=== PATIENT | female | born 1935 | race Caucasian/White ===

== ENCOUNTER 2019-04-09 09:33 | Day surgery (SDC) | payer OTHER ==
--- NOTE | 2019-04-08 13:00 | EKG ---
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
[2019-04-09] MEDS ORDERED: Ringers Lactate 1,000 ML IV ONE (09:39)
--- OUTSIDE RECORDS SUMMARY | 2019-04-09 09:45 | XMS REPORT ---
:1935 Author Organization eClinicalWorks Care Team Providers Name Role Phone Hilaria Ramirez Provider Role Unavailable Allergies, Adverse Reactions, Alerts Substance Reaction Event Type Sulfa Info Not Available Drug Allergy PCN Info Not Available Drug Allergy Zithromax Info Not Available Drug Allergy Biaxin Info Not Available Drug Allergy Problems Problem Type Condition Code Onset Dates Condition Status Problem Chronic back pain M54.9 Active Assessment Seasonal allergies J30.2 Active Problem Irritable bowel K58.9 Active Problem Pain in right knee M25.561 Active Problem Constipation K59.00 Active Problem Osteoporosis M81.0 Active Problem Insomnia G47.00 Active Problem Fibromyalgia M79.7 Active Problem Glaucoma H40.9 Active Problem Scoliosis, unspecified scoliosis M41.9 Active type, unspecified spinal region Problem Chronic constipation K59.09 Active Problem Seasonal allergies J30.2 Active Problem Low back pain M54.5 Active Problem Knee pain M25.569 Active Problem GERD (gastroesophageal reflux K21.9 Active disease) Problem 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 Problem Allergic rhinitis J30.9 Active Problem Chronic obstructive pulmonary J44.9 Active disease, unspecified COPD type Problem Pain in left knee M25.562 Active Problem Hypothyroidism, unspecified type E03.9 Active Problem Pulmonary nodules R91.8 Active Problem Abnormal heart rhythm I49.9 Active Problem Migraines G43.909 Active Problem Other chronic pain G89.29 Active Problem Spinal stenosis of lumbar region, M48.061 Active unspecified whether neurogenic claudication present Medications Medication Code Code Instructions Start End Status Dosage System Date Date Amitiza [facility] 04144690711 24 MCG Orally December Active 1 capsule Twice a day , with food 2017 2017 Fluconazole [facility] 75433358976 150 MG Orally Active 1 tablet Align [facility] 19447049810 - Orally Active not defined Pepcid AC [facility] 77149192357 10 MG Orally Active 1 tablet as Twice a day needed Vitamin D3 [facility] 06383395425 5000 UNIT/ML Active 0.1 ml Orally Once a day Restasis ND 80827205781 0.05 % Active 1 drop into Ophthalmic affected eye Twice a day Ultram [facility] 23777340191 50 MG Orally Active 1 tablet as every 6 hrs needed Linzess ND 82791121973 290 mcg orally Active 1 cap QD Saline Nasal ND 77629591159 0.65 % Nasally Active 2 sprays in Christmas every 2 hrs each nostril as needed Sravanthi-[place] ND 0 Active not defined Antacid Mometasone ND 55102887166 0.1 % Active 1 application Furoate Externally to affected Once a day area Betamethasone ND 49098291473 0.1 % Active 1 application Valerate Externally to affected Once a day area Clonazepam ND 15275527314 0.5 MG Orally Active 1 tablet at Once a day bedtime [place] [facility] 66853881757 5-325 MG Active 1 tablet as Orally every 6 needed hrs Magnesium [facility] [address]-40 400 MG Orally Active not defined Bactroban [facility] 59097348477 2 % Externally Active 1 application Three times a to affected day area Levothyroxine ND 91927730908 25 MCG Orally December Active 1/2 tablet on Sodium Once a day , an empty 2017 stomach in the morning Vitamin A [facility] 85604962950 71837 UNIT Active 1 capsule Orally Once a day Lutein ND 86506763728 20 MG Orally Active 1 capsule Once a day with a meal Lyrica ND 64614712816 50 MG Orally Active 1 capsule Twice a day B50 Complex TR [facility] 24814815673 - Orally Active not defined Zioptan [facility] 26695505992 0.0015 % Active 1 drop into Ophthalmic affected eye Once a day ProAir HFA [facility] 00123804813 108 (90 Base) Active 2 puffs as MCG/ACT needed Inhalation every 6 hrs Aloe Vera ND 09065878494 25 MG Orally Active not defined Movantik ND 07408846090 25 mg Orally December Active 1 tablet in Once a day 19, 18, the morning 2017 2018 Flonase ND 90177923042 50 MCG/ACT Active 1 spray in Nasally Once a each nostril day Flax Seed Oil ND 80240077068 1000 MG Orally Active not defined Sennosides-Docus [facility] 41314184556 8.6-50 MG Active 1 tablet in ate Sodium Orally Once a the evening day as needed Maxalt-DROP FORGE HAND [facility] 81372821325 10 MG Orally Active 1 tablet on Once a day the tongue and allow to dissolve as needed one time Refresh [facility] 61907247043 1.4-0.6 % Active 1 drop into Ophthalmic 24 affected eye time(s) a day as needed atarax NDC 0 25mg Po QID Active 1 prn Levothyroxine [facility] 15812891904 25 MCG Orally Active 1 tablet on Sodium Once a day an empty stomach in the morning FreshKote [facility] 91391617289 2.7-2 % Active 1 drop into Ophthalmic 24 affected eye time(s) a day as needed Lastacaft [facility] 09603597540 0.25 % Active 1 drop into Ophthalmic affected eye Once a day Results No Known Results Summary Purpose eClinicalWorks Submission
--- OUTSIDE RECORDS SUMMARY | 2019-04-09 09:45 | XMS REPORT ---
:1935 Author Organization eClinicalWorks Care Team Providers Name Role Phone Remedios Ng Provider Role Unavailable Allergies No Known Allergies Problems Problem Type Condition Code Onset Dates Condition Status Problem Abnormal CT of the chest R93.89 Active Problem Low back pain M54.5 Active Problem Pain in right knee M25.561 Active Problem Constipation K59.00 Active Problem Insomnia G47.00 Active Problem Other chronic pain G89.29 Active Problem Osteoporosis M81.0 Active Problem Knee pain M25.569 Active Problem GERD (gastroesophageal reflux K21.9 Active disease) Problem Seasonal allergies J30.2 Active Problem Chronic pain syndrome G89.4 Active Problem Hypothyroidism, unspecified type E03.9 Active Problem Scoliosis, unspecified scoliosis M41.9 Active type, unspecified spinal region Problem Blackout spell R55 Active Problem Chronic constipation K59.09 Active Problem Glaucoma H40.9 Active Problem Allergic rhinitis J30.9 Active Problem 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 Problem Fibromyalgia M79.7 Active Problem Pain in left knee M25.562 Active Problem Spinal stenosis of lumbar region, M48.061 Active unspecified whether neurogenic claudication present Problem Pulmonary nodules R91.8 Active Problem Chronic obstructive pulmonary J44.9 Active disease, unspecified COPD type Problem Migraines G43.909 Active Problem Chronic back pain M54.9 Active Problem Abnormal heart rhythm I49.9 Active Problem Irritable bowel K58.9 Active Medications No Known Medications Results No Known Results Summary Purpose eClinicalWorks Submission
--- OUTSIDE RECORDS SUMMARY | 2019-04-09 09:45 | XMS REPORT ---
:1935 Author Organization eClinicalWorks Care Team Providers Name Role Phone Berenice Remedios Provider Role Unavailable Allergies, Adverse Reactions, Alerts Substance Reaction Event Type PCN Info Not Available Drug Allergy Zithromax Info Not Available Drug Allergy Biaxin Info Not Available Drug Allergy Problems Problem Type Condition Code Onset Dates Condition Status Assessment Scoliosis, unspecified scoliosis M41.9 Active type, unspecified spinal region Assessment Spinal stenosis of lumbar region, M48.061 Active unspecified whether neurogenic claudication present Assessment Pain in right knee M25.561 Active Assessment Low back pain M54.5 Active Assessment Pain in left knee M25.562 Active Assessment Chronic obstructive pulmonary J44.9 Active disease, unspecified COPD type Assessment Chronic constipation K59.09 Active Assessment Hypothyroidism, unspecified type E03.9 Active Problem Chronic back pain M54.9 Active Problem Low back pain M54.5 Active Problem Constipation K59.00 Active Problem Pain in right knee M25.561 Active Problem Insomnia G47.00 Active Problem GERD (gastroesophageal reflux K21.9 Active disease) Problem Osteoporosis M81.0 Active Problem Chronic pain syndrome G89.4 Active Problem 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 Problem Scoliosis, unspecified scoliosis M41.9 Active type, unspecified spinal region Problem Chronic constipation K59.09 Active Problem Seasonal allergies J30.2 Active Problem Other chronic pain G89.29 Active Problem Allergic rhinitis J30.9 Active Problem Knee pain M25.569 Active Problem Fibromyalgia M79.7 Active Problem Glaucoma H40.9 Active Problem Chronic obstructive pulmonary J44.9 Active disease, unspecified COPD type Assessment Chronic pain syndrome G89.4 Active Problem Pain in left knee M25.562 Active Problem Hypothyroidism, unspecified type E03.9 Active Problem Pulmonary nodules R91.8 Active Problem Irritable bowel K58.9 Active Problem Migraines G43.909 Active Problem Spinal stenosis of lumbar region, M48.061 Active unspecified whether neurogenic claudication present Problem Abnormal heart rhythm I49.9 Active Medications Medication Code Code Instructions Start End Status Dosage System Date Date Sravanthi-[place] [facility] 0 Active not defined Antacid Levothyroxine [facility] 19865725732 25 MCG Orally Active 1 tablet on Sodium Once a day an empty stomach in the morning ProAir HFA [facility] 77228523792 108 (90 Base) Active 2 puffs as MCG/ACT needed Inhalation every 6 hrs Fluconazole [facility] 12028981720 150 MG Orally Active 1 tablet Flonase ND 46548772090 50 MCG/ACT Active 1 spray in Nasally Once a each nostril day Vitamin A [facility] 23727877871 58152 UNIT Active 1 capsule Orally Once a day Aloe Vera [facility] 94948994103 25 MG Orally Active not defined Mometasone [facility] 55368874525 0.1 % Active 1 application Furoate Externally to affected Once a day area Rizatriptan [facility] 74837919511 10 MG Active TAKE ONE Benzoate TABLET BY MOUTH AT ONSET OF HEADACHE; MAY REPEAT IN 2 HOURS NEEDED MAX OF THREE TABLETS IN 24 HOURS atarax ND 0 25mg Po QID Active 1 prn Ultram [facility] 68438551655 50 MG Orally Active 1 tablet as every 6 hrs needed Restasis [facility] 68955596895 0.05 % Active 1 drop into Ophthalmic affected eye Twice a day Refresh [facility] 33175564473 1.4-0.6 % Active 1 drop into Ophthalmic 24 affected eye time(s) a day as needed Lutein [facility] 59849187218 20 MG Orally Active 1 capsule Once a day with a meal Levothyroxine [facility] 34694950259 25 MCG Orally Diana Active 1/2 tablet on Sodium Once a day 23, an empty 2018 stomach in the morning FreshKote [facility] 17583456343 2.7-2 % Active 1 drop into Ophthalmic 24 affected eye time(s) a day as needed Sennosides-Docus [facility] 93731440112 8.6-50 MG Active 1 tablet in ate Sodium Orally Once a the evening day as needed Pepcid AC [facility] 96794514385 10 MG Orally Active 1 tablet as Twice a day needed B50 Complex TR [facility] 44588829583 - Orally Active not defined Maxalt-REPAIR SERVICE DISPATCHER [facility] 98287370906 10 MG Orally Active 1 tablet on Once a day the tongue and allow to dissolve as needed one time Bactroban [facility] 81718777453 2 % Externally Active 1 application Three times a to affected day area Linzess [facility] 01917189504 290 mcg orally Active 1 cap QD Magnesium [facility] [address]-73 400 MG Orally Active not defined Saline Nasal [facility] 33387459355 0.65 % Nasally Active 2 sprays in [place] every 2 hrs each nostril as needed Lyrica [facility] 32554484492 50 MG Orally Active 1 capsule Twice a day Align [facility] 83382453817 - Orally Active not defined Vitamin D3 [facility] 82545543170 5000 UNIT/ML Active 0.1 ml Orally Once a day Flax Seed Oil [facility] 31730438353 1000 MG Orally Active not defined Zioptan [facility] 34340190197 0.0015 % Active 1 drop into Ophthalmic affected eye Once a day Clonazepam [facility] 20249238651 0.5 MG Orally Active 1 tablet at Once a day bedtime Betamethasone [facility] 92633575820 0.1 % Active 1 application Valerate Externally to affected Once a day area Lastacaft [facility] 00404385463 0.25 % Active 1 drop into Ophthalmic affected eye Once a day [place] [facility] 42923881242 5-325 MG Active 1 tablet as Orally every 6 needed hrs Results No Known Results Summary Purpose eClinicalWorks Submission
--- OUTSIDE RECORDS SUMMARY | 2019-04-09 09:45 | XMS REPORT ---
:1935 Author Organization [employer] Care Team Providers Name Role Phone Remedios Ng Provider Role Unavailable Allergies No Known Allergies Problems Problem Type Condition Code Onset Dates Condition Status Problem Irritable bowel K58.9 Active Problem Glaucoma H40.9 Active Problem 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 Problem Knee pain M25.569 Active Problem Chronic constipation K59.09 Active Problem GERD (gastroesophageal reflux K21.9 Active disease) Problem Pain in right knee M25.561 Active Problem Low back pain M54.5 Active Problem Allergic rhinitis J30.9 Active Problem Constipation K59.00 Active Problem Fibromyalgia M79.7 Active Problem Osteoporosis M81.0 Active Problem Insomnia G47.00 Active Problem Pulmonary nodules R91.8 Active Problem Chronic obstructive pulmonary J44.9 Active disease, unspecified COPD type Problem Scoliosis, unspecified scoliosis M41.9 Active type, unspecified spinal region Problem Hypothyroidism, unspecified type E03.9 Active Problem Spinal stenosis of lumbar region, M48.061 Active unspecified whether neurogenic claudication present Problem Abnormal heart rhythm I49.9 Active Problem Pain in left knee M25.562 Active Problem Migraines G43.909 Active Problem Other chronic pain G89.29 Active Problem Chronic back pain M54.9 Active Medications Medication Code Code Instructions Start End Status Dosage System Date Date Levothyroxine [facility] 45912374901 25 MCG Orally December Active 1/2 tablet Sodium Once a day 2017 on an empty stomach in the morning Results No Known Results Summary Purpose [employer] Submission
--- OUTSIDE RECORDS SUMMARY | 2019-04-09 09:45 | XMS REPORT ---
[...] back pain M54.9 Active Medications Medication Code System Code Instructions Start End Date Status Dosage Date Amitiza [facility] 59661141473 24 MCG Orally January 02, April 02, Active 1 capsule Twice a day 2017 2017 with food Results No Known Results Summary Purpose eClinicalWorks Submission
--- OUTSIDE RECORDS SUMMARY | 2019-04-09 09:45 | XMS REPORT ---
:1935 [facility] Address [address] [place] [address] Care Team Providers Name Role Phone Unavailable Unavailable Unavailable Payers Payer Name Policy Type Policy Number Effective Date Expiration Date Problems This patient has no known problems. Allergies, Adverse Reactions, Alerts Allergy Name Allergy Status Severity Reaction(s) Onset Inactive Treating Comments Type Date Date Clinician Penicillins DA Active SV 2017-09 2-05 00:00: 00 sulfamethoxazol DA Active SV 2017-09 e 2- 00:00: 00 trimethoprim DA Active SV 2017-09 2-05 00:00: 00 clarithromycin DA Active SV 2017-09 2-05 00:00: 00 azithromycin DA Active SV 2017-09 2- 00:00: 00 levofloxacin DA Active SV 2017-09 2-05 00:00: 00 Penicillins DA Active SV 2017-09 2- 00:00: 00 sulfamethoxazol DA Active SV 2017-09 e 2- 00:00: 00 trimethoprim DA Active SV 2017-09 2- 00:00: 00 clarithromycin DA Active SV 2017-09 2- 00:00: 00 azithromycin DA Active SV 2017-09 2- 00:00: 00 levofloxacin DA Active SV 2017-09 2- 00:00: 00 Penicillins DA Active SV 8- 00:00: 00 sulfamethoxazol DA Active SV e 8- 00:00: 00 trimethoprim DA Active SV 8- 00:00: 00 clarithromycin DA Active SV 04-16 00:00: 00 azithromycin DA Active SV 2017-0 04-16 00:00: 00 levofloxacin DA Active SV 2017-04-16 00:00: 00 Medications This patient has no known medications.
--- OUTSIDE RECORDS SUMMARY | 2019-04-09 09:46 | XMS REPORT ---
:1935 Author Organization eClinicalWorks Care Team Providers Name Role Phone Berenice Remedios Provider Role Unavailable Allergies, Adverse Reactions, Alerts Substance Reaction Event Type PCN Info Not Available Drug Allergy Zithromax Info Not Available Drug Allergy Biaxin Info Not Available Drug Allergy Problems Problem Type Condition Code Onset Dates Condition Status Assessment Pulmonary nodules R91.8 Active Assessment Chronic constipation K59.09 Active Assessment Hypothyroidism, unspecified type E03.[address] of the chest R93.89 Active Assessment Acute conjunctivitis of right eye, H10.31 Active unspecified acute conjunctivitis type Problem Abnormal CT of the chest R93.89 Active Problem Low back pain M54.5 Active Problem Pain in right knee M25.561 Active Problem Other chronic pain G89.29 Active Problem Constipation K59.00 Active Problem Insomnia G47.00 Active Problem Chronic constipation K59.09 Active Problem Osteoporosis M81.0 Active Problem Knee pain M25.569 Active Problem GERD (gastroesophageal reflux K21.9 Active disease) Problem Polyarthralgia M25.50 Active Problem Seasonal allergies J30.2 Active Problem Pulmonary nodules R91.8 Active Problem Hypothyroidism, unspecified type E03.9 Active Problem Blackout spell R55 Active Problem Scoliosis, unspecified scoliosis M41.9 Active type, unspecified spinal region Problem Glaucoma H40.9 Active Problem Allergic rhinitis J30.9 Active Problem Chronic pain syndrome G89.4 Active Problem 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 Assessment Chronic pain syndrome G89.4 Active Problem Spinal stenosis of lumbar region, M48.061 Active unspecified whether neurogenic claudication present Assessment Polyarthralgia M25.50 Active Problem Fibromyalgia M79.7 Active Problem Chronic obstructive pulmonary J44.9 Active disease, unspecified COPD type Problem Pain in left knee M25.562 Active Problem Migraines G43.909 Active Problem Chronic back pain M54.9 Active Problem Abnormal heart rhythm I49.9 Active Problem Irritable bowel K58.9 Active Medications Medication Code Code Instructions Start End Status Dosage System Date Date Zioptan NDC 46683996538 0.0015 % Active 1 drop into Ophthalmic affected eye Once a day Align [facility] 38011046156 - Orally Active not defined Aloe Vera [facility] 04177497027 25 MG Orally Active not defined Refresh [facility] 57744471837 1.4-0.6 % Active 1 drop into Ophthalmic 24 affected eye time(s) a day as needed Lastacaft [facility] 11080031816 0.25 % Active 1 drop into Ophthalmic affected eye Once a day Ciprofloxacin [facility] 05074941246 0.3 % December Active 2 drops into HCl Ophthalmic 18, 25, affected eye Three times 2018 2018 daily x 7 days Fluconazole [facility] 64836001088 150 MG Orally Active 1 tablet Pepcid AC [facility] 64590779378 10 MG Orally Active 1 tablet as Twice a day needed Flax Seed Oil [facility] 32569013311 1000 MG Orally Active not defined Rizatriptan [facility] 99416476047 10 MG Active TAKE ONE Benzoate TABLET BY MOUTH AT ONSET OF HEADACHE; MAY REPEAT IN 2 HOURS NEEDED MAX OF THREE TABLETS IN 24 HOURS atarax ND 0 25mg Po QID Active 1 prn Betamethasone [facility] 10688026570 0.1 % Active 1 application Valerate Externally to affected Once a day area Bactroban [facility] 59705486246 2 % Externally Active 1 application Three times a to affected day area Linzess [facility] 15353780648 290 mcg orally Active 1 cap QD Maxalt-CLINICAL HAEMATOLOGIST [facility] 61086447802 10 MG Orally Active 1 tablet on Once a day the tongue and allow to dissolve as needed one time B50 Complex TR [facility] 67328530787 - Orally Active not defined Magnesium [facility] [address]-66 400 MG Orally Active not defined Flonase [facility] 13621255730 50 MCG/ACT Active 1 spray in Nasally Once a each nostril day Vitamin D3 [facility] 76703446688 5000 UNIT/ML Active 0.1 ml Orally Once a day Levothyroxine [facility] 54955600524 25 MCG Orally Active 1 tablet on Sodium Once a day an empty stomach in the morning Lutein [facility] 93949410266 20 MG Orally Active 1 capsule Once a day with a meal Vitamin A [facility] 51394232158 50502 UNIT Active 1 capsule Orally Once a day Sennosides-Docus [facility] 50695046163 8.6-50 MG Active 1 tablet in ate Sodium Orally Once a the evening day as needed Restasis ND 64513997482 0.05 % Active 1 drop into Ophthalmic affected eye Twice a day FreshKote [facility] 40691508868 2.7-2 % Active 1 drop into Ophthalmic 24 affected eye time(s) a day as needed Sravanthi-[place] [facility] 0 Active not defined Antacid [place] [facility] 26494852257 5-325 MG Active 1 tablet as Orally every 6 needed hrs Saline Nasal [facility] 29925878501 0.65 % Nasally Active 2 sprays in Cammal every 2 hrs each nostril as needed Mometasone [facility] 81780324053 0.1 % Active 1 application Furoate Externally to affected Once a day area Lyrica [facility] 86565929704 50 MG Orally Active 1 capsule Twice a day Ultram [facility] 07362275405 50 MG Orally Active 1 tablet as every 6 hrs needed ProAir HFA [facility] 87019307001 108 (90 Base) Active 2 puffs as MCG/ACT needed Inhalation every 6 hrs Levothyroxine [facility] 91394819586 25 MCG Orally Diana Active 1/2 tablet on Sodium Once a day 23, an empty 2018 stomach in the morning Clonazepam [facility] 76026999355 0.5 MG Orally Active 1 tablet at Once a day bedtime Results No Known Results Summary Purpose [employer]ClinicalWorks Submission
[2019-04-09] MEDS: OXYMETAZOLINE HCL 0.05% 15ML NAS ONE ×3 (09:55→10:05)
[2019-04-09] MEDS ORDERED: FENTANYL CITR 100 MCG/2 ML ONE (11:17)
[2019-04-09] MEDS ORDERED: PROPOFOL 200 MG/20 ML VIAL IV ONE (11:17)
[2019-04-09] MEDS ORDERED: LIDOCAINE 2% MPF 5 ML VIAL ONE (11:17)
[2019-04-09] MEDS ORDERED: ROCURONIUM 50 MG/5 ML VIAL IV ONE (11:18)
[2019-04-09] MEDS ORDERED: NA CHLORIDE 0.9% 500 ML ONE (11:29)
[2019-04-09] MEDS ORDERED: OXYMETAZOLINE HCL 0.05% 15ML NAS ONE (11:29)
[2019-04-09] MEDS ORDERED: LIDOCAINE 1% W/EPI 1:100,000 MDV 20 ML VIAL ONE (11:29)
[2019-04-09] MEDS ORDERED: ONDANSETRON 4 MG/2 ML VIAL ONE (13:08)
[2019-04-09] MEDS ORDERED: dexAMETHasone 4 MG/ML VIAL ONE ×2 (13:08→13:09)
--- NOTE | 2019-04-10 18:04 | OP ---
Date of Procedure: 04/09/2019 Surgeon: Christianne Zhao MD Preoperative Diagnoses: Chronic maxillary sinusitis and chronic conjunctivitis. Indication For Procedure: Ms. Lopez presented to the [facility] with a history of multiple prior sin us surgeries and complaints of chronic and recurrent pinkeye, postnasal drainage, and maxillary facia l pressure with prior sinus surgery in 2000 and 2010 by unknown surgeons. She was noted to have a th ick yellow mucus and crusting in the right maxillary sinus with a small amount of yellow mucus in the left maxillary sinus. The patient has multiple medication allergies including allergies to azithrom ycin, sulfa drugs, penicillin, fluoroquinolones, and Biaxin. A culture was collected at the time of the visit, demonstrating polymicrobial disease including prevotella, Staphylococcus aureus, parvimona s, streptococcus, and other streptococcus and staphylococcus species. She was treated with clindamyc in and underwent postoperative CT demonstrating significant opacification of the maxillary sinus with concern radiographically for fungal ball. Due to patient's advanced age, I discussed her case with her primary care physician who felt she was an acceptable risk for operative intervention. Description Of Procedure: The patient was brought to the operating room. She was placed under gener al anesthesia via oral endotracheal tube. The head of bed was turned 90 degrees. The nasal hairs we re trimmed and the bilateral nasal cavity was packed with Afrin-soaked pledgets. The 0-degree endosc ope was used to perform a nasal endoscopy on the left side. There were surgical changes including a large maxillary antrostomy and prior ethmoidectomy with minimal edema of the mucosa. On the right si de, there was severe crusting within the nasal cavity blocking the middle meatus with significant inf lammatory changes of the adjacent mucosa of the middle turbinates. A 70 degree endoscope was used fo r better visualization of the left lateral nasal wall and maxillary sinus. The patient was noted to have a large antrostomy, however with angled scope, the natural os was identified and was not in cont inuity with the antrostomy. There was thick clear to white mucus streaming from the natural os and r ecirculating through the created antrostomy. Therefore, a 90-degree [place] was used to remove thi s bridge of tissue in order to put the natural os incontinuity with her large prior posterior antrost eliana. Photo documentation of the mucus recirculation and following resection was obtained. Afrin-soa ked pledget was applied to the area and attention was turned to the right side. Culture was taken fr om the crusting and debris. The debris and crusting from the right maxillary sinus and right nasal c avity was noted to be foul smelling. Aerobic, anaerobic, and fungal cultures were all sent. After r emoving debris from the nasal cavity, an angled scope was used to view the previously created maxilla ry antrostomy. The maxillary sinus on the right was filled with thick brown crumbly debris. This wa s removed using a combination of curette and suction in order to remove the debris. The sinus cavity was forcefully irrigated in order to remove debris. There was persistent debris in the inferior lat eral aspect of the sinus and after re-evaluation of the patient's previous sinus CT scan, it was note d the patient had previously undergone inferior meatal windows working with a 70 degree scope. The i nferior turbinate was carefully elevated and the prior meatal window was identified. Thick brown cru sting and debris were removed through this inferior meatal window and this allowed complete removal o f the debris from the sinus. The sinus again was forcefully irrigated with multiple aliquots of ster ile saline through the inferior meatal window as well as through the middle meatus until the sinus ap peared clear from any further debris or significant pus. The mucosa of the maxillary sinus was sever alex edematous, friable, and erythematous. Consideration was made for placement of a Propel steroid e luting stent. However, my concern was that one this would result in persistence or recurrence of her crusting and the patient was not likely to tolerate removal of the stent in the clinic setting. The refore, a XeroGel dissolvable sinus dressing was packed into the right sinus cavity and dexamethasone 4 mg/mL was used to soak the sponge in order to provide topical steroid therapy to this sinus during the immediate postop period. The nasopharynx was carefully suctioned. The right ethmoid cavity was examined and the minimal amount of purulence within the ethmoid defect was suctioned. There was min imal inflammation or apparent infection within the right ethmoid. The patient was then returned to c are of anesthesia for awakening and extubation in the operating room, which proceeded without difficu lty. Disposition: The patient will be discharged home later today in the care of her family and start chang ine irrigations on postop day 1. Given the findings of the surgery including severe inflammation and crusting and debris within the maxillary sinus and within the inferior meatus, I suspect the patient 's ocular symptoms are closely related to her sinus symptoms. I will plan to follow a copy of the fi ndings to her 3d modeler, Dr. Velasquez Villeda with consideration for delay of eye procedures unti l the sinus has had a chance to heal. This may result in spontaneous improvement of the ocular sympt oms. If the ocular symptoms persist and the sinus appears healthy DTR and other strategies may becom e necessary as previous inferior medial windows and inflammation may have caused scarring within the lacrimal drainage system. SIRI/DOM Voice ID: [id number] Report ID: [id number]
== END 2019-04-09 14:58 | disposition home or self-care (01) ==
LOC: OR 09:33
PROVIDERS: ATTEND Otolaryngology
PROC: 09BQ8ZZ Excision of Right Maxillary Sinus, Via Natural or Artificial Opening Endoscopic (ICD-10-PCS; 2019-04-09)
PROC: 09BR8ZZ Excision of Left Maxillary Sinus, Via Natural or Artificial Opening Endoscopic (ICD-10-PCS; principal; 2019-04-09 12:15)
DX: J32.0 Chronic maxillary sinusitis (principal); H10.409 Unspecified chronic conjunctivitis, unspecified eye; E03.9 Hypothyroidism, unspecified; Z79.899 Other long term (current) drug therapy
CPT/HCPCS: 31267; 93005; 87070; 87205; 82962; 88305; 87075; 87077; 87186; 87102; J2704; J3010; J2405

== ENCOUNTER 2019-09-21 09:18 | Emergency (ER) | payer OTHER ==
--- OUTSIDE RECORDS SUMMARY | 2019-09-21 09:20 | XMS REPORT ---
[...] CT of the chest R93.[address] of the chest R93.89 Active Problem Low back pain M54.5 Active Problem Pain in right knee M25.561 Active Problem Other chronic pain G89.29 Active Problem Chronic constipation K59.09 Active Problem Insomnia G47.00 Active Problem Osteoporosis M81.0 Active Problem Scoliosis, unspecified scoliosis M41.9 Active type, unspecified spinal region Problem GERD (gastroesophageal reflux K21.9 Active disease) Problem Allergic rhinitis J30.9 Active Problem Knee pain M25.569 Active Problem Blackout spell R55 Active Problem Polyarthralgia M25.50 Active Problem Chronic obstructive pulmonary J44.9 Active disease, unspecified COPD type Problem Pulmonary nodules R91.8 Active Problem Osteoporosis without current M81.0 Active pathological fracture, unspecified osteoporosis type Problem Hypothyroidism, unspecified type E03.9 Active Problem 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 Problem Glaucoma H40.9 Active Problem Seasonal allergies J30.2 Active Problem Chronic pain syndrome G89.4 Active Assessment Polyarthralgia M25.50 Active Problem Abnormal heart rhythm I49.9 Active Assessment Osteoporosis without current M81.0 Active pathological fracture, unspecified osteoporosis type Problem Fibromyalgia M79.7 Active Problem Pain in left knee M25.562 Active Assessment Chronic pain syndrome G89.4 Active Problem Spinal stenosis of lumbar region, M48.061 Active unspecified whether neurogenic claudication present Problem Chronic back pain M54.9 Active Problem Constipation K59.00 Active Problem Irritable bowel K58.9 Active Problem Migraines G43.909 Active Medications Medication Code Code Instructions Start End Status Dosage System Date Date Pepcid AC [facility] 11082351119 10 MG Orally Active 1 tablet as Twice a day needed Zioptan [facility] 61424792693 0.0015 % Active 1 drop into Ophthalmic affected eye Once a day Refresh [facility] 09573622274 1.4-0.6 % Active 1 drop into Ophthalmic 24 affected eye time(s) a day as needed Vitamin A [facility] 18149888324 10187 UNIT Active 1 capsule Orally Once a day FreshKote [facility] 88164274188 2.7-2 % Active 1 drop into Ophthalmic 24 affected eye time(s) a day as needed Ultram [facility] 72979204397 50 MG Orally Active 1 tablet as every 6 hrs needed Clonazepam [facility] 37375659088 0.5 MG Orally Active 1 tablet at Once a day bedtime B50 Complex TR [facility] 10780148847 - Orally Active not defined Flax Seed Oil [facility] 78649173610 1000 MG Orally Active not defined ProAir HFA [facility] 00139223562 108 (90 Base) Active 2 puffs as MCG/ACT needed Inhalation every 6 hrs Betamethasone [facility] 43443480940 0.1 % Active 1 application Valerate Externally to affected Once a day area atarax ND 0 25mg Po QID Active 1 prn Fluconazole [facility] 99199294956 150 MG Orally Active 1 tablet Bactroban [facility] 85931770043 2 % Externally Active 1 application Three times a to affected day area Maxalt-[employer] [facility] 75859113102 10 MG Orally Active 1 tablet on Once a day the tongue and allow to dissolve as needed one time Magnesium [facility] [address]-00 400 MG Orally Active not defined Levothyroxine [facility] 96438821780 25 MCG Orally Active 1 tablet on Sodium Once a day an empty stomach in the morning Flonase [facility] 85697020994 50 MCG/ACT Active 1 spray in Nasally Once a each nostril day Mometasone [facility] 37816399154 0.1 % Active 1 application Furoate Externally to affected Once a day area Linzess [facility] 07108509530 290 mcg orally Active 1 cap QD Aloe Vera [facility] 77619549047 25 MG Orally Active not defined Lutein [facility] 07718685835 20 MG Orally Active 1 capsule Once a day with a meal Vitamin D3 [facility] 01207613349 5000 UNIT/ML Active 0.1 ml Orally Once a day Lyrica [facility] 64261018129 50 MG Orally Active 1 capsule Twice a day Saline Nasal [facility] 99611372050 0.65 % Nasally Active 2 sprays in [place] every 2 hrs each nostril as needed Sennosides-Docus [facility] 55440459885 8.6-50 MG Active 1 tablet in ate Sodium Orally Once a the evening day as needed Restasis [facility] 86181038208 0.05 % Active 1 drop into Ophthalmic affected eye Twice a day Rizatriptan [facility] 53687206365 10 MG Active TAKE ONE Benzoate TABLET BY MOUTH AT ONSET OF HEADACHE; MAY REPEAT IN 2 HOURS NEEDED MAX OF THREE TABLETS IN 24 HOURS Sravanthi-[place] [facility] 0 Active not defined Antacid [place] [facility] 35528614762 5-325 MG Active 1 tablet as Orally every 6 needed hrs Lastacaft [facility] 43858755419 0.25 % Active 1 drop into Ophthalmic affected eye Once a day Align [facility] 11783868615 - Orally Active not defined Vitamin D [facility] [address]-84 1000 UNIT Active 1 capsule Orally Once a day Levothyroxine [facility] 93362633502 25 MCG Orally December Active 1/2 tablet on Sodium Once a day 23, an empty 2017 stomach in the morning Results No Known Results Summary Purpose eClinicalWorks Submission
--- OUTSIDE RECORDS SUMMARY | 2019-09-21 09:20 | XMS REPORT ---
:1935 [facility] Address [address] [place] [address] Care Team Providers Name Role Phone Unavailable Unavailable Unavailable Payers Payer Name Policy Type Policy Number Effective Date Expiration Date Problems This patient has no known problems. Allergies, Adverse Reactions, Alerts Allergy Name Allergy Status Severity Reaction(s) Onset Inactive Treating Comments Type Date Date Clinician Penicillins DA Active SV 2017-09 2-05 00:00: 00 sulfamethoxazol DA Active SV 2017-09 e 2-05 00:00: 00 trimethoprim DA Active SV 2017-09 2-05 00:00: 00 clarithromycin DA Active SV 2017-09 2-05 00:00: 00 azithromycin DA Active SV 2017-09 2-05 00:00: 00 levofloxacin DA Active SV 2017-09 [...]
--- NOTE | 2019-09-21 10:52 | ER ---
Nurse's Notes [facility] Name: Suma Lopez Age: 83 yrs Sex: Female : 1935 Arrival Date: 09/21/2019 Time: 09:22 Bed 23 Private MD: Diagnosis: Fall on same level from slipping, tripping and stumbling;Torus fracture of lower end of left radius Presentation: 09/21 09:56 Presenting complaint: Patient states: tripped and fell Friday night onto carpet, Friday night started having pain to left arm/wrist, pain radiates to shoulder blade. Transition of care: patient was not received from another setting of care. Onset of symptoms was September 18, 2019. Risk Assessment: Do you want to hurt yourself or someone else? Patient reports no desire to harm self or others. Initial Sepsis Screen: Does the patient meet any 2 criteria? No. Patient's initial sepsis screen is negative. Does the patient have a suspected source of infection? No. Patient's initial sepsis screen is negative. Care prior to arrival: None. 09:56 Method Of Arrival: Ambulatory iw 09:56 Acuity: PARK 4 iw Historical: - Allergies: 09:58 PENICILLINS; iw 09:58 Bactrim; iw 09:58 Zithromax; iw 09:58 Biaxin; iw 09:58 Doxycycline; iw 09:58 TETRACYCLINES; iw - Home Meds: 10:10 hydrocodone-acetaminophen 5-325 mg Oral tab 1 tab every 6 hours [Active]; levothyroxine ca1 oral 12.5 1 cap once daily [Active]; Restasis 0.05 % ophthalmic dpet 1 drop 2 times per day [Active]; Refresh Tears 0.5 % ophthalmic drop [Active]; Zioptan (PF) 0.0015 % ophthalmic dpet 1 drop once daily [Active]; Lyrica 50mg Oral 1 cap daily [Active]; Align 4 mg oral cap daily [Active]; Azo-Standard Oral twice a day [Active]; - Immunization history:: Adult Immunizations. - Social history:: Smoking status: Patient/guardian denies using tobacco. - Ebola Screening: : Patient negative for fever greater than or equal to 101.5 degrees Fahrenheit, and additional compatible Ebola Virus Disease symptoms Patient denies exposure to infectious person Patient denies travel to an Ebola-affected area in the 21 days before illness onset No symptoms or risks identified at this time. Screenin:04 Abuse screen: Denies threats or abuse. Denies injuries from another. Nutritional ca1 screening: No deficits noted. Tuberculosis screening: No symptoms or risk factors identified. Fall Risk Fall in past 12 months (25 points). Ambulatory Aid- Crutches/Cane/Walker (15 pts). Assessment: 10:04 General: Appears in no apparent distress. comfortable, Behavior is calm, cooperative, ca1 appropriate for age. Pain: Complains of pain in left arm Pain currently is 5 out of 10 on a pain scale. Pain began 1 day ago. Aggravated by weight bearing. Neuro: Level of Consciousness is awake, alert, obeys commands, Oriented to person, place, time, situation, Appropriate for age. Derm: Skin is intact, is healthy with good turgor, Skin is pink, warm \T\ dry. Musculoskeletal: Circulation, motion, and sensation intact. Capillary refill < 3 seconds, Range of motion: intact in all extremities. 10:55 Reassessment: Patient appears in no apparent distress at this time. Patient is alert, ca1 oriented x 3, equal unlabored respirations, skin warm/dry/pink. Vital Signs: 09:59 BP 150 / 89; Pulse 71; Resp 16; Temp 98.2; Pulse Ox 98% on R/A; Weight 47.63 kg; Height iw 5 ft. 3 in. (160.02 cm); Pain 5/10; 10:55 BP 142 / 85; Pulse 76; Resp 17 S; Pulse Ox 99% on R/A; ca1 09:59 Body Mass Index 18.60 (47.63 kg, 160.02 cm) iw ED Course: 09:22 Patient arrived in ED. mr 09:57 Triage completed. iw 09:59 Arm band placed on. iw 10:01 Radhika Nielsen FNP-C is PHCP. snw 10:01 Abhishek Benitez MD is Attending Physician. snw 10:01 Radhika Nielsen FNP-C is PHCP. snw 10:04 Merari Vasquez RN is Primary Nurse. ca1 10:04 Patient has correct armband on for positive identification. Bed in low position. Call ca1 light in reach. Side rails up X 1. Pulse ox on. NIBP on. Warm blanket given. 10:04 No provider procedures requiring assistance completed. Patient did not have IV access ca1 during this emergency room visit. 10:50 Forearm Left XRAY In Process Unspecified. EDMS 10:50 Chest Single View XRAY In Process Unspecified. EDMS 10:52 Velcro wrist splint applied to left wrist. ca1 Administered Medications: No medications were administered Outcome: 10:51 Discharge ordered by . gonzalo 11:02 Discharged to home ambulatory. ca1 11:02 Condition: stable 11:02 Discharge instructions given to patient, Instructed on discharge instructions, follow up and referral plans. Demonstrated understanding of instructions, follow-up care. 11:02 Patient left the ED. ca1 Signatures: Dispatcher [employer] EDDE Radhika Nielsen, VON NUNEZP-Carla Rodriguez Keeley Hilliard, RN RN iw Merari Vasquez RN RN ca1
--- NOTE | 2019-09-21 10:52 | EDPHYS ---
Physician Documentation [facility] Name: Suma Lopez Age: 83 yrs Sex: Female : 1935 Arrival Date: 09/21/2019 Time: 09:22 Bed 23 Private MD: Abhishek Crandall HPI: 09/21 10:10 This 83 yrs old Female presents to ER via Ambulatory with complaints of Fall snw Injury. 10:10 Details of fall: The patient fell from an upright position, tripped over cane and snw landed on left arm on carpeted area, initially no pain and then hours later the left wrist became tender and has remained so. Onset: The symptoms/episode began/occurred suddenly, and became persistent. Associated injuries: The patient sustained left wrist, painful injury. Severity of symptoms: At their worst the symptoms were mild, moderate. pt had carpal tunnel surgery on same arm. The patient has not recently seen a physician. pt sees Dr. Stout. Historical: - Allergies: 09:58 PENICILLINS; iw 09:58 Bactrim; iw 09:58 Zithromax; iw 09:58 Biaxin; iw 09:58 Doxycycline; iw 09:58 TETRACYCLINES; iw - Home Meds: 10:10 hydrocodone-acetaminophen 5-325 mg Oral tab 1 tab every 6 hours [Active]; levothyroxine ca1 oral 12.5 1 cap once daily [Active]; Restasis 0.05 % ophthalmic dpet 1 drop 2 times per day [Active]; Refresh Tears 0.5 % ophthalmic drop [Active]; Zioptan (PF) 0.0015 % ophthalmic dpet 1 drop once daily [Active]; Lyrica 50mg Oral 1 cap daily [Active]; Align 4 mg oral cap daily [Active]; Azo-Standard Oral twice a day [Active]; - Immunization history:: Adult Immunizations. - Social history:: Smoking status: Patient/guardian denies using tobacco. - Ebola Screening: : Patient negative for fever greater than or equal to 101.5 degrees Fahrenheit, and additional compatible Ebola Virus Disease symptoms Patient denies exposure to infectious person Patient denies travel to an Ebola-affected area in the 21 days before illness onset No symptoms or risks identified at this time. ROS: 10:09 Constitutional: Negative for fever, chills, and weight loss, Eyes: Negative for injury, snw pain, redness, and discharge, ENT: Negative for injury, pain, and discharge, Neck: Negative for injury, pain, and swelling, Cardiovascular: Negative for chest pain, palpitations, and edema, Respiratory: Negative for shortness of breath, cough, wheezing, and pleuritic chest pain, Abdomen/GI: Negative for abdominal pain, nausea, vomiting, diarrhea, and constipation, Back: Negative for injury and pain, : Negative for injury, bleeding, discharge, and swelling, Skin: Negative for injury, rash, and discoloration, Neuro: Negative for headache, weakness, numbness, tingling, and seizure, Psych: Negative for depression, anxiety, suicide ideation, homicidal ideation, and hallucinations. 10:09 MS/extremity: Positive for injury or acute deformity, tenderness, of the left wrist. Exam: 10:09 Constitutional: This is a well developed, well nourished patient who is awake, alert, snw and in no acute distress. Head/Face: Normocephalic, atraumatic. Eyes: Pupils equal round and reactive to light, extra-ocular motions intact. Lids and lashes normal. Conjunctiva and sclera are non-icteric and not injected. Cornea within normal limits. Periorbital areas with no swelling, redness, or edema. ENT: Nares patent. No nasal discharge, no septal abnormalities noted. Tympanic membranes are normal and external auditory canals are clear. Oropharynx with no redness, swelling, or masses, exudates, or evidence of obstruction, uvula midline. Mucous membranes moist. Neck: Trachea midline, no thyromegaly or masses palpated, and no cervical lymphadenopathy. Supple, full range of motion without nuchal rigidity, or vertebral point tenderness. No Meningismus. Chest/axilla: Normal chest wall appearance and motion. Nontender with no deformity. No lesions are appreciated. Cardiovascular: Regular rate and rhythm with a normal S1 and S2. No gallops, murmurs, or rubs. Normal PMI, no JVD. No pulse deficits. Respiratory: Lungs have equal breath sounds bilaterally, clear to auscultation and percussion. No rales, rhonchi or wheezes noted. No increased work of breathing, no retractions or nasal flaring. Abdomen/GI: Soft, non-tender, with normal bowel sounds. No distension or tympany. No guarding or rebound. No evidence of tenderness throughout. Back: No spinal tenderness. No costovertebral tenderness. Full range of motion. Skin: Warm, dry with normal turgor. Normal color with no rashes, no lesions, and no evidence of cellulitis. Neuro: Awake and alert, GCS 15, oriented to person, place, time, and situation. Cranial nerves II-XII grossly intact. Motor strength 5/5 in all extremities. Sensory grossly intact. Cerebellar exam normal. Normal gait. Psych: Awake, alert, with orientation to person, place and time. Behavior, mood, and affect are within normal limits. 10:09 Musculoskeletal/extremity: Extremities: grossly normal except: noted in the left wrist: tenderness, ROM: no acute changes, Circulation is intact in all extremities. Sensation intact. Vital Signs: 09:59 BP 150 / 89; Pulse 71; Resp 16; Temp 98.2; Pulse Ox 98% on R/A; Weight 47.63 kg; Height iw 5 ft. 3 in. (160.02 cm); Pain 5/10; 10:55 BP 142 / 85; Pulse 76; Resp 17 S; Pulse Ox 99% on R/A; ca1 09:59 Body Mass Index 18.60 (47.63 kg, 160.02 cm) iw MDM: 10:01 Patient medically screened. snw 10:01 Patient medically screened. foster 10:53 Data reviewed: vital signs, nurses notes. Data interpreted: Pulse oximetry: on room air snw is 98 %. Interpretation: normal. Counseling: I had a detailed discussion with the patient and/or guardian regarding: the historical points, exam findings, and any diagnostic results supporting the discharge/admit diagnosis, the presence of at least one elevated blood pressure reading (>120/80) during this emergency department visit, radiology results, the need for outpatient follow up, to return to the emergency department if symptoms worsen or persist or if there are any questions or concerns that arise at home. Special discussion: I have referred the patient to see his PCP for further evaluation of high blood pressure. Based on the history and exam findings, there is no indication for further emergent testing or inpatient evaluation. I discussed with the patient/guardian the need to see the orthopedic surgeon for further evaluation of the symptoms. I discussed with the patient/guardian the need to see the primary care provider for further evaluation of the symptoms. 09/21 10:01 Order name: Forearm Left XRAY snw 09/21 10:02 Order name: Chest Single View XRAY snw 09/21 10:44 Order name: Wrist Splint: left - may place over pt's neoprene glove; Complete Time: snw 10:52 Administered Medications: No medications were administered Disposition: 09/22 07:15 Co-signature as Attending Physician, Abhishek Benitez MD I agree with the assessment and foster plan of care. Disposition: 09/21/19 10:51 Discharged to Home. Impression: Fall on same level from slipping, tripping and stumbling, Torus fracture of lower end of left radius. - Condition is Stable. - Discharge Instructions: Elastic Bandage and RICE, Forearm Fracture, Fall Prevention in the Home. - Medication Reconciliation Form, Thank You Letter, Antibiotic Education, Prescription Opioid Use form. - Follow up: Private Physician; When: 2 - 3 days; Reason: Recheck today's complaints, Continuance of care, Re-evaluation by your physician. Follow up: Emergency Department; When: As needed; Reason: Worsening of condition. Signatures: Dispatcher [employer] Abhishek León MD MD cha Therrien, Shelly, COIL MACHINE OPERATOR-C COIL MACHINE OPERATOR-Csnw Keeley Hilliard, ROHAN RN iw Merari Vasquez RN RN ca1 Corrections: (The following items were deleted from the chart) 09/21 11:02 10:51 09/21/2019 10:51 Discharged to Home. Impression: Fall on same level from ca1 slipping, tripping and stumbling; Torus fracture of lower end of left radius. Condition is Stable. Forms are Medication Reconciliation Form, Thank You Letter, Antibiotic Education, Prescription Opioid Use. Follow up: Private Physician; When: 2 - 3 days; Reason: Recheck today's complaints, Continuance of care, Re-evaluation by your physician. Follow up: Emergency Department; When: As needed; Reason: Worsening of condition. snw
--- NOTE | 2019-09-21 11:03 | RAD REPORT ---
EXAM DESCRIPTION: RAD - Forearm Left - 09/21/2019 10:49 am CLINICAL HISTORY: PAIN Fall, pain COMPARISON: No comparisons FINDINGS: Radiocarpal arthritic changes are present. Soft tissue swelling is seen about the wrist. N o acute fracture definitively seen.
[2019-09-21 11:08] VITALS: TEMP 98.2
[2019-09-21 11:09] VITALS: BP 142/85; O2SAT 99
--- NOTE | 2019-09-21 11:21 | RAD REPORT ---
EXAM DESCRIPTION: RAD - Chest Single View - 09/21/2019 10:49 am CLINICAL HISTORY: fall Chest pain. COMPARISON: No comparisons FINDINGS: Portable technique limits examination quality. The lungs are emphysematous but grossly clear. The heart is normal in size. No displaced fractures. IMPRESSION: No acute intrathoracic process suspected.
== END 2019-09-21 11:02 | disposition home or self-care (01) ==
LOC: ER 09:18
PROC: 2W3DX1Z Immobilization of Left Lower Arm using Splint (ICD-10-PCS; principal; 2019-09-21)
DX: S52.522A Torus fracture of lower end of left radius, initial encounter for closed fracture (principal); W01.0XXA Fall on same level from slipping, tripping and stumbling without subsequent striking against object, initial encounter; Y93.01 Activity, walking, marching and hiking; Y92.9 Unspecified place or not applicable; Z88.0 Allergy status to penicillin; Z88.1 Allergy status to other antibiotic agents
CPT/HCPCS: 71045; 99283

== ENCOUNTER 2020-01-27 10:39 | Observation (INO) | payer OTHER ==
[2020-01-27 12:08] LABS: Absolute Lymphocytes (CBC) 0.8 K/uL (0.7-4.9); Basophils % 0.7 % (0-1.3); Hematocrit 36.4 % (36.0-45.0); Lymphocytes % 5.6 % (15.3-44.8); MPV 9.9 fL (7.6-11.3); RBC Red Blood Cell Count 3.82 M/uL (3.86-4.86)
[2020-01-27 12:17] LABS: Potassium 3.5 mmol/L (3.5-5.1)
[2020-01-27] MEDS ORDERED: NA CHLORIDE 0.9% 500 ML ONE (12:38)
[2020-01-27 12:42] LABS: Urine Bacteria 20-50 /HPF (<20)
[2020-01-27 12:43] LABS: Urine Culture Reflex Order REFLEXED
--- OUTSIDE RECORDS SUMMARY | 2020-01-27 12:57 | XMS REPORT ---
:1935 Author Organization [employer] Care Team Providers Name Role Phone Juan JoséRemedios hall Provider Role Unavailable Allergies, Adverse Reactions, Alerts Substance Reaction Event Type PCN Info Not Available Drug Allergy Zithromax Info Not Available Drug Allergy Biaxin Info Not Available Drug Allergy Problems Problem Type Condition Code Onset Dates Condition Statu s Assessment Elevated BP without diagnosis of R03.0 Active hypertension Assessment Abnormal CT of the chest R93.89 Act adi Assessment Hypothyroidism, unspecified type E03.[address] of the chest R93.89 Act adi Problem Low back pain M54.5 Active Problem Pain in right knee M25.561 Active Problem Other chronic pain G89.29 Active Problem Chronic constipation K59.09 Active Problem Scoliosis, unspecified scoliosis M41.9 Active type, unspecified spinal region Problem Osteoporosis M81.0 Active Problem GERD (gastroesophageal reflux K21.9 Active disease) Problem Hypothyroidism, unspecified type E03.9 Active Problem Knee pain M25.569 Active Problem Glaucoma H40.9 Active Problem Allergic rhinitis J30.9 Active Problem Osteoporosis without current M81.0 Active pathological fracture, unspecified osteoporosis type Problem Blackout spell R55 Active Problem Pain in left knee M25.562 Active Problem Chronic obstructive pulmonary J44.9 Active disease, unspecified COPD type Problem Elevated BP without diagnosis of R03.0 Active hypertension Problem Pulmonary nodules R91.8 Active Problem Chronic pain syndrome G89.4 Active Problem 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 Problem Polyarthralgia M25.50 Active Problem Seasonal allergies J30.2 Active Assessment Chronic constipation K59.09 Active Problem Fibromyalgia M79.7 Active Assessment Pulmonary nodules R91.8 Active Problem Irritable bowel K58.9 Active Assessment Polyarthralgia M25.50 Active Problem Spinal stenosis of lumbar region, M48.061 Active unspecified whether neurogenic claudication present Assessment Osteoporosis without current M81.0 Active pathological fracture, unspecified osteoporosis type Problem Abnormal heart rhythm I49.9 Active Problem Constipation K59.00 Active Assessment Chronic pain syndrome G89.4 Active Problem Insomnia G47.00 Active Problem Migraines G43.909 Active Problem Chronic back pain M54.9 Active Medications Medication Code Code Instructions Start End Status Dosage System Date Date ProAir HFA [facility] 09922688567 108 (90 Base) Active 2 p uffs as MCG/ACT needed Inhalation every 6 hrs Betamethasone [facility] 16247347713 0.1 % Active 1 appl ication Valerate Externally Once to affe cted a day area Ultram [facility] 84818125452 50 MG Orally Active 1 table t as every 6 hrs needed Flax Seed Oil [facility] 72889758638 1000 MG Orally Active not defined Rizatriptan [facility] 70404019193 10 MG Active TAKE ONE Benzoate TABLET BY MOUTH AT ONSET OF HEADACHE; MAY REPEAT IN 2 HOURS NEEDED MAX OF THREE TABLETS IN 24 HOURS Zioptan [facility] 62477462514 0.0015 % Active 1 drop into Ophthalmic Once affected eye a day Lyrica [facility] 80921087203 50 MG Orally Active 1 capsu le Twice a day Refresh [facility] 67490956339 1.4-0.6 % Active 1 drop int o Ophthalmic 24 affected e ye time(s) a day as needed Xlear Sinus Care [facility] 20915226312 - Nasally daily Act adi as directed Kinder as needed Vitamin A [facility] 22649139928 40852 UNIT Active 1 capsu le Orally Once a day atarax [facility] 0 25mg Po QID prn Active 1 Lutein [facility] 12821844838 20 MG Orally Active 1 capsu le Once a day with a meal Saline Nasal [facility] 26521402789 0.65 % Nasally Active 2 sprays in Kinder every 2 hrs each nostril as needed Vitamin D [facility] 08317-34585 1000 UNIT Active 1 capsul e Orally Once a day Fluconazole ND 41041649565 150 MG Orally Active 1 tablet Restasis [facility] 40689734758 0.05 % Active 1 drop into Ophthalmic affected eye twice a day as needed Levothyroxine [facility] 14087717334 25 MCG Orally Active 1.25 ml Sodium Once a day Magnesium [facility] 31169490883 300 MG Orally Active 1 ca psule twice a day with a meal Aloe Vera [facility] 91546713209 25 MG Orally Active not d efined Mometasone [facility] 04512942103 0.1 % Active 1 applica tion Furoate Externally Once to affec vahe a day area [place] 10070292030 2.7-2 % Active 1 drop int o Ophthalmic 24 affected e ye time(s) a day as needed Lastacaft ND 01786997425 0.25 % Active 1 drop int o Ophthalmic Once affected eye a day Vitamin C ND 19525219973 500 MG Orally Active as d irected twice a day [place] 68617978739 5-325 MG Orally Active 1 ta blet as every 6 hrs needed AZO Bladder NDC 0 Active not defined Control B50 Complex TR ND 49409043602 - Orally Active not defined Levothyroxine ND 07562738222 25 MCG Orally December Active 1/2 tablet on Sodium Once a day 23, an empty 2018 stomach in the morning Maxalt-BALL MILL OPERATOR ND 55370319735 10 MG Orally Active 1 ta blet on Once a day the tongue and allow to dissolve as needed one time Stool Softener & NDC 0 Active not def ined Laxative Flonase ND 17358567921 50 MCG/ACT Active 1 spray i n Nasally Once a each nost day Clonazepam ND 24892639262 0.5 MG Orally Active 1 t ablet at Once a day bedtime Pepcid AC ND 50806646926 10 MG Orally Active 1 tab let as Twice a day needed Sennosides-Docus [facility] 86393943788 8.6-50 MG Active 1 tablet in ate Sodium Orally Once a the as needed Linzess ND 87721928517 290 mcg orally Active 1 cap QD Calcium ND 19608395725 600 MG Orally Active 1 tabl et with Twice a day meals CoQ10 ND 29948285241 100 MG Orally Active 1 caps ule Once a day with a meal Align ND 89263943169 - Orally once a Active 1 ta b day Sravanthi-[place] NDC 0 Active not defined Antacid Hydrocodone-Acet ND 46231460887 5-325 MG Orally Act adi 1 tablet as aminophen 4x daily needed Vitamin D3 ND 01486546348 5000 UNIT/ML Active 0.1 ml Orally Once a day Stool Softener & NDC 0 Active not def ined Laxative Bactroban [facility] 62906399440 2 % Externally Active 1 a pplication Three times a to affect day area Pepcid AC [facility] 07889368411 10 MG Orally Active 1 tab let as Twice a day needed Elidel [facility] 05704737135 1 % Externally December Active 1 ivonne lication Twice a day , to affected 2019 2019 area Results No Known Results Summary Purpose [employer] Submission
--- OUTSIDE RECORDS SUMMARY | 2020-01-27 12:57 | XMS REPORT ---
:1935 Author Organization [facility] t Address [address] [place] [address] Care Team Providers Name Role Phone Unavailable Unavailable Unavailable Payers Payer Name Policy Type Policy Number Effective Date Expiration Date S ource Problems Condition Condition Condition Status Onset Resolution Last Treating Co mments Source Name Details Category Date Date Treatment Clinician Date Irritable Irritable Problem Active [facility]aucoma Glaucoma Problem [facility] 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 [facility] Knee pain Knee pain Problem [facility] Chronic Chronic Problem Active [facility] constipati constipati Carol kes - on on [facility] GERD GERD Problem Active [facility] (gastroeso (gastroeso Carol kes - phageal phageal Memoria reflux reflux l disease) disease) Outpat i ent Clinics Pain in Pain in Problem Active [facility] right knee right knee Carol kes - [facility] Low back Low back Problem Active [facility] pain [facility] Allergic Allergic Problem Active [facility] rhinitis rhinitis [facility] Constipati Constipati Problem Active [facility] on on [facility] Fibromyalg Fibromyalg Problem Active [facility] ia ia [facility] Osteoporos Osteoporos Problem Active [facility] is without is without Carol kes - current current Memoria pathologic pathologic l al al Outpati fracture, fracture, ent unspecifie unspecifie Cl inics d d osteoporos osteoporos is type is type Insomnia Insomnia Problem [facility] Pulmonary Pulmonary Problem Active [facility] nodules nodules [facility] Chronic Chronic Problem Active [facility] obstructiv obstructiv Carol kes - e e [facility] pulmonary pulmonary l disease, disease, Outpat i unspecifie unspecifie en t d COPD d COPD Clinics type type Scoliosis, Scoliosis, Problem Active [facility] unspecifie unspecifie Carol kes - d d Memoria scoliosis scoliosis l type, type, Outpati unspecifie unspecifie en t d spinal d spinal Clinic s region region Hypothyroi Hypothyroi Problem Active [facility] dism, dism, [facility] - unspecifie unspecifie Me moria d type d type l [facility] Spinal Spinal Problem Active [facility] stenosis stenosis [facility] of lumbar of lumbar Marco marty region, region, l unspecifie unspecifie Ou tpati d whether d whether ent neurogenic neurogenic Cl inics claudicati claudicati on present on present Abnormal Abnormal Problem Active [facility] heart heart [facility] rhythm rhythm [facility] Pain in Pain in Problem Active [facility] left knee left knee [facility] Migraines Migraines Problem Active [facility] Other Other Problem Active [facility] chronic chronic [facility] pain pain [facility] Chronic Chronic Problem Active [facility] back pain back pain [facility] Seasonal Seasonal Problem Active [facility] allergies allergies [facility] Chronic Chronic Problem Active [facility] pain pain [facility] syndrome syndrome [facility] a [facility] Abnormal Abnormal Problem Active [facility] of the [facility] of the Luke s - chest chest [facility] l [facility] Blackout Blackout Problem Active [facility] spell spell [facility] Polyarthra Polyarthra Problem Active [facility] lgia lgia [facility] Elevated Elevated Problem Active [facility] BP without BP without Carol kes - diagnosis diagnosis Marco marty of of l hypertensi hypertensi Ou tpati on on ent Clinics Allergies, Adverse Reactions, Alerts Allergy Allergy Status Severity Reaction(s) Onset Inactive Treating Comm ents Source Name Type Date Date Clinician Penicill DA Active SV 2017-09 [facility] sulfamet DA Active SV 2017-09 [facility] hoxazole 10-13 00:00: [facility] trimetho DA Active SV 2017-09 [facility] prim 2 00:[facility]: [facility] clarithr DA Active SV 2017-09 [facility] omycin 10-13 00:00: [facility]ope 00 [facility] azithrom DA Active SV 2017-09 [facility] ycin 10-13 00:00: Orthope 00 dic [facility]osp[facility] levoflox DA Active SV 2017- [facility] acin 10-13 00:00: Orthope 00 dic [facility]ospita l Penicill DA Active SV 2017-09 [facility] ins 10-12 00:00: Orthope 00 dic [facility] sulfamet DA Active SV 2017-09 [facility] hoxazole 2 00:00: Orthope 00 dic [facility]osp[facility] trimetho DA Active SV 2017-09 [facility] prim 2 00:00: Orthope 00 dic [facility]osp[facility] clarithr DA Active SV 2017-09 [facility] omycin 10-12 00:00: Orthope 00 dic [facility]ospita l azithrom DA Active SV 2017- [facility] ycin 10-12 00:00: Orthope 00 dic Hospita l levoflox DA Active SV 2017- [facility] acin 2 00:00: Orthope 00 dic Hospita l Penicill DA Active SV 2018-0 [facility] ins 04-16 00:00: Orthope 00 dic [facility]ospita l sulfamet DA Active SV 2018-0 [facility] hoxazole 04-16 00:00: Orthope 00 dic [facility]ospita l trimetho DA Active SV 2018-0 [facility] prim 04-16 00:00: Orthope 00 dic [facility]ospita l clarithr DA Active SV 2018-0 [facility] omycin 04-16 00:00: Orthope 00 dic [facility]ospita l azithrom DA Active SV 2018-0 [facility] ycin 04-16 00:00: Orthope 00 dic Hospita l levoflox DA Active SV 2018-0 [facility] acin 04-16 00:00: Orthope 00 dic [facility]ospita l PCN Adverse Active Info Not [facility] Reaction Available [facility] Zithroma Adverse Active Info Not [facility] x Reaction Available [facility] Biaxin Adverse Active Info Not [facility] Reaction Available [facility] Medications Ordered Filled Start Stop Current Ordering Indication Dosage Frequency Signature Comments Components Source Medication Medication Date Date Medication? Clinician (SIG) Name Name Tammi Cadena 2020- Yes Remedios [address] [facility] 4-27 05-27 Millender applicatio Romana es - 00:00: 00:00 n to Memoria 00 :00 affected l area [facility] Levothyroxi Levothyroxi Yes Remedios 1/[address] [facility] ne Sodium ne Sodium 4-23 [place] on an [facility] - 00:00: empty Memoria 00 stomach in l the Outpati morning ent Clinics Fluconazole Fluconazole Yes Remedios [address] [facility] Millender [facility] Vitamin D3 Vitamin D3 Yes Remedios 0.[address] [facility] Millender [facility]ics Restasis Restasis Yes Remedios [address] [facility] Millender into [facility] - affected Memoria eye l Outpati ent Clinics Ultram Ultram Yes Remedios [address] [facility] Millender as needed [facility] Linzess Linzess Yes Remedios [address] [facility] [address] Millender [facility] SravanthiSelam FishmanRosa Mvidhi Yes Remedios not [facility] r Antacid r Antacid [facility]ender defined [facility]ics Betamethaso Betamethaso Yes Remedios [address] [facility] ne Valerate ne Valerate Millender applicatio [facility] - n to Memoria affected l area Outpati ent Clinics Tewksbury Tewksbury Yes Remedios [address] [facility] Millender as needed [facility] Bactroban Bactroban Yes Remedios [address] [facility] Millender applicatio Luke s - n to Memoria affected l area [facility] Vitamin A Vitamin A Yes Remedios [address] [facility] [address] Millender [facility] Lutein Lutein Yes Remedios 1 capsule [facility] with a [facility] - meal Memoria l Outpati ent Clinics Lyrica Lyrica Yes Remedios [facility] capsule [facility] B50 Complex B50 Complex Yes Remedios not [facility] TR TR Millender defined [facility] Aloe Vera Aloe Vera Yes Remedios not [facility] Millender defined [facility] Flonase Flonase Yes Remedios [address] [facility] Millender each [facility] nostril [facility]oria l Outpati ent Clinics Refresh Refresh Yes Remedios [address] [facility] Millender into [facility] - affected Memoria eye as l needed Outpati ent Clinics atarax atarax Yes Remedios [address] [facility] Millender [facility] FreshKote FreshKote Yes Remedios [address] Millender into [facility] - affected Memoria eye as l needed Outpati ent Clinics Lastacaft Lastacaft Yes Remedios [address] Millender into [facility] - affected Memoria eye l Outpati ent Clinics Rizatriptan Rizatriptan Yes Remedios TAKE ONE [facility] Benzoate Benzoate Millender TABLET BY [facility] - MOUTH AT Memoria ONSET OF l HEADACHE; Outpati MAY REPEAT ent IN 2 HOURS Clinics NEEDED MAX OF THREE TABLETS IN 24 HOURS Zioptan Zioptan Yes Remedios [address] [facility] Millender into [facility] - affected Memoria eye l Outpati ent Clinics Align Align Yes Remedios [address] [facility] Millender [facility] Pepcid AC Pepcid AC Yes Remedios [address] [facility] [address] Millender as needed [facility] Flax Seed Flax Seed Yes Ermedios not [facility] Oil Oil Millender defined [facility] ent Clinics Maxalt-JIRA DEVELOPER Maxalt-JIRA DEVELOPER Yes Remedios [address] [facility] Millender on the [facility] - tongue and Memoria allow to l dissolve Outpati as needed ent one time Clinics Sennosides- Sennosides- Yes Remedios [address] [facility] Docusate Docusate Millender in the [facility] - Sodium Sodium evening as Memor ia needed l Outpati ent Clinics Saline Saline Yes Remedios [address] Nasal [place] Nasal [place] Millender in each [facility] - nostril as Memoria needed l Outpati ent Clinics Mometasone Mometasone Yes Remedios [address] Furoate Furoate Millender applicatio [facility] - n to Memoria affected l area [facility] ent [facility]ics ProAir HFA ProAir HFA Yes Remedios [address] [facility] Millender needed [facility] Clonazepam Clonazepam Yes Remedios [address] [facility] Millender at bedtime Luke s - Memoria [facility] Xlear Sinus Xlear Sinus Yes Remedios as [facility] Care Pinson Care Pinson Millender directed [facility] Vitamin D Vitamin D Yes Remedios [address] [facility] Millender [facility] Magnesium Magnesium Yes Remedios [address] [facility] Millender with a [facility] - meal Memoria l [facility] Vitamin C Vitamin C Yes Remedios as [facility] Millender directed [facility] AZO Bladder AZO Bladder Yes Remedios not [facility] Control Control Millender defined L ukes - Memoria l [facility]ics Stool Stool Yes Remedios not [facility] Softener & Softener & Millender defined [facility] - Laxative Laxative Memoria l [facility] Pepcid AC Pepcid AC Yes Remedios [address] [facility] Millender as needed [facility] Calcium Calcium Yes Remedios [address] [facility] [address] Millender with meals Luke s - Memoria l [facility] CoQ10 CoQ10 Yes Remedios [address] [facility] Millender with a [facility] - meal Memoria l [facility] Hydrocodone Hydrocodone Yes Remedios [address] [facility] -Acetaminop -Acetaminop Millender as needed [facility] - hen hen [facility] Procedures This patient has no known procedures. Encounters Start End Encounter Admission Attending Care Care Encounter Source Date/Time Date/Time Type Type Clinicians Facility Department ID 2020-01-25 2020-01-25 Outpatient Scott Byers [id number] [facility] 09:14:00 09:14:00 [facility] Medicine Medicine [facility] 2020-01-24 2020-01-24 Outpatient Scott Byers [id number] [facility] 09:11:00 09:11:00 [facility] Medicine Medicine [facility] Clinics 2020-01-03 2020-01-03 [facility] [id number] [facility] 10:30:00 10:30:00 t [facility] Medicine Medicine Outpati ent Clinics 2019-07-02 2019-07-02 [facility] [id number] [facility] 09:40:00 09:40:00 t [facility] Medicine l Medicine Outpati ent Clinics 2018-12-24 2018-12-24 [facility] [id number] [facility] 10[facility]00:00 10:00:00 t [facility] Medicine l Medicine Outpati ent Clinics 2018-08-19 2018-08-19 [facility] [id number] [facility] 02:27:00 02:27:00 t [facility] l Medicine Outpati ent Clinics 2018-06-25 2018-06-25 [facility] [id number] [facility] 10:15:00 10:15:00 t [facility] Medicine Medicine Outpati ent Clinics 2018-01-27 2018-01-27 [facility] [id number] [facility] 10:30:00 10:30:00 t [facility]gent [facility] l Outpati ent Clinics 2018-01-02 2018-01-02 [facility] [id number] [facility] 14:27:00 14:27:00 t [facility] Medicine Medicine Outpati ent Clinics 2017-12-29 2017-12-29 [facility] [id number] [facility] [address] 10:47:00 10:47:00 t [facility] Medicine Medicine Outpati ent Clinics 2017-12-25 2017-12-25 [facility] [id number] [facility] 10:30:00 10:30:00 t [facility] Medicine l Medicine Outpati ent Clinics 2017-12-25 2017-12-25 [facility] [id number] 08[facility]58:00 08:58:00 t [facility] Medicine Medicine Outpati ent Clinics Results This patient has no known results.
--- OUTSIDE RECORDS SUMMARY | 2020-01-27 12:57 | XMS REPORT ---
:1935 Author Organization [employer] Care Team Providers Name Role Phone Remedios Ng Provider Role Unavailable Allergies No Known Allergies Problems Problem Type Condition Code Onset Dates Condition Statu s Problem Abnormal CT of the chest R93.89 [...] Active Problem Seasonal allergies J30.2 Active Problem Fibromyalgia M79.7 Active Problem Irritable bowel K58.9 Active Problem Spinal stenosis of lumbar region, M48.061 Active unspecified whether neurogenic claudication present Problem Abnormal heart rhythm I49.9 Active Problem Constipation K59.00 Active Problem Insomnia G47.00 Active Problem Migraines G43.909 Active Problem Chronic back pain M54.9 Active Medications No Known Medications Results No Known Results Summary Purpose [employer] Submission
[2020-01-27 13:09] LABS: Blood Morphology Comment NOT SEEN (NOT SEEN); Platelet Estimate ADEQ; Urine White Blood Cell Casts OK
--- NOTE | 2020-01-27 13:42 | RAD REPORT ---
EXAM DESCRIPTION: CT - Abdomen Pelvis W Contrast - 01/27/2020 1:25 pm CLINICAL HISTORY: Abdominal pain COMPARISON: none. TECHNIQUE: Computed axial tomography of the abdomen pelvis was obtained. 100 cc Isovue-300 was admin istered intravenously. Oral contrast was not requested which limits evaluation of bowel. All CT scans are performed using dose optimization technique as appropriate and may include automated exposure control or mA/KV adjustment according to patient size. FINDINGS: Splenic granulomas. Cholecystectomy The liver, pancreas and adrenals are unremarkable Moderate low-density areas are present within the right kidney extending to the periphery. Several lo w-density areas within the left kidney extend to the periphery. These findings likely indicate pyelon ephritis. No hydronephrosis. Hysterectomy There is no evidence of diverticulitis. Marked scoliosis involves the spine. Small hiatal hernia IMPRESSION: Moderate right and [id number] left pyelonephritis
--- NOTE | 2020-01-27 14:12 | ER ---
Nurse's Notes [facility] Name: Suma Lopez Age: 84 yrs Sex: Female : 1935 Arrival Date: 01/27/2020 Time: 10:41 Bed 7 Private MD: Remedios Ng Diagnosis: Acute tubulo-interstitial nephritis-bilateral, failed outpatient therapy Presentation: 01/26 11:16 Chief complaint: Patient states: Started Macrobid on 01/24/2020 and it's hurting my jl7 whole torso. Coronavirus screen: Proceed with normal triage. Patient denies a cough. Patient denies shortness of breath or difficulty breathing. Patient denies measured and/or subjective temperature greater than 100.4F prior to today's visit. Patient denies travel on a cruise ship or to a country the [facility] currently lists as an affected area. Patient denies contact with known and/or suspected case of COVID-19. Ebola Screen: No symptoms or risks identified at this time. Onset: The symptoms/episode began/occurred gradually. Anaphylaxis evaluation, no signs or symptoms of anaphylaxis were noted. Initial Sepsis Screen: Does the patient meet any 2 criteria? No. Patient's initial sepsis screen is negative. Does the patient have a suspected source of infection? No. Patient's initial sepsis screen is negative. Risk Assessment: Do you want to hurt yourself or someone else? Patient reports no desire to harm self or others. Onset of symptoms was January 24, 2020. Care prior to arrival: None. 11:16 Method Of Arrival: Wheelchair [facility] 11:16 Acuity: PARK 3 jl7 Triage Assessment: 11:23 General: Appears in no apparent distress. uncomfortable, Behavior is cooperative, jl7 anxious. Pain: Complains of pain in back and abdomen "My whole torso." Pain currently is 0 out of 10 on a pain scale. at worst was 10 out of 10 on a pain scale. Is intermittent. Historical: - Allergies: 11:23 Bactrim; jl7 11:23 Biaxin; jl7 11:23 Doxycycline; jl7 11:23 PENICILLINS; jl7 11:23 TETRACYCLINES; jl7 11:23 Zithromax; jl7 - Home Meds: 11:23 hydrocodone-acetaminophen 5-325 mg Oral tab 1 tab every 6 hours [Active]; levothyroxine jl7 oral 12.5 1 cap once daily [Active]; Restasis 0.05 % ophthalmic dpet 1 drop 2 times per day [Active]; Refresh Tears 0.5 % ophthalmic drop [Active]; Zioptan (PF) 0.0015 % ophthalmic dpet 1 drop once daily [Active]; Lyrica 50mg Oral 1 cap daily [Active]; Align 4 mg Oral cap daily [Active]; lutein oral oral [Active]; - PMHx: 11:23 Hypertension; Hypothyroidism; Glaucoma; jl7 - Immunization history:: Adult Immunizations up to date. - Social history:: Smoking status: Patient denies any tobacco usage or history of. Screenin:25 Abuse screen: Denies threats or abuse. Denies injuries from another. Nutritional bp screening: No deficits noted. Tuberculosis screening: No symptoms or risk factors identified. Fall Risk None identified. Assessment: 11:25 General: SEE TRIAGE NOTE. Respiratory: Airway is patent Respiratory effort is even, bp unlabored, Breath sounds are clear bilaterally. 12:44 Reassessment: VS STABLE ON MONITOR, IVF INFUSING. bp 13:26 Reassessment: CT PENDING. VS STABLE ON MONITOR, IVF INFUSING. bp 14:30 Reassessment: ADMIT INITIATED. VS REMAIN STABLE. bp 15:30 Reassessment: ADMIT IN PROCESS. PT SLEEPING. NO S/S ACUTE DISTRESS AT THIS TIME. bp Vital Signs: 11:16 BP 129 / 110; Pulse 96; Resp 16 S; Temp 97.7(TE); Pulse Ox 96% on R/A; jl7 12:43 BP 148 / 73; Pulse 97; Resp 16; Pulse Ox 95% ; bp 13:26 BP 148 / 73; Pulse 88; Resp 16; Pulse Ox 98% ; bp 15:30 BP 155 / 84; Pulse 95; Resp 16; Pulse Ox 100% ; bp ED Course: 10:41 Patient arrived in ED. ag5 10:42 Remedios Ng MD is Private Physician. ag5 11:04 Mar Correa FNP-C is [facility]. kb 11:04 Pawan Bess MD is Attending Physician. kb 11:20 Triage completed. jl7 11:23 Arm band placed on right wrist. jl7 11:25 Patient has correct armband on for positive identification. Bed in low position. Call bp light in reach. Side rails up X2. 11:26 Ludin Nickerson, RN is Primary Nurse. bp 11:45 Inserted saline lock: 22 gauge in right forearm, using aseptic technique. Blood bp collected. 13:24 Urine Culture Sent. bp 13:25 CT Abd/Pelvis - IV Contrast Only In Process Unspecified. EDMS 14:11 Duke Jhon DO is Hospitalizing Provider. kb 15:02 First set of blood cultures drawn By me, in RAC Second set of blood cultures drawn By lt1 me, in LAC. 16:56 No provider procedures requiring assistance completed. Patient admitted, IV remains in bp place. Administered Medications: 12:30 Drug: NS 0.9% 500 ml Route: IV; Rate: bolus; Site: right forearm; bp 16:57 Follow up: IV Status: Completed infusion; IV Intake: 500ml bp 14:07 CANCELLED (Other Intervention Used): Gentamicin 5 mg/kg IVPB once over 60 mins; (mix in kb 100 mL NS) Intake: 16:57 IV: 500ml; Total: 500ml. bp Outcome: 14:11 Decision to Hospitalize by Provider. kb 16:55 Admitted to Med/surg accompanied by tech, via wheelchair, room 231, Report called to bp SHASHANK MADRIGAL 16:55 Condition: stable 16:55 Instructed on the need for admit. 17:16 Patient left the ED. bp Signatures: Dispatcher [employer] EDND Mar Correa, WHITE LEAD GRINDER-C WHITE LEAD GRINDER-Lazara Mesa, RN RN jlLudin Glynn, RN RN Andrew Adams 5 [place] lt1
--- NOTE | 2020-01-27 14:13 | EDPHYS ---
Physician Documentation [facility] [place] Name: Suma Lopez Age: 84 yrs Sex: Female : 1935 Arrival Date: 01/27/2020 Time: 10:41 Bed 7 Private MD: Remedios Ng ED Physician Pawan Bess HPI: 01/26 14:05 This 84 yrs old Female presents to ER via Wheelchair with complaints of kb Allergic Reaction. 14:05 The patient presents with abdominal pain that is diffuse. Onset: The symptoms/episode kb began/occurred yesterday. The symptoms do not radiate. Associated signs and symptoms: Pertinent positives: nausea. The patient has not experienced similar symptoms in the past. 14:09 The symptoms are described as constant. Modifying factors: The symptoms are alleviated kb by nothing, the symptoms are aggravated by movement, pressure. Severity of pain: At its worst the pain was moderate in the emergency department the pain is unchanged. The patient has been recently seen by a physician:. Pt was seen by PCP and given Macrobid for a "severe UTI." States she has take 5 doses and now has abd pain. States it is making her whole torso hurt. Reports nausea and frequency. Denies fever.. Historical: - Allergies: 11:23 Bactrim; jl7 11:23 Biaxin; jl7 11:23 Doxycycline; jl7 11:23 PENICILLINS; jl7 11:23 TETRACYCLINES; jl7 11:23 Zithromax; jl7 - Home Meds: 11:23 hydrocodone-acetaminophen 5-325 mg Oral tab 1 tab every 6 hours [Active]; levothyroxine jl7 oral 12.5 1 cap once daily [Active]; Restasis 0.05 % ophthalmic dpet 1 drop 2 times per day [Active]; Refresh Tears 0.5 % ophthalmic drop [Active]; Zioptan (PF) 0.0015 % ophthalmic dpet 1 drop once daily [Active]; Lyrica 50mg Oral 1 cap daily [Active]; Align 4 mg Oral cap daily [Active]; lutein oral oral [Active]; - PMHx: 11:23 Hypertension; Hypothyroidism; Glaucoma; jl7 - Immunization history:: Adult Immunizations up to date. - Social history:: Smoking status: Patient denies any tobacco usage or history of. ROS: 14:04 Constitutional: Negative for fever, chills, and weight loss, Neck: Negative for injury, kb pain, and swelling, Cardiovascular: Negative for chest pain, palpitations, and edema, Respiratory: Negative for shortness of breath, cough, wheezing, and pleuritic chest pain, Back: Negative for injury and pain, MS/Extremity: Negative for injury and deformity, Skin: Negative for injury, rash, and discoloration, Neuro: Negative for headache, weakness, numbness, tingling, and seizure. 14:04 Abdomen/GI: Positive for abdominal pain, nausea. 14:04 : Positive for urinary frequency. Exam: 14:04 Constitutional: This is a well developed, well nourished patient who is awake, alert, kb and in no acute distress. Head/Face: Normocephalic, atraumatic. Chest/axilla: Normal chest wall appearance and motion. Nontender with no deformity. No lesions are appreciated. Cardiovascular: Regular rate and rhythm with a normal S1 and S2. No gallops, murmurs, or rubs. Normal PMI, no JVD. No pulse deficits. Respiratory: Lungs have equal breath sounds bilaterally, clear to auscultation and percussion. No rales, rhonchi or wheezes noted. No increased work of breathing, no retractions or nasal flaring. Back: No spinal tenderness. No costovertebral tenderness. Full range of motion. Skin: Warm, dry with normal turgor. Normal color with no rashes, no lesions, and no evidence of cellulitis. MS/ Extremity: Pulses equal, no cyanosis. Neurovascular intact. Full, normal range of motion. Neuro: Awake and alert, GCS 15, oriented to person, place, time, and situation. Cranial nerves II-XII grossly intact. Motor strength 5/5 in all extremities. Sensory grossly intact. Cerebellar exam normal. Normal gait. 14:04 Abdomen/GI: Inspection: abdomen appears normal, Bowel sounds: normal, in all quadrants, Palpation: soft, in all quadrants, mild abdominal tenderness, in the right upper quadrant and right lower quadrant. Vital Signs: 11:16 BP 129 / 110; Pulse 96; Resp 16 S; Temp 97.7(TE); Pulse Ox 96% on R/A; jl7 12:43 BP 148 / 73; Pulse 97; Resp 16; Pulse Ox 95% ; bp 13:26 BP 148 / 73; Pulse 88; Resp 16; Pulse Ox 98% ; bp 15:30 BP 155 / 84; Pulse 95; Resp 16; Pulse Ox 100% ; bp MDM: 11:25 Patient medically screened. kb 13:54 Data reviewed: vital signs, nurses notes. Data interpreted: Pulse oximetry: on room air kb is 98 %. Interpretation: normal. Counseling: I had a detailed discussion with the patient and/or guardian regarding: the historical points, exam findings, and any diagnostic results supporting the discharge/admit diagnosis, lab results, radiology results, the need for further work-up and treatment in the hospital. 14:09 Physician consultation: Duke John DO was contacted at 14:09, regarding admission, kb to the medical/surgical unit. patient's condition, and will see patient in ED, shortly. 01/26 11:39 Order name: CBC with Diff; Complete Time: 13:09 kb 01/26 11:39 Order name: Basic Metabolic Panel; Complete Time: 12:20 kb 01/26 11:39 Order name: Urine Microscopic Only; Complete Time: 12:52 kb 01/26 12:44 Order name: Urine Culture EDFL 01/26 13:09 Order name: CBC Smear Scan; Complete Time: 13:09 EDFL 01/26 13:57 Order name: Lactate; Complete Time: 15:29 kb 01/26 11:39 Order name: IV Start; Complete Time: 11:45 kb 01/26 11:39 Order name: Urine Dipstick-Ancillary (obtain specimen); Complete Time: 12:11 kb 01/26 13:03 Order name: CT Abd/Pelvis - IV Contrast Only; Complete Time: 13:53 kb 01/26 13:57 Order name: Procalcitonin 01/26 14:02 Order name: Blood Culture Adult (2) kb Administered Medications: 12:30 Drug: NS 0.9% 500 ml Route: IV; Rate: bolus; Site: right forearm; bp 16:57 Follow up: IV Status: Completed infusion; IV Intake: 500ml bp 14:07 CANCELLED (Other Intervention Used): Gentamicin 5 mg/kg IVPB once over 60 mins; (mix in kb 100 mL NS) Disposition: 17:36 Co-signature as Attending Physician, Pawan Bess MD I agree with the assessment and kdr plan of care. Disposition: 01/27/20 14:11 Hospitalization ordered by Duke John for Inpatient Admission. Preliminary diagnosis is Acute tubulo-interstitial nephritis - bilateral, failed outpatient therapy. - Bed requested for Telemetry/MedSurg (Inpatient). - Status is Inpatient Admission. bp - Condition is Stable. - Problem is new. - Symptoms are unchanged. Signatures: Dispatcher [employer] EDMS Mar Correa, STEWARD/STEWARDESS SECOND-C STEWARD/STEWARDESS SECOND-Ckb Pawan Bess MD MD kdr Lazara Solorzano, RN RN jl7 Ludin Nickerson, RN RN bp Trim, Gonzalez tt3 Corrections: (The following items were deleted from the chart) 14:07 14:03 Gentamicin 5 mg/kg IVPB once over 60 mins; (mix in 100 mL NS) ordered. kb kb 16:22 14:11 Hospitalization Ordered by Duke John DO for Inpatient Admission. Preliminary tt3 diagnosis is Acute tubulo-interstitial nephritis - bilateral, failed outpatient therapy. Bed requested for Telemetry/MedSurg (Inpatient). Status is Inpatient Admission. Condition is Stable. Problem is new. Symptoms are unchanged. kb 17:16 16:22 01/27/2020 14:11 Hospitalization Ordered by Duke John DO for Inpatient bp Admission. Preliminary diagnosis is Acute tubulo-interstitial nephritis - bilateral, failed outpatient therapy. Bed requested for Telemetry/MedSurg (Inpatient). Status is Inpatient Admission. Condition is Stable. Problem is new. Symptoms are unchanged. tt3
--- NOTE | 2020-01-27 16:31 | P.HP ---
Certification for Inpatient Patient admitted to: Observation With expected LOS: <2 Midnights Patient will require the following post-hospital care: None Practitioner: I am a practitioner with admitting privileges, knowledge of patient current condition, hospital course, and medical plan of care. Services: Services provided to patient in accordance with Admission requirements found in Title 42 Section 412.3 of the Code of Federal Regulations Patient History Date of Service: 01/27/20 Primary Care Provider: Dr. Stout Reason for admission: Suprapubic pain History of Present Illness: 84-year-old female with history of scoliosis, hypothyroidism, chronic pain, and GERD. Patient presented to the emergency room after she continued to have persistent suprapubic pain. Patient was seen by her PCP recently. Patient was found to have UTI. She was given Macrobid. Patient reported nausea, poor sleep after taking 5 pills. She denied any fever. She reported some chills. She felt like she could not take any further medication. She did not feel well so she came to the ER for further evaluation. Patient with multiple allergies to other antibiotics. In the ER patient was evaluated. White count 14.5, hemoglobin 12.2. Sodium 131, potassium 3.5. BUN of 13, creatinine 0.[address] scan revealed bilateral pyelonephritis. Pro calcitonin was slightly elevated. Lactic acid within normal range. Due to her persistent symptoms patient was admitted for further evaluation and observation. When I saw the patient ER, she did not appear septic. Patient stable at this time. Patient reported chills in the emergency room. Allergies azithromycin [From Zithromax] Allergy (Verified 04/08/19 12:19) Rash clarithromycin [From Biaxin] Allergy (Verified 04/08/19 12:19) Rash Penicillins Allergy (Verified 04/08/19 12:19) Anaphylaxis sulfamethoxazole [From Bactrim] Allergy (Verified 04/08/19 12:19) Hives trimethoprim [From Bactrim] Allergy (Verified 04/08/19 12:19) Hives levofloxacin [From Levaquin] Adverse Reaction (Verified 04/08/19 12:19) stomach prob. Home medications list reviewed: Yes Home Medications: Ascorbic Acid [Vitamin C] 500 mg PO DAILY 04/08/19 Bifidobacterium Infantis [Align] 4 mg PO DAILY 04/08/19 Cholecalciferol (Vitamin D3) [Vitamin D3] 5,000 unit PO DAILY 04/08/19 Cyclosporine [Restasis] 1 drop EACH EYE BID 04/08/19 Docusate Sodium [Stool Softener] 100 mg PO DAILY 04/08/19 Famotidine [Pepcid AC] 20 mg PO DAILY 04/08/19 Hydrocodone 5/APAP 325 [[place] 5/325] 1 tab PO Q6H PRN 04/08/19 Levothyroxine [Synthroid] 125 mcg PO [id number] 04/08/19 Lutein 20 mg PO DAILY 04/08/19 Magnesium Oxide [Magnesium] 400 mg PO DAILY 04/08/19 Polysorbate 80/Glycerin [Refresh Dry Eye Therapy Drops] 1 each OP DAILY 04/08/19 Pregabalin [Lyrica] 50 mg PO DAILY 04/08/19 Tafluprost/Pf [Zioptan 0.0015% Eye Drops] 1 each OP BEDTIME 04/08/19 Vitamin A [Vitamin A*] 25,000 iu PO DAILY 04/08/19 Vitamin B Complex [B-Complex Vitamin] 1 cap PO DAILY 04/08/19 - Past Medical/Surgical History -: Hypothyroidism -: Scoliosis -: GERD with hiatal hernia -: Chronic pain Psychosocial/ Personal History: Patient lives at home - Family History Family History: Reviewed- Non-Contributory - Social History Smoking Status: Never smoker Alcohol use: No CD- Drugs: No Caffeine use: No Place of Residence: Home Review of Systems General: Chills, As per HPI Eyes: Unremarkable ENT: Unremarkable Respiratory: Unremarkable Cardiovascular: Unremarkable Gastrointestinal: Nausea, Abdominal Pain, As per HPI Genitourinary: Dysuria, As per HPI Musculoskeletal: Unremarkable Integumentary: Unremarkable Neurological: Unremarkable Lymphatics: Unremarkable Physical Examination - Physical Exam General: Alert, In no apparent distress, Oriented x3, Cooperative HEENT: Atraumatic, Normocephalic, Other (Dry mucous membranes) Neck: Supple Respiratory: Clear to auscultation bilaterally, Normal air movement Cardiovascular: Normal pulses, Regular rate/rhythm Gastrointestinal: Normal bowel sounds, Soft and benign, Non-distended, No mass es, No rebound, No guarding, Tenderness (Suprapubic tenderness) Musculoskeletal: No erythema, No tenderness, No warmth Integumentary: No tenderness/swelling, No erythema, No warmth, No cyanosis Neurological: Normal speech, Normal strength at 5/5 x4 extr, Normal tone, Normal affect - Studies Laboratory Data (last 24 hrs) 01/27/20 11:45: Sodium 131 L, Potassium 3.5, BUN 13, Creatinine 0.85, Glucose 97 01/27/20 11:45: WBC 14.5 H, Hgb 12.2, Hct 36.4, Plt Count 240 Assessment and Plan - Plan Impression: Bilateral pyelonephritis with urine culture positive for E coli Hypothyroidism Chronic pain Scoliosis GERD with hiatal hernia Plan: Bilateral pyelonephritis with urine culture positive for E coli: Patient will be admitted for further evaluation and observation. I was able to get in contact with her PCP. A urine culture was sent. Urine culture was positive for E coli. Mejia sensitivity noted. Patient with multiple allergies to antibiotics. This was discussed in detail with pharmacology and the patient. Will try Cipro low-dose at this time. Patient agreed with plan of care. Will obtain blood and urine culture to further evaluate. Will also start IV fluids. Will monitor electrolytes closely. Electrolyte protocol in place. Will continue with DVT prophylaxis. Anticipate improvement over the next 24 hr. Anticipate discharge tomorrow if clinically improved. Hypothyroidism: Continue home medication Chronic pain: Continue home medication Scoliosis: Continue home medication, fall precautions in place. GERD with hiatal hernia: Continue home medication Discharge Plan: Home Plan to discharge in: 24 Hours - Advance Directives Does patient have a Living Will: Yes Does patient have a Durable POA for Healthcare: Yes - Code Status/Comfort Care Code Status Assessed: Yes (Patient is full code) Time Spent Managing Pts Care (In Minutes): 55
[2020-01-27] MEDS ORDERED: ACETAMINOPHEN 500 MG TAB PO PRN (17:28)
[2020-01-27] MEDS ORDERED: ONDANSETRON 4 MG/2 ML VIAL IV PRN (17:28)
[2020-01-27 18:15] VITALS: BMI 18.9
[2020-01-27] MEDS: ENOXAPARIN 40 MG/0.4 ML SQ SCH (18:19)
[2020-01-27] MEDS: NA CHLORIDE 0.9% 1,000 ML IV SCH (18:19)
[2020-01-27] MEDS: Ciprofloxacin 200mg IV 200 MG/100 ML IV.SOLN. IV SCH (18:19)
[2020-01-27 19:26] LABS: Urine Appearance CLEAR; Urine Bilirubin NEGATIVE (NEG); Urine Blood 1+ (NEG); Urine Color YELLOW; Urine Glucose NEGATIVE (NEG); Urine Protein 2+ (NEG); Urine Specific Gravity >=1.030 (1.005-1.030); Urine Urobilinogen 0.2 mg/dL (0.2-1.0); Urine pH 6.5 (5.0-7.0)
[2020-01-27 19:56] LABS: Urine Microscopic Reflex ORDER UMIC
[2020-01-27 19:57] LABS: Urine Bacteria <20 /HPF (<20); Urine Culture Reflex Order NOT NEEDED; Urine Mucus 2+ /HPF (NONE SEEN)
[2020-01-27] MEDS ORDERED: POTASSIUM CL SA 10 MEQ TAB PO ONE (21:00)
[2020-01-27] MEDS: FAMOTIDINE 20 MG TAB PO SCH (21:15)
[2020-01-27] MEDS: HYDROCODONE/APAP 5/325 MG TAB PO PRN (21:15)
[2020-01-28 06:12] LABS: Absolute Lymphocytes (CBC) 0.9 K/uL (0.7-4.9); Basophils % 0.7 % (0-1.3); Lymphocytes % 9.1 % (15.3-44.8); MPV 9.7 fL (7.6-11.3); RBC Red Blood Cell Count 3.15 M/uL (3.86-4.86)
[2020-01-28 06:26] LABS: Magnesium 2.3 mg/dL (1.8-2.4); Potassium 3.8 mmol/L (3.5-5.1)
[2020-01-28] MEDS ORDERED: LEVOTHYROXINE SOD 0.112 MG TAB PO SCH (06:30)
[2020-01-28] MEDS: NA CHLORIDE 0.9% 1,000 ML IV SCH (06:48)
[2020-01-28] MEDS: FAMOTIDINE 20 MG TAB PO SCH (08:38)
[2020-01-28] MEDS: ENOXAPARIN 40 MG/0.4 ML SQ SCH (08:38)
[2020-01-28] MEDS: HYDROCODONE/APAP 5/325 MG TAB PO PRN (08:38)
[2020-01-28] MEDS: Ciprofloxacin 200mg IV 200 MG/100 ML IV.SOLN. IV SCH (08:39)
[2020-01-28 08:52] VITALS: O2SAT 96
[2020-01-28] MEDS ORDERED: PREGABALIN 50 MG CAP PO SCH (09:00)
[2020-01-28 09:21] VITALS: BP 135/65; TEMP 98
--- NOTE | 2020-01-28 12:04 | P.DS ---
Admission Date: 01/27/20 Discharge Date: 01/28/20 Primary Care Provider: Dr. Stout Disposition: ROUTINE DISCHARGE Discharge Condition: GOOD Reason for Admission: Suprapubic pain Consultations: none Procedures: CT Scan: Medical problem list: Bilateral pyelonephritis with urine culture positive for E coli Hypothyroidism Chronic pain Scoliosis GERD with hiatal hernia Brief History of Present Illness: 84-year-old female with history of scoliosis, hypothyroidism, chronic pain, and GERD. Patient presented to the emergency room after she continued to have persistent suprapubic pain. Patient was seen by her PCP recently. Patient was found to have UTI. She was given Macrobid. Patient reported nausea, poor sleep after taking 5 pills. She denied any fever. She reported some chills. She felt like she could not take any further medication. She did not feel well so she came to the ER for further evaluation. Patient with multiple allergies to other antibiotics. In the ER patient was evaluated. White count 14.5, hemoglobin 12.2. Sodium 131, potassium 3.5. BUN of 13, creatinine 0.[address] scan revealed bilateral pyelonephritis. Pro calcitonin was slightly elevated. Lactic acid within normal range. Due to her persistent symptoms patient was admitted for further evaluation and observation. When I saw the patient ER, she did not appear septic. Patient stable at this time. Patient reported chills in the emergency room. Hospital Course: Patient presented with bilateral pyelonephritis. Patient was recently seen by her PCP. Urine culture was obtained. She was given Macrobid without any improvement. The patient was seen in the emergency room and admitted for further evaluation and treatment. Patient was started on ciprofloxacin. The patient has tolerated this well. Cultures from the office indicate E coli with carson sensitivities to multiple antibiotics. White count has significantly improved. She has done well. At discharge she will continue with Cipro 250 mg twice daily for 7 days. Patient will also be provided lactobacillus 1 pill twice daily to replenish GI normal donta. Recommend to recheck urinalysis in 7- 10 days to monitor resolution. Recommend follow up with PCP during this time to follow up this hospitalization. UTI prevention education will be provided. Patient would benefit with urology evaluation if recurrent UTI/pyelonephritis persist. Patient with history of hypothyroidism, chronic pain, scoliosis, GERD with hiatal hernia. Patient may continue with her home medications at discharge. Vital Signs/Physical Exam: Temp Pulse Resp BP Pulse Ox 98 F 75 15 135/65 97 01/28/20 08:00 01/28/20 08:00 01/28/20 09:38 01/28/20 08:00 01/28/20 09:38 General: Alert, In no apparent distress, Oriented x3, Cooperative HEENT: Atraumatic Neck: Supple Respiratory: Clear to auscultation bilaterally, Normal air movement Cardiovascular: Normal pulses, Regular rate/rhythm Gastrointestinal: Normal bowel sounds, No tenderness, No masses, No rebound, No guarding Neurological: Normal speech, Normal strength at 5/5 x4 extr, Normal tone Laboratory Data at Discharge: WBC 9.9 K/uL (4.3-10.9) D 01/28/20 05:45 Hgb 10.2 g/dL (12.0-15.0) L 01/28/20 05:45 Hct 30.0 % (36.0-45.0) L D 01/28/20 05:45 Plt Count 236 K/uL (152-406) 01/28/20 05:45 Sodium 140 mmol/L (136-145) 01/28/20 05:45 Potassium 3.8 mmol/L (3.5-5.1) 01/28/20 05:45 BUN 12 mg/dL (7-18) 01/28/20 05:45 Creatinine 0.73 mg/dL (0.55-1.3) 01/28/20 05:45 Glucose 90 mg/dL (74-106) 01/28/20 05:45 Magnesium 2.3 mg/dL (1.8-2.4) 01/28/20 05:45 Home Medications: Bifidobacterium Infantis [Align] 4 mg PO DAILY 04/08/19 Cyclosporine [Restasis] 1 drop EACH EYE BID 04/08/19 Hydrocodone 5/APAP 325 [[place] 5/325*] 1 tab PO Q6H PRN 04/08/19 Levothyroxine [Synthroid*] 125 mcg PO [id number] 04/08/19 Lutein 20 mg PO DAILY 04/08/19 Polysorbate 80/Glycerin [Refresh Dry Eye Therapy Drops] 1 each OP QID PRN 04/08/19 Pregabalin [Lyrica*] 50 mg PO DAILY 08/01/19 Tafluprost/Pf [Zioptan 0.0015% Eye Drops] 1 each OP DAILY 04/08/19 Ciprofloxacin HCl [Cipro 250 MG Tablet*] 250 mg PO BID #14 tab 01/28/20 Lactobacillus Acidophilus [Acidophilus Lactobacilli] 1 each PO BID #20 capsule 01/28/20 New Medications: Lactobacillus Acidophilus [Acidophilus Lactobacilli] 1 each PO BID #20 capsule Ciprofloxacin HCl [Cipro 250 MG Tablet*] 250 mg PO BID #14 tab Patient Discharge Instructions: 1. Recommend follow up with PCP within 1 week to follow up this hospitalization. 2. Patient presented with bilateral pyelonephritis. Patient was recently seen by her PCP. Urine culture was obtained. She was given Macrobid without any improvement. The patient was seen in the emergency room and admitted for further evaluation and treatment. Patient was started on ciprofloxacin. The patient has tolerated this well. Cultures from the office indicate E coli with carson sensitivities to multiple antibiotics. White count has significantly improved. She has done well. At discharge she will continue with Cipro 250 mg twice daily for 7 days. Patient will also be provided lactobacillus 1 pill twice daily to replenish GI normal donta. Recommend to recheck urinalysis in 7-10 days to monitor resolution. Recommend follow up with PCP during this time to follow up this hospitalization. UTI/pyelonephritis prevention education will be provided. Patient may require urology evaluation as an outpatient if she continues with recurrent UTIs. 3. Patient with history of hypothyroidism, chronic pain, scoliosis, GERD with hiatal hernia. Patient may continue with her home medications at discharge. Diet: AHA Activity: Fall precautions Time spent managing pt's care (in minutes): 55
== END 2020-01-28 13:11 | disposition home or self-care (01) ==
LOC: ER 10:39 → ERHOLD 15:06 → 2ND 16:53
PROVIDERS: ADMIT Family Medicine; ATTEND Family Medicine
DX: N12 Tubulo-interstitial nephritis, not specified as acute or chronic (principal); B96.20 Unspecified Escherichia coli [E. coli] as the cause of diseases classified elsewhere; M41.9 Scoliosis, unspecified; K44.9 Diaphragmatic hernia without obstruction or gangrene; E03.9 Hypothyroidism, unspecified; G89.29 Other chronic pain; K21.9 Gastro-esophageal reflux disease without esophagitis
CPT/HCPCS: 96361; 87040 ×2; 87088 ×2; 85025 ×2; 87086; 80048 ×2; 36415 ×2; 83735; 83605; 87077 ×2; 87186 ×2; 84145; 74177; 96360; 99285; Q9967; J1650; J0744 ×2; J7040; J7030; G0378 ×3; 81003; 81015

== ENCOUNTER → 2020-07-31 | Day surgery (SDC) | payer OTHER ==
--- OUTSIDE RECORDS SUMMARY | 2020-07-31 10:08 | XMS REPORT | Continuity of Care Document ---
:1935 Author Organization [facility] t Address [address] [place] [address] Care Team Providers Name Role Phone Unavailable Unavailable Unavailable Payers Payer Name Policy Type Policy Number Effective Date Expiration Date S ource Problems This patient has no known problems. Allergies, Adverse Reactions, Alerts Allergy Allergy Status Severity Reaction(s) Onset Inactive Treating Comm ents Source Name Type Date Date Clinician Penicill DA Active [facility] 2017[facility]09 [facility] sulfamet [facility] Active [facility] 2017-09 [facility] hoxazole 10-13 00:[facility]: [facility] trimetho DA Active [facility] 2017-09 [facility] prim 10-13 00:[facility]: [facility] clarithr DA Active [facility] 2017-09 [facility] omycin 2 00:[facility]: [facility] azithrom DA Active SV 2017-09 [facility] ycin 2 00:00: [facility] levoflox DA Active SV 2017-09 [facility] acin 2 00:00: [facility]ope 00 [facility] Penicill DA Active SV 2017-09 [facility] ins 10-12 [facility]: [facility] 00 [facility] sulfamet DA Active SV 2017-09 [facility] hoxazole 10-12 00:00: [facility]ope [facility] trimetho DA Active SV 2017-09 [facility] prim 10-12 00:00: [facility]ope 00 [facility] clarithr DA Active SV 2017-09 [facility] omycin 10-12 00:00: [facility]ope 00 [facility] azithrom DA Active SV 2017-09 [facility] ycin 10-12 00:00: [facility]ope 00 [facility] levoflox DA Active SV 2017-09 [facility] acin 10-12 00:00: [facility]ope 00 [facility] Penicill DA Active SV [facility] ins 04-16 00:00: [facility]ope 00 [facility] sulfamet DA Active SV [facility] hoxazole 04-16 00:00: [facility]ope 00 [facility] trimetho DA Active SV [facility] prim 04-16 00:00: Orthope 00 [facility] clarithr DA Active SV [facility] omycin 04-16 00:00: Orthope 00 [facility] azithrom DA Active SV [facility] ycin 04-16 00:00: Orthope 00 dic [facility] levoflox DA Active SV [facility] acin 04-16 [place] 00:00: Orthope 00 [facility] PCN Adverse Active anaphylaxis [facility] Zithroma Adverse Active shortness of C HI [facility] x Reaction breath [facility] Biaxin Adverse Active shortness of [facility] Reaction breath [facility] Tetracyc Adverse Active Info Not [facility] line HCl Reaction Available [facility] Levaquin Adverse Active stomach [facility] Reaction upset [facility] Ciproflo Adverse Active rash [facility] xacin Reaction [facility] Bactrim Adverse Active hives [facility] DS Reaction [facility] Nitrofur Adverse Active rash [facility] antoin Reaction [facility] Medications Ordered Filled Start Stop Current Ordering Indication Dosage Frequency Signature Comments Components Source Medication Medication Date Date Medication? Clinician (SIG) Name Name Levothyroxi Levothyroxi Yes Veronica 1.[address] ne Sodium ne Sodium 4-23 [place] [facility] - [facility]: [facility] Restasis Restasis Yes Veronica [address] [facility] [place] [facility] affected [facility] Lyrica Lyrica Yes Veronica 1 capsule [facility] [place] [facility] Sinus Rinse Sinus Rinse Yes Veronica as [facility] Kit Kit [place] directed [facility] Align Align Yes Veronica as [facility] [place] directed [facility] Vitamin A Vitamin A Yes Veronica [address] [facility] [place] [facility] Stool Stool Yes Veronica not [facility] & [place] defined [facility] - Laxative Laxative [facility] Pepcid AC Pepcid AC Yes Veronica [address] [facility] [place] as needed [facility] Xlear Sinus Xlear Sinus Yes Veronica as [facility] [place] directed [facility] Pepcid AC Pepcid AC Yes Veronica [address] [facility] [place] as needed [facility] Aloe Vera Aloe Vera Yes Veronica not [facility] [place] defined [facility] CoQ10 CoQ10 Yes Veronica [address] [facility] [place] with a [facility] - meal [facility] AZO Bladder AZO Bladder Yes Veronica not [facility] Control Control [place] defined [facility] Vitamin C Vitamin C Yes Veronica as [facility] [place] directed [facility] Calcium Calcium Yes Veronica [address] [facility] [place] with meals [facility] Refresh Refresh Yes Veronica [address] [facility] [place] into [facility] - affected [facility] eye [facility] Zioptan Zioptan Yes Veronica [address] [facility] [place] into [facility] - affected [facility] Vitamin D Vitamin D Yes Veronica [address] [facility] [place] [facility] Lutein Lutein Yes Veronica [facility] [place] with a [facility] meal [facility] Vitamin D3 Vitamin D3 Yes Veronica 0.[address] [facility] [place] [facility] Hydrocodone Hydrocodone Yes Veronica [address] [facility] -Acetaminop -Acetaminop [place] as needed [facility] Magnesium Magnesium Yes Veronica [address] [facility] [place] with a [facility] B50 Complex B50 Complex Yes Veronica not [facility] TR TR [place] defined [facility] Procedures This patient has no known procedures. Encounters Start End Encounter Admission Attending Care Care Encounter Source Date/Time Date/Time Type Type Clinicians Facility Department ID 2020-07-07 2020-07-07 Outpatient [facility] [id number] 2020-07-03 2020-07-03 Out[facility] [id number] [facility] 2020-05-25 2020-05-25 [facility] [id number] [facility] 10:13:00 10:13:00 [facility] Medicine Medicine Outpati ent Clinics 2020-02-16 2020-02-16 [facility] [id number] [address] 16:48:00 16:48:00 [facility] Medicine Medicine Outpati ent Clinics 2020-02-16 2020-02-16 [facility] [id number] [address] 11[facility]00:00 11:00:00 [facility] Medicine Medicine Outpati ent Clinics 2020-02-10 2020-02-10 [facility] [id number] [address] 11[facility]00:00 11:00:00 [facility] Medicine l Medicine Outpati ent Clinics 2020-01-27 2020-01-27 [facility] [id number] [address] 13:08:00 13:08:00 [facility] Medicine Medicine Outpati ent Clinics 2020-01-27 2020-01-27 [facility] [id number] 09:09:00 09:09:00 [facility] Medicine Medicine Outpati ent Clinics 2020-01-25 2020-01-25 [facility] [id number] 09:14:00 09:14:00 t [facility] Medicine l Medicine Outpati ent Clinics 2020-01-24 2020-01-24 [facility] [id number] [address] 16[facility]20:00 16:20:00 t [facility] Medicine l Medicine Outpati ent Clinics 2020-01-24 2020-01-24 [facility] [id number] 09[facility]11:00 09:11:00 t [facility] Medicine l Medicine Outpati ent Clinics 2020-01-03 2020-01-03 [facility] [id number] [address] 10[facility]30:00 10:30:00 t [facility] l Medicine Outpati ent Clinics 2019-07-02 2019-07-02 [facility] [id number] 09:40:00 09:40:00 t [facility] Medicine l Medicine Outpati ent Clinics 2018-12-24 2018-12-24 [facility] [id number] [address] 10[facility]00:00 10:00:00 t [facility] Medicine l Medicine Outpati ent Clinics 2018-08-19 2018-08-19 [facility] [id number] [address] 02:27:00 02:27:00 t [facility] Medicine l Medicine Outpati ent Clinics 2018-06-25 2018-06-25 [facility] [id number] 10:15:00 10:15:00 t [facility] Medicine l Medicine Outpati ent Clinics 2018-01-27 2018-01-27 [facility] [id number] 10:30:00 10:30:00 [facility] l Outpati ent Clinics 2018-01-02 2018-01-02 [facility] [id number] 14:27:00 14:27:00 t [facility] Medicine Medicine [facility] 2017-12-29 2017-12-29 Outpatient [facility] [id number] [address] 10[facility]47:00 10:47:00 [facility] ent Clinics 2017-12-25 2017-12-25 Outpatient Scott Byers [id number] 10:30:00 10:30:[address] [facility] 2017-12-25 2017-12-25 Outpatient Scott Byers [id number] 08:58:00 08:58:00 [facility] ent Clinics Results This patient has no known results.
--- OUTSIDE RECORDS SUMMARY | 2020-07-31 10:08 | XMS REPORT ---
:1935 Author Organization [employer] Care Team Providers Name Role Phone Andre Ngen Provider Role Unavailable Allergies No Known Allergies Problems Problem Type Condition Code Onset Dates Condition Statu s Problem Abnormal CT of the chest R93.89 Act adi Problem Other chronic pain G89.29 Active Problem Pain in right knee M25.561 Active Problem Low back pain M54.5 Active Problem Spinal stenosis of lumbar region, M48.061 Active unspecified whether neurogenic claudication present Problem Chronic constipation K59.09 Active Problem Scoliosis, unspecified scoliosis M41.9 Active type, unspecified spinal region Problem Hypothyroidism, unspecified type E03.9 Active Problem Pulmonary nodules R91.8 Active Problem Chronic back pain M54.9 Active Problem Glaucoma H40.9 Active Problem Chronic obstructive pulmonary J44.9 Active disease, unspecified COPD type Problem 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9 Active disease) Problem Knee pain M25.569 Active Problem Insomnia G47.00 Active Problem Osteoporosis M81.0 Active Problem Fibromyalgia M79.7 Active Problem Migraines G43.909 Active Problem Allergic rhinitis J30.9 Active Problem Constipation K59.00 Active Medications No Known Medications Results No Known Results Summary Purpose [employer] Submission
--- NOTE | 2020-07-31 11:22 | RAD REPORT ---
EXAM DESCRIPTION: US - Guided FNA Non Breast - 07/31/2020 10:14 am CLINICAL HISTORY: E04.1 COMPARISON: No comparisons FINDINGS: Preoperative diagnosis: 12 mm right thyroid lobe nodule. Post operative diagnosis: Same. Conscious Sedation: None Fluoroscopy time: None Contrast used: None Estimated blood loss: Minimal Specimens:25 gauge FNA needles x5 The neck was prepped and draped in the usual sterile fashion. 1% lidocaine was infiltrated into the s ubcutaneous tissues for local anesthesia. Real time ultrasound scanning of the thyroid demonstrated 1 2 mm circumscribed hypoechoic nodule in the right lobe. Under ultrasound guidance, using 25 gauge FNA needles, 5 specimens were obtained of this lesion and sent to pathology for evaluation. There were n o complications. IMPRESSION: Successful ultrasound-guided right thyroid lobe nodule FNA procedure.
== END ==
LOC: FNA 09:36
PROVIDERS: ATTEND Nurse Practitioner Family
PROC: 0G9H3ZX Drainage of Right Thyroid Gland Lobe, Percutaneous Approach, Diagnostic (ICD-10-PCS; principal; 2020-07-31)
DX: E04.1 Nontoxic single thyroid nodule (principal)
CPT/HCPCS: 88162

== ENCOUNTER 2020-08-13 04:49 | Observation (INO) | payer OTHER ==
--- OUTSIDE RECORDS SUMMARY | 2020-08-13 04:52 | XMS REPORT | Continuity of Care Document ---
:1935 Author Organization [facility] t Address [address] [place] [address] Care Team Providers Name Role Phone Unavailable [...] levoflox DA Active SV [facility] 04[facility]16 [place] 00:00: Orthope 00 dic Hospita [facility] PCN Adverse Active anaphylaxis [facility] Zithroma Adverse Active shortness of C HI [facility] x Reaction breath [facility] Biaxin Adverse Active shortness of [facility] Reaction breath [facility] Tetracyc Adverse Active Info Not [facility] line HCl Reaction Available [facility] - [facility] Levaquin Adverse Active stomach [facility] Reaction upset [facility] Ciproflo Adverse Active rash [facility] xacin Reaction [facility] Bactrim Adverse Active hives [facility] DS Reaction [facility] Nitrofur Adverse Active rash [facility] antoin Reaction [facility] Medications Ordered Filled Start Stop Current Ordering Indication Dosage Frequency Signature Comments Components Source Medication Medication Date Date Medication? Clinician (SIG) Name Name Levothyroxi Levothyroxi Yes Veronica 1.[address] ne Sodium ne Sodium 4-23 [place] [facility] - 00:[facility]: [facility] 00 [facility] Restasis Restasis Yes Veronica [address] [facility] [place] into [facility] - affected [facility] Lyrica Lyrica Yes Veronica 1 capsule [facility] [place] [facility] Sinus Rinse Sinus Rinse Yes Veronica as [facility] Kit Kit [place] directed [facility] Align Align Yes Veronica as [facility] [place] directed [facility] Vitamin A Vitamin A Yes Veronica [address] [facility] [place] [facility] Stool Stool Yes Veronica not [facility] Soft[facility] [employer] & [place] defined [facility] - Laxative Laxative [facility] Pepcid AC Pepcid AC Yes Veronica [address] [facility] [place] as needed [facility] Xlear Sinus Xlear Sinus Yes Veronica as [facility] [place] directed [facility] Pepcid AC Pepcid AC Yes Veronica [address] [facility] [place] as needed [facility] Aloe Vera Aloe Vera Yes Veronica not [facility] [place] defined [facility] CoQ10 CoQ10 Yes Veronica [address] [facility] [place] with a [facility] - meal [facility] AZO Bladder AZO Bladder Yes Veronica not [facility] Control Control [place] defined [facility] Vitamin C Vitamin C Yes Veronica as [facility] [place] directed [facility] Calcium Calcium Yes Veronica [address] [facility] [place] with meals [facility] Refresh Refresh Yes Veronica [address] [facility] [place] into [facility] - affected [facility] eye as [facility] Zioptan Zioptan Yes Veronica [address] [facility] [place] into [facility] - affected [facility] Vitamin D Vitamin D Yes Veronica [address] [facility] [place] [facility] Lutein Lutein Yes Veronica [facility] [place] with a [facility] meal [facility] Vitamin D3 Vitamin D3 Yes Veronica 0.[address] [facility] [facility] [place] [facility] Hydrocodone Hydrocodone Yes Veronica [address] [facility] -Acetaminop -Acetaminop [place] as needed [facility] Magnesium Magnesium Yes Veronica [address] [facility] [place] with a [facility] B50 Complex B50 Complex Yes Veronica not [facility] TR TR [place] defined [facility] Procedures This patient has no known procedures. Encounters Start End Encounter Admission Attending Care Care Encounter Source Date/Time Date/Time Type Type Clinicians Facility Department ID 2020-07-07 2020-07-07 Out[facility] [id number] 2020-07-03 2020-07-03 Out[facility] [id number] 2020-05-25 2020-05-25 [facility] [id number] [facility] 10[facility]13:00 10:13:00 [facility] Medicine Medicine Outpati ent Clinics 2020-02-16 2020-02-16 [facility] [id number] [facility] 16[facility]48:00 16:48:00 [facility] Medicine Medicine Outpati ent Clinics 2020-02-16 2020-02-16 [facility] [id number] [facility] 11:00:00 11:00:00 [facility] Medicine Medicine Outpati ent Clinics 2020-02-10 2020-02-10 [facility] [id number] 11:00:00 11:00:00 [facility] Medicine l Medicine Outpati ent Clinics 2020-01-27 2020-01-27 [facility] [id number] 13:08:00 13:08:00 [facility] Medicine Medicine Outpati ent Clinics 2020-01-27 2020-01-27 [facility] [id number] 09:09:00 09:09:00 [facility] Medicine Medicine Outpati ent Clinics 2020-01-25 2020-01-25 [facility] [id number] 09:14:00 09:14:00 t [facility] Medicine l Medicine Outpati ent Clinics 2020-01-24 2020-01-24 [facility] [id number] [address] 16:20:00 16:20:00 t [facility] Medicine l Medicine Outpati ent Clinics 2020-01-24 2020-01-24 [facility] [id number] 09:11:00 09:11:00 t [facility] Medicine l Medicine Outpati ent Clinics 2020-01-03 2020-01-03 [facility] [id number] 10:30:00 10:30:00 t [facility] l Medicine Outpati ent Clinics 2019-07-02 2019-07-02 [facility] [id number] 09:40:00 09:40:00 t [facility] Medicine l Medicine Outpati ent Clinics 2018-12-24 2018-12-24 [facility] [id number] [facility] 10:00:00 10:00:00 t [facility] Medicine l Medicine Outpati ent Clinics 2018-08-19 2018-08-19 [facility] [id number] [facility] 02:27:00 02:27:00 t [facility] Medicine l Medicine Outpati ent Clinics 2018-06-25 2018-06-25 [facility] [id number] 10:15:00 10:15:00 t [facility] Medicine l Medicine Outpati ent Clinics 2018-01-27 2018-01-27 [facility] [id number] [facility] 10[facility]30:00 10:30:00 [facility] l Outpati ent Clinics 2018-01-02 2018-01-02 [facility] [id number] 14:27:00 14:27:00 t [facility] Medicine [facility] 2017-12-29 2017-12-29 Outpatient [facility] Byers [id number] 10:47:00 10:47:00 [facility] ent Clinics 2017-12-25 2017-12-25 Outpatient Scott Byers [id number] 10:30:00 10:30:00 [facility] 2017-12-25 2017-12-25 Outpatient Scott Byers [id number] 08:58:00 08:58:00 [facility] ent Clinics Results This patient has no known results.
[2020-08-13 05:20] LABS: Absolute Lymphocytes (CBC) 1.9 K/uL (0.7-4.9); Basophils % 1.1 % (0-1.3); Hematocrit 37.1 % (36.0-45.0); Lymphocytes % 31.5 % (15.3-44.8); MPV 9.1 fL (7.6-11.3); RBC Red Blood Cell Count 3.83 M/uL (3.86-4.86)
[2020-08-13] MEDS ORDERED: MORPHINE 2 MG/ML SYR ONE (05:24)
[2020-08-13] MEDS ORDERED: ONDANSETRON 4 MG/2 ML VIAL ONE (05:25)
[2020-08-13 05:26] LABS: Protime INR 0.98
[2020-08-13 05:47] LABS: ALT/SGPT 26 U/L (12-78); AST/SGOT 23 U/L (15-37); Albumin 3.9 g/dL (3.4-5.0); Alkaline Phosphatase 55 U/L (45-117); BUN Blood Urea Nitrogen 11 mg/dL (7-18); Bicarbonate 24 mmol/L (21-32); Bilirubin Direct 0.2 mg/dL (0-0.2); Bilirubin Total 0.6 mg/dL (0.2-1.0); Glucose Level 88 mg/dL (74-106); Magnesium 2.4 mg/dL (1.8-2.4); NT PRO-BNP 231 pg/mL (<450); Potassium 3.8 mmol/L (3.5-5.1); Protein, Total 7.4 g/dL (6.4-8.2); Sodium Level 141 mmol/L (136-145); Troponin (Emerg Dept Use Only) < 0.02 ng/mL (0.0-0.045)
--- NOTE | 2020-08-13 09:35 | ER ---
Nurse's Notes [facility] Name: Suma Lopez Age: 84 yrs Sex: Female : 1935 Arrival Date: 08/13/2020 Time: 04:50 Bed 6 Private MD: Diagnosis: Chest pain, unspecified Presentation: 08/13 05:12 Chief complaint: Patient states: Woken up from sleep with mid back pain about 0330, lp1 took [place] 5-325mg with no relief; reports pain radiating to chest and down left arm, took ASA 81mg x8 total at home [employer]; Denies N/V, dizziness, sob. Coronavirus screen: Client denies travel out of the [place] in the last 14 days. At this time, the client does not indicate any symptoms associated with coronavirus-19. Ebola Screen: No symptoms or risks identified at this time. Initial Sepsis Screen: Does the patient meet any 2 criteria? No. Patient's initial sepsis screen is negative. Does the patient have a suspected source of infection? No. Patient's initial sepsis screen is negative. Risk Assessment: Do you want to hurt yourself or someone else? Patient reports no desire to harm self or others. Onset of symptoms was August 13, 2020 at 03:30. 05:12 Method Of Arrival: Wheelchair lp1 05:12 Acuity: PARK 3 lp1 Historical: - Allergies: 05:17 Bactrim; lp1 05:17 Biaxin; lp1 05:17 Doxycycline; lp1 05:17 PENICILLINS; lp1 05:17 TETRACYCLINES; lp1 05:17 Zithromax; lp1 06:37 Levaquin; lp1 06:37 Ciprofloxacin; lp1 06:37 Cortisone Eye drops; lp1 - Home Meds: 05:17 Align 4 mg Oral cap daily [Active]; hydrocodone-acetaminophen 5-325 mg Oral tab 1 tab lp1 every 6 hours [Active]; levothyroxine oral 12.5 1 cap once daily [Active]; Lyrica 50mg Oral 1 cap daily [Active]; 06:37 lutein 20 mg oral tab daily [Active]; Refresh Tears 0.5 % ophthalmic drop [Active]; lp1 Restasis 0.05 % ophthalmic dpet 1 drop 2 times per day [Active]; Zioptan (PF) 0.0015 % ophthalmic dpet 1 drop nightly [Active]; vitamin A 25,000 unit Oral cap 1 cap once daily [Active]; aloe vera 25 mg oral cap twice a day [Active]; magnesium oxide 400 mg Oral cap daily [Active]; Vitamin D3 5,000 unit oral tab daily [Active]; Vitamin C 500 mg Oral tab daily [Active]; Pepcid 20 mg Oral tab 2 times per day [Active]; - PMHx: 05:17 Glaucoma; Hypertension; Hypothyroidism; lp1 - PSHx: 06:37 Hysterectomy; Sinus surgery; Carpal Tunnel Repair; Foot surgery; Cholecystectomy; L lp1 wrist surgery; cataract surgery; Spinal stenosis surgery; - Immunization history:: Adult Immunizations up to date. - Social history:: Smoking status: Patient denies any tobacco usage or history of. Screenin:14 Abuse screen: Denies threats or abuse. Denies injuries from another. Nutritional lp1 screening: No deficits noted. Tuberculosis screening: No symptoms or risk factors identified. Fall Risk None identified. Assessment: 05:00 General: Appears in no apparent distress. Behavior is anxious. Pain: Complains of pain lp1 in chest Pain radiates to left arm Pain currently is 8 out of 10 on a pain scale. Neuro: Level of Consciousness is awake, alert, obeys commands, Oriented to person, place, time, situation. Cardiovascular: Patient's skin is warm and dry. Rhythm is sinus rhythm. Respiratory: Respiratory effort is even, Respiratory pattern is symmetrical, hyperventilation Breath sounds are clear bilaterally. GI: No signs and/or symptoms were reported involving the gastrointestinal system. : No signs and/or symptoms were reported regarding the genitourinary system. EENT: No signs and/or symptoms were reported regarding the EENT system. Derm: Skin is fragile, is thin, Skin is dry, Skin is normal. Musculoskeletal: No deficits noted. 05:20 Reassessment: Patient is alert, oriented x 3, equal unlabored respirations, skin lp1 warm/dry/pink. Patient reports pain resolved at this time; Patient states feeling better. 06:15 Reassessment: Patient appears in no apparent distress at this time. Patient reports lp1 minimal pain at this time, no need for medication. 08:36 Reassessment: Patient appears in no apparent distress at this time. No changes from sv previously documented assessment. Patient and/or family updated on plan of care and expected duration. Pain level reassessed. Patient is alert, oriented x 3, equal unlabored respirations, skin warm/dry/pink. 09:45 Reassessment: Patient appears in no apparent distress at this time. No changes from sv previously documented assessment. Patient and/or family updated on plan of care and expected duration. Pain level reassessed. Patient is alert, oriented x 3, equal unlabored respirations, skin warm/dry/pink. 10:50 Reassessment: Attempted to call report, nurse unavailable. sv Vital Signs: 05:12 BP 187 / 93; Pulse 73; Resp 19; Temp 98.5(TE); Pulse Ox 99% on R/A; Weight 48.08 kg lp1 (R); Pain 8/10; 05:21 BP 156 / 83; Pulse 64; Resp 20; Pulse Ox 96% on R/A; lp1 06:37 BP 169 / 88; Pulse 76; Resp 18; Pulse Ox 97% on R/A; lp1 07:00 BP 156 / 83; Pulse 79; Resp 16; Pulse Ox 97% ; sv 08:00 BP 144 / 77; Pulse 61; Resp 14; Pulse Ox 95% ; sv 08:41 BP 127 / 99; Pulse 78 MON; Resp 19; Pulse Ox 98% on R/A; sv 09:31 BP 149 / 77; Pulse 79; Resp 18; Pulse Ox 96% ; sv 10:15 BP 140 / 90; Pulse 87; Resp 18; Pulse Ox 96% ; sv 11:12 BP 155 / 89; Pulse 76; Resp 14; Pulse Ox 96% ; sv 08:41 Sinus Rhythm sv ED Course: 04:50 Patient arrived in ED. cl3 04:52 Teresa Rojas, ROHAN is Primary Nurse. lp1 05:00 Jhonny Lala MD is Attending Physician. tw4 05:00 Initial lab(s) drawn, by me, sent to lab. Inserted saline lock: 20 gauge in right lp1 forearm, using aseptic technique. Blood collected. 05:10 Patient has correct armband on for positive identification. Bed in low position. Call lp1 light in reach. patient monitor on. Pulse ox on. NIBP on. 05:14 Triage completed. lp1 05:14 Arm band placed on left wrist. lp1 05:25 XRAY Chest (1 view) In Process Unspecified. EDMS 06:22 CT Chest, Abdomen, Pelvis - W/Contrast In Process Unspecified. EDMS 08:36 Primary Nurse role handed off by Teresa Rojas RN sv 08:36 Christianne Grady RN is Primary Nurse. sv 08:39 Basic Metabolic Panel Sent. sv 08:39 CBC with Diff Sent. sv 08:53 Awaiting radiology results. Awaiting re-evaluation by ER provider. sv 09:33 Attending Physician role handed off by Jhonny Lala MD rn 09:33 Deion Shi MD is Attending Physician. rn 09:34 Farhat Keating is Hospitalizing Provider. rn 09:42 Awaiting bed assignment. sv 11:47 No provider procedures requiring assistance completed. Patient admitted, IV remains in sv place. intact. Administered Medications: 08:38 Not Given (Patient Refused): Zofran (Ondansetron) 4 mg IVP once; over 2 minutes sv 08:39 Not Given (Patient Refused): morphine 2 mg IVP once; RASS on ADMIN: Combtv4, Very sv Agttd3, Agttd2, Rstlss1, AlertClm0, Drwsy-1, Lt Sdtn-2, Mod Sdtn-3, Dp Sdtn-4, UnArsble-5 Outcome: 09:34 Decision to Hospitalize by Provider. rn 11:47 Patient left the ED. sv 11:47 Admitted to Tele accompanied by tech, family with patient, via wheelchair, with chart, sv Report called to Tereza RN 11:47 Condition: stable 11:47 Instructed on the need for admit. Signatures: Dispatcher [employer] EDWV Christianne Grady, ROHAN RN Deion Shi MD MD rn Pena, Laura, RN RN lp1 Jhonny Lala MD MD tw4 Jaron Vazquez cl3 Corrections: (The following items were deleted from the chart) 06:37 05:17 Home Meds: lutein Oral; lp1 lp1 06:37 05:17 Home Meds: Refresh Tears 0.5 % ophthalmic drop; lp1 lp1 06:37 05:17 Home Meds: Restasis 0.05 % ophthalmic dpet 1 drop 2 times per day; lp1 lp1 06:37 05:17 Home Meds: Zioptan (PF) 0.0015 % ophthalmic dpet 1 drop once daily; lp1 lp1
--- NOTE | 2020-08-13 09:35 | EDPHYS ---
Physician Documentation [facility] Name: Suma Lopez Age: 84 yrs Sex: Female : 1935 Arrival Date: 08/13/2020 Time: 04:50 Bed 6 Private MD: ED Physician Deion Shi HPI: 08/13 05:26 This 84 yrs old Female presents to ER via Wheelchair with complaints of tw4 Shoulder Pain, Numbness. 05:26 The patient or guardian reports chest pain that is located primarily in the anterior tw4 chest wall. Onset: just prior to arrival, today. The pain radiates to the left scapula, left back. The pain radiates to left shoulder. Associated signs and symptoms: The patient has no apparent associated signs or symptoms. The chest pain is described as sharp. Duration: The patient or guardian reports a single episode, that is still ongoing. Severity of pain: At its worst the pain was moderate in the emergency department the pain. The patient has not experienced similar symptoms in the past. Historical: - Allergies: 05:17 Bactrim; lp1 05:17 Biaxin; lp1 05:17 Doxycycline; lp1 05:17 PENICILLINS; lp1 05:17 TETRACYCLINES; lp1 05:17 Zithromax; lp1 06:37 Levaquin; lp1 06:37 Ciprofloxacin; lp1 06:37 Cortisone Eye drops; lp1 - Home Meds: 05:17 Align 4 mg Oral cap daily [Active]; hydrocodone-acetaminophen 5-325 mg Oral tab 1 tab lp1 every 6 hours [Active]; levothyroxine oral 12.5 1 cap once daily [Active]; Lyrica 50mg Oral 1 cap daily [Active]; 06:37 lutein 20 mg oral tab daily [Active]; Refresh Tears 0.5 % ophthalmic drop [Active]; lp1 Restasis 0.05 % ophthalmic dpet 1 drop 2 times per day [Active]; Zioptan (PF) 0.0015 % ophthalmic dpet 1 drop nightly [Active]; vitamin A 25,000 unit Oral cap 1 cap once daily [Active]; aloe vera 25 mg oral cap twice a day [Active]; magnesium oxide 400 mg Oral cap daily [Active]; Vitamin D3 5,000 unit oral tab daily [Active]; Vitamin C 500 mg Oral tab daily [Active]; Pepcid 20 mg Oral tab 2 times per day [Active]; - PMHx: 05:17 Glaucoma; Hypertension; Hypothyroidism; lp1 - PSHx: 06:37 Hysterectomy; Sinus surgery; Carpal Tunnel Repair; Foot surgery; Cholecystectomy; L lp1 wrist surgery; cataract surgery; Spinal stenosis surgery; - Immunization history:: Adult Immunizations up to date. - Social history:: Smoking status: Patient denies any tobacco usage or history of. ROS: 05:26 Constitutional: Negative for fever, chills, and weight loss, Eyes: Negative for injury, tw4 pain, redness, and discharge, Respiratory: Negative for shortness of breath, cough, wheezing, and pleuritic chest pain, Abdomen/GI: Negative for abdominal pain, nausea, vomiting, diarrhea, and constipation. 05:26 Back: Negative for injury and pain, MS/Extremity: Negative for injury and deformity, Skin: Negative for injury, rash, and discoloration, Neuro: Negative for headache, weakness, numbness, tingling, and seizure. 05:26 Cardiovascular: Positive for chest pain, Negative for edema, orthopnea, palpitations, paroxysmal nocturnal dyspnea. Exam: 05:26 Constitutional: This is a well developed, well nourished patient who is awake, alert, tw4 and in no acute distress. Head/Face: Normocephalic, atraumatic. Chest/axilla: Normal chest wall appearance and motion. Nontender with no deformity. No lesions are appreciated. Cardiovascular: Regular rate and rhythm with a normal S1 and S2. No gallops, murmurs, or rubs. Normal PMI, no JVD. No pulse deficits. Respiratory: Lungs have equal breath sounds bilaterally, clear to auscultation and percussion. No rales, rhonchi or wheezes noted. No increased work of breathing, no retractions or nasal flaring. Abdomen/GI: Soft, non-tender, with normal bowel sounds. No distension or tympany. No guarding or rebound. No evidence of tenderness throughout. Back: No spinal tenderness. No costovertebral tenderness. Full range of motion. Skin: Warm, dry with normal turgor. Normal color with no rashes, no lesions, and no evidence of cellulitis. MS/ Extremity: Pulses equal, no cyanosis. Neurovascular intact. Full, normal range of motion. Neuro: Awake and alert, GCS 15, oriented to person, place, time, and situation. Cranial nerves II-XII grossly intact. Motor strength 5/5 in all extremities. Sensory grossly intact. Cerebellar exam normal. Normal gait. Vital Signs: 05:12 BP 187 / 93; Pulse 73; Resp 19; Temp 98.5(TE); Pulse Ox 99% on R/A; Weight 48.08 kg lp1 (R); Pain 8/10; 05:21 BP 156 / 83; Pulse 64; Resp 20; Pulse Ox 96% on R/A; lp1 06:37 BP 169 / 88; Pulse 76; Resp 18; Pulse Ox 97% on R/A; lp1 07:00 BP 156 / 83; Pulse 79; Resp 16; Pulse Ox 97% ; sv 08:00 BP 144 / 77; Pulse 61; Resp 14; Pulse Ox 95% ; sv 08:41 BP 127 / 99; Pulse 78 MON; Resp 19; Pulse Ox 98% on R/A; sv 09:31 BP 149 / 77; Pulse 79; Resp 18; Pulse Ox 96% ; sv 10:15 BP 140 / 90; Pulse 87; Resp 18; Pulse Ox 96% ; sv 11:12 BP 155 / 89; Pulse 76; Resp 14; Pulse Ox 96% ; sv 08:41 Sinus Rhythm sv MDM: 05:00 Patient medically screened. tw4 05:26 Data reviewed: vital signs, nurses notes. Data interpreted: Pulse oximetry: tw4 Interpretation: normal. Counseling: I had a detailed discussion with the patient and/or guardian regarding: the historical points, exam findings, and any diagnostic results supporting the discharge/admit diagnosis. Special discussion: I discussed with the patient/guardian in detail that at this point there is no indication for admission to the hospital. It is understood, however, that if the symptoms persist or worsen the patient needs to return immediately for re-evaluation. 09:33 Differential diagnosis: acute myocardial infarction, acute pericarditis, anxiety, rn coronary artery disease chest wall pain, costochondritis, esophagitis, gastritis, gastroesophageal reflux disease (GERD), pericarditis, pleurisy, pneumonia, pneumothorax, pulmonary embolus, stable angina, thoracic aortic disection. The patient was not given aspirin in the Emergency Department. Patient reports taking aspirin within the past 24 hours. Admission orders: after a detailed discussion of the patient's condition and case, the admit orders are written by me. ED course: Pt improved, no clear etiology of chest/back pain, trop neg, CT aorta neg, will obs to Dr. keating for further workup given pain woke her up from sleep, and sister presented with identical symptoms and ended up being NC. . 08/13 05:01 Order name: Basic Metabolic Panel tw4 08/13 05:01 Order name: CBC with Diff tw4 08/13 05:01 Order name: LFT's; Complete Time: 06:57 tw4 08/13 06:57 Interpretation: Within normal limits. tw4 08/13 05:01 Order name: Magnesium; Complete Time: 06:57 tw4 08/13 06:57 Interpretation: MG 2.4. tw4 08/13 05:01 Order name: NT PRO-BNP; Complete Time: 06:57 tw4 08/13 06:57 Interpretation: Within normal limits: NT PRO-BNP 231. tw4 08/13 05:01 Order name: PT-INR; Complete Time: 06:57 tw4 08/13 06:57 Interpretation: Within normal limits: PT 11.6. tw4 08/13 05:01 Order name: Troponin (emerg Dept Use Only); Complete Time: 06:57 tw4 08/13 06:58 Interpretation: Within normal limits: TROPED < 0.02. tw4 08/13 05:01 Order name: XRAY Chest (1 view) tw4 08/13 05:01 Order name: EKG; Complete Time: 05:02 tw4 08/13 05:01 Order name: Basic Metabolic Panel; Complete Time: 06:57 EDMS 08/13 06:57 Interpretation: Normal except: CL 108; GFR 64. tw4 08/13 05:01 Order name: CBC with Automated Diff; Complete Time: 06:57 EDMS 08/13 06:57 Interpretation: Normal except: RBC 3.83. tw4 08/13 05:25 Order name: CT Chest, Abdomen, Pelvis - W/Contrast tw4 08/13 05:01 Order name: Cardiac monitoring; Complete Time: 05:11 tw4 08/13 05:01 Order name: EKG - Nurse/Tech; Complete Time: 05:21 tw4 08/13 05:01 Order name: IV Saline Lock; Complete Time: 05:11 4 08/13 05:01 Order name: Labs collected and sent; Complete Time: :4 08/13 05:01 Order name: O2 Per Protocol; Complete Time: :08/13 05:01 Order name: O2 Sat Monitoring; Complete Time: : EC:26 Rate is 66 beats/min. Rhythm is regular. QRS [place] is Normal. NV interval is normal. QT tw4 interval is normal. No Q waves. T waves are Flattened in leads III, V1. No ST changes noted. Clinical impression: 1st degree heart block. Interpreted by me. Reviewed by me. Administered Medications: 08:38 Not Given (Patient Refused): Zofran (Ondansetron) 4 mg IVP once; over 2 minutes sv 08:39 Not Given (Patient Refused): morphine 2 mg IVP once; RASS on ADMIN: Combtv4, Very sv Agttd3, Agttd2, Rstlss1, AlertClm0, Drwsy-1, Lt Sdtn-2, Mod Sdtn-3, Dp Sdtn-4, UnArsble-5 Disposition: 08/13/20 09:34 Hospitalization ordered by Farhat Keating for Observation. Preliminary diagnosis is Chest pain, unspecified. - Bed requested for Telemetry/MedSurg (observation). - Status is Observation. sv - Condition is Stable. - Problem is new. - Symptoms have improved. Signatures: Dispatcher [employer] EDChristianne kSinner RN RN Deion Shi MD MD rn Pena, Laura, RN RN lp Jhonny Lala MD MD [facility] Bertha Moody Corrections: (The following items were deleted from the chart) 06:37 05:17 Home Meds: lutein Oral; lp1 lp1 06:37 05:17 Home Meds: Refresh Tears 0.5 % ophthalmic drop; lp1 lp1 06:37 05:17 Home Meds: Restasis 0.05 % ophthalmic dpet 1 drop 2 times per day; lp1 lp1 06:37 05:17 Home Meds: Zioptan (PF) 0.0015 % ophthalmic dpet 1 drop once daily; lp1 lp1 10:45 09:34 Hospitalization Ordered by Farhat Keating for Observation. Preliminary diagnosis eb is Chest pain, unspecified. Bed requested for Telemetry/MedSurg (observation). Status is Observation. Condition is Stable. Problem is new. Symptoms have improved. rn 11:00 10:45 08/13/2020 09:34 Hospitalization Ordered by Farhat Keating for Observation. eb Preliminary diagnosis is Chest pain, unspecified. Bed requested for Telemetry/MedSurg (observation). Status is Observation. Condition is Stable. Problem is new. Symptoms have improved. eb 11:47 11:00 08/13/2020 09:34 Hospitalization Ordered by Farhat Keating for Observation. sv Preliminary diagnosis is Chest pain, unspecified. Bed requested for Telemetry/MedSurg (observation). Status is Observation. Condition is Stable. Problem is new. Symptoms have improved. eb
--- NOTE | 2020-08-13 10:47 | P.HP ---
Certification for Inpatient Patient admitted to: Observation With expected LOS: <2 Midnights Practitioner: I am a practitioner with admitting privileges, knowledge of patient current condition, hospital course, and medical plan of care. Services: Services provided to patient in accordance with Admission requirements found in Title 42 Section 412.3 of the Code of Federal Regulations Patient History Date of Service: 08/13/20 Reason for admission: Chest pain History of Present Illness: 84-year-old woman with a history of scoliosis presented emergency department with a complaint of chest pain of sudden onset, which woke her up in the middle of the night. Patient described back pain between the scapular blades, radiating to the anterior chest, worse with deep breathing, maximum intensity 8/10. Patient denied any cough or shortness of breath. She denied any fever. Workup in the emergency department has been unremarkable. Initial troponin is negative. Chest x-ray shows no acute disease. CTA thorax done shows no aortic dissection or pulmonary embolism. It did report and pulmonary nodule. Patient is placed under observation for ACS rule out. Allergies azithromycin [From Zithromax] Allergy (Verified 04/08/19 12:19) Rash clarithromycin [From Biaxin] Allergy (Verified 04/08/19 12:19) Rash Penicillins Allergy (Verified 04/08/19 12:19) Anaphylaxis sulfamethoxazole [From Bactrim] Allergy (Verified 04/08/19 12:19) Hives trimethoprim [From Bactrim] Allergy (Verified 04/08/19 12:19) Hives levofloxacin [From Levaquin] Adverse Reaction (Verified 04/08/19 12:19) stomach prob. Home Medications: Bifidobacterium Infantis [Align] 4 mg PO DAILY 04/08/19 Cyclosporine [Restasis] 1 drop EACH EYE BID 04/08/19 Hydrocodone 5/APAP 325 [[place] 5/325*] 1 tab PO Q6H PRN 04/08/19 Levothyroxine [Synthroid*] 125 mcg PO [id number] 04/08/19 Lutein 20 mg PO DAILY 04/08/19 Polysorbate 80/Glycerin [Refresh Dry Eye Therapy Drops] 1 each OP QID PRN 04/08/19 Pregabalin [Lyrica*] 50 mg PO DAILY 04/08/19 Tafluprost/Pf [Zioptan 0.0015% Eye Drops] 1 each OP DAILY 04/08/19 Ciprofloxacin HCl [Cipro 250 MG Tablet*] 250 mg PO BID #14 tab 01/28/20 Lactobacillus Acidophilus [Acidophilus Lactobacilli] 1 each PO BID #20 capsule 01/28/20 - Past Medical/Surgical History Diabetic: No -: Scoliosis -: Glaucoma -: GERD with hiatal hernia -: Chronic pain Psychosocial/ Personal History: Patient lives at home - Family History Father -: Heart disease Mother -: Heart disease - Social History Smoking Status: Never smoker Alcohol use: No CD- Drugs: No Caffeine use: Yes Review of Systems Other: Except as documented, all other systems reviewed and negative. Physical Examination - Physical Exam General: Alert, In no apparent distress HEENT: Atraumatic, PERRLA, Mucous membr. moist/pink, Sclerae nonicteric Neck: Supple, JVD not distended Respiratory: Clear to auscultation bilaterally, Normal air movement Cardiovascular: No edema, Regular rate/rhythm, Normal S1 S2 Capillary refill: <2 Seconds Gastrointestinal: Normal bowel sounds, Soft and benign, No tenderness Musculoskeletal: No swelling, No tenderness Integumentary: No rashes, No erythema Neurological: Normal speech, Normal strength at 5/5 x4 extr, Cranial nerves 3-12 intact - Studies Laboratory Data (last 24 hrs) 08/13/20 05:00: PT 11.6, INR 0.98 08/13/20 05:00: WBC 6.1, Hgb 12.4, Hct 37.1, Plt Count 252 08/13/20 05:00: Sodium 141, Potassium 3.8, BUN 11, Creatinine 0.85, Glucose 88, Magnesium 2.4, Total Bilirubin 0.6, AST 23, ALT 26, Alkaline Phosphatase 55 Assessment and Plan - Problems (Diagnosis) (1) Chest pain Current Visit: Yes Status: Acute (2) Chronic back pain Current Visit: Yes Status: Acute (3) GERD (gastroesophageal reflux disease) Current Visit: Yes Status: Acute - Plan Patient chest pain sounds noncardiac and could be musculoskeletal or pleuritic. Patient is concerned her sister had similar complaint and was diagnosed with an VT. She will be placed under observation Will continue to trend troponin Will obtain echocardiogram to assess for LV dysfunction, motility and effusion. She will be started on aspirin, check lipid profile. Opioids p.r.n. for pain. - Advance Directives Does patient have a Living Will: Yes Does patient have a Durable POA for Healthcare: Yes
[2020-08-13] MEDS ORDERED: MORPHINE 2 MG/ML SYR IV PRN (11:25)
[2020-08-13] MEDS ORDERED: NITROGLYCERIN 0.4 MG/TAB SL PRN (11:25)
--- NOTE | 2020-08-13 11:51 | RAD REPORT ---
EXAM DESCRIPTION: RAD - Chest Single View - 08/13/2020 5:25 am CLINICAL HISTORY: CHEST PAIN Chest pain. COMPARISON: Chest Single View dated 09/21/2019; Chest Abdomen Pelvis W Cont dated 08/13/2020 FINDINGS: Portable technique limits examination quality. The lungs are emphysematous with a calcified granuloma in the left lung base. The lungs are otherwise clear. The heart is normal in size. No displaced fractures.
[2020-08-13 11:55] VITALS: BMI 18.8
[2020-08-13 12:08] LABS: HDL Cholesterol 57 mg/dL (40-60); LDL Cholesterol, Calculated 95 (<130); Troponin I < 0.02 ng/mL (0.0-0.045)
[2020-08-13] MEDS ORDERED: REFRESH EYE DROPS OPTH PRN (18:47)
[2020-08-13] MEDS ORDERED: HYDROCODONE/APAP 5/325 MG TAB PO PRN (19:00)
[2020-08-13] MEDS: HYDROCODONE/APAP 5/325 MG TAB PO SCH (21:12)
[2020-08-14] MEDS: HYDROCODONE/APAP 5/325 MG TAB PO SCH ×2 (03:10→08:46)
[2020-08-14 04:25] LABS: Absolute Lymphocytes (CBC) 1.7 K/uL (0.7-4.9); Hematocrit 35.7 % (36.0-45.0); Lymphocytes % 28.8 % (15.3-44.8); MPV 9.4 fL (7.6-11.3); RBC Red Blood Cell Count 3.68 M/uL (3.86-4.86)
[2020-08-14 04:32] LABS: Potassium 3.6 mmol/L (3.5-5.1)
[2020-08-14] MEDS ORDERED: ALIGN 4 MG PO SCH (06:00)
[2020-08-14] MEDS ORDERED: SODIUM CHLORIDE NAS PRN (07:29)
[2020-08-14] MEDS ORDERED: SODIUM BICARBONATE NAS PRN (07:29)
[2020-08-14 08:54] VITALS: O2SAT 94
[2020-08-14] MEDS ORDERED: DOCUSATE NA 100 MG CAP PO SCH (09:00)
[2020-08-14] MEDS ORDERED: VITAMIN D3 PO SCH (09:00)
[2020-08-14] MEDS ORDERED: ENOXAPARIN 40 MG/0.4 ML SQ SCH (09:00)
[2020-08-14] MEDS ORDERED: BETA CAROTENE 25000 UNIT PO SCH (09:00)
[2020-08-14] MEDS ORDERED: VITAMIN B COMPLEX 1 CAP PO SCH (09:00)
[2020-08-14] MEDS ORDERED: ASPIRIN EC 81 MG TAB PO SCH (09:00)
[2020-08-14] MEDS ORDERED: ASCORBIC ACID 500 MG TABLET PO SCH (09:00)
[2020-08-14] MEDS ORDERED: [UNRECOGNIZED DRUG - OTHER] PO SCH (09:00)
[2020-08-14] MEDS ORDERED: FOLIC ACID PO SCH (09:00)
[2020-08-14] MEDS ORDERED: FAMOTIDINE PO SCH (09:00)
[2020-08-14] MEDS ORDERED: CYCLOSPORINE OPTH OPTH SCH (09:00)
--- NOTE | 2020-08-14 09:51 | RAD REPORT ---
EXAM DESCRIPTION: CT Angiography Chest and CT Abdomen and Pelvis With Intravenous Contrast CLINICAL HISTORY: The patient is 84 years old and is Female; back pain;Chest pain TECHNIQUE: Axial computed tomographic angiography images of the chest and axial computed tomography images of the abdomen and pelvis with intravenous contrast. Sagittal and coronal reformatted images were created and reviewed. This CT exam was performed using one or more of the following dose redu ction techniques: automated exposure control, adjustment of the mA and/or kV according to patient s ize, and/or use of iterative reconstruction technique. MIP reconstructed images were created and reviewed. COMPARISON: CT of the abdomen and pelvis January 27, 2020 FINDINGS: CHEST: AORTA: No acute findings. No aortic aneurysm. No dissection. PULMONARY ARTERIES: There are no obvious filling defects identified within the pulmonary arterie s to suggest pulmonary embolism. GREAT VESSELS OF AORTIC ARCH: No acute findings. No dissection. No arterial occlusion or sig nificant stenosis. LUNGS: Areas of scarring and bronchiectasis within the right middle lobe and lingula are noted. There is no lobar consolidation. A 0.7 cm left lower lobe pulmonary nodule is present. Scarring in th e left lower lobe is present. Calcified left lower lobe granuloma are noted. PLEURAL SPACE: Unremarkable. No significant effusion. No pneumothorax. HEART: Unremarkable. No cardiomegaly. No significant pericardial effusion. MEDIASTINUM: The tracheobronchial tree is widely patent. Calcified mediastinal lymph nodes are present. THYROID: A 1.2 cm cyst within the right lobe of the thyroid is present. ABDOMEN: LIVER: Several hepatic granuloma are present. GALLBLADDER AND BILE DUCTS: Surgical clips are present in the right upper quadrant, consistent w ith previous cholecystectomy. Moderate biliary dilatation is noted, the common bile duct measures u p to 1.0 cm. Findings are likely postsurgical. PANCREAS: The pancreas is atrophic. No ductal dilation. SPLEEN: Multiple splenic granuloma are present. ADRENALS: Unremarkable. No mass. KIDNEYS AND URETERS: Mild prominence of the right proximal ureter is present. No obstructing anderson culus is seen. The kidneys enhance symmetrically. No hydronephrosis. No solid mass. STOMACH AND BOWEL: The stomach is decompressed. The small bowel is normal in caliber. Distal sma ll bowel loops are fluid-filled. A moderate amount of stool is present within the right and transvers e colon. The left colon is decompressed. There is no bowel obstruction. No obvious mucosal thickening is seen. PELVIS: APPENDIX: No findings to suggest acute appendicitis. BLADDER: The bladder is well distended. REPRODUCTIVE: The patient is status post hysterectomy. A 1.2 cm simple right ovarian cyst pres ent. CHEST, ABDOMEN and PELVIS: INTRAPERITONEAL SPACE: Unremarkable. No significant fluid collection. No free air. BONES/JOINTS: Scoliotic curvature of the spine is present. Multilevel intervertebral disc space narrowing with osteophyte formation and vacuum disc phenomenon is noted throughout. No acute fractu re. No dislocation. SOFT TISSUES: Unremarkable. VASCULATURE: Atherosclerosis of the vasculature is present. The vessels are normal in caliber. LYMPH NODES: Unremarkable. No enlarged lymph nodes. IMPRESSION: 1. No evidence of pulmonary embolism. 2. No evidence of aortic aneurysm or dissection. 3. Left lower lobe pulmonary nodule. Recommend a non-contrast Chest CT at 6-12 months. If patient i s high risk for malignancy, recommend an additional non-contrast Chest CT at 18-24 months; if patient is low risk for malignancy a non-contrast Chest CT at 18-24 months is optional. These guidelines do not apply to immunocompromised patients and patients with cancer. Follow up in pa tients with significant comorbidities as clinically warranted. For lung cancer screening, adhere to L juan jose-RADS guidelines. Reference: Radiology. 2017; 284(1):228-43. 4. No evidence of bowel obstruction. 5. Right thyroid cyst. No follow-up imaging is recommended. 6. Simple right ovarian cyst. No follow-up imaging is recommended. Electronically signed by: Marie Lopez MD 08/13/2020 6:42 AM SOFT [employer]ALS HAND ENGRAVER Due to temporary technical issues with the PACS/Fluency reporting system, reports are being signed by the in house radiologist without review as a courtesy to ensure prompt reporting. The interpreting r adiologist is fully responsible for the content of the report.
[2020-08-14 10:29] VITALS: BP 144/67; TEMP 97.7
--- NOTE | 2020-08-14 11:23 | P.DS ---
Admission Date: 08/13/20 Discharge Date: 08/14/20 Disposition: ROUTINE DISCHARGE Discharge Condition: FAIR Reason for Admission: Chest pain - Problems (1) Chest pain Current Visit: Yes Status: Acute (2) Chronic back pain Current Visit: Yes Status: Acute (3) GERD (gastroesophageal reflux disease) Current Visit: Yes Status: Acute Brief History of Present Illness: 84-year-old woman with a history of scoliosis presented emergency department with a complaint of chest pain of sudden onset, which woke her up in the middle of the night. Patient described back pain between the scapular blades, radiating to the anterior chest, worse with deep breathing, maximum intensity 8/10. Patient denied any cough or shortness of breath. She denied any fever. Workup in the emergency department has been unremarkable. Initial troponin is negative. Chest x-ray shows no acute disease. CTA thorax done shows no aortic dissection or pulmonary embolism. It did report a pulmonary nodule. Patient is placed under observation for ACS rule out. Hospital Course: Troponin trended negative. Her EKG was unremarkable. CT chest result reviewed and reports bronchiectasis and scarring which could explain patient's pleurisy. No definite infiltrate. It also reported a pulmonary nodule which need to be followed within 6-12 months. Echocardiogram was performed and result is pending. ACS has been ruled out. Patient chest pain this pleuritic rather than of cardiac origin. Will prescribe her antibiotics for infective bronchitis given the presence of bronchiectasis. Noted patient has several antibiotic allergies and chills of antibiotics is limited. She is prescribed clindamycin and levaquin which she will hopefully tolerate. Vital Signs/Physical Exam: Temp Pulse Resp BP Pulse Ox 97.7 F 72 18 144/67 H 94 08/14/20 08:00 08/14/20 08:00 08/14/20 08:00 08/14/20 08:00 08/14/20 08:00 General: Alert, In no apparent distress HEENT: Mucous membr. moist/pink Neck: Supple, JVD not distended Respiratory: Clear to auscultation bilaterally, Normal air movement Cardiovascular: No edema, Regular rate/rhythm, Normal S1 S2 Gastrointestinal: Normal bowel sounds, Soft and benign, No tenderness Musculoskeletal: No swelling, No tenderness Integumentary: No rashes, No erythema Neurological: Normal strength at 5/5 x4 extr Laboratory Data at Discharge: WBC 6.1 K/uL (4.3-10.9) 08/14/20 03:43 Hgb 12.0 g/dL (12.0-15.0) 08/14/20 03:43 Hct 35.7 % (36.0-45.0) L 08/14/20 03:43 Plt Count 255 K/uL (152-406) 08/14/20 03:43 PT 11.6 SECONDS (9.5-12.5) 08/13/20 05:00 INR 0.98 08/13/20 05:00 Sodium 141 mmol/L (136-145) 08/14/20 03:43 Potassium 3.6 mmol/L (3.5-5.1) 08/14/20 03:43 BUN 15 mg/dL (7-18) 08/14/20 03:43 Creatinine 0.76 mg/dL (0.55-1.3) 08/14/20 03:43 Glucose 91 mg/dL (74-106) 08/14/20 03:43 Magnesium 2.4 mg/dL (1.8-2.4) 08/13/20 05:00 Total Bilirubin 0.6 mg/dL (0.2-1.0) 08/13/20 05:00 AST 23 U/L (15-37) 08/13/20 05:00 ALT 26 U/L (12-78) 08/13/20 05:00 Alkaline Phosphatase 55 U/L (45-117) 08/13/20 05:00 Troponin I < 0.02 ng/mL (0.0-0.045) 08/13/20 15:25 Triglycerides 112 mg/dL (<150) 08/13/20 11:42 Cholesterol 174 mg/dL (<200) 08/13/20 11:42 HDL Cholesterol 57 mg/dL (40-60) 08/13/20 11:42 Cholesterol/HDL Ratio 3.05 08/13/20 11:42 Home Medications: Aloe Vera 25 mg PO DAILY 08/13/20 Ascorbic Acid [Vitamin C] 500 mg PO DAILY 08/13/20 B-Complex with Vitamin C [Support-500] 1 each PO DAILY 08/13/20 Beta-Carotene [Beta Carotene] 25,000 unit PO DAILY 08/13/20 Bifidobacterium Infantis [Align] 4 mg PO [id number] 08/13/20 Carboxymethyl/Glycerin/Poly80 [Refresh Digital Eye Drops] 10 ml OP BID PRN 08/13/20 Cyclosporine [Restasis] 1 drop EACH EYE BID 08/13/20 Docusate Sodium [Stool Softener] 100 mg PO DAILY 08/13/20 Famotidine [Pepcid AC] 10 mg PO DAILY 08/13/20 Hydrocodone Bit/Acetaminophen [Hydrocodon-Acetaminophen 5-325] 1 each PO QID 08/13/20 Levothyroxine Sodium [Levothyroxine] 12.5 mcg PO [id number] 08/13/20 Lutein 20 mg PO DAILY 08/13/20 Magnesium Carb,Citrate,Oxide [Magnesium Complex] 300 mg PO DAILY 08/13/20 Pregabalin [Lyrica*] 50 mg PO BEDTIME 08/13/20 Sodium Chloride/Sodium Bicarb [Neilmed Sinus Rinse Kit Refill] 1 each NS BID PRN 08/13/20 Tafluprost/Pf [Zioptan 0.0015% Eye Drops] 1 each OP BEDTIME 08/13/20 Vitamin D3/Folic Acid [Dermacinrx Folixapure Tablet] 5,000 unit PO DAILY 08/13/20 clindamycin HCL [Cleocin HCl] 300 mg PO QID #28 capsule 08/14/20 levoFLOXacin [Levaquin] 750 mg PO DAILY #5 tab 08/14/20 New Medications: clindamycin HCL [Cleocin HCl] 300 mg PO QID #28 capsule levoFLOXacin [Levaquin] 750 mg PO DAILY #5 tab Patient Discharge Instructions: You will need a repeat CT chest with contrast to follow pulmonary nodule within 6-12 months. Diet: AHA Activity: Ad cali Followup: Clare Berry DO [ACTIVE - CAN ADMIT] - 1-2 Weeks
[2020-08-14] MEDS ORDERED: PREGABALIN 50 MG PO SCH (21:00)
[2020-08-15] MEDS ORDERED: LEVOTHYROXINE PO SCH (06:00)
--- NOTE | 2020-08-15 10:11 | ECHO ---
HEIGHT: 5 ft 3 in WEIGHT: 106 lb 0 oz DATE OF STUDY: 08/14/[address]: sadiq del valle 2-DIMENSIONAL: YES M.MODE: YES DOPPLER: YES COLOR FLOW: YES TDS: NO PORTABLE: NO DEFINITY: NO BUBBLE STUDY: NO DIAGNOSIS: SCOLIOSIS WITH CHEST PAIN CARDIAC HISTORY: CATHERIZATION: NO SURGERY: NO PROSTHETIC VALVE: NO PACEMAKER: NO MEASUREMENTS (cm) DIASTOLIC (NORMALS) SYSTOLIC (NORMALS) IVSd 0.8 (0.6-1.2) LA Diam 2.6 (1.9-4.0) LVEF 67% LVIDd 3.6 (3.5-5.7) LVIDs 2.3 (2.0-3.5) %FS 36% LVPWd 0.9 (0.6-1.2) Ao Diam 2.3 (2.0-3.7) 2 DIMENSIONAL ASSESSMENT: RIGHT ATRIUM: NORMAL LEFT ATRIUM: NORMAL RIGHT VENTRICLE: NORMAL LEFT VENTRICLE: NORMAL TRICUSPID VALVE: MITRAL VALVE: PULMONIC VALVE: NORMAL AORTIC VALVE: PERICARDIAL EFFUSION: NONE AORTIC ROOT: NORMAL LEFT VENTRICULAR WALL MOTION: NORMAL DOPPLER/COLOR FLOW: SEE BELOW COMMENTS: NORMAL LEFT VENTRICULAR EJECTION FRACTION 55-60% WITH NORMAL WALL MOTION. MILD AORTIC, MITRAL AND TRICUSPID REGURGITATION. TECHNOLOGIST: Douglas SAMPSON
== END 2020-08-14 13:56 | disposition home or self-care (01) ==
LOC: ER 04:49 → ERHOLD 10:36 → 2ND 11:22
PROVIDERS: ADMIT Internal Medicine; ATTEND Internal Medicine
DX: R07.9 Chest pain, unspecified (principal); M54.6 Pain in thoracic spine; G89.29 Other chronic pain; K21.9 Gastro-esophageal reflux disease without esophagitis; M41.9 Scoliosis, unspecified; H40.9 Unspecified glaucoma; K44.9 Diaphragmatic hernia without obstruction or gangrene; R94.31 Abnormal electrocardiogram [ECG] [EKG]
CPT/HCPCS: 36415; 71045; 71260; 74177; 80048; 80061; 80076; 83735; 83880; 84484; 85025; 85610; 93005; 93306; 99285; G0378; J1650; J2270; J2405; Q9967

== ENCOUNTER 2020-10-17 10:21 | Emergency (ER) | payer OTHER ==
--- NOTE | 2020-10-17 11:49 | EDPHYS ---
Physician Documentation [facility] Name: Suma Lopez Age: 84 yrs Sex: Female : 1935 Arrival Date: 10/17/2020 Time: 10:24 Bed 5 Private MD: Clare Berry ED Physician Abhishek Benitez HPI: 10/17 10:56 This 84 yrs old Female presents to ER via Wheelchair with complaints of Foot pm1 Injury. 10:56 The patient presents with pain, swelling. The complaints affect the lateral aspect of pm1 left foot. Context: The problem was sustained at home, resulted from the patient tripping, clothing, the patient can partially bear weight, the patient is able to ambulate, can ambulate using a cane, Problem is a result from a previous injury: No. Onset: The symptoms/episode began/occurred yesterday. Modifying factors: The symptoms are alleviated by elevating leg, the symptoms are aggravated by weight bearing. Associated signs and symptoms: Pertinent positives: swelling, Pertinent negatives calf tenderness, numbness, tingling. Treatment prior to arrival includes: prescription medications, hydrocodone. Severity of symptoms: in the emergency department the symptoms have improved. The patient has not experienced similar symptoms in the past. Historical: - Allergies: 10:32 Bactrim; hb 10:32 Biaxin; hb 10:32 Ciprofloxacin; hb 10:32 Cortisone Eye drops; hb 10:32 Doxycycline; hb 10:32 Levaquin; hb 10:32 PENICILLINS; hb 10:32 TETRACYCLINES; hb 10:32 Zithromax; hb - PMHx: 10:32 Hypertension; Glaucoma; Hypothyroidism; hb - PSHx: 10:32 Sinus surgery; Foot surgery; Cholecystectomy; Hysterectomy; Carpal Tunnel Repair; L hb wrist surgery; cataracts; Spinal stenosis; - Immunization history:: Adult Immunizations. - Social history:: Smoking status: Patient denies any tobacco usage or history of. ROS: 10:56 Constitutional: Negative for fever, chills, and weight loss, Cardiovascular: Negative pm1 for chest pain, palpitations, and edema, Respiratory: Negative for shortness of breath, cough, wheezing, and pleuritic chest pain, Back: Negative for injury and pain, Skin: Negative for injury, rash, and discoloration. 10:56 Neuro: Negative for headache, weakness, numbness, tingling, and seizure. 10:56 MS/extremity: Positive for pain, swelling, tenderness, of the lateral side of left foot. Exam: 10:56 Constitutional: This is a well developed, well nourished patient who is awake, alert, pm1 and in no acute distress. Head/Face: Normocephalic, atraumatic. 10:56 Back: No spinal tenderness. No costovertebral tenderness. Full range of motion. Skin: Warm, dry with normal turgor. Normal color with no rashes, no lesions, and no evidence of cellulitis. 10:56 Cardiovascular: Exam negative for acute changes, Rate: normal, Rhythm: regular, Pulses: no pulse deficits are appreciated. 10:56 Respiratory: Exam negative for acute changes, respiratory distress, shortness of breath. 10:56 Musculoskeletal/extremity: Extremities: grossly normal except: noted in the lateral side of left foot: ecchymosis, pain, swelling, tenderness. 10:56 Neuro: Orientation: is normal, Mentation: is normal, Motor: is normal, moves all fours. Vital Signs: 10:30 BP 132 / 76; Pulse 66; Resp 16; Temp 97.6; Pulse Ox 100% on R/A; Pain 10/10; hb MDM: 10:38 Patient medically screened. foster 11:46 Data reviewed: vital signs. 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 10/17 10:43 Order name: Foot Left 3 View XRAY; Complete Time: 13:41 pm1 10/17 11:44 Order name: Walking boot; Complete Time: 11:59 pm1 Administered Medications: No medications were administered Disposition: 10/18 07:52 Co-signature as Attending Physician, Abhishek Benitez MD I agree with the assessment and foster plan of care. Disposition: 10/17/20 11:48 Discharged to Home. Impression: Closed mildly displaced fracture of distal aspect of fifth metatarsal bone, left foot. - Condition is Stable. - Discharge Instructions: Metatarsal Fracture. - Medication Reconciliation Form, Thank You Letter, Antibiotic Education, Prescription Opioid Use form. - Follow up: Emergency Department; When: As needed; Reason: Worsening of condition. Follow up: Ludin Tamayo DPM; When: 2 - 3 days; Reason: Recheck today's complaints, Continuance of care, Re-evaluation by your physician. - Problem is new. - Symptoms have improved. Signatures: Dispatcher [employer] EDMS Abhishek Benitez MD MD cha Smirch, Shelby, RN RN ss Javier Beatty, KIMBERLEE EDUCATOR SENIOR CLINICAL pm1 Agnes Small RN RN Corrections: (The following items were deleted from the chart) 02 11:51 11:48 10/17/2020 11:48 Discharged to Home. Impression: Displaced fracture of fifth pm1 metatarsal bone, left foot. Condition is Stable. Forms are Medication Reconciliation Form, Thank You Letter, Antibiotic Education, Prescription Opioid Use. Follow up: Emergency Department; When: As needed; Reason: Worsening of condition. Follow up: Dr. Ludin Tamayo; When: 2 - 3 days; Reason: Recheck today's complaints, Continuance of care, Re-evaluation by your physician. Problem is new. Symptoms have improved. pm1 12:16 11:51 10/17/2020 11:48 Discharged to Home. Impression: Closed mildly displaced fracture ss of distal aspect of fifth metatarsal bone, left foot. Condition is Stable. Discharge Instructions: Metatarsal Fracture. Forms are Medication Reconciliation Form, Thank You Letter, Antibiotic Education, Prescription Opioid Use. Follow up: Emergency Department; When: As needed; Reason: Worsening of condition. Follow up: Dr. Ludin Tamayo; When: 2 - 3 days; Reason: Recheck today's complaints, Continuance of care, Re-evaluation by your physician. Problem is new. Symptoms have improved. pm1
--- NOTE | 2020-10-17 11:49 | ER ---
Nurse's Notes [facility] Name: Suma Lopez Age: 84 yrs Sex: Female : 1935 Arrival Date: 10/17/2020 Time: 10:24 Bed 5 Private MD: Clare Berry Diagnosis: Closed mildly displaced fracture of distal aspect of fifth metatarsal bone, left foot Presentation: 10/17 10:30 Chief complaint: Left foot pain after mechanical fall from standing yesterday. hb Coronavirus screen: At this time, the client does not indicate any symptoms associated with coronavirus-19. Ebola Screen: No symptoms or risks identified at this time. Initial Sepsis Screen: Does the patient meet any 2 criteria? No. Patient's initial sepsis screen is negative. Does the patient have a suspected source of infection? No. Patient's initial sepsis screen is negative. Risk Assessment: Do you want to hurt yourself or someone else? Patient reports no desire to harm self or others. Onset of symptoms was October 16, 2020. 10:30 Method Of Arrival: Wheelchair hb 10:30 Acuity: PARK 4 hb Historical: - Allergies: 10:32 Bactrim; hb 10:32 Biaxin; hb 10:32 Ciprofloxacin; hb 10:32 Cortisone Eye drops; hb 10:32 Doxycycline; hb 10:32 Levaquin; hb 10:32 PENICILLINS; hb 10:32 TETRACYCLINES; hb 10:32 Zithromax; hb - PMHx: 10:32 Hypertension; Glaucoma; Hypothyroidism; hb - PSHx: 10:32 Sinus surgery; Foot surgery; Cholecystectomy; Hysterectomy; Carpal Tunnel Repair; L hb wrist surgery; cataracts; Spinal stenosis; - Immunization history:: Adult Immunizations. - Social history:: Smoking status: Patient denies any tobacco usage or history of. Screenin:18 Abuse screen: Denies threats or abuse. Denies injuries from another. Nutritional ss screening: No deficits noted. Tuberculosis screening: Never had TB. Fall Risk Fall in past 12 months (25 points). No secondary diagnosis (0 pts). No IV (0 pts). Ambulatory Aid- Crutches/Cane/Walker (15 pts). Gait- Normal/Bed Rest/Wheelchair (0 pts) Mental Status- Oriented to own ability (0 pts). Assessment: 11:18 General: Appears in no apparent distress. comfortable, Behavior is calm, cooperative. ss Pain: Complains of pain in lateral side of left foot and dorsum of left foot Pain currently is 0 out of 10 on a pain scale. at worst was 10 out of 10 on a pain scale. Quality of pain is described as tender, throbbing, Pain began 1 day ago. Aggravated by increased activity, weight bearing. Neuro: Level of Consciousness is awake, alert, obeys commands, Oriented to person, place, time, situation. Cardiovascular: Pulses are palpable in right posterior tibial artery, right dorsalis pedis artery, left posterior tibial artery and left dorsalis pedis artery. Respiratory: Airway is patent Respiratory effort is even, unlabored, Respiratory pattern is regular, symmetrical. GI: No signs and/or symptoms were reported involving the gastrointestinal system. : No signs and/or symptoms were reported regarding the genitourinary system. EENT: Nares are clear Oral mucosa is moist. Derm: Skin is intact, is healthy with good turgor, Skin is dry, Skin is pink, warm \T\ dry. normal. Derm: Bruising that is dark purple, on left foot. Musculoskeletal: mild swelling noted to lateral aspect of L foot. 12:00 Reassessment: Patient appears in no apparent distress at this time. Patient is alert, ss oriented x 3, equal unlabored respirations, skin warm/dry/pink. walking boot placed to affected foot. Pt verbalizes understanding of dc instructions. Awaiting daughter to pick her up. Vital Signs: 10:30 BP 132 / 76; Pulse 66; Resp 16; Temp 97.6; Pulse Ox 100% on R/A; Pain 10/10; hb ED Course: 10:24 Patient arrived in ED. ds1 10:24 Clare Berry DO is Private Physician. ds1 10:31 Triage completed. hb 10:32 Arm band placed on. hb 10:38 Javier Beatty NP is PHCP. pm1 10:38 Abhishek Benitez MD is Attending Physician. pm1 11:12 Foot Left 3 View XRAY In Process Unspecified. EDMS 11:14 Joleen Flores, RN is Primary Nurse. ss 11:18 Patient has correct armband on for positive identification. Bed in low position. Call ss light in reach. 11:48 Selbst, Ludin, DPM is Referral Physician. pm1 12:14 No provider procedures requiring assistance completed. Patient did not have IV access ss during this emergency room visit. 3D boot applied to right foot. walking boot. Administered Medications: No medications were administered Outcome: 11:48 Discharge ordered by MD. pm1 12:14 Discharged to home via wheelchair, with family. ss 12:14 Condition: good 12:14 Discharge instructions given to patient, Instructed on discharge instructions, follow up and referral plans. Demonstrated understanding of instructions, follow-up care. 12:16 Patient left the ED. ss Signatures: Dispatcher [employer] EDPR Corina Ball ds1 Joleen Flores RN RN ss Javier Beatty, ROLL OVER LOADER ROLL OVER LOADER pm1 Agnes Small RN RN hb
[2020-10-17 12:20] VITALS: BP 132/76; TEMP 97.6; O2SAT 100
--- NOTE | 2020-10-17 12:23 | RAD REPORT ---
EXAM DESCRIPTION: RAD - Foot Left 3 View - 10/17/2020 11:12 am CLINICAL HISTORY: Left Foot pain status post injury FINDINGS: A mildly displaced fracture involves the distal shaft of the fifth metatarsal. Deformity of the first metatarsal presumably secondary to prior surgery. An acute fracture is doubtfu l. This should be correlated clinically. Medial subluxation of the second proximal phalanx presumably is chronic. This also should be correlat ed clinically. Bones are osteoporotic. Deformity of the fourth proximal phalanx could be related to prior surgery or inflammatory disease.
--- OUTSIDE RECORDS SUMMARY | 2020-10-18 06:22 | XMS REPORT ---
:1935 Author Organization [facility] Address [address] [place], [address] [place] [address] Care Team Providers Name Role Phone Kristi Unavailable [phone] PROBLEMS Type Condition ICD9-CM [id number] Onset Condition SNOMED Code Notes Code Code Dates Status Problem Other chronic G89.29 Active 83536210 pain Problem Abnormal CT of R93.89 Active 252058085 the chest Problem Scoliosis, M41.9 Active 475597463 unspecified scoliosis type, unspecified spinal region Problem Chronic K59.09 Active 455874255 constipation Problem Pulmonary nodules R91.8 Active 171479620 Left lung. 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 Problem Pulmonary nodule R91.1 Active 769637288 Problem Spinal stenosis M48.061 Active 24121219 of lumbar region, unspecified whether neurogenic claudication present Problem Bronchiectasis J47.9 Active 11143753 Problem Chronic J44.9 Active 48868014 obstructive pulmonary disease, unspecified COPD type Problem Glaucoma H40.9 Active 70448580 Problem Elevated BP R03.0 Active 185666249 without diagnosis of hypertension Problem Right thyroid E04.1 Active 423163427 nodule Problem Pyelonephritis N12 Active 44543256 Problem Weakness R53.1 Active 98269402 ALLERGIES Allergen (clinical Drug/Non Drug Reaction Allergy Type Onset Date S tatus drug ingredient) Allergy documented on EMR tetracycline Tetracycline Unknown Drug Allergy Active HCl(NDC Code:[address]-47 ) sulfamethoxazole / Bactrim DS([facility] hives Drug Allergy Active trimethoprim Code:[address]-15 ) Levaquin stomach upset Drug Allergy Active Ciprofloxacin rash Drug Allergy Active PCN anaphylaxis Drug Allergy Active nitrofurantoin Nitrofurantoin([facility] rash Drug Allergy Active Code:[address]-85 ) clarithromycin Biaxin shortness of Drug Allergy Active breath azithromycin Zithromax([facility] shortness of Drug Allergy Activ e Code:[address]-82 breath ) doxycycline Doxycycline([facility] Unknown Drug Allergy Active Code:[address]-16 ) Sulfa hives Drug Allergy Active ENCOUNTERS from 1935 to 2020-08-23 Encounter Location Date Provider Diagnosis Zeeshan Gordon [address] Aug, Clare Berry Right thy [facility] [address] Family [address] [place] [address], E04.1 ; [place] [address] M81.0 ; Allerg ic rhinitis J30.9 ; Insomnia G47.00 ; Chronic back pa in M54.9 ; Fibromyalgia M79.7 ; GERD (gastroeso phageal reflux disease) K21.9 ; Glaucoma H40.9 ; Granulomatous l ju[place] disease J98.4 ; Knee pain M25.569 ; Abnormal heart rhythm I4 9.9 ; Irritable bowel K58.9 ; Migraines G43.9 09 ; Hypothyroidism, unspecified typ e E03.9 ; Chronic obstr uctive pulmonary disea se, unspecified [employer] D type J44.9 ; Other c hronic pain G89.29 ; Scoliosis, unsp ecified scoliosis type, unspecified spi nal region M41.9 ; Pulmonary nodul es R91.8 ; Chronic const ipation K59.09 ; Spinal stenosis of lum bar region, unspeci fied whether neuroge ed claudication pr esent M48.061 ; Black out spell R55 ; Abn ormal CT of the chest R9 3.89 ; Polyarthralgia M25.50 ; Elevated BP wit hout diagnosis of hypertension R0 3.0 ; Pyelonephritis N12 ; Weakness R53.1 ; Pulmonary nodul e R91.1 ; Chest pain R0 7.9 and Bronchiectasis J47.9 IMMUNIZATIONS Vaccine Route Administration Date Status Kenalog (Triamcinolone) IM Intramuscular January 27, 2018 Adminis tered Prevnar 13 (PCV13) IM Intramuscular Jun 17, 2016 Administered SOCIAL HISTORY Tobacco Use: Social History Observation Description Date Details (start date - stop date) Never Smoker Sex Assigned At : Social History Observation Description Sex Assigned At Unknown Alcohol Screen Question Answer Notes Did you have a drink containing alcohol in the past year? No Points 0 Interpretation Negative Tobacco Use/Smoking Question Answer Notes Are you a never smoker REASON FOR REFERRAL No Information VITAL SIGNS Height 62.75 in Aug, Weight 106.8 lbs Aug, Temperature 97.0 degrees Fahrenheit Aug, BMI 19.07 kg/m2 Aug, Oximetry 98 % Aug, Respiratory Rate 18 /min Aug, Blood pressure systolic 138 mm Hg Aug, Blood pressure diastolic 72 mm Hg Aug, MEDICATIONS Medication SIG (Take, Route, Notes Start Date End Date Status Frequency, Duration) Vitamin D 125 MCG (5000 UT) 1 capsule Orally Once a Active day Restasis 0.05 % 1 drop into affected eye Active Ophthalmic twice a day as needed Calcium 600 MG 1 tablet with meals A ctive Orally Twice a day Stool Softener & Laxative Active Hydrocodone-Acetaminophen 1 tablet as needed Active 5-325 MG Orally 4x daily CoQ10 100 MG 1 capsule with a meal A ctive Orally Once a day Levothyroxine Sodium 25 MCG 0.5 tablet in the Active morning on an empty stomach Orally Once a day for 90 days B50 Complex TR - Orally Active Vitamin C 500 MG as directed Orally twice Active a day Lyrica 50 MG 1 capsule Orally Once a Active day Zioptan 0.0015 % 1 drop into affected eye Active Ophthalmic Once a day Aloe Vera 25 MG Orally Active Singulair 10 MG 1 tablet Orally Once a Active day for 30 day(s) Refresh 1.4-0.6 % 1 drop into affected eye Active as needed Ophthalmic 24 time(s) a day Lutein 20 MG 1 capsule with a meal A ctive Orally Once a day Align 4 MG as directed Orally Active Magnesium 300 MG 1 capsule with a meal Active Orally twice a day Pepcid AC 10 MG 1 tablet as needed A ctive Orally Twice a day Vitamin A 27848 UNIT 1 capsule Orally Once a Active day Sinus Rinse Kit - as directed Nasally Active Xlear Sinus Care [place] - as directed Nasally Active daily as needed Zinc 30 MG 1 tablet Orally Once a Ac tive day PROCEDURES No Information RESULTS No Results REASON FOR VISIT [facility] f/u [phone]. MEDICAL (GENERAL) HISTORY Type Description Date Medical History Hypothyroidism Medical History Osteoporosis Medical History Allergic rhinitis Medical History Insomnia Medical History Constipation Medical History Chronic back pain Medical History Fibromyalgia Medical History GERD (gastroesophageal reflux disease) Medical History Glaucoma Medical History Granulomatous lung disease Medical History Knee pain Medical History Abnormal heart rhythm Medical History Irritable bowel Medical History Migraines Medical History COPD (chronic obstructive pulmonary dise ase) Medical History mammogram- 08/07/17 Medical History DEXA scan- 08/07/17 Medical History colonscopy -refuses Surgical History hysterectomy 1968 Surgical History Bartholins Gland removal 1971 Surgical History Sinus surgery 1993, 2000, 2010 Surgical History Lt Carpal tunnel release 03/1997 Surgical History Lt foot surgery 03/1999 Surgical History cholecystectomy 02/2007 Surgical History L wrist/thumb 12/2007 Surgical History Bilateral cataract removal 03/2009 Surgical History gallbladder 02/16/07 Goals Section No Information Health Concerns No Information MEDICAL EQUIPMENT No Information MENTAL STATUS No Information FUNCTIONAL STATUS No Information ASSESSMENTS Encounter Date Diagnosis Assessment Notes Treatment Notes Treatm ent Clinical Notes Aug, Right thyroid nodule pt is unsure of hx (ICD-10 - E04.1) of hypothryoidism. she was placed on thryoid medication for "fatigue" 12 mm right thryoid nodule, biopsy sent out for further testing f/u ENT Aug, Osteoporosis (ICD-10 DEXA scan in Jul - M81.0) 2017 recommend to repeat in 2 years patient wants to hold off of mammogram and DEXA scan till she completes thryoid u/s Aug, Allergic rhinitis stable on current (ICD-10 - J30.9) med/sinus rinse regiment Aug, Insomnia (ICD-10 - on multiple G47.00) supplements stable currently discussed good sleep hygiene Aug, Chronic back pain stable on current (ICD-10 - M54.9) meds chronic pain secondary to spinal stenosis and scoliosis f/u pain managem ent also wears a back brace and ambulates with nonrolling cane Aug, Fibromyalgia (ICD-10 stable on current - M79.7) med f/u pain management Aug, GERD f/u GI (gastroesophageal reflux disease) (ICD-10 - K21.9) Aug, Glaucoma (ICD-10 - f/u optho H40.9) stable on current meds Aug, Granulomatous lung need to repeat CT of disease (ICD-10 - chest in 6 months J98.4) (February 2021) Aug, Knee pain (ICD-10 - stable on current M25.569) meds and supplements amublates with c ane f/u pain management Aug, Abnormal heart f/u cardio (was Dr tate (ICD-10 - Bill, but now I49.9) [place]) she is not on any meds and not sure why she has an irregular heart rhythm dx as a part of her problem l ist EKG from 04/08/19 from the hospital shows sinus rhythm with marked sinus arrhythmia with 1st degree AV block Aug, Irritable bowel f/u GI (ICD-10 - K58.9) stable on current meds IBS-C Aug, Migraines (ICD-10 - resolved per pt G43.909) years ago no longer on meds Aug, Hypothyroidism, thryoid sonogram unspecified type showed 15 mm nodule (ICD-10 - E03.9) of right thryoi d biopsy of then 12 mm nodule sent out for further testing thryoid panel WNL Aug, Chronic obstructive CT of chest from pulmonary disease, 08/18/18 shows mild unspecified COPD linear type (ICD-10 - bronchiestasis in J44.9) lingula, calcified ganulomas in left lung, and couple of tiny nodular opacities within lungs (benign) CXR from 09/21/19 shows no acute intrathoracic process suspecte d new CT of lungs from 08/14/2020 shows left lower lobe nodule, no other changes. recommend repeat again in 6 month s consider referral to pulm for further work up and PFT Aug, Other chronic pain stable on current (ICD-10 - G89.29) meds f/u pain management Aug, Scoliosis, wears back brace and unspecified ambulates with c ane scoliosis type, f/u pain management unspecified spinal region (ICD-10 - M41.9) Aug, Pulmonary nodules Left lung. CT of chest from (ICD-10 - R91.8) 08/18/18 shows mild linear bronchiestasis in lingula, calcified ganulomas in left lung, and couple of tiny nodular opacities within lungs (benign) CXR from 09/21/19 shows no acute intrathoracic process suspecte d consider referral to pulm Aug, Chronic constipation Patient needs to (ICD-10 - K59.09) maintain high fiber diet including incorporating lots of fruits and vegatables. Recommend patient also drink plenty of warm water (at least 75 oz daily) and cut down/ avoid caffieine. Patient should use a "squatty potty" or stool/box to alleviate anal sphincter. Will rx stool softener/ fiber supplement. Discussed how to take meds and side effects and benefits. If no improvement of symptoms or symptoms persist, f/u GI Aug, Spinal stenosis of as mentioned above lumbar region, unspecified whether neurogenic claudication present (ICD-10 - M48.061) Aug, Blackout spell Recurrent. denies any recent (ICD-10 - R55) episodes since last encounter f/u lab work had recent Head CT with no abnormalities in brain f/u cardio as well Aug, Abnormal CT of the CT of chest from chest (ICD-10 - 08/18/18 shows mild R93.89) linear bronchiestasis in lingula, calcified ganulomas in left lung, and couple of tiny nodular opacities within lungs (benign) CXR from 09/21/19 shows no acute intrathoracic process suspecte d new CT of chest from 08/14/2020 showed new left lower lobe pulm nodule recommend to repeat again in 6 months Aug, Polyarthralgia as above (ICD-10 - M25.50) Aug, Elevated BP without normal BP diagnosis of Elevated BP most hypertension (ICD-10 likely due to white - R03.0) coat syndrome. Improved with retake towards the end of the encounter. Patient states readings are usually elevated at doctors' offices and well controlled at home (can't recall numbers) Will continue to monitor BP daily. Discussed proper BP measuring/monitoring techniques, maintain low Na diet, decrease stress and anxiety, and exercise. If BP becomes elevated at home, recommend to call and make an appt with PCP for further eval and management. Aug, Pyelonephritis denies any dysuria (ICD-10 - N12) or other new recent urine abnormalit ies she would like to complete blood and urine lab work to f/u pyeloneprhit is f/u labs Aug, Weakness (ICD-10 - as mentioned above R53.1) f/u labs and manage chronic co-morbities to the best of PCM's abilities Aug, Pulmonary nodule (ICD-10 - R91.1) Aug, Chest pain (ICD-10 - resolved with abx R07.9) Aug, Bronchiectasis improved with ab x (ICD-10 - J47.9) will also add singular Aug, Other -- Medication(s) reviewed and updated. Dietary and lifestyle modifications discussed with aptient regarding low fat, low carb, low sodium/salt diet, excerise and weight managemen t. -- Treatment options, risks and benefits, side effects reviewed in detail. patient accepts risk. -- Advised on signs/symptoms to monitor and when to call clinic and/or visit the nearest ED. Patient verbalized understanding and agreed with plan of care. -- Greater than 30 mins was spent with the patient during this encounter, of which over 50% of the time was spent counseling and coordinating care including but not limited to discussion of test results, diagnostic or treatment recommendations, prognosis, risks and benefits of management options, instructions, education, compliance and or risk reduction. -- Take med(s) as directed. All risks, benefits and side effects were discussed. All questions and concerns were addressed. PLAN OF TREATMENT Medication Medication Name Sig Start Date Stop Date Lyrica 50 MG 1 capsule Orally Once a day Sinus Rinse Kit - as directed Nasally Vitamin C 500 MG as directed Orally twice a day B50 Complex TR - Orally Aloe Vera 25 MG Orally Hydrocodone-Acetaminophen 5-325 1 tablet as needed Orally 4x MG daily Stool Softener & Laxative Vitamin D 125 MCG (5000 UT) 1 capsule Orally Once a day Pepcid AC 10 MG 1 tablet as needed Orally Twice a day Calcium 600 MG 1 tablet with meals Orally Twice a day Singulair 10 MG 1 tablet Orally Once a day for 30 day(s) CoQ10 100 MG 1 capsule with a meal Orally Once a day Lutein 20 MG 1 capsule with a meal Orally Once a day Align 4 MG as directed Orally Xlear Sinus Care [place] - as directed Nasally daily as needed Zioptan 0.0015 % 1 drop into affected eye Ophthalmic Once a day Vitamin A 33421 UNIT 1 capsule Orally Once a day Refresh 1.4-0.6 % 1 drop into affected eye as needed Ophthalmic 24 time(s) a day Magnesium 300 MG 1 capsule with a meal Orally twice a day Restasis 0.05 % 1 drop into affected eye Ophthalmic twice a day as needed Zinc 30 MG 1 tablet Orally Once a day Treatment Notes Assessment Notes Clinical Notes Hypothyroidism, unspecified type thryoid sonogram showed 15 mm nodule of right thryoidbiopsy of then 12 mm nodule sent out for further testingthryoid panel WNL Migraines resolved per pt years agono longer on meds Other chronic pain stable on current medsf/u pain management Chronic obstructive pulmonary CT of chest from 08/18/18 show s mild disease, unspecified COPD type linear bronchiestasis in ling bianca, calcified ganulomas in left lung, and couple of tiny nodular opacities within lungs (benign)CXR from 09/21/19 shows no acute intrathoracic process suspectednew CT of lungs from 08/14/2020 shows left lower lobe nodule, no other changes. recommend repeat again in 6 monthsconsider referral to pulm for further work up and PFT Pulmonary nodules CT of chest from 08/18/18 shows mild linear bronchiestasis in lingula, calcified ganulomas in left lung, and couple of tiny nodular opacities within lungs (benign)CXR from 09/21/19 shows no acute intrathoracic process suspectedconsider referral to pulm Scoliosis, unspecified scoliosis wears back brace and ambula lakshmi with type, unspecified spinal region canef/u pain management Spinal stenosis of lumbar as mentioned above region, unspecified whether neurogenic claudication present Chronic constipation Patient needs to maintain high fiber diet including incorporating lots of fruits and vegatables. Recommend patient also drink plenty of warm water (at least 75 oz daily) and cut down/ avoid caffieine. Patient should use a "squatty potty" or stool/box to alleviate anal sphincter. Will rx stool softener/ fiber supplement. Discussed how to take meds and side effects and benefits. If no improvement of symptoms or symptoms persist, f/u GI Irritable bowel f/u GIstable on current medsIBS-C Abnormal heart rhythm f/u cardio (was Dr Khan, but now Dr Harmon)she is not on any meds and not sure why she has an irregular heart rhythm dx as a part of her problem listEKG from 04/08/19 from the hospital shows sinus rhythm with marked sinus arrhythmia with 1st degree AV block Pyelonephritis denies any dysuria or other new recent urine abnormalitiesshe would like to complete blood and urine lab work to f/u pyeloneprhitisf/u labs Right thyroid nodule pt is unsure of hx of hypothryoidism. she was placed on thryoid medication for "fatigue"12 mm right thryoid nodule, biopsy sent out for further testingf/u ENT Elevated BP without diagnosis of normal BPElevated BP most l ikely due hypertension to white coat syndrome. Improved with retake towards the end of the encounter. Patient states readings are usually elevated at doctors' offices and well controlled at home (can't recall numbers) Will continue to monitor BP daily. Discussed proper BP measuring/monitoring techniques, maintain low Na diet, decrease stress and anxiety, and exercise. If BP becomes elevated at home, recommend to call and make an appt with PCP for further eval and management. Osteoporosis DEXA scan in Jul 2017recommend to repeat in 2 yearspatient wants to hold off of mammogram and DEXA scan till she completes thryoid u/s Chest pain resolved with abx Allergic rhinitis stable on current med/sinus rinse regiment Weakness as mentioned abovef/u labs and manage chronic co-morbities to the best of PCM's abilities Insomnia on multiple supplementsstable currentlydiscussed good sleep hygiene Chronic back pain stable on current medschronic pain secondary to spinal stenosis and scoliosisf/u pain managementalso wears a back brace and ambulates with nonrolling cane Bronchiectasis improved with abxwill also add singular Fibromyalgia stable on current medf/u pain management GERD (gastroesophageal reflux f/u GI disease) Librado linda denies any recent episodes since last encounterf/u lab workhad recent Head CT with no abnormalities in brainf/u cardio as well Polyarthralgia as above Abnormal CT of the chest CT of chest from 08/18/18 shows mi ld linear bronchiestasis in lingula, calcified ganulomas in left lung, and couple of tiny nodular opacities within lungs (benign)CXR from 09/21/19 shows no acute intrathoracic process suspectednew CT of chest from 08/14/2020 showed new left lower lobe pulm nodulerecommend to repeat again in 6 months Glaucoma f/u opthostable on current meds Granulomatous lung disease need to repeat CT of chest in 6 m [facility] (February 2021) Knee pain stable on current meds and supplementsamublates with canef/u pain management Next Appt Details 5 months Reason:6 month + repeat chest C T lung Provider Name:Clare Berry, 2021-01-22 1 0:40:00 AM, [address] [place], [address], [place], [address], Follow Up:5 months6 month + repeat chest CT lung Insurance Providers Payer Name Payer Address Payer Insured Patient Coverage Cover age Phone Name Relationship to Start Date End Date Insured MEDICARE Attn Part B [id number] Mark Lopez [address] [facility] Claims [phone] [facility] [address] [place] [address] [phone] Mark Lopez [facility] [address] [phone]
--- OUTSIDE RECORDS SUMMARY | 2020-10-18 06:22 | XMS REPORT | Continuity of Care Document ---
:1935 Author Organization [facility] t Address [address] [place] [address] Care Team Providers Name Role Phone Unavailable [...] trimetho DA Active SV 2017-09 [facility]- [facility] clarithr DA Active SV 2017-09 [facility] omycin 2- 00:00: [facility]ope [facility] azithrom DA Active SV 2017-09 [facility] ycin 2- 00:00: [facility]ope 00 [facility] levoflox DA Active SV 2017-09 [facility] acin 2- 00:00: Orthope 00 dic Hospita [facility] Penicill [...] DA Active SV 2017-09 [facility] acin 10-12 [place] 00:00: Orthope 00 dic Hospita l Penicill [...] azithrom DA Active SV [facility] ycin 04-16 [place] 00:00: [facility]ope 00 [facility] levoflox DA Active SV [facility] acin 04-16 [place] 00:00: [facility]ope 00 [facility] PCN Adverse Active anaphylaxis [facility] Zithroma Adverse Active shortness of C [facility] x Reaction breath [facility] Biaxin Adverse Active shortness of [facility] Reaction breath [facility] Tetracyc Adverse Active Info Not [facility] t line HCl Reaction Available [facility] Levaquin Adverse Active stomach [facility] Reaction upset [facility] Ciproflo Adverse Active rash [facility] xacin Reaction [facility] Bactrim Adverse Active hives [facility] DS Reaction [facility] Nitrofur Adverse Active rash [facility] antoin Reaction [facility] Medications Ordered Filled Start Stop Current Ordering Indication Dosage Frequency Signature Comments Components Source Medication Medication Date Date Medication? Clinician (SIG) Name Name Levothyroxi Levothyroxi Yes Veronica 1.[address] ne Sodium ne Sodium 4-23 [place] [facility] - 00:[facility]: [facility] Restasis Restasis Yes Veronica [address] [facility] [place] [facility] Lyrica Lyrica Yes Veronica 1 capsule [facility] [place] [facility] Sinus Rinse Sinus Rinse Yes Veronica as [facility] Kit Kit [place] directed [facility] Align Align Yes Veronica as [facility] [place] [facility] Vitamin A Vitamin A Yes Veronica [address] [facility] [place] [facility] Stool Stool Yes Veronica not [facility] Softener & Softener & [place] defined [facility] - Laxative Laxative [facility] Pepcid AC Pepcid AC Yes Veronica [address] [facility] [place] needed [facility] Xlear Sinus Xlear Sinus Yes Veronica as [facility] [place] directed [facility] Pepcid AC Pepcid AC Yes Veronica [address] [facility] [place] as needed [facility] Aloe Vera Aloe Vera Yes Veronica not [facility] [place] defined [facility] CoQ10 CoQ10 Yes Veroniac [address] [facility] [place] with a [facility] - meal [facility] AZO Bladder AZO Bladder Yes Veronica not [facility] Control Control [place] defined [facility] Vitamin C Vitamin C Yes Veronica as [facility] [place] [facility] Calcium Calcium Yes Veronica [address] [facility] [place] with meals [facility] Refresh Refresh Yes Veronica [address] [facility] [place] into [facility] Zioptan Zioptan Yes Veronica [address] [facility] [place] into [facility] Vitamin D Vitamin D Yes Veronica [address] [place] [facility] Lutein Lutein Yes Veronica 1 capsule [facility] [place] with a [facility] - meal [facility] Vitamin D3 Vitamin D3 Yes Veronica 0.[address] [place] [facility] Hydrocodone Hydrocodone Yes Veronica [address] [address] -Acetaminop -Acetaminop [place] as needed [facility] Magnesium Magnesium Yes Veronica [address] [facility] [place] with a [facility] - meal [facility] B50 Complex B50 Complex Yes Veronica not [facility] TR TR [place] defined [facility] Procedures This patient has no known procedures. Encounters Start End Encounter Admission Attending Care Care Encounter Source Date/Time Date/Time Type Type Clinicians Facility Department ID 2020-10-17 2020-10-17 [facility] [id number] 2020-08-23 2020-08-23 [facility] [id number] [facility] 2020-07-07 2020-07-07 [facility] [id number] [facility] 2020-07-03 2020-07-03 [facility] [id number] [facility] 2020-05-25 2020-05-25 [facility] [id number] [facility] 10:13:00 10:13:00 [facility] Medicine Outpati ent Clinics 2020-02-16 2020-02-16 [facility] [id number] 16:48:00 16:48:00 [facility] Medicine Medicine Outpati ent Clinics 2020-02-16 2020-02-16 [facility] [id number] 11:00:00 11:00:00 [facility] Medicine Medicine Outpati ent Clinics 2020-02-10 2020-02-10 [facility] [id number] 11[facility]00:00 11:00:00 [facility] Medicine Outpati ent Clinics 2020-01-27 2020-01-27 [facility] [id number] 13:08:00 13:08:00 t [facility] Medicine l Medicine Outpati ent Clinics 2020-01-27 2020-01-27 [facility] [id number] 09:09:00 09:09:00 t [facility] Medicine l Medicine Outpati ent Clinics 2020-01-25 2020-01-25 [facility] [id number] 09:14:00 09:14:00 t [facility] Medicine l Medicine Outpati ent Clinics 2020-01-24 2020-01-24 [facility] [id number] 16:20:00 16:20:00 t [facility] Medicine l Medicine Outpati ent Clinics 2020-01-24 2020-01-24 [facility] [id number] 09:11:00 09:11:00 t [facility] Medicine Medicine Outpati ent Clinics 2020-01-03 2020-01-03 [facility] [id number] 10:30:00 10:30:00 t [facility] Medicine Medicine Outpati ent Clinics 2019-07-02 2019-07-02 [facility] [id number] 09:40:00 09:40:00 t [facility] Medicine Medicine Outpati ent Clinics 2018-12-24 2018-12-24 [facility] [id number] 10[facility]00:00 10:00:00 t [facility] Medicine l Medicine Outpati ent Clinics 2018-08-19 2018-08-19 [facility] [id number] 02:27:00 02:27:00 t [facility] Medicine l Medicine Outpati ent Clinics 2018-06-25 2018-06-25 [facility] [id number] 10[facility]15:00 10:15:00 t [facility] Medicine l Medicine Outpati ent Clinics 2018-01-27 2018-01-27 [facility] [id number] 10:30:00 10:30:00 [facility] Outpati ent Clinics 2018-01-02 2018-01-02 [facility] [id number] 14:27:00 14:27:00 t [facility] Medicine Outpati ent Clinics 2017-12-29 2017-12-29 [facility] [id number] 10:47:00 10:47:00 t [facility] Medicine Outpati ent Clinics 2017-12-25 2017-12-25 [facility] [id number] 10:30:00 10:30:00 t [facility] Medicine Outpati ent Clinics 2017-12-25 2017-12-25 [facility] [id number] 08:58:00 08:58:00 t [facility] Outpati ent Clinics Results This patient has no known results.
== END 2020-10-17 12:16 | disposition home or self-care (01) ==
LOC: ER 10:21
DX: S92.352A Displaced fracture of fifth metatarsal bone, left foot, initial encounter for closed fracture (principal); W01.0XXA Fall on same level from slipping, tripping and stumbling without subsequent striking against object, initial encounter; Y93.9 Activity, unspecified; Y92.009 Unspecified place in unspecified non-institutional (private) residence as the place of occurrence of the external cause; I10 Essential (primary) hypertension; Z88.0 Allergy status to penicillin; Z88.1 Allergy status to other antibiotic agents; Z88.3 Allergy status to other anti-infective agents; Z88.6 Allergy status to analgesic agent; Z88.8 Allergy status to other drugs, medicaments and biological substances
CPT/HCPCS: 99283

== ENCOUNTER 2022-04-15 15:26 | Emergency (ER) | payer OTHER ==
--- OUTSIDE RECORDS SUMMARY | 2022-04-15 15:29 | XMS REPORT | Continuity of Care Document ---
:1935 Author Organization [facility] t Address [address] [place] [address] Care Team Providers Name Role Phone Elma Adams Attending Clinician Unavailable Clare Berry Attending Clinician Unavailable Remedios Ng Attending Clinician Unavailable Payers Payer Name Policy Type Policy [...] clarithr DA Active [facility] 04[facility]16 [place] 00:00: Orthope 00 dic [facility] azithrom DA Active SV [facility] ycin 04-16 [place] 00:00: Orthope 00 dic Hospita l levoflox DA Active SV [facility] acin 04-16 [place] 00:00: Orthope 00 dic Hospita l PCN Adverse Active anaphylaxis Comm on Reaction [facility] Zithroma Adverse Active shortness of C ommon x Reaction breath [facility] Biaxin Adverse Active shortness of Com mon Reaction breath [facility] Tetracyc Adverse Active Info Not Commo n line HCl Reaction Available [facility] Levaquin Adverse Active stomach Common Reaction upset [facility] Ciproflo Adverse Active rash Common xacin Reaction [facility] Bactrim Adverse Active hives Common DS Reaction [facility] Nitrofur Adverse Active rash Common antoin Reaction [facility] Medications Ordered Filled Start Stop Current Ordering Indication Dosage Frequency Signature Comments Components Source Medication Medication Date Date Medication? Clinician (SIG) Name Name Levothyroxi Levothyroxi Yes Veronica 1.25 ml Common ne Sodium ne Sodium 4-23 [place] [facility] it 00:00: - [facility] Restasis Restasis Yes Veronica 1 drop Comm on [place] into Spirit affected - [facility] eye [facility] Lyrica Lyrica Yes Veronica 1 capsule Commo n [place] [facility] Sinus Rinse Sinus Rinse Yes Veronica as Common Kit Kit [place] directed [facility] Align Align Yes Veronica as Common [place] directed [facility] Vitamin A Vitamin A Yes Veronica 1 capsule Common [place] [facility] Stool Stool Yes Veronica not Common Softener & Softener & [place] defined Spirit Laxative Laxative - [facility] Pepcid AC Pepcid AC Yes Veronica 1 tablet Common [place] as needed [facility] Xlear Sinus Xlear Sinus Yes Veronica as Common Care [facility] [place] directed [facility] Pepcid AC Pepcid AC Yes Veronica 1 tablet Common [place] as needed [facility] Aloe Vera Aloe Vera Yes Veronica not Comm on [place] defined [facility] CoQ10 CoQ10 Yes Veronica 1 capsule Common [place] with a Spirit meal [facility] AZO Bladder AZO Bladder Yes Veronica not Common Control Control [place] defined Spiri t [facility] Vitamin C Vitamin C Yes Veronica as Comm on [place] directed [facility] Calcium Calcium Yes Veronica 1 tablet Comm on [place] with meals [facility] Refresh Refresh Yes Veronica 1 drop Common [place] into Spirit affected - [facility]I eye as [facility] Zioptan Zioptan Yes Veronica 1 drop Common [place] into Spirit affected - [facility] eye [facility] Vitamin D Vitamin D Yes Veronica 1 capsule Common [place] [facility] Lutein Lutein Yes Veronica 1 capsule Commo n [place] with a Spirit meal [facility] Vitamin D3 Vitamin D3 Yes Veronica 0.1 ml Common [place] [facility] Hydrocodone Hydrocodone Yes Veronica 1 tablet Common -Acetaminop -Acetaminop [place] as needed Spirit hen hen [facility] Magnesium Magnesium Yes Veronica 1 capsule Common [place] with a Spirit meal - [facility] B50 Complex B50 Complex Yes Veronica not Common TR TR Geraldo defined [facility] Procedures This patient has no known procedures. Encounters Start End Encounter Admission Attending Care Care Encounter Source Date/Time Date/Time Type Type Clinicians Facility Department ID 2022-03-19 Outpatient Adams, Na STLMLC STLMLC [id number] Common 11:00:01 [facility] 2022-03-18 Outpatient Adams, Na STLMLC STLMLC [id number] Common 10:05:00 [facility] 2021-11-15 Outpatient Adams, Na STLMLC STLMLC [id number] Common 08:27:01 [facility] 2021-10-03 Outpatient Adams, Na STLMLC STLMLC [id number] Common 14:21:31 [id number] [facility] 2021-10-03 Outpatient Adams, Na STLMLC STLMLC [id number] Common 13:53:02 [id number] [facility] 2021-10-03 Outpatient Adams, Na STLMLC STLMLC [id number] Common 13:04:30 [id number] [facility] 2021-10-03 Outpatient Kristi, STLMLC STLMLC [id number] Common 12:13:35 Clare 99423 [facility] 2021-10-03 Outpatient Kristi, STLMLC STLMLC [id number] Common 12:13:11 Clare [id number] [facility] 2021-10-03 Outpatient Kristi, STLMLC STLMLC [id number] Common 11:58:43 Clare [id number] [facility] 2021-10-03 Outpatient Millender, STLMLC STLMLC [id number] Common 11:58:21 Remedios [id number] [facility] 2022-03-27 2022-03-27 ambulatory STLMLC STLMLC [id number] Common 00:00:00 00:00:00 [facility] 2022-03-20 2022-03-20 ambulatory STLMLC STLMLC [id number] Common 00:00:00 00:00:00 [facility] 2022-03-19 2022-03-19 ambulatory STLMLC STLMLC [id number] Common 00:00:00 00:00:00 [facility] 2022-03-04 2022-03-04 ambulatory STLMLC STLMLC [id number] Common 00:00:00 00:00:00 [facility] 2022-01-18 2022-01-18 ambulatory STLMLC STLMLC [id number] Common 00:00:00 00:00:00 [facility] 2021-12-10 2021-12-10 ambulatory STLMLC STLMLC [id number] Common 00:00:00 00:00:00 [facility] 2021-11-19 2021-11-19 ambulatory STLMLC STLMLC [id number] Common 00:00:00 00:00:00 [facility] 2021-06-19 2021-06-19 Outpatient STLMLC STLMLC [id number] Common 00:00:00 00:00:00 [facility] 2021-06-13 2021-06-13 Outpatient STLMLC STLMLC [id number] Common 00:00:00 00:00:00 [facility] 2021-06-12 2021-06-12 Outpatient STLMLC STLMLC [id number] Common 00:00:00 00:00:00 [facility] 2021-06-05 2021-06-05 Outpatient STLMLC STLMLC [id number] Common 00:00:00 00:00:00 [facility] 2021-05-03 2021-05-03 Outpatient STLMLC STLMLC [id number] Common 00:00:00 00:00:00 [facility] 2021-03-02 2021-03-02 Outpatient STLMLC STLMLC [id number] Common 00:00:00 00:00:00 [facility] 2021-02-27 2021-02-27 Outpatient STLMLC STLMLC [id number] Common 00:00:00 00:00:00 [facility] 2021-02-27 2021-02-27 Outpatient STLMLC STLMLC [id number] Common 00:00:00 00:00:00 [facility] 2021-02-27 2021-02-27 Outpatient STLMLC STLMLC [id number] Common 00:00:00 00:00:00 [facility] 2021-01-23 2021-01-23 Outpatient STLMLC STLMLC [id number] Common 00:00:00 00:00:00 [facility] 2020-10-17 2020-10-17 Outpatient STLMLC STLMLC [id number] Common 00:00:00 00:00:00 [facility] 2020-08-23 2020-08-23 Outpatient STLMLC STLMLC [id number] Common 00:00:00 00:00:00 [facility] 2020-07-07 2020-07-07 Outpatient STLMLC STLMLC [id number] Common 00:00:00 00:00:00 [facility] 2020-07-03 2020-07-03 Outpatient STLMLC STLMLC [id number] Common 00:00:00 00:00:00 [facility] 2020-05-25 2020-05-25 [facility] [id number] Common 10:13:00 10:13:00 [facility] [address] [facility] 2020-02-16 2020-02-16 [facility] [id number] Common 16:48:00 16:48:00 [facility] [address] [facility] 2020-02-16 2020-02-16 [facility] [id number] Common 11:00:00 11:00:00 [facility] [address] [facility] 2020-02-10 2020-02-10 [facility] [id number] Common 11:00:00 11:00:00 [facility] [address] [facility] 2020-01-27 2020-01-27 [facility] [id number] Common 13:08:00 13:08:[address] [facility] 2020-01-27 2020-01-27 [facility] [id number] Common 09:09:00 09:09:[address] [facility] 2020-01-25 2020-01-25 [facility] [id number] Common 09:14:00 09:14:[address] [facility] 2020-01-24 2020-01-24 [facility] [id number] Common 16:20:00 16:20:[address] [facility] 2020-01-24 2020-01-24 [facility] [id number] Common 09:11:00 09:11:[address] [facility] 2020-01-03 2020-01-03 [facility] [id number] Common 10:30:00 10:30:[address] [facility] 2019-07-02 2019-07-02 [facility] [id number] Common 09:40:00 09:40:[address] [facility] 2018-12-24 2018-12-24 [facility] [id number] Common 10:00:00 10:00:[address] [facility] 2018-08-19 2018-08-19 [facility] [id number] Common 02:27:00 02:27:[address] [facility] 2018-06-25 2018-06-25 [facility] [id number] Common 10:15:00 10:15:[address] [facility] 2018-01-27 2018-01-27 [facility] [id number] Common 10:30:00 10:30:00 [facility] 2018-01-02 2018-01-02 [facility] [id number] Common 14:27:00 14:27:[address] [facility] [address] Spir [address] Road [facility]ly [facility] 2017-12-29 2017-12-29 [facility] [id number] Common 10:47:00 10:47:[address] [facility] [address] Spir [address] Road [facility] 2017-12-25 2017-12-25 [facility] [id number] Common 10:30:00 10:30:[address] [facility] [address] Spir [address] Road [facility] 2017-12-25 2017-12-25 [facility] [id number] Common 08:58:00 08:58:[address] [facility] [address] Spir [address] Road [facility]ly [facility] Results This patient has no known results.
[2022-04-15] MEDS ORDERED: FAMOTIDINE 20 MG/2 ML VIAL IV ONE (16:18)
[2022-04-15] MEDS ORDERED: ONDANSETRON 4 MG/2 ML VIAL ONE (16:18)
[2022-04-15] MEDS ORDERED: NA CHLORIDE 0.9% 1,000 ML ONE (16:18)
[2022-04-15 16:23] LABS: Absolute Lymphocytes (CBC) 1.4 K/uL (0.7-4.9); Hematocrit 37.4 % (36.0-45.0); Lymphocytes % 16.9 % (15.3-44.8); MCV 96.9 fL (80-100); MPV 8.9 fL (7.6-11.3); RBC Red Blood Cell Count 3.86 M/uL (3.86-4.86)
[2022-04-15 16:29] LABS: Albumin 4.2 g/dL (3.4-5.0); Bilirubin Total 1.1 mg/dL (0.2-1.0); Potassium 3.4 mmol/L (3.5-5.1); Protein, Total 7.5 g/dL (6.4-8.2)
[2022-04-15] MEDS ORDERED: DIAZEPAM 10 MG/2 ML INJ SYRINGE ONE (16:44)
[2022-04-15 19:15] LABS: Urine Blood Negative (Negative); Urine Glucose Negative (Negative); Urine Protein Negative (Negative); Urine Specific Gravity 1.015 (1.005-1.030)
[2022-04-15 19:40] LABS: Potassium 3.4 mmol/L (3.5-5.1)
--- NOTE | 2022-04-15 20:50 | ER ---
Nurse's Notes [facility] Name: Suma Lopez Age: 86 yrs Sex: Female : 1935 Arrival Date: 04/15/2022 Time: 15:29 Bed 9 Private MD: Elma Adams Diagnosis: Nausea with vomiting, unspecified;Diarrhea, unspecified;Dehydration Presentation: 04/15 15:32 Chief complaint: Patient states: severe weakness, N/V/D, x 2 days. kr3 15:32 Method Of Arrival: Wheelchair kr3 15:34 Coronavirus screen: Vaccine status: Patient reports being unvaccinated. Coronavirus kr3 screen: Client denies travel out of the [place] in the last 14 days. Ebola Screen: Patient denies travel to an Ebola-affected area in the 21 days before illness onset. Initial Sepsis Screen: Does the patient meet any 2 criteria? RR > 20 per min. No. Patient's initial sepsis screen is negative. Does the patient have a suspected source of infection? No. Patient's initial sepsis screen is negative. Risk Assessment: Do you want to hurt yourself or someone else? Patient reports no desire to harm self or others. Onset of symptoms was April 14, 2022. 15:34 Acuity: PARK 3 kr3 Triage Assessment: 15:42 General: Appears distressed, uncomfortable, slender, Behavior is calm, cooperative, kr3 anxious. Pain: Complains of pain in upset stomach, Pain currently is 10 out of 10 on a pain scale. Quality of pain is described as crampy. GI: Reports lower abdominal pain, upper abdominal pain, nausea, vomiting. Historical: - Allergies: 15:31 Bactrim; kr3 15:31 Ciprofloxacin; kr3 15:31 Biaxin; kr3 15:31 Cortisone Eye drops; kr3 15:31 Doxycycline; kr3 15:31 Levaquin; kr3 15:31 PENICILLINS; kr3 15:31 TETRACYCLINES; kr3 15:31 Zithromax; kr3 - PMHx: 15:31 Glaucoma; Hypertension; Hypothyroidism; kr3 - Immunization history:: Client reports having NOT received the Covid vaccine. - Social history:: Smoking status: Patient denies any tobacco usage or history of. Screenin:38 Abuse screen: Denies threats or abuse. Denies injuries from another. Nutritional hb screening: No deficits noted. Tuberculosis screening: No symptoms or risk factors identified. Fall Risk Total Lamar Fall Scale indicates Low Risk Score (25-44 pts). Fall prevention measures have been instituted. Side Rails Up X 2 Frequent Obs/Assesments occuring Family Present and informed to notify staff if they need to leave bedside As available Patient and Family Educated on Fall Prevention Program and strategies. Assessment: 16:00 Reassessment: No changes from previously documented assessment. States she feels like kr3 passing out. Vitals repeated, charge nurse notified. 16:23 Reassessment: No changes from previously documented assessment. kr3 18:34 General: Pt reports feeling much better as compared to arrival. Tolerating PO intake. kb3 19:25 Reassessment: Patient appears in no apparent distress at this time. Patient and/or hb family updated on plan of care and expected duration. Pain level reassessed. Patient is alert, oriented x 3, equal unlabored respirations, skin warm/dry/pink. 20:59 Reassessment: Patient appears in no apparent distress at this time. Patient and/or hb family updated on plan of care and expected duration. Pain level reassessed. Patient is alert, oriented x 3, equal unlabored respirations, skin warm/dry/pink. Patient states feeling better. Patient states symptoms have improved. Vital Signs: 15:34 BP 154 / 101; Pulse 97; Resp 36; Temp 97.8(O); Pulse Ox 97% on R/A; Weight 44.91 kg; kr3 Height 5 ft. 3 in. (160.02 cm); Pain 10/10; 16:05 BP 146 / 99; Pulse 98; Resp 38; Temp 97.1(TE); Pulse Ox 98% on R/A; kr3 18:34 BP 167 / 97; Pulse 80; Resp 20; Pulse Ox 99% ; Pain 0/10; kb3 20:59 BP 148 / 88; Pulse 76; Resp 15; Pulse Ox 99% ; hb 15:34 Body Mass Index 17.54 (44.91 kg, 160.02 cm) kr3 ED Course: 15:29 Patient arrived in ED. mr 15:29 Elma Adams MD is Private Physician. mr 15:30 Arm band placed on. kr3 15:38 Triage completed. kr3 15:38 Radhika Henry FNP-C is [facility]. snw 15:39 Deion Shi MD is Attending Physician. snw 16:10 Inserted saline lock: 20 gauge in right forearm, using aseptic technique. Blood kr3 collected. 16:23 Patient placed in an exam room, on a stretcher. kr3 16:41 Mehreen Davis RN is Primary Nurse. kb3 20:49 Elma Adams MD is Referral Physician. snw 20:59 Patient has correct armband on for positive identification. hb 20:59 No provider procedures requiring assistance completed. IV discontinued, intact, hb bleeding controlled, No redness/swelling at site. Administered Medications: 16:16 Drug: Pepcid (famotidine) 20 mg Route: IVP; Site: right forearm; kr3 16:56 Follow up: Response: No adverse reaction hb 16:17 Drug: Zofran (Ondansetron) 4 mg Route: IVP; Site: right forearm; kr3 16:56 Follow up: Response: No adverse reaction hb 16:21 Drug: NS 0.9% 1000 ml Route: IV; Rate: 1 bolus; Site: right forearm; kr3 16:56 Follow up: Response: No adverse reaction; IV Status: Completed infusion; IV converted hb to saline lock; IV Intake: 1000ml 16:40 Drug: Valium (diazepam) 1 mg Route: IVP; Site: right forearm; hb 20:49 CANCELLED (Duplicate Order; pt improved, up to void, no need for additional fluidd): NS snw 0.9% 500 ml IV at bolus once Medication: 20:59 VIS not applicable for this client. hb Intake: 16:56 IV: 1000ml; Total: 1000ml. hb Outcome: 20:50 Discharge ordered by . snw 20:59 Discharged to home via wheelchair, with family. hb 20:59 Condition: stable 20:59 Discharge instructions given to patient, family, Instructed on discharge instructions, follow up and referral plans. medication usage, Demonstrated understanding of instructions, follow-up care, medications, Prescriptions given X 1. 21:01 Patient left the ED. hb Signatures: Radhika Henry FNP-C LOG TRUCK DRIVER-Carla Rodriguez Heather, RN RN hb Roz Cortés RN RN kr3 Mehreen Davis RN RN kb3 Corrections: (The following items were deleted from the chart) 15:42 15:34 Initial Sepsis Screen: Does the patient meet any 2 criteria? RR > 20 per min. No. kr3 Patient's initial sepsis screen is negative. Does the patient have a suspected source of infection? No. Patient's initial sepsis screen is negative. kr3 15:42 15:34 BP 154 / 101; Pulse 97bpm; Resp 20bpm; Pulse Ox 97% RA; Temp 97.8F Oral; 44.91 kr3 kg; Height 5 ft. 3 in.; BMI: 17.5; Pain 10/10; kr3
--- NOTE | 2022-04-15 20:51 | EDPHYS ---
Physician Documentation [facility] Name: Suma Lopez Age: 86 yrs Sex: Female : 1935 Arrival Date: 04/15/2022 Time: 15:29 Bed 9 Private MD: Elma Adams ED Physician Deion Shi HPI: 04/15 15:52 This 86 yrs old Female presents to ER via Wheelchair with complaints of snw Vomiting/Diarrhea, Weakness. 15:52 The patient presents to the emergency department with nausea, vomiting, diarrhea. snw Onset: The symptoms/episode began/occurred suddenly, yesterday, and became worse and became persistent. Possible causes: bad food exposure, eggs. The symptoms are aggravated by nothing. The symptoms are alleviated by nothing. Severity of symptoms: At their worst the symptoms were moderate severe. The patient has not experienced similar symptoms in the past. It is unknown whether or not the patient has recently seen a physician. Historical: - Allergies: 15:31 Bactrim; kr3 15:31 Ciprofloxacin; kr3 15:31 Biaxin; kr3 15:31 Cortisone Eye drops; kr3 15:31 Doxycycline; kr3 15:31 Levaquin; kr3 15:31 PENICILLINS; kr3 15:31 TETRACYCLINES; kr3 15:31 Zithromax; kr3 - PMHx: 15:31 Glaucoma; Hypertension; Hypothyroidism; kr3 - Immunization history:: Client reports having NOT received the Covid vaccine. - Social history:: Smoking status: Patient denies any tobacco usage or history of. ROS: 15:50 Constitutional: Negative for fever, chills, and weight loss, Eyes: Negative for injury, snw pain, redness, and discharge, ENT: Negative for injury, pain, and discharge, Neck: Negative for injury, pain, and swelling, Cardiovascular: Negative for chest pain, palpitations, and edema, Respiratory: Negative for shortness of breath, cough, wheezing, and pleuritic chest pain, Back: Negative for injury and pain, : Negative for injury, bleeding, discharge, and swelling, MS/Extremity: Negative for injury and deformity, Skin: Negative for injury, rash, and discoloration, Neuro: Negative for headache, weakness, numbness, tingling, and seizure. 15:50 Abdomen/GI: Positive for nausea, vomiting, and diarrhea. Exam: 15:48 Head/Face: Normocephalic, atraumatic. Eyes: Pupils equal round and reactive to light, snw extra-ocular motions intact. Lids and lashes normal. Conjunctiva and sclera are non-icteric and not injected. Cornea within normal limits. Periorbital areas with no swelling, redness, or edema. ENT: Nares patent. No nasal discharge, no septal abnormalities noted. Tympanic membranes are normal and external auditory canals are clear. Oropharynx with no redness, swelling, or masses, exudates, or evidence of obstruction, uvula midline. Mucous membranes moist. Neck: Trachea midline, no thyromegaly or masses palpated, and no cervical lymphadenopathy. Supple, full range of motion without nuchal rigidity, or vertebral point tenderness. No Meningismus. Chest/axilla: Normal chest wall appearance and motion. Nontender with no deformity. No lesions are appreciated. Cardiovascular: Regular rate and rhythm with a normal S1 and S2. No gallops, murmurs, or rubs. Normal PMI, no JVD. No pulse deficits. 15:48 Abdomen/GI: Soft, non-tender, with normal bowel sounds. No distension or tympany. No guarding or rebound. No evidence of tenderness throughout. Back: No spinal tenderness. No costovertebral tenderness. Full range of motion. Skin: Warm, dry with normal turgor. Normal color with no rashes, no lesions, and no evidence of cellulitis. MS/ Extremity: Pulses equal, no cyanosis. Neurovascular intact. Full, normal range of motion. Neuro: Awake and alert, GCS 15, oriented to person, place, time, and situation. Cranial nerves II-XII grossly intact. Motor strength 5/5 in all extremities. Sensory grossly intact. Cerebellar exam normal. Normal gait. 15:48 Constitutional: The patient appears alert, awake, anxious, frail, restless, hyperventilating 15:48 Respiratory: the patient does not display signs of respiratory distress, Respirations: shallow respirations, tachypnea, Breath sounds: are clear throughout. 15:48 Neuro: Orientation: is normal, Memory: is normal, Sensation: tingling, of the right arm, left arm, right leg and left leg, (hyperventilating). Vital Signs: 15:34 BP 154 / 101; Pulse 97; Resp 36; Temp 97.8(O); Pulse Ox 97% on R/A; Weight 44.91 kg; kr3 Height 5 ft. 3 in. (160.02 cm); Pain 10/10; 16:05 BP 146 / 99; Pulse 98; Resp 38; Temp 97.1(TE); Pulse Ox 98% on R/A; kr3 18:34 BP 167 / 97; Pulse 80; Resp 20; Pulse Ox 99% ; Pain 0/10; kb3 20:59 BP 148 / 88; Pulse 76; Resp 15; Pulse Ox 99% ; hb 15:34 Body Mass Index 17.54 (44.91 kg, 160.02 cm) kr3 MDM: 15:54 Patient medically screened. snw 17:46 Data reviewed: vital signs, nurses notes. Data interpreted: Pulse oximetry: on room air snw is 98 %. Interpretation: normal. Response to treatment: the patient's symptoms have markedly improved after treatment. Awaiting: bolus complete, pt sleeping in no distress. Will recheck electrolytes. Special discussion: Based on the patient's Hx, exam, and Dx evaluation, there is no indication for emergent surgery or inpatient Tx. It is understood by the patient/guardian that if the Sx's persist or worsen they need to return immediately for re-evaluation. Based on the history and exam findings, there is no indication for further emergent testing or inpatient evaluation. I discussed with the patient/guardian the need to see the primary care provider for further evaluation of the symptoms. 19:13 Awaiting: assisted to bathroom, ua collected. snw 19:17 ED course: pt states she is feeling a lot better. awaiting repeat C7 results. snw 20:33 Counseling: I had a detailed discussion with the patient and/or guardian regarding: the snw historical points, exam findings, and any diagnostic results supporting the discharge/admit diagnosis, lab results, the need for outpatient follow up, to return to the emergency department if symptoms worsen or persist or if there are any questions or concerns that arise at home. 20:51 ED course: up to void with minimal assistance, pt feeling better, chem 7 improved. will snw dc home with family. 04/15 15:48 Order name: CBC with Diff; Complete Time: 16:31 snw 04/15 15:48 Order name: CMP; Complete Time: 16:31 snw 04/15 15:48 Order name: Lipase; Complete Time: 16:31 snw 04/15 16:15 Order name: SARS-COV-2 RT PCR (Document "Date of Onset" if Symptomatic); Complete Time: snw 18:23 04/15 17:46 Order name: Chem 7; Complete Time: 20:32 snw 04/15 19:16 Order name: Urine Dipstick-Ancillary; Complete Time: 19:17 EDMS 04/15 15:48 Order name: IV Saline Lock; Complete Time: 15:48 snw 04/15 15:48 Order name: Labs collected and sent; Complete Time: 15:48 snw 04/15 19:14 Order name: Urine Dipstick-Ancillary (obtain specimen); Complete Time: 19:24 snw Administered Medications: 16:16 Drug: Pepcid (famotidine) 20 mg Route: IVP; Site: right forearm; kr3 16:56 Follow up: Response: No adverse reaction hb 16:17 Drug: Zofran (Ondansetron) 4 mg Route: IVP; Site: right forearm; kr3 16:56 Follow up: Response: No adverse reaction hb 16:21 Drug: NS 0.9% 1000 ml Route: IV; Rate: 1 bolus; Site: right forearm; kr3 16:56 Follow up: Response: No adverse reaction; IV Status: Completed infusion; IV converted hb to saline lock; IV Intake: 1000ml 16:40 Drug: Valium (diazepam) 1 mg Route: IVP; Site: right forearm; hb 20:49 CANCELLED (Duplicate Order; pt improved, up to void, no need for additional fluidd): NS snw 0.9% 500 ml IV at bolus once Disposition Summary: 04/15/22 20:50 Discharge Ordered Location: Home snw Condition: Stable snw Diagnosis - Nausea with vomiting, unspecified snw - Diarrhea, unspecified snw - Dehydration snw Followup: snw - With: Emergency Department - When: As needed - Reason: Worsening of condition Followup: snw - With: Elma Adams MD - When: 1 - 2 days - Reason: Recheck today's complaints, Continuance of care, Re-evaluation by your physician Discharge Instructions: - Discharge Summary Sheet snw - Food Choices to Help Relieve Diarrhea, Adult snw - Dehydration, Elderly snw - Nausea and Vomiting, Adult snw - Rehydration, Elderly snw - [place] Diet snw Forms: - Medication Reconciliation Form snw - Thank You Letter snw - Antibiotic Education snw - Prescription Opioid Use snw Prescriptions: - Zofran 4 mg Oral Tablet - take 1 tablet by ORAL route every 12 hours As needed; 6 tablet; Refills: 0, snw Product Selection Permitted Addendum: 04/16/2022 21:46 Co-signature as Attending Physician, Deion Shi MD. r n Signatures: Dispatcher [employer] EDMS Radhika Henry, RAILROAD COMMISSIONER-C RAILROAD COMMISSIONER-[employer]nw Deion Shi MD MD rn Roz Cortés RN RN kr3 Agnes Small RN Corrections: (The following items were deleted from the chart) 04/15 20:49 20:33 NS 0.9% 500 ml IV at bolus once ordered. snw snw
[2022-04-16 00:32] VITALS: TEMP 97.1
[2022-04-16 00:36] VITALS: O2SAT 99
[2022-04-16 00:39] VITALS: BP 148/88
== END 2022-04-15 21:01 | disposition home or self-care (01) ==
LOC: ER 15:26
DX: E86.0 Dehydration (principal); R19.7 Diarrhea, unspecified; Z20.822 Contact with and (suspected) exposure to COVID-19; I10 Essential (primary) hypertension; Z88.0 Allergy status to penicillin; Z88.1 Allergy status to other antibiotic agents; Z88.6 Allergy status to analgesic agent
CPT/HCPCS: 85025; 80048; 36415; 81003; 83690; 80053; U0003; J3360; J7030; J2405; 96361; 96374; 96375; 99284

== ENCOUNTER 2023-05-10 13:27 | Emergency (ER) | payer OTHER ==
--- OUTSIDE RECORDS SUMMARY | 2023-05-10 13:33 | XMS REPORT | Continuity of Care Document ---
:1935 Author Organization [facility] t Address [address] [facility] [address] [place] [address] Care Team Providers Name Role Phone Barby Rebolledo Attending Clinician Unavailable Elma Adams Attending Clinician Unavailable Clare Berry Attending Clinician Unavailable Remedios Ng Attending Clinician Unavailable Payers Payer Name Policy Type Policy Number Effective Date Expiration Date S [place] [id number] [facility] MEDICARE NOVITAS [id number] 1999 Common 00:00:00 [facility] MEDICARE NOVITAS [id number] 1999 Common 00:00:00 [facility] MEDICARE NOVITAS [id number] 1999 Common 00:00:00 [facility] MEDICARE NOVITAS [id number] 1999 Common 00:00:00 [facility] Problems Condition Condition Condition Status Onset Resolution Last Treating Co mments Source Name Details Category Date Date Treatment Clinician Date [id number] Edema of Problem Com mon [id number] both lower Spiri t extremitie - [facility]I s due to 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[address] itis of Spirit both hips, - [facility]I unspecifie d [facility] osteoarthr Medica l itis type Center [id number] Peptic Problem Common ulcer, [facility] site - [facility] unspecifie [facility] unspecifie Medica l d as acute Center or chronic, without hemorrhage or perforatio n [id number] Chronic Problem Commo n constipati [facility] on [facility] [id number] Hypothyroi Problem Com mon dism, Spirit unspecifie - [facility]I d type [facility] [id number] Scoliosis, Problem Co mmon unspecifie [facility] d - [facility]I scoliosis [facility] unspecifie Medica l d spinal Center region Cardiac Abnormal Problem Common arrhythmia heart [facility] rhythm [facility] [id number] Pulmonary Problem Com mon nodules [facility] Migraine Migraines Problem Comm on [facility] Allergic Allergic Problem Commo n rhinitis rhinitis 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 whether Medical neurogenic Center claudicati on present [id number] Other Problem Common chronic [facility] pain [facility] Insomnia Insomnia Problem Commo n Spirit [facility] Glaucoma Glaucoma Problem Commo n [facility] Gastroesop Gastroesop Problem C ommon hageal hageal Spirit reflux reflux [facility] s present Osteoporos Osteoporos Problem C ommon is is [facility] Fibromyalg Fibromyalg Problem C ommon ia ia [facility] [id number] Chronic Problem Common fatigue [facility] Knee pain Knee pain Problem Com mon [facility] [id number] Blackout Problem Comm on spell [facility] [id number] Polyarthra Problem Com mon lgia [facility] [id number] Chronic Problem Commo n sore [facility] throat [facility] [id number] Weakness Problem Commo n [facility] [id number] Pyelonephr Problem Com mon itis [facility] Pulmonary Pulmonary Problem Com mon nodule nodule 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 Bronchiect Bronchiect Problem C ommon asis asis [facility] Vitamin D Vitamin D Problem Com mon deficiency [facility] [id number] Anxiety Problem Common [facility] [id number] Mild Problem Common depression [facility] Allergies, Adverse Reactions, Alerts Allergy Allergy Status [...] clarithr DA Active SV 2017-09 [facility] omycin 204 [place] 00:[facility]: [facility] azithrom [...] levoflox DA Active SV [facility] acin 04-16 [place] 00:00: Orthope 00 [facility] sulfamet sulfamet Active hives Common hoxazole hoxazole Spirit / / - [facility]I trimetho trimetho prim [facility] [address]57 Drug Active stomach Common allergy upset [facility] 9041 Drug Active rash Common allergy [facility] clarithr clarithr Active shortness of Common omycin omycin breath [facility] azithrom azithrom Active shortness of Common ycin ycin breath [facility] tetracyc tetracyc Active Unknown Commo n line line [facility] doxycycl doxycycl Active Unknown Commo n ine ine [facility] 0 Drug Active hives Common allergy [facility] nitrofur nitrofur Active rash Common antoin antoin [facility] Social History Social Habit Start Date Stop Date Quantity Comments Source History of Tobacco Use Co mmon [facility] Sex Assigned At Com mon [facility] Smoking Status Start Date Stop Date Source Never Smoker [facility] Medications Ordered Filled Start Stop Current Ordering Indication Dosage Frequency Signature Comments Components Source Medication Medication Date Date Medication? Clinician (SIG) Name Name Ferrous Ferrous 2022-0 No QD Ferrous Gluconate Gluconate 9-30 Gluconate 324 (38 Fe) 324 (38 Fe) 00:00: 324 (38 MG MG 00 Fe) MG Ferrous Ferrous 0 No QD Ferrous Gluconate Gluconate 9-30 Gluconate 324 (38 Fe) 324 (38 Fe) 00:00: 324 (38 MG MG 00 Fe) MG Ferrous Ferrous 2021-0 No QD Ferrous Gluconate Gluconate 9-30 Gluconate 324 (38 Fe) 324 (38 Fe) 00:00: 324 (38 MG MG 00 Fe) MG Ferrous Ferrous 2021-0 No QD Ferrous Gluconate Gluconate 9-30 Gluconate 324 (38 Fe) 324 (38 Fe) 00:00: 324 (38 MG MG 00 Fe) MG Ferrous Ferrous 0 No QD Ferrous Gluconate Gluconate 9-30 Gluconate 324 (38 Fe) 324 (38 Fe) 00:00: 324 (38 MG MG 00 Fe) MG Albuterol Albuterol No 2{puffs Albuterol Sulfate HFA Sulfate HFA 3-14 } Sulfate 108 (90 108 (90 00:00: HFA 108 Base) Base) 00 (90 Base) MCG/ACT MCG/ACT MCG/ACT Spiriva Spiriva 2020-09 No 2{puffs QD Spiriva Respimat Respimat 0-06 } Respimat 2.5 2.5 00:00: 2.5 microgram microgram 00 microgram Spiriva Spiriva 2020-09 No 2{puffs QD Spiriva Respimat Respimat 0-06 } Respimat 2.5 2.5 00:00: 2.5 microgram microgram 00 microgram Spiriva Spiriva 2020-09 No 2{puffs QD Spiriva Respimat Respimat 0-06 } Respimat 2.5 2.5 00:00: 2.5 microgram microgram 00 microgram Spiriva Spiriva 2020-09 No 2{puffs QD Spiriva Respimat Respimat 0-06 } Respimat 2.5 2.5 00:00: 2.5 microgram microgram 00 microgram Spiriva Spiriva 2020-09 No 2{puffs QD Spiriva Respimat Respimat 0-06 } Respimat 2.5 2.5 00:00: 2.5 microgram microgram 00 microgram Spiriva Spiriva 2020-09 No 2{puffs QD Spiriva Respimat Respimat 0-06 } Respimat 2.5 2.5 00:00: 2.5 microgram microgram 00 microgram Spiriva Spiriva 2020-09 No 2{puffs QD Spiriva Respimat Respimat 0-06 } Respimat 2.5 2.5 00:00: 2.5 microgram microgram 00 microgram Spiriva Spiriva 2020-09 No 2{puffs QD Spiriva Respimat Respimat 0-06 } Respimat 2.5 2.5 00:00: 2.5 microgram microgram 00 microgram Spiriva Spiriva 2020-09 No 2{puffs QD Spiriva Respimat Respimat 0-06 } Respimat 2.5 2.5 00:00: 2.5 microgram microgram 00 microgram Spiriva Spiriva 2020-09 No 2{puffs QD Spiriva Respimat Respimat 0-06 } Respimat 2.5 2.5 00:00: 2.5 microgram microgram 00 microgram Spiriva Spiriva 2020-09 No 2{puffs QD Spiriva Respimat Respimat 0-06 } Respimat 2.5 2.5 00:00: 2.5 microgram microgram 00 microgram Spiriva Spiriva 2020-09 No 2{puffs QD Spiriva Respimat Respimat 0-06 } Respimat 2.5 2.5 00:00: 2.5 microgram microgram 00 microgram Spiriva Spiriva 2020-09 No 2{puffs QD Spiriva Respimat Respimat 0-06 } Respimat 2.5 2.5 00:00: 2.5 microgram microgram 00 microgram Spiriva Spiriva 2020-09 No 2{puffs QD Spiriva Respimat Respimat 0-06 } Respimat 2.5 2.5 00:00: 2.5 microgram microgram 00 microgram Spiriva Spiriva 2020-09 No 2{puffs QD Spiriva Respimat Respimat 0-06 } Respimat 2.5 2.5 00:00: 2.5 microgram microgram 00 microgram Kenalog Kenalog No 40mg Common (Triamcinol (Triamcinol 5-18 S pirit one) one) 00:00: - [facility]I 00 [facility] Kenalog Kenalog 2021-0 No 40mg Common (Triamcinol (Triamcinol 5-18 S pirit one) one) 00:00: - CHI 00 [facility] Kenalog Kenalog 2020-0 No 40mg Common (Triamcinol (Triamcinol 5-18 S pirit one) one) 00:00: - CHI 00 [facility] Kenmary Kenalog 0 No 40mg Common (Triamcinol (Triamcinol 5-18 S pirit one) one) 00:00: - CHI 00 [facility] Joselo Kenalog 0 No 40mg Common (Triamcinol (Triamcinol 5-18 S pirit one) one) 00:00: - CHI 00 [facility] Joselo Kenalog 0 No 40mg Common (Triamcinol (Triamcinol 5-18 S pirit one) one) 00:00: - CHI 00 [facility] Joselo Kenalog 0 No 40mg Common (Triamcinol (Triamcinol 5-18 S pirit one) one) 00:00: - CHI 00 [facility] Joselo Kenalog 2020-0 No 40mg Common (Triamcinol (Triamcinol 5-18 S pirit one) one) 00:00: - CHI 00 [facility] Joselo Kenalog 2020-0 No 40mg Common (Triamcinol (Triamcinol 5-18 S pirit one) one) 00:00: - CHI 00 [facility] Kenmary Kenalog 2020-0 No 40mg Common (Triamcinol (Triamcinol 5-18 S pirit one) one) 00:00: - CHI 00 [facility] Kenmary Kenalog 2020-0 No 40mg Common (Triamcinol (Triamcinol 5-18 S pirit one) one) 00:00: - CHI 00 [facility] Kenmary Kenalog 2020-0 No 40mg Common (Triamcinol (Triamcinol 5-18 S pirit one) one) 00:00: - CHI 00 [facility] Kenmary Kenalog 2020-0 No 40mg Common (Triamcinol (Triamcinol 5-18 S pirit one) one) 00:00: - CHI 00 [facility] Kenalog Kenalog 2018-0 No 40mg Common (Triamcinol (Triamcinol 5-22 S pirit one) one) 00:00: - CHI 00 [facility] Kenalog Kenalog 2018-0 No 40mg Common (Triamcinol (Triamcinol 5-22 S pirit one) one) 00:00: - CHI 00 [facility] Kenalog Kenalog 2018-0 No 40mg Common (Triamcinol (Triamcinol 5-22 S pirit one) one) 00:00: - CHI 00 [facility] Kenalog Kenalog 2018-0 No 40mg Common (Triamcinol (Triamcinol 5-22 S pirit one) one) 00:00: - CHI 00 [facility] Kenalog Kenalog 2018-0 No 40mg Common (Triamcinol (Triamcinol 5-22 S pirit one) one) 00:00: - CHI 00 [facility] Kenalog Kenalog 2018-0 No 40mg Common (Triamcinol (Triamcinol 5-22 S pirit one) one) 00:00: - CHI 00 [facility] Kenalog Kenalog 2018-0 No 40mg Common (Triamcinol (Triamcinol 5-22 S pirit one) one) 00:00: - CHI 00 [facility] Kenalog Kenalog 2018-0 No 40mg Common (Triamcinol (Triamcinol 5-22 S pirit one) one) 00:00: - CHI 00 [facility] Kenalog Kenalog 2018-0 No 40mg Common (Triamcinol (Triamcinol 5-22 S pirit one) one) 00:00: - CHI 00 [facility] Kenalog Kenalog 2018-0 No 40mg Common (Triamcinol (Triamcinol 5-22 S pirit one) one) 00:00: - CHI 00 [facility] Kenalog Kenalog 2018-0 No 40mg Common (Triamcinol (Triamcinol 5-22 S pirit one) one) 00:00: - CHI 00 [facility] Kenalog Kenalog 2018-0 No 40mg Common (Triamcinol (Triamcinol 5-22 S pirit one) one) 00:00: - CHI [facility] Kenalog Kenalog No 40mg Common (Triamcinol (Triamcinol 5-22 S pirit one) one) 00:00: - CHI [facility] Levothyroxi Levothyroxi Yes Veronica 1.25 ml Common ne Sodium ne Sodium 4-23 [place] Spir it 00:00: - CHI [facility] Restasis Restasis Yes Veronica 1 drop Comm on [place] into Spirit affected - [facility]I eye [facility] Lyrica Lyrica Yes Veronica [address] [place] [facility] Sinus Rinse Sinus Rinse Yes Veronica as Common Kit Kit [place] directed [facility] Align Align Yes Veronica as Common [place] directed [facility] Vitamin A Vitamin A Yes Veronica [address] [place] [facility] Stool Stool Yes Veronica not Common Softener & Softener & [place] defined Spirit Laxative Laxative [facility] Pepcid AC Pepcid AC Yes Veronica 1 tablet Common [place] as needed [facility] Xlear Sinus Xlear Sinus Yes Veronica as Common Care Dietrich Care Dietrich [place] directed [facility] Pepcid AC Pepcid AC Yes Veronica 1 tablet Common [place] as needed [facility] Aloe Vera Aloe Vera Yes Veronica not Comm on [place] defined [facility] CoQ10 CoQ10 Yes Veronica 1 capsule Common [place] with a Spirit meal [facility] AZO Bladder AZO Bladder Yes Veronica not Common Control Control [place] defined Spiri t [facility] Vitamin C Vitamin C Yes Veronica as Comm on [place] directed [facility] Calcium Calcium Yes Veronica 1 tablet Comm on [place] with meals [facility] Refresh Refresh Yes Veronica 1 drop Common [place] into Spirit affected - CHI eye as [facility] Zioptan Zioptan Yes Veronica 1 drop Common [place] into Spirit affected - [facility]I eye [facility] Vitamin D Vitamin D Yes Veronica [address] [place] [facility] Lutein Lutein Yes Veronica 1 capsule Commo n [place] with a Spirit meal [facility] Vitamin D3 Vitamin D3 Yes Veronica 0.[address] [facility] Hydrocodone Hydrocodone Yes Veronica 1 tablet Common -Acetaminop -Acetaminop [place] as needed Spirit hen hen [facility] Magnesium Magnesium Yes Veronica 1 capsule Common [place] with a Spirit meal [facility] B50 Complex B50 Complex Yes Veronica not Common TR TR [place] defined [facility] Levothyroxi Levothyroxi No Levothyrox ne Sodium ne Sodium ine Sodium 25 MCG 25 MCG 25 MCG Sinus Rinse Sinus Rinse No Sinus Kit - Kit - Rinse Kit - Xlear Sinus Xlear Sinus No Xlear Care Dietrich Care Dietrich Sinus Care - - Dietrich - Singulair Singulair No 1{table QD Singulair 10 MG 10 MG t} 10 MG Stool Stool No Stool Softener & Softener & Softener & Laxative Laxative Laxative Vitamin E Vitamin E No 1{table QD Vitamin E 400 UNIT 400 UNIT t} 400 UNIT Zioptan Zioptan No 1{drop_ QD Zioptan 0.0015 % 0.0015 % into_af 0.0015 % fected_ eye} Vitamin D Vitamin D No 1{capsu QD Vitamin D 125 MCG 125 MCG le} 125 MCG (5000 UT) (5000 UT) (5000 UT) Albuterol Albuterol No Albuterol Sulfate HFA Sulfate HFA Sulfate 108 (90 108 (90 HFA 108 Base) Base) (90 Base) MCG/ACT MCG/ACT MCG/ACT Align 4 MG Align 4 MG No Align 4 MG Lyrica 50 Lyrica 50 No 1{capsu QD Lyrica 50 MG MG le} MG Calcium 600 Calcium 600 No 1{table BID Calcium MG MG t_with_ 600 MG meals} HYDROcodone HYDROcodone No 1{table HYDROcodon -Acetaminop -Acetaminop t_as_ne e-Acetamin hen 5-325 hen 5-325 eded} ophen MG MG 5-325 MG Zinc 30 MG Zinc 30 MG No 1{table QD Zinc 30 MG t} Pepcid AC Pepcid AC No 1{table BID Pepcid AC 10 MG 10 MG t_as_ne 10 MG eded} Aloe Vera Aloe Vera No Aloe Vera 25 MG 25 MG 25 MG Levothyroxi Levothyroxi No QD Levothyrox ne Sodium ne Sodium ine Sodium 125 MCG 125 MCG 125 MCG Lutein 20 Lutein 20 No 1{capsu QD Lutein 20 MG MG le_with MG _a_meal } B50 Complex B50 Complex No B50 TR - TR - Complex TR - Singulair Singulair No 1{table QD Singulair 10 MG 10 MG t} 10 MG Zinc 30 MG Zinc 30 MG No 1{table QD Zinc 30 MG t} Refresh Refresh No 1{drop_ Refresh 1.4-0.6 % 1.4-0.6 % into_af 1.4-0.6 % fected_ eye_as_ needed} Levothyroxi Levothyroxi No QD Levothyrox ne Sodium ne Sodium ine Sodium 125 MCG 125 MCG 125 MCG Vitamin E Vitamin E No 1{table QD Vitamin E 400 UNIT 400 UNIT t} 400 UNIT Vitamin C Vitamin C No BID Vitamin C 500 MG 500 MG 500 MG Levothyroxi Levothyroxi No QD Levothyrox ne Sodium ne Sodium ine Sodium 25 MCG 25 MCG 25 MCG Vitamin D Vitamin D No 1{capsu QD Vitamin D 125 MCG 125 MCG le} 125 MCG (5000 UT) (5000 UT) (5000 UT) B50 Complex B50 Complex No B50 TR - TR - Complex TR - Calcium 600 Calcium 600 No 1{table BID Calcium MG MG t_with_ 600 MG meals} Align 4 MG Align 4 MG No Align 4 MG Xlear Sinus Xlear Sinus No Xlear Care Dietrich Care Dietrich Sinus Care - - Dietrich - Sinus Rinse Sinus Rinse No Sinus Kit - Kit - Rinse Kit - Zioptan Zioptan No 1{drop_ QD Zioptan 0.0015 % 0.0015 % into_af 0.0015 % fected_ eye} Pepcid AC Pepcid AC No 1{table BID Pepcid AC 10 MG 10 MG t_as_ne 10 MG eded} Restasis Restasis No 1{drop_ Restasis 0.05 % 0.05 % into_af 0.05 % fected_ eye} Lutein 20 Lutein 20 No 1{capsu QD Lutein 20 MG MG le_with MG _a_meal } Stool Stool No Stool Softener & Softener & Softener & Laxative Laxative Laxative Lyrica 50 Lyrica 50 No 1{capsu QD Lyrica 50 MG MG le} MG HYDROcodone HYDROcodone No 1{table HYDROcodon -Acetaminop -Acetaminop t_as_ne e-Acetamin hen 5-325 hen 5-325 eded} ophen MG MG 5-325 MG Incruse Incruse No 1{puff} QD Incruse Ellipta Ellipta Ellipta 62.5 62.5 62.5 MCG/INH MCG/INH MCG/INH Mirtazapine Mirtazapine No 1{table QD Mirtazapin 15 MG 15 MG t_at_be e 15 MG dtime} CoQ10 100 CoQ10 100 No 1{capsu QD CoQ10 100 MG MG le_with MG _a_meal } Aloe Vera Aloe Vera No Aloe Vera 25 MG 25 MG 25 MG Refresh Refresh No 1{drop_ Refresh 1.4-0.6 % 1.4-0.6 % into_af 1.4-0.6 % fected_ eye_as_ needed} Zinc 30 MG Zinc 30 MG No 1{table QD Zinc 30 MG t} Aloe Vera Aloe Vera No Aloe Vera 25 MG 25 MG 25 MG Levothyroxi Levothyroxi No QD Levothyrox ne Sodium ne Sodium ine Sodium 125 MCG 125 MCG 125 MCG Levothyroxi Levothyroxi No QD Levothyrox ne Sodium ne Sodium ine Sodium 25 MCG 25 MCG 25 MCG Stool Stool No Stool Softener & Softener & Softener & Laxative Laxative Laxative Singulair Singulair No 1{table QD Singulair 10 MG 10 MG t} 10 MG Align 4 MG Align 4 MG No Align 4 MG Vitamin E Vitamin E No 1{table QD Vitamin E 400 UNIT 400 UNIT t} 400 UNIT Xlear Sinus Xlear Sinus No Xlear Care Dietrich Care Dietrich Sinus Care - - Dietrich - Calcium 600 Calcium 600 No 1{table BID Calcium MG MG t_with_ 600 MG meals} Zioptan Zioptan No 1{drop_ QD Zioptan 0.0015 % 0.0015 % into_af 0.0015 % fected_ eye} Vitamin C Vitamin C No BID Vitamin C 500 MG 500 MG 500 MG Vitamin D Vitamin D No 1{capsu QD Vitamin D 125 MCG 125 MCG le} 125 MCG (5000 UT) (5000 UT) (5000 UT) Lyrica 50 Lyrica 50 No 1{capsu QD Lyrica 50 MG MG le} MG HYDROcodone HYDROcodone No 1{table HYDROcodon -Acetaminop -Acetaminop t_as_ne e-Acetamin hen 5-325 hen 5-325 eded} ophen MG MG 5-325 MG CoQ10 100 CoQ10 100 No 1{capsu QD CoQ10 100 MG MG le_with MG _a_meal } Sinus Rinse Sinus Rinse No Sinus Kit - Kit - Rinse Kit - B50 Complex B50 Complex No B50 TR - TR - Complex TR - Lutein 20 Lutein 20 No 1{capsu QD Lutein 20 MG MG le_with MG _a_meal } Mirtazapine Mirtazapine No 1{table QD Mirtazapin 15 MG 15 MG t_at_be e 15 MG dtime} Pepcid AC Pepcid AC No 1{table BID Pepcid AC 10 MG 10 MG t_as_ne 10 MG eded} Restasis Restasis No 1{drop_ Restasis 0.05 % 0.05 % into_af 0.05 % fected_ eye} Refresh Refresh No 1{drop_ Refresh 1.4-0.6 % 1.4-0.6 % into_af 1.4-0.6 % fected_ eye_as_ needed} Zinc 30 MG Zinc 30 MG No 1{table QD Zinc 30 MG t} Aloe Vera Aloe Vera No Aloe Vera 25 MG 25 MG 25 MG Levothyroxi Levothyroxi No QD Levothyrox ne Sodium ne Sodium ine Sodium 125 MCG 125 MCG 125 MCG Levothyroxi Levothyroxi No QD Levothyrox ne Sodium ne Sodium ine Sodium 25 MCG 25 MCG 25 MCG Stool Stool No Stool Softener & Softener & Softener & Laxative Laxative Laxative Singulair Singulair No 1{table QD Singulair 10 MG 10 MG t} 10 MG Align 4 MG Align 4 MG No Align 4 MG Vitamin E Vitamin E No 1{table QD Vitamin E 400 UNIT 400 UNIT t} 400 UNIT Xlear Sinus Xlear Sinus No Xlear Care Dietrich Care Dietrich Sinus Care - - Dietrich - Calcium 600 Calcium 600 No 1{table BID Calcium MG MG t_with_ 600 MG meals} Zioptan Zioptan No 1{drop_ QD Zioptan 0.0015 % 0.0015 % into_af 0.0015 % fected_ eye} Vitamin C Vitamin C No BID Vitamin C 500 MG 500 MG 500 MG Vitamin D Vitamin D No 1{capsu QD Vitamin D 125 MCG 125 MCG le} 125 MCG (5000 UT) (5000 UT) (5000 UT) Lyrica 50 Lyrica 50 No 1{capsu QD Lyrica 50 MG MG le} MG HYDROcodone HYDROcodone No 1{table HYDROcodon -Acetaminop -Acetaminop t_as_ne e-Acetamin hen 5-325 hen 5-325 eded} ophen MG MG 5-325 MG CoQ10 100 CoQ10 100 No 1{capsu QD CoQ10 100 MG MG le_with MG _a_meal } Sinus Rinse Sinus Rinse No Sinus Kit - Kit - Rinse Kit - B50 Complex B50 Complex No B50 TR - TR - Complex TR - Lutein 20 Lutein 20 No 1{capsu QD Lutein 20 MG MG le_with MG _a_meal } Mirtazapine Mirtazapine No 1{table QD Mirtazapin 15 MG 15 MG t_at_be e 15 MG dtime} Pepcid AC Pepcid AC No 1{table BID Pepcid AC 10 MG 10 MG t_as_ne 10 MG eded} Restasis Restasis No 1{drop_ Restasis 0.05 % 0.05 % into_af 0.05 % fected_ eye} Refresh Refresh No 1{drop_ Refresh 1.4-0.6 % 1.4-0.6 % into_af 1.4-0.6 % fected_ eye_as_ needed} Zinc 30 MG Zinc 30 MG No 1{table QD Zinc 30 MG t} Aloe Vera Aloe Vera No Aloe Vera 25 MG 25 MG 25 MG Levothyroxi Levothyroxi No QD Levothyrox ne Sodium ne Sodium ine Sodium 125 MCG 125 MCG 125 MCG Levothyroxi Levothyroxi No QD Levothyrox ne Sodium ne Sodium ine Sodium 25 MCG 25 MCG 25 MCG Stool Stool No Stool Softener & Softener & Softener & Laxative Laxative Laxative Singulair Singulair No 1{table QD Singulair 10 MG 10 MG t} 10 MG Align 4 MG Align 4 MG No Align 4 MG Vitamin E Vitamin E No 1{table QD Vitamin E 400 UNIT 400 UNIT t} 400 UNIT Xlear Sinus Xlear Sinus No Xlear Care Dietrich Care Dietrich Sinus Care - - Dietrich - Calcium 600 Calcium 600 No 1{table BID Calcium MG MG t_with_ 600 MG meals} Zioptan Zioptan No 1{drop_ QD Zioptan 0.0015 % 0.0015 % into_af 0.0015 % fected_ eye} Vitamin C Vitamin C No BID Vitamin C 500 MG 500 MG 500 MG Vitamin D Vitamin D No 1{capsu QD Vitamin D 125 MCG 125 MCG le} 125 MCG (5000 UT) (5000 UT) (5000 UT) Lyrica 50 Lyrica 50 No 1{capsu QD Lyrica 50 MG MG le} MG HYDROcodone HYDROcodone No 1{table HYDROcodon -Acetaminop -Acetaminop t_as_ne e-Acetamin hen 5-325 hen 5-325 eded} ophen MG MG 5-325 MG CoQ10 100 CoQ10 100 No 1{capsu QD CoQ10 100 MG MG le_with MG _a_meal } Sinus Rinse Sinus Rinse No Sinus Kit - Kit - Rinse Kit - B50 Complex B50 Complex No B50 TR - TR - Complex TR - Lutein 20 Lutein 20 No 1{capsu QD Lutein 20 MG MG le_with MG _a_meal } Mirtazapine Mirtazapine No 1{table QD Mirtazapin 15 MG 15 MG t_at_be e 15 MG dtime} Pepcid AC Pepcid AC No 1{table BID Pepcid AC 10 MG 10 MG t_as_ne 10 MG eded} Restasis Restasis No 1{drop_ Restasis 0.05 % 0.05 % into_af 0.05 % fected_ eye} Vitamin D Vitamin D No 1{capsu QD Vitamin D 125 MCG 125 MCG le} 125 MCG (5000 UT) (5000 UT) (5000 UT) Singulair Singulair No 1{table QD Singulair 10 MG 10 MG t} 10 MG Calcium 600 Calcium 600 No 1{table BID Calcium MG MG t_with_ 600 MG meals} Levothyroxi Levothyroxi No Levothyrox ne Sodium ne Sodium ine Sodium 25 MCG 25 MCG 25 MCG B50 Complex B50 Complex No B50 TR - TR - Complex TR - Refresh Refresh No 1{drop_ Refresh 1.4-0.6 % 1.4-0.6 % into_af 1.4-0.6 % fected_ eye_as_ needed} Zinc 30 MG Zinc 30 MG No 1{table QD Zinc 30 MG t} Restasis Restasis No 1{drop_ Restasis 0.05 % 0.05 % into_af 0.05 % fected_ eye} Xlear Sinus Xlear Sinus No Xlear Care Dietrich Care Dietrich Sinus Care - - Dietrich - Zioptan Zioptan No 1{drop_ QD Zioptan 0.0015 % 0.0015 % into_af 0.0015 % fected_ eye} Levothyroxi Levothyroxi No QD Levothyrox ne Sodium ne Sodium ine Sodium 125 MCG 125 MCG 125 MCG Vitamin E Vitamin E No 1{table QD Vitamin E 400 UNIT 400 UNIT t} 400 UNIT CoQ10 100 CoQ10 100 No 1{capsu QD CoQ10 100 MG MG le_with MG _a_meal } Align 4 MG Align 4 MG No Align 4 MG Lutein 20 Lutein 20 No 1{capsu QD Lutein 20 MG MG le_with MG _a_meal } Lyrica 50 Lyrica 50 No 1{capsu QD Lyrica 50 MG MG le} MG Sertraline Sertraline No 1{table QD Sertraline HCl 25 MG HCl 25 MG t} HCl 25 MG Levothyroxi Levothyroxi No QD Levothyrox ne Sodium ne Sodium ine Sodium 25 MCG 25 MCG 25 MCG Vitamin C Vitamin C No BID Vitamin C 500 MG 500 MG 500 MG Aloe Vera Aloe Vera No Aloe Vera 25 MG 25 MG 25 MG Sinus Rinse Sinus Rinse No Sinus Kit - Kit - Rinse Kit - Pepcid AC Pepcid AC No 1{table BID Pepcid AC 10 MG 10 MG t_as_ne 10 MG eded} HYDROcodone HYDROcodone No 1{table HYDROcodon -Acetaminop -Acetaminop t_as_ne e-Acetamin hen 5-325 hen 5-325 eded} ophen MG MG 5-325 MG Stool Stool No Stool Softener & Softener & Softener & Laxative Laxative Laxative Calcium 600 Calcium 600 No 1{table BID Calcium MG MG t_with_ 600 MG meals} Levothyroxi Levothyroxi No QD Levothyrox ne Sodium ne Sodium ine Sodium 125 MCG 125 MCG 125 MCG Vitamin C Vitamin C No BID Vitamin C 500 MG 500 MG 500 MG Vitamin D Vitamin D No 1{capsu QD Vitamin D 125 MCG 125 MCG le} 125 MCG (5000 UT) (5000 UT) (5000 UT) Sertraline Sertraline No 1{table QD Sertraline HCl 25 MG HCl 25 MG t} HCl 25 MG B50 Complex B50 Complex No B50 TR - TR - Complex TR - Albuterol Albuterol No 2{puffs Albuterol Sulfate HFA Sulfate HFA } Sulfate 108 (90 108 (90 HFA 108 Base) Base) (90 Base) MCG/ACT MCG/ACT MCG/ACT Zinc 30 MG Zinc 30 MG No 1{table QD Zinc 30 MG t} Stool Stool No Stool Softener & Softener & Softener & Laxative Laxative Laxative Singulair Singulair No 1{table QD Singulair 10 MG 10 MG t} 10 MG Vitamin E Vitamin E No 1{table QD Vitamin E 400 UNIT 400 UNIT t} 400 UNIT Lutein 20 Lutein 20 No 1{capsu QD Lutein 20 MG MG le_with MG _a_meal } Lyrica 50 Lyrica 50 No 1{capsu QD Lyrica 50 MG MG le} MG Levothyroxi Levothyroxi No Levothyrox ne Sodium ne Sodium ine Sodium 25 MCG 25 MCG 25 MCG Xlear Sinus Xlear Sinus No Xlear Care Dietrich Care Dietrich Sinus Care - - Dietrich - Levothyroxi Levothyroxi No QD Levothyrox ne Sodium ne Sodium ine Sodium 25 MCG 25 MCG 25 MCG CoQ10 100 CoQ10 100 No 1{capsu QD CoQ10 100 MG MG le_with MG _a_meal } Sinus Rinse Sinus Rinse No Sinus Kit - Kit - Rinse Kit - Aloe Vera Aloe Vera No Aloe Vera 25 MG 25 MG 25 MG Pepcid AC Pepcid AC No 1{table BID Pepcid AC 10 MG 10 MG t_as_ne 10 MG eded} Align 4 MG Align 4 MG No Align 4 MG Refresh Refresh No 1{drop_ Refresh 1.4-0.6 % 1.4-0.6 % into_af 1.4-0.6 % fected_ eye_as_ needed} Zioptan Zioptan No 1{drop_ QD Zioptan 0.0015 % 0.0015 % into_af 0.0015 % fected_ eye} Restasis Restasis No 1{drop_ Restasis 0.05 % 0.05 % into_af 0.05 % fected_ eye} HYDROcodone HYDROcodone No 1{table HYDROcodon -Acetaminop -Acetaminop t_as_ne e-Acetamin hen 5-325 hen 5-325 eded} ophen MG MG 5-325 MG Calcium 600 Calcium 600 No 1{table BID Calcium MG MG t_with_ 600 MG meals} Levothyroxi Levothyroxi No QD Levothyrox ne Sodium ne Sodium ine Sodium 125 MCG 125 MCG 125 MCG Vitamin C Vitamin C No BID Vitamin C 500 MG 500 MG 500 MG Vitamin D Vitamin D No 1{capsu QD Vitamin D 125 MCG 125 MCG le} 125 MCG (5000 UT) (5000 UT) (5000 UT) Sertraline Sertraline No 1{table QD Sertraline HCl 25 MG HCl 25 MG t} HCl 25 MG B50 Complex B50 Complex No B50 TR - TR - Complex TR - Albuterol Albuterol No 2{puffs Albuterol Sulfate HFA Sulfate HFA } Sulfate 108 (90 108 (90 HFA 108 Base) Base) (90 Base) MCG/ACT MCG/ACT MCG/ACT Zinc 30 MG Zinc 30 MG No 1{table QD Zinc 30 MG t} Stool Stool No Stool Softener & Softener & Softener & Laxative Laxative Laxative Singulair Singulair No 1{table QD Singulair 10 MG 10 MG t} 10 MG Vitamin E Vitamin E No 1{table QD Vitamin E 400 UNIT 400 UNIT t} 400 UNIT Lutein 20 Lutein 20 No 1{capsu QD Lutein 20 MG MG le_with MG _a_meal } Lyrica 50 Lyrica 50 No 1{capsu QD Lyrica 50 MG MG le} MG Levothyroxi Levothyroxi No Levothyrox ne Sodium ne Sodium ine Sodium 25 MCG 25 MCG 25 MCG Xlear Sinus Xlear Sinus No Xlear Care Dietrich Care Dietrich Sinus Care - - Dietrich - Levothyroxi Levothyroxi No QD Levothyrox ne Sodium ne Sodium ine Sodium 25 MCG 25 MCG 25 MCG CoQ10 100 CoQ10 100 No 1{capsu QD CoQ10 100 MG MG le_with MG _a_meal } Sinus Rinse Sinus Rinse No Sinus Kit - Kit - Rinse Kit - Aloe Vera Aloe Vera No Aloe Vera 25 MG 25 MG 25 MG Pepcid AC Pepcid AC No 1{table BID Pepcid AC 10 MG 10 MG t_as_ne 10 MG eded} Align 4 MG Align 4 MG No Align 4 MG Refresh Refresh No 1{drop_ Refresh 1.4-0.6 % 1.4-0.6 % into_af 1.4-0.6 % fected_ eye_as_ needed} Zioptan Zioptan No 1{drop_ QD Zioptan 0.0015 % 0.0015 % into_af 0.0015 % fected_ eye} Restasis Restasis No 1{drop_ Restasis 0.05 % 0.05 % into_af 0.05 % fected_ eye} HYDROcodone HYDROcodone No 1{table HYDROcodon -Acetaminop -Acetaminop t_as_ne e-Acetamin hen 5-325 hen 5-325 eded} ophen MG MG 5-325 MG Albuterol Albuterol No 2{puffs Albuterol Sulfate HFA Sulfate HFA } Sulfate 108 (90 108 (90 HFA 108 Base) Base) (90 Base) MCG/ACT MCG/ACT MCG/ACT Levothyroxi Levothyroxi No QD Levothyrox ne Sodium ne Sodium ine Sodium 125 MCG 125 MCG 125 MCG Calcium 600 Calcium 600 No 1{table BID Calcium MG MG t_with_ 600 MG meals} Vitamin D Vitamin D No 1{capsu QD Vitamin D 125 MCG 125 MCG le} 125 MCG (5000 UT) (5000 UT) (5000 UT) B50 Complex B50 Complex No B50 TR - TR - Complex TR - Sertraline Sertraline No 1{table QD Sertraline HCl 25 MG HCl 25 MG t} HCl 25 MG Zinc 30 MG Zinc 30 MG No 1{table QD Zinc 30 MG t} Xlear Sinus Xlear Sinus No Xlear Care Dietrich Care Dietrich Sinus Care - - Dietrich - Stool Stool No Stool Softener & Softener & Softener & Laxative Laxative Laxative Vitamin E Vitamin E No 1{table QD Vitamin E 400 UNIT 400 UNIT t} 400 UNIT Lutein 20 Lutein 20 No 1{capsu QD Lutein 20 MG MG le_with MG _a_meal } CoQ10 100 CoQ10 100 No 1{capsu QD CoQ10 100 MG MG le_with MG _a_meal } Pepcid AC Pepcid AC No 1{table BID Pepcid AC 10 MG 10 MG t_as_ne 10 MG eded} Levothyroxi Levothyroxi No Levothyrox ne Sodium ne Sodium ine Sodium 25 MCG 25 MCG 25 MCG Lyrica 50 Lyrica 50 No 1{capsu QD Lyrica 50 MG MG le} MG Vitamin C Vitamin C No BID Vitamin C 500 MG 500 MG 500 MG Sinus Rinse Sinus Rinse No Sinus Kit - Kit - Rinse Kit - Aloe Vera Aloe Vera No Aloe Vera 25 MG 25 MG 25 MG Singulair Singulair No 1{table QD Singulair 10 MG 10 MG t} 10 MG Align 4 MG Align 4 MG No Align 4 MG Refresh Refresh No 1{drop_ Refresh 1.4-0.6 % 1.4-0.6 % into_af 1.4-0.6 % fected_ eye_as_ needed} Zioptan Zioptan No 1{drop_ QD Zioptan 0.0015 % 0.0015 % into_af 0.0015 % fected_ eye} Restasis Restasis No 1{drop_ Restasis 0.05 % 0.05 % into_af 0.05 % fected_ eye} HYDROcodone HYDROcodone No 1{table HYDROcodon -Acetaminop -Acetaminop t_as_ne e-Acetamin hen 5-325 hen 5-325 eded} ophen MG MG 5-325 MG Calcium 600 Calcium 600 No 1{table BID Calcium MG MG t_with_ 600 MG meals} Aloe Vera Aloe Vera No Aloe Vera 25 MG 25 MG 25 MG Vitamin C Vitamin C No BID Vitamin C 500 MG 500 MG 500 MG Lutein 20 Lutein 20 No 1{capsu QD Lutein 20 MG MG le_with MG _a_meal } Zioptan Zioptan No 1{drop_ QD Zioptan 0.0015 % 0.0015 % into_af 0.0015 % fected_ eye} Refresh Refresh No 1{drop_ Refresh 1.4-0.6 % 1.4-0.6 % into_af 1.4-0.6 % fected_ eye_as_ needed} Vitamin D Vitamin D No 1{capsu QD Vitamin D 125 MCG 125 MCG le} 125 MCG (5000 UT) (5000 UT) (5000 UT) Lyrica 50 Lyrica 50 No 1{capsu QD Lyrica 50 MG MG le} MG HYDROcodone HYDROcodone No 1{table HYDROcodon -Acetaminop -Acetaminop t_as_ne e-Acetamin hen 5-325 hen 5-325 eded} ophen MG MG 5-325 MG Vitamin E Vitamin E No 1{table QD Vitamin E 400 UNIT 400 UNIT t} 400 UNIT Singulair Singulair No 1{table QD Singulair 10 MG 10 MG t} 10 MG Levothyroxi Levothyroxi No Levothyrox ne Sodium ne Sodium ine Sodium 25 MCG 25 MCG 25 MCG Zinc 30 MG Zinc 30 MG No 1{table QD Zinc 30 MG t} Albuterol Albuterol No 2{puffs Albuterol Sulfate HFA Sulfate HFA } Sulfate 108 (90 108 (90 HFA 108 Base) Base) (90 Base) MCG/ACT MCG/ACT MCG/ACT Restasis Restasis No 1{drop_ Restasis 0.05 % 0.05 % into_af 0.05 % fected_ eye} CoQ10 100 CoQ10 100 No 1{capsu QD CoQ10 100 MG MG le_with MG _a_meal } B50 Complex B50 Complex No B50 TR - TR - Complex TR - Sinus Rinse Sinus Rinse No Sinus Kit - Kit - Rinse Kit - Levothyroxi Levothyroxi No QD Levothyrox ne Sodium ne Sodium ine Sodium 25 MCG 25 MCG 25 MCG Align 4 MG Align 4 MG No Align 4 MG Xlear Sinus Xlear Sinus No Xlear Care Dietrich Care Dietrich Sinus Care - - Dietrich - Levothyroxi Levothyroxi No QD Levothyrox ne Sodium ne Sodium ine Sodium 125 MCG 125 MCG 125 MCG Stool Stool No Stool Softener & Softener & Softener & Laxative Laxative Laxative Pepcid AC Pepcid AC No 1{table BID Pepcid AC 10 MG 10 MG t_as_ne 10 MG eded} Calcium 600 Calcium 600 No 1{table BID Calcium MG MG t_with_ 600 MG meals} Aloe Vera Aloe Vera No Aloe Vera 25 MG 25 MG 25 MG Vitamin C Vitamin C No BID Vitamin C 500 MG 500 MG 500 MG Lutein 20 Lutein 20 No 1{capsu QD Lutein 20 MG MG le_with MG _a_meal } Zioptan Zioptan No 1{drop_ QD Zioptan 0.0015 % 0.0015 % into_af 0.0015 % fected_ eye} Refresh Refresh No 1{drop_ Refresh 1.4-0.6 % 1.4-0.6 % into_af 1.4-0.6 % fected_ eye_as_ needed} Vitamin D Vitamin D No 1{capsu QD Vitamin D 125 MCG 125 MCG le} 125 MCG (5000 UT) (5000 UT) (5000 UT) Lyrica 50 Lyrica 50 No 1{capsu QD Lyrica 50 MG MG le} MG HYDROcodone HYDROcodone No 1{table HYDROcodon -Acetaminop -Acetaminop t_as_ne e-Acetamin hen 5-325 hen 5-325 eded} ophen MG MG 5-325 MG Vitamin E Vitamin E No 1{table QD Vitamin E 400 UNIT 400 UNIT t} 400 UNIT Singulair Singulair No 1{table QD Singulair 10 MG 10 MG t} 10 MG Levothyroxi Levothyroxi No Levothyrox ne Sodium ne Sodium ine Sodium 25 MCG 25 MCG 25 MCG Zinc 30 MG Zinc 30 MG No 1{table QD Zinc 30 MG t} Albuterol Albuterol No 2{puffs Albuterol Sulfate HFA Sulfate HFA } Sulfate 108 (90 108 (90 HFA 108 Base) Base) (90 Base) MCG/ACT MCG/ACT MCG/ACT Restasis Restasis No 1{drop_ Restasis 0.05 % 0.05 % into_af 0.05 % fected_ eye} CoQ10 100 CoQ10 100 No 1{capsu QD CoQ10 100 MG MG le_with MG _a_meal } B50 Complex B50 Complex No B50 TR - TR - Complex TR - Sinus Rinse Sinus Rinse No Sinus Kit - Kit - Rinse Kit - Levothyroxi Levothyroxi No QD Levothyrox ne Sodium ne Sodium ine Sodium 25 MCG 25 MCG 25 MCG Align 4 MG Align 4 MG No Align 4 MG Xlear Sinus Xlear Sinus No Xlear Care Dietrich Care Dietrich Sinus Care - - Dietrich - Levothyroxi Levothyroxi No QD Levothyrox ne Sodium ne Sodium ine Sodium 125 MCG 125 MCG 125 MCG Stool Stool No Stool Softener & Softener & Softener & Laxative Laxative Laxative Pepcid AC Pepcid AC No 1{table BID Pepcid AC 10 MG 10 MG t_as_ne 10 MG eded} Calcium 600 Calcium 600 No 1{table BID Calcium MG MG t_with_ 600 MG meals} Aloe Vera Aloe Vera No Aloe Vera 25 MG 25 MG 25 MG Vitamin C Vitamin C No BID Vitamin C 500 MG 500 MG 500 MG Lutein 20 Lutein 20 No 1{capsu QD Lutein 20 MG MG le_with MG _a_meal } Zioptan Zioptan No 1{drop_ QD Zioptan 0.0015 % 0.0015 % into_af 0.0015 % fected_ eye} Refresh Refresh No 1{drop_ Refresh 1.4-0.6 % 1.4-0.6 % into_af 1.4-0.6 % fected_ eye_as_ needed} Vitamin D Vitamin D No 1{capsu QD Vitamin D 125 MCG 125 MCG le} 125 MCG (5000 UT) (5000 UT) (5000 UT) Lyrica 50 Lyrica 50 No 1{capsu QD Lyrica 50 MG MG le} MG HYDROcodone HYDROcodone No 1{table HYDROcodon -Acetaminop -Acetaminop t_as_ne e-Acetamin hen 5-325 hen 5-325 eded} ophen MG MG 5-325 MG Vitamin E Vitamin E No 1{table QD Vitamin E 400 UNIT 400 UNIT t} 400 UNIT Singulair Singulair No 1{table QD Singulair 10 MG 10 MG t} 10 MG Levothyroxi Levothyroxi No Levothyrox ne Sodium ne Sodium ine Sodium 25 MCG 25 MCG 25 MCG Zinc 30 MG Zinc 30 MG No 1{table QD Zinc 30 MG t} Albuterol Albuterol No 2{puffs Albuterol Sulfate HFA Sulfate HFA } Sulfate 108 (90 108 (90 HFA 108 Base) Base) (90 Base) MCG/ACT MCG/ACT MCG/ACT Restasis Restasis No 1{drop_ Restasis 0.05 % 0.05 % into_af 0.05 % fected_ eye} CoQ10 100 CoQ10 100 No 1{capsu QD CoQ10 100 MG MG le_with MG _a_meal } B50 Complex B50 Complex No B50 TR - TR - Complex TR - Sinus Rinse Sinus Rinse No Sinus Kit - Kit - Rinse Kit - Levothyroxi Levothyroxi No QD Levothyrox ne Sodium ne Sodium ine Sodium 25 MCG 25 MCG 25 MCG Align 4 MG Align 4 MG No Align 4 MG Xlear Sinus Xlear Sinus No Xlear Care Dietrich Care Dietrich Sinus Care - - Dietrich - Levothyroxi Levothyroxi No QD Levothyrox ne Sodium ne Sodium ine Sodium 125 MCG 125 MCG 125 MCG Stool Stool No Stool Softener & Softener & Softener & Laxative Laxative Laxative Pepcid AC Pepcid AC No 1{table BID Pepcid AC 10 MG 10 MG t_as_ne 10 MG eded} Refresh Refresh No 1{drop_ Refresh 1.4-0.6 % 1.4-0.6 % into_af 1.4-0.6 % fected_ eye_as_ needed} Vitamin C Vitamin C No BID Vitamin C 500 MG 500 MG 500 MG Restasis Restasis No 1{drop_ Restasis 0.05 % 0.05 % into_af 0.05 % fected_ eye} CoQ10 100 CoQ10 100 No 1{capsu QD CoQ10 100 MG MG le_with MG _a_meal } Levothyroxi Levothyroxi No Levothyrox ne Sodium ne Sodium ine Sodium 25 MCG 25 MCG 25 MCG Sinus Rinse Sinus Rinse No Sinus Kit - Kit - Rinse Kit - Xlear Sinus Xlear Sinus No Xlear Care Dietrich Care Dietrich Sinus Care - - Dietrich - Singulair Singulair No 1{table QD Singulair 10 MG 10 MG t} 10 MG Stool Stool No Stool Softener & Softener & Softener & Laxative Laxative Laxative Vitamin E Vitamin E No 1{table QD Vitamin E 400 UNIT 400 UNIT t} 400 UNIT Zioptan Zioptan No 1{drop_ QD Zioptan 0.0015 % 0.0015 % into_af 0.0015 % fected_ eye} Vitamin D Vitamin D No 1{capsu QD Vitamin D 125 MCG 125 MCG le} 125 MCG (5000 UT) (5000 UT) (5000 UT) Albuterol Albuterol No Albuterol Sulfate HFA Sulfate HFA Sulfate 108 (90 108 (90 HFA 108 Base) Base) (90 Base) MCG/ACT MCG/ACT MCG/ACT Align 4 MG Align 4 MG No Align 4 MG Lyrica 50 Lyrica 50 No 1{capsu QD Lyrica 50 MG MG le} MG Calcium 600 Calcium 600 No 1{table BID Calcium MG MG t_with_ 600 MG meals} HYDROcodone HYDROcodone No 1{table HYDROcodon -Acetaminop -Acetaminop t_as_ne e-Acetamin hen 5-325 hen 5-325 eded} ophen MG MG 5-325 MG Zinc 30 MG Zinc 30 MG No 1{table QD Zinc 30 MG t} Pepcid AC Pepcid AC No 1{table BID Pepcid AC 10 MG 10 MG t_as_ne 10 MG eded} Aloe Vera Aloe Vera No Aloe Vera 25 MG 25 MG 25 MG Levothyroxi Levothyroxi No QD Levothyrox ne Sodium ne Sodium ine Sodium 125 MCG 125 MCG 125 MCG Lutein 20 Lutein 20 No 1{capsu QD Lutein 20 MG MG le_with MG _a_meal } B50 Complex B50 Complex No B50 TR - TR - Complex TR - Calcium 600 Calcium 600 No 1{table BID Calcium MG MG t_with_ 600 MG meals} CoQ10 100 CoQ10 100 No 1{capsu QD CoQ10 100 MG MG le_with MG _a_meal } Lyrica 50 Lyrica 50 No 1{capsu QD Lyrica 50 MG MG le} MG Zinc 30 MG Zinc 30 MG No 1{table QD Zinc 30 MG t} Vitamin D Vitamin D No 1{capsu QD Vitamin D 125 MCG 125 MCG le} 125 MCG (5000 UT) (5000 UT) (5000 UT) Vitamin C Vitamin C No BID Vitamin C 500 MG 500 MG 500 MG HYDROcodone HYDROcodone No 1{table HYDROcodon -Acetaminop -Acetaminop t_as_ne e-Acetamin hen 5-325 hen 5-325 eded} ophen MG MG 5-325 MG Albuterol Albuterol No Albuterol Sulfate HFA Sulfate HFA Sulfate 108 (90 108 (90 HFA 108 Base) Base) (90 Base) MCG/ACT MCG/ACT MCG/ACT B50 Complex B50 Complex No B50 TR - TR - Complex TR - Levothyroxi Levothyroxi No Levothyrox ne Sodium ne Sodium ine Sodium 25 MCG 25 MCG 25 MCG Refresh Refresh No 1{drop_ Refresh 1.4-0.6 % 1.4-0.6 % into_af 1.4-0.6 % fected_ eye_as_ needed} Aloe Vera Aloe Vera No Aloe Vera 25 MG 25 MG 25 MG Sinus Rinse Sinus Rinse No Sinus Kit - Kit - Rinse Kit - Restasis Restasis No 1{drop_ Restasis 0.05 % 0.05 % into_af 0.05 % fected_ eye} Zioptan Zioptan No 1{drop_ QD Zioptan 0.0015 % 0.0015 % into_af 0.0015 % fected_ eye} Lutein 20 Lutein 20 No 1{capsu QD Lutein 20 MG MG le_with MG _a_meal } Pepcid AC Pepcid AC No 1{table BID Pepcid AC 10 MG 10 MG t_as_ne 10 MG eded} Levothyroxi Levothyroxi No QD Levothyrox ne Sodium ne Sodium ine Sodium 125 MCG 125 MCG 125 MCG Vitamin E Vitamin E No 1{table QD Vitamin E 400 UNIT 400 UNIT t} 400 UNIT Xlear Sinus Xlear Sinus No Xlear Care Dietrich Care Dietrich Sinus Care - - Dietrich - Align 4 MG Align 4 MG No Align 4 MG Singulair Singulair No 1{table QD Singulair 10 MG 10 MG t} 10 MG Stool Stool No Stool Softener & Softener & Softener & Laxative Laxative Laxative Calcium 600 Calcium 600 No 1{table BID Calcium MG MG t_with_ 600 MG meals} CoQ10 100 CoQ10 100 No 1{capsu QD CoQ10 100 MG MG le_with MG _a_meal } Lyrica 50 Lyrica 50 No 1{capsu QD Lyrica 50 MG MG le} MG Zinc 30 MG Zinc 30 MG No 1{table QD Zinc 30 MG t} Vitamin D Vitamin D No 1{capsu QD Vitamin D 125 MCG 125 MCG le} 125 MCG (5000 UT) (5000 UT) (5000 UT) Vitamin C Vitamin C No BID Vitamin C 500 MG 500 MG 500 MG HYDROcodone HYDROcodone No 1{table HYDROcodon -Acetaminop -Acetaminop t_as_ne e-Acetamin hen 5-325 hen 5-325 eded} ophen MG MG 5-325 MG Albuterol Albuterol No Albuterol Sulfate HFA Sulfate HFA Sulfate 108 (90 108 (90 HFA 108 Base) Base) (90 Base) MCG/ACT MCG/ACT MCG/ACT B50 Complex B50 Complex No B50 TR - TR - Complex TR - Levothyroxi Levothyroxi No Levothyrox ne Sodium ne Sodium ine Sodium 25 MCG 25 MCG 25 MCG Refresh Refresh No 1{drop_ Refresh 1.4-0.6 % 1.4-0.6 % into_af 1.4-0.6 % fected_ eye_as_ needed} Aloe Vera Aloe Vera No Aloe Vera 25 MG 25 MG 25 MG Sinus Rinse Sinus Rinse No Sinus Kit - Kit - Rinse Kit - Restasis Restasis No 1{drop_ Restasis 0.05 % 0.05 % into_af 0.05 % fected_ eye} Zioptan Zioptan No 1{drop_ QD Zioptan 0.0015 % 0.0015 % into_af 0.0015 % fected_ eye} Lutein 20 Lutein 20 No 1{capsu QD Lutein 20 MG MG le_with MG _a_meal } Pepcid AC Pepcid AC No 1{table BID Pepcid AC 10 MG 10 MG t_as_ne 10 MG eded} Levothyroxi Levothyroxi No QD Levothyrox ne Sodium ne Sodium ine Sodium 125 MCG 125 MCG 125 MCG Vitamin E Vitamin E No 1{table QD Vitamin E 400 UNIT 400 UNIT t} 400 UNIT Xlear Sinus Xlear Sinus No Xlear Care Dietrich Care Dietrich Sinus Care - - Dietrich - Align 4 MG Align 4 MG No Align 4 MG Singulair Singulair No 1{table QD Singulair 10 MG 10 MG t} 10 MG Stool Stool No Stool Softener & Softener & Softener & Laxative Laxative Laxative Vitamin D Vitamin D No 1{capsu QD Vitamin D 125 MCG 125 MCG le} 125 MCG (5000 UT) (5000 UT) (5000 UT) Vitamin C Vitamin C No BID Vitamin C 500 MG 500 MG 500 MG Calcium 600 Calcium 600 No 1{table BID Calcium MG MG t_with_ 600 MG meals} CoQ10 100 CoQ10 100 No 1{capsu QD CoQ10 100 MG MG le_with MG _a_meal } HYDROcodone HYDROcodone No 1{table HYDROcodon -Acetaminop -Acetaminop t_as_ne e-Acetamin hen 5-325 hen 5-325 eded} ophen MG MG 5-325 MG Zinc 30 MG Zinc 30 MG No 1{table QD Zinc 30 MG t} Albuterol Albuterol No Albuterol Sulfate HFA Sulfate HFA Sulfate 108 (90 108 (90 HFA 108 Base) Base) (90 Base) MCG/ACT MCG/ACT MCG/ACT Restasis Restasis No 1{drop_ Restasis 0.05 % 0.05 % into_af 0.05 % fected_ eye} Sinus Rinse Sinus Rinse No Sinus Kit - Kit - Rinse Kit - B50 Complex B50 Complex No B50 TR - TR - Complex TR - Zioptan Zioptan No 1{drop_ QD Zioptan 0.0015 % 0.0015 % into_af 0.0015 % fected_ eye} Aloe Vera Aloe Vera No Aloe Vera 25 MG 25 MG 25 MG Pepcid AC Pepcid AC No 1{table BID Pepcid AC 10 MG 10 MG t_as_ne 10 MG eded} Refresh Refresh No 1{drop_ Refresh 1.4-0.6 % 1.4-0.6 % into_af 1.4-0.6 % fected_ eye_as_ needed} Lyrica 50 Lyrica 50 No 1{capsu QD Lyrica 50 MG MG le} MG Lutein 20 Lutein 20 No 1{capsu QD Lutein 20 MG MG le_with MG _a_meal } Levothyroxi Levothyroxi No Levothyrox ne Sodium ne Sodium ine Sodium 25 MCG 25 MCG 25 MCG Levothyroxi Levothyroxi No QD Levothyrox ne Sodium ne Sodium ine Sodium 125 MCG 125 MCG 125 MCG Vitamin E Vitamin E No 1{table QD Vitamin E 400 UNIT 400 UNIT t} 400 UNIT Xlear Sinus Xlear Sinus No Xlear Care Dietrich Care Dietrich Sinus Care - - Dietrich - Align 4 MG Align 4 MG No Align 4 MG Singulair Singulair No 1{table QD Singulair 10 MG 10 MG t} 10 MG Stool Stool No Stool Softener & Softener & Softener & Laxative Laxative Laxative Restasis Restasis No 1{drop_ Restasis 0.05 % 0.05 % into_af 0.05 % fected_ eye} Levothyroxi Levothyroxi No Levothyrox ne Sodium ne Sodium ine Sodium 25 MCG 25 MCG 25 MCG Zioptan Zioptan No 1{drop_ QD Zioptan 0.0015 % 0.0015 % into_af 0.0015 % fected_ eye} Refresh Refresh No 1{drop_ Refresh 1.4-0.6 % 1.4-0.6 % into_af 1.4-0.6 % fected_ eye_as_ needed} Pepcid AC Pepcid AC No 1{table BID Pepcid AC 10 MG 10 MG t_as_ne 10 MG eded} Sinus Rinse Sinus Rinse No Sinus Kit - Kit - Rinse Kit - Calcium 600 Calcium 600 No 1{table BID Calcium MG MG t_with_ 600 MG meals} Vitamin C Vitamin C No BID Vitamin C 500 MG 500 MG 500 MG CoQ10 100 CoQ10 100 No 1{capsu QD CoQ10 100 MG MG le_with MG _a_meal } Lyrica 50 Lyrica 50 No 1{capsu QD Lyrica 50 MG MG le} MG Vitamin D Vitamin D No 1{capsu QD Vitamin D 125 MCG 125 MCG le} 125 MCG (5000 UT) (5000 UT) (5000 UT) Albuterol Albuterol No Albuterol Sulfate HFA Sulfate HFA Sulfate 108 (90 108 (90 HFA 108 Base) Base) (90 Base) MCG/ACT MCG/ACT MCG/ACT Aloe Vera Aloe Vera No Aloe Vera 25 MG 25 MG 25 MG Vitamin E Vitamin E No 1{table QD Vitamin E 400 UNIT 400 UNIT t} 400 UNIT Albuterol Albuterol No 2{puffs Albuterol Sulfate HFA Sulfate HFA } Sulfate 108 (90 108 (90 HFA 108 Base) Base) (90 Base) MCG/ACT MCG/ACT MCG/ACT Align 4 MG Align 4 MG No Align 4 MG HYDROcodone HYDROcodone No 1{table HYDROcodon -Acetaminop -Acetaminop t_as_ne e-Acetamin hen 5-325 hen 5-325 eded} ophen MG MG 5-325 MG Refresh Refresh No 1{drop_ Refresh 1.4-0.6 % 1.4-0.6 % into_af 1.4-0.6 % fected_ eye_as_ needed} Vitamin C Vitamin C No BID Vitamin C 500 MG 500 MG 500 MG Restasis Restasis No 1{drop_ Restasis 0.05 % 0.05 % into_af 0.05 % fected_ eye} CoQ10 100 CoQ10 100 No 1{capsu QD CoQ10 100 MG MG le_with MG _a_meal } Immunizations Ordered Immunization Filled Immunization Date Status Commen ts Source Name Name FLUZONE HIGH DOSE FLUZONE HIGH DOSE 2022-06-24 Completed [facility] OVER 65 OVER 65 11:50:00 - [facility] FLUZONE HIGH DOSE FLUZONE HIGH DOSE 2022-06-24 Completed [facility] OVER 65 OVER 65 11:50:00 - [facility] FLUZONE HIGH DOSE FLUZONE HIGH DOSE 2022-06-24 Completed [facility] OVER 65 OVER 65 11:50:00 - [facility] FLUZONE HIGH DOSE FLUZONE HIGH DOSE 2022-06-24 Completed [facility] OVER 65 OVER 65 11:50:00 - [facility] FluAD FluAD 2021-06-05 Completed [facility] 09:24:00 - [facility] FluAD FluAD 2021-06-05 Completed [facility] 09:24:00 - [facility] FluAD FluAD 2021-06-05 Completed [facility] 09:24:00 - [facility] FluAD FluAD 2021-06-05 Completed [facility] 09[facility]24:00 - [facility] FluAD FluAD 2021-06-05 Completed [facility] 09[facility]24:00 - [facility] FluAD FluAD 2021-06-05 Completed [facility] 09[facility]24:00 - [facility] FluAD FluAD 2021-06-05 Completed [facility] 09[facility]24:00 - [facility] FluAD FluAD 2021-06-05 Completed [facility] 09[facility]24:00 - [facility] FluAD FluAD 2021-06-05 Completed [facility] 09[facility]24:00 - [facility] FluAD FluAD 2021-06-05 Completed [facility] 09[facility]24:00 - [facility] FluAD FluAD 2021-06-05 Completed [facility] 09[facility]24:00 - [facility] FluAD FluAD 2021-06-05 Completed [facility] 09[facility]24:00 - [facility] FluAD FluAD 2021-06-05 Completed [facility] 09:24:00 - [facility] FluAD FluAD 2021-06-05 Completed [facility] 09:24: - [facility] FluAD FluAD 2021-06-05 Completed [facility] 09:24: - [facility] FluAD FluAD 2021-06-05 Completed [facility] 09:24: - [facility] FluAD FluAD 2021-06-05 Completed [facility] 09:24: - [facility] Joselo Josue 2021-01-23 Completed [facility] (Triamcinolone) (Triamcinolone) 12:40:00 - [facility] Joselo Josue 2021-01-23 Completed [facility] (Triamcinolone) (Triamcinolone) 12:40:00 [facility] Joselo Josue 2021-01-23 Completed [facility] (Triamcinolone) (Triamcinolone) 12:40:00 [facility] Joselo Josue 2021-01-23 Completed [facility] (Triamcinolone) (Triamcinolone) 12:40:00 [facility] Joselo Josue 2018-01-27 Completed [facility] (Triamcinolone) (Triamcinolone) 11:29:00 [facility] Joselo Josue 2018-01-27 Completed [facility] (Triamcinolone) (Triamcinolone) 11:29:00 - [facility] Joselo Josue 2018-01-27 Completed [facility] (Triamcinolone) (Triamcinolone) 11:29:00 [facility] Joselo Josue 2018-01-27 Completed [facility] (Triamcinolone) (Triamcinolone) 11:29:00 [facility] Prevnar 13 (PCV13) Prevnar 13 (PCV13) 2016-06-17 Completed [facility] 15:49:00 [facility] Prevnar 13 (PCV13) Prevnar 13 (PCV13) 2016-06-17 Completed [facility] 15:49:00 - [facility] Prevnar 13 (PCV13) Prevnar 13 (PCV13) 2016-06-17 Completed [facility] 15:49:00 - [facility] Prevnar 13 (PCV13) Prevnar 13 (PCV13) 2016-06-17 Completed [facility] 15:49:00 [facility] Prevnar 13 (PCV13) Prevnar 13 (PCV13) 2016-06-17 Completed [facility] 15:49:00 - [facility] Prevnar 13 (PCV13) Prevnar 13 (PCV13) 2016-06-17 Completed [facility] 15:49:00 [facility] Prevnar 13 (PCV13) Prevnar 13 (PCV13) 2016-06-17 Completed [facility] 15:49:00 - [facility] Prevnar 13 (PCV13) Prevnar 13 (PCV13) 2016-06-17 Completed [facility] 15:49:00 - [facility] Prevnar 13 (PCV13) Prevnar 13 (PCV13) 2016-06-17 Completed [facility] 15:49:00 - [facility] Prevnar 13 (PCV13) Prevnar 13 (PCV13) 2016-06-17 Completed [facility] 15:49:00 - [facility] Prevnar 13 (PCV13) Prevnar 13 (PCV13) 2016-06-17 Completed [facility] 15:49:00 [facility] Prevnar 13 (PCV13) Prevnar 13 (PCV13) 2016-06-17 Completed [facility] 15:49:00 - [facility] Prevnar 13 (PCV13) Prevnar 13 (PCV13) 2016-06-17 Completed [facility] 15:49:00 [facility] Prevnar 13 (PCV13) Prevnar 13 (PCV13) 2016-06-17 Completed [facility] 15:49:00 [facility] Prevnar 13 (PCV13) Prevnar 13 (PCV13) 2016-06-17 Completed [facility] 15:49:00 [facility] Prevnar 13 (PCV13) Prevnar 13 (PCV13) 2016-06-17 Completed [facility] 15:49:00 - [facility] Prevnar 13 (PCV13) Prevnar 13 (PCV13) 2016-06-17 Completed [facility] 15:49:00 [facility] Vital Signs Vital Name Observation Time Observation Value Comments Source height 2022-06-24 11:00:00 62.75 [in_i] [facility] weight 2022-06-24 11:00:00 100.20 [lb_av] [facility] temperature 2022-06-24 11:00:00 96.4 [degF] [facility] bmi 2022-06-24 11:00:00 17.89 kg/m2 [facility] oximetry 2022-06-24 11:00:00 96 % [facility] respiratory rate 2022-06-24 11:00:00 16 /min Comm on [facility] blood pressure 2022-06-24 11:00:00 138 mm[Hg] [facility] - systolic [facility] blood pressure 2022-06-24 11:00:00 64 mm[Hg] [facility] - diastolic [facility] height 2022-06-24 11:00:00 62.75 [in_i] [facility] weight 2022-06-24 11:00:00 100.2 [lb_av] [facility] temperature 2022-06-24 11:00:00 96.4 [degF] [facility] bmi 2022-06-24 11:00:00 17.89 kg/m2 [facility] oximetry 2022-06-24 11:00:00 96 % [facility] respiratory rate 2022-06-24 11:00:00 16 /min Comm on [facility] blood pressure 2022-06-24 11:00:00 138 mm[Hg] [facility] - systolic [facility] blood pressure 2022-06-24 11:00:00 64 mm[Hg] [facility] - diastolic [facility] height 2022-03-20 10:00:00 62.75 [in_i] [facility] weight 2022-03-20 10:00:00 102 [lb_av] [facility] 2022-03-20 10:00:00 18.21 kg/m2 [facility] height 2021-12-10 12:00:00 62.75 [in_i] [facility] weight 2021-12-10 12:00:00 101 [lb_av] Common [facility] bmi 2021-12-10 12:00:00 18.03 kg/m2 [facility] height 2021-11-19 08:20:00 62.75 [in_i] [facility] weight 2021-11-19 08:20:00 101.2 [lb_av] [facility] temperature 2021-11-19 08:20:00 95.6 [degF] [facility] bmi 2021-11-19 08:20:00 18.07 kg/m2 [facility] oximetry 2021-11-19 08:20:00 95 % [facility] respiratory rate 2021-11-19 08:20:00 16 /min [facility] blood pressure 2021-11-19 08:20:00 130 mm[Hg] [facility] - systolic [facility] blood pressure 2021-11-19 08:20:00 80 mm[Hg] [facility] - diastolic [facility] height 2021-06-05 08:00:00 62.75 [in_i] [facility] weight 2021-06-05 08:00:00 103 [lb_av] [facility] temperature 2021-06-05 08:00:00 97.2 [degF] [facility] bmi 2021-06-05 08:00:00 18.39 kg/m2 [facility] oximetry 2021-06-05 08:00:00 95 % [facility] respiratory rate 2021-06-05 08:00:00 18 /min Comm on [facility] blood pressure 2021-06-05 08:00:00 140 mm[Hg] Common [facility] - systolic [facility] blood pressure 2021-06-05 08:00:00 77 mm[Hg] [facility] - diastolic [facility] Procedures This patient has no known procedures. Encounters Start End Encounter Admission Attending Care Care Encounter Source Date/Time Date/Time Type Type Clinicians Facility Department ID 2023-04-08 Outpatient Rebolledo, STLMLC STLMLC [id number] Common 09:54:[id number] [facility] 2022-12-04 Outpatient Rebolledo, STLMLC STLMLC [id number] Common 13:54:[id number] [facility] 2022-06-20 Outpatient Adams, Na STLMLC STLMLC [id number] Common 08:48:00 [facility] 2022-06-07 Outpatient Adams, Na STLMLC STLMLC [id number] Common 09:57:01 [facility] 2022-03-19 Outpatient Adams, Na STLMLC STLMLC [id number] Common 11:00:01 [facility] 2022-03-18 Outpatient Adams, Na STLMLC STLMLC [id number] Common 10:05:00 [facility] 2021-11-15 Outpatient Adams, Na STLMLC STLMLC [id number] Common 08:27:01 [facility] 2021-10-03 Outpatient Adams, Na STLMLC STLMLC [id number] Common 14:21:[id number] [facility] 2021-10-03 Outpatient Adams, Na STLMLC STLMLC [id number] Common 13:53:[id number] [facility] 2021-10-03 Outpatient Adams, Na STLMLC STLMLC [id number] Common 13:04:[id number] [facility] 2021-10-03 Outpatient Kristi, STLMLC STLMLC [id number] Common 12:13:[address] [facility] 2021-10-03 Outpatient Kristi, STLMLC STLMLC [id number] Common 12:13:[id number] [facility] 2021-10-03 Outpatient Kristi, STLMLC STLMLC [id number] Common 11:58:[address] [facility] 2021-10-03 Outpatient Millender, STLMLC STLMLC [id number] Common 11:58:[id number] [facility] 2022-09-12 2022-09-12 (TEL) STLMLC STLMLC [id number] Co mmon 00:00:00 00:00:00 [facility] 2022-06-24 2022-06-24 SUB ANNUAL STLMLC STLMLC [id number] Common 00:00:00 00:00:00 MCR [facility] VISIT [facility] 2022-06-24 2022-06-24 OFFICE STLMLC STLMLC [id number] Co mmon 00:00:00 00:00:00 VISIT EST Spir it PT LEVEL 3 [facility] 2022-06-07 2022-06-07 (TEL) STLMLC STLMLC [id number] Co mmon 00:00:00 00:00:00 [facility] 2022-03-27 2022-03-27 (TEL) STLMLC STLMLC [id number] Co mmon 00:00:00 00:00:00 [facility] 2022-03-20 2022-03-20 OL DIG E/M STLMLC STLMLC [id number] Common 00:00:00 00:00:00 SVC 21+ [facility] MIN [facility] 2022-03-19 2022-03-19 (TEL) STLMLC STLMLC [id number] Co mmon 00:00:00 00:00:00 [facility] 2022-03-04 2022-03-04 (TEL) STLMLC STLMLC [id number] Co mmon 00:00:00 00:00:00 [facility] 2022-01-18 2022-01-18 (TEL) STLMLC STLMLC [id number] Co mmon 00:00:00 00:00:00 [facility] 2021-12-10 2021-12-10 OL DIG E/M STLMLC STLMLC [id number] Common 00:00:00 00:00:00 [facility] Spir it [facility] 2021-11-19 2021-11-19 OFFICE STLMLC STLMLC [id number] Co mmon 00:00:00 00:00:00 VISIT [facility] PT - CHI LEVEL 4 [facility] 2021-08-15 2021-08-15 OL DIG E/M STLMLC STLMLC [id number] Common 00:00:00 00:00:00 [facility] -20 Spir it MIN [facility] 2021-06-19 2021-06-19 (TEL) STLMLC STLMLC [id number] Co mmon 00:00:00 00:00:00 [facility] 2021-06-13 2021-06-13 (TEL) STLMLC STLMLC [id number] Co mmon 00:00:00 00:00:00 [facility] 2021-06-12 2021-06-12 (TEL) STLMLC STLMLC [id number] Co mmon 00:00:00 00:00:00 [facility] 2021-06-05 2021-06-05 OFFICE STLMLC STLMLC [id number] Co mmon 00:00:00 00:00:00 VISIT [facility] PT - CHI LEVEL 4 [facility] 2021-05-03 2021-05-03 Outpatient STLMLC STLMLC [id number] Common 00:00:00 00:00:00 [facility] 2021-03-02 2021-03-02 Outpatient STLMLC STLMLC [id number] Common 00:00:00 00:00:00 [facility] 2021-02-27 2021-02-27 Outpatient STLMLC STLMLC [id number] Common 00:00:00 00:00:00 [facility] 2021-02-27 2021-02-27 Outpatient STLMLC STLMLC [id number] Common 00:00:00 00:00:00 [facility] 2021-02-27 2021-02-27 Outpatient STLMLC STLMLC [id number] Common 00:00:00 00:00:00 [facility] 2021-01-23 2021-01-23 Outpatient STLMLC STLMLC [id number] Common 00:00:00 00:00:00 [facility] 2020-10-17 2020-10-17 Outpatient STLMLC STLMLC [id number] Common 00:00:00 00:00:00 [facility] 2020-08-23 2020-08-23 Outpatient STLMLC STLMLC [id number] Common 00:00:00 00:00:00 [facility] 2020-07-07 2020-07-07 Outpatient STLMLC STLMLC [id number] Common 00:00:00 00:00:00 [facility] 2020-07-03 2020-07-03 Outpatient STLMLC STLMLC [id number] Common 00:00:00 00:00:00 [facility] 2020-05-25 2020-05-25 [facility] [id number] Common 10:13:00 10:13:00 [facility] it [facility] 2020-02-16 2020-02-16 [facility] [id number] Common 16:48:00 16:48:00 [facility] it [facility] 2020-02-16 2020-02-16 [facility] [id number] Common 11:00:00 11:00:00 [facility] it [facility] 2020-02-10 2020-02-10 [facility] [id number] Common 11:00:00 11:00:[address] [facility] 2020-01-27 2020-01-27 [facility] [id number] Common 13:08:00 13:08:[address] [facility] 2020-01-27 2020-01-27 [facility] [id number] Common 09:09:00 09:09:[address] [facility] 2020-01-25 2020-01-25 [facility] [id number] Common 09:14:00 09:14:[address] [facility] 2020-01-24 2020-01-24 [facility] [id number] Common 16:20:00 16:20:[address] [facility] 2020-01-24 2020-01-24 [facility] [id number] Common 09:11:00 09:11:[address] [facility] 2020-01-03 2020-01-03 [facility] [id number] Common 10:30:00 10:30:[address] [facility] 2019-07-02 2019-07-02 [facility] [id number] Common 09:40:00 09:40:[address] [facility] 2018-12-24 2018-12-24 [facility] [id number] Common 10:00:00 10:00:[address] [facility] 2018-08-19 2018-08-19 [facility] [id number] Common 02:27:00 02:27:[address] [facility] 2018-06-25 2018-06-25 [facility] [id number] Common 10:15:00 10:15:[address] [facility] 2018-01-27 2018-01-27 [facility] [id number] Common 10:30:00 10:30:00 t [facility] 2018-01-02 2018-01-02 [facility] [id number] Common 14:27:00 14:27:[address] [facility] 2017-12-29 2017-12-29 [facility] [id number] Common 10:47:00 10:47:[address] [facility] 2017-12-25 2017-12-25 [facility] [id number] Common 10:30:00 10:30:[address] [facility] 2017-12-25 2017-12-25 [facility] [id number] Common 08:58:00 08:58:[address] [facility] Results This patient has no known results.
[2023-05-10 14:40] LABS: Absolute Lymphocytes (CBC) 1.3 K/uL (0.7-4.9); Hematocrit 34.4 % (36.0-45.0); Lymphocytes % 20.3 % (15.3-44.8); MCV 100.3 fL (80-100); MPV 8.7 fL (7.6-11.3); Platelets 207 thou/uL (152-406); RBC Red Blood Cell Count 3.43 M/uL (3.86-4.86)
[2023-05-10 14:48] LABS: Albumin 3.7 g/dL (3.4-5.0); Bilirubin Total 0.4 mg/dL (0.2-1.0); Potassium 3.5 mEq/L (3.5-5.1); Protein, Total 6.7 g/dL (6.4-8.2)
[2023-05-10] MEDS ORDERED: FAMOTIDINE 20 MG/2 ML VIAL IV ONE (14:51)
[2023-05-10] MEDS ORDERED: NA CHLORIDE 0.9% 250 ML ONE (14:51)
[2023-05-10 15:48] LABS: Specific Gravity 1.015 (1.005-1.030); Urine Bilirubin NEGATIVE (Negative); Urine Blood Negative (Negative); Urine Clarity Clear (Clear); Urine Color Colorless (Yellow); Urine Glucose NEGATIVE (Negative); Urine Protein NEGATIVE (Negative); Urine Urobilinogen Normal (Normal); Urine pH 7.5 (5.0-7.0)
--- NOTE | 2023-05-10 15:54 | RAD REPORT ---
EXAM DESCRIPTION: CT - Abdomen Pelvis W Contrast - 05/10/2023 3:09 pm CLINICAL HISTORY: ABD PAIN COMPARISON: Abdomen Pelvis W Contrast dated 01/27/2020 TECHNIQUE: Thin cut axial CT imaging of the abdomen and pelvis was performed following intravenous a dministration of 90 mL Isovue 300. Multiplanar reformats were generated and reviewed. All CT scans are performed using dose optimization technique as appropriate and may include automated exposure control or mA/KV adjustment according to patient size. FINDINGS: Bibasilar small nodules predominantly at the periphery, including a sub centimeter left lo wer lobe cavitary nodule are stable. The liver, spleen, and pancreas show no suspicious findings. Gallbladder was surgically removed. Symmetric renal function is seen with no hydronephrosis or suspicious renal mass. Mild prominence of the right more than left renal pelvis, stable. No dilated bowel loops or bowel wall thickening. Moderate to pronounced stool burden throughout the c olon. No free air, free fluid or inflammatory stranding. No hernia, mass or bulky lymphadenopathy. Th e urinary bladder is without significant finding. No suspicious bony findings. IMPRESSION: No acute intra-abdominal process. Moderate to pronounced stool burden throughout the colon. Stable bibasilar peripheral lung nodules as above, favored to represent an infectious or granulomatou s process.
--- NOTE | 2023-05-10 16:43 | ER ---
Nurse's Notes [facility] Name: Suma Lopez Age: 87 yrs Sex: Female : 1935 Arrival Date: 05/10/2023 Time: 13:27 Bed 7 Private MD: Diagnosis: Abdominal pain, Generalized;Constipation Presentation: 05/10 13:41 Chief complaint: Patient states: "I started having burning in my stomach for the past mb9 couple weeks. It got so bad last night, that I couldn't sleep. Last time it was like this, I had a GI bleed.". Coronavirus screen: Vaccine status: Patient reports being unvaccinated. Ebola Screen: No symptoms or risks identified at this time. Initial Sepsis Screen: Does the patient meet any 2 criteria? No. Patient's initial sepsis screen is negative. Does the patient have a suspected source of infection? No. Patient's initial sepsis screen is negative. Risk Assessment: Do you want to hurt yourself or someone else? Patient reports no desire to harm self or others. Onset of symptoms was May 10, 2023. 13:41 Method Of Arrival: Wheelchair mb9 13:41 Acuity: PARK 3 mb9 Triage Assessment: 13:43 General: Appears in no apparent distress. Behavior is cooperative. Pain: Complains of mb9 pain in abdomen. Neuro: Leos Agitation-Sedation Scale (RASS): 0 - Alert and Calm Level of Consciousness is awake, alert, obeys commands, Oriented to person, place, time, situation, Appropriate for age. Cardiovascular: Patient's skin is warm and dry. Respiratory: Airway is patent Respiratory effort is even, unlabored, Respiratory pattern is regular, symmetrical. GI: Abdomen is flat, non-distended, Reports lower abdominal pain, upper abdominal pain, Patient currently denies bloody stool, nausea. : No signs and/or symptoms were reported regarding the genitourinary system. Derm: Skin is intact, Skin is dry, Skin is pale, Skin temperature is warm. Musculoskeletal: Range of motion: intact in all extremities. Historical: - Allergies: 13:42 Bactrim; mb9 13:42 Biaxin; mb9 13:42 Ciprofloxacin; mb9 13:42 Cortisone Eye drops; mb9 13:42 Doxycycline; mb9 13:42 Levaquin; mb9 13:42 PENICILLINS; mb9 13:42 TETRACYCLINES; mb9 13:42 Zithromax; mb9 - PMHx: 13:42 Hypertension; Glaucoma; Hypothyroidism; mb9 - Immunization history:: Adult Immunizations up to date. - Social history:: Smoking status: Patient denies any tobacco usage or history of. Assessment: 17:17 Reassessment: Patient appears in no apparent distress at this time. Patient and/or iw family updated on plan of care and expected duration. Pain level reassessed. Patient is alert, oriented x 3, equal unlabored respirations, skin warm/dry/pink. Patient states feeling better. Patient states symptoms have improved. Vital Signs: 13:41 BP 177 / 89; Pulse 85; Resp 16; Temp 98.4; Pulse Ox 100% on R/A; Weight 44.45 kg; mb9 Height 5 ft. 2 in. ; 13:41 Body Mass Index 17.92 (44.45 kg, 157.48 cm) mb9 ED Course: 13:30 Patient arrived in ED. im 13:37 Pawan Bess MD is Attending Physician. kdr 13:40 Keeley Hilliard, ROHAN is Primary Nurse. iw 13:40 Arm band placed on. mb9 13:42 Triage completed. mb9 14:22 Inserted saline lock: 22 gauge in right antecubital area, using aseptic technique. ds4 Blood collected. 15:11 CT Abd/Pelvis - IV Contrast Only In Process Unspecified. EDMS Administered Medications: 14:50 Drug: Famotidine IVP 20 mg Route: IVP; Site: right forearm; iw 15:15 Follow up: Response: No adverse reaction iw 14:50 Drug: NS 0.9% IV 250 ml Route: IV; Rate: bolus; Site: right antecubital; iw 15:20 Follow up: IV Status: Completed infusion iw Outcome: 16:43 Discharge ordered by . kdr 17:18 Patient left the ED. iw Signatures: Dispatcher [employer] EDMS Pawan Bess MD MD kdr Keeley Hilliard, ROHAN RN iw Rebel Sam ds4 Carla Tidwell RN RN mb9 Svitlana Koenig im
--- NOTE | 2023-05-10 16:43 | EDPHYS ---
Physician Documentation [facility] Name: Suma Lopez Age: 87 yrs Sex: Female : 1935 Arrival Date: 05/10/2023 Time: 13:27 Bed 7 Private MD: ED Physician Pawan Bess HPI: 05/10 18:23 This 87 yrs old Female presents to ER via Wheelchair with complaints of Abdominal Pain. kdr 18:23 Patient states that she has burning in her stomach for the past couple weeks. This is a kdr chronic problem that has been aggravating her. She has followed up with GI without definitive result or resolution. Patient does state that she has a history of constipation. Patient's not in any acute distress and is otherwise nontoxic appearing on initial evaluation. She is also concerned that she may have some bleeding in her stomach as this was the case when she had similar symptoms in the past. Onset: The symptoms/episode began/occurred at an unknown time. Chronic. Severity of symptoms: At their worst the symptoms were mild in the emergency department the symptoms are unchanged. The patient has not experienced similar symptoms in the past. The patient has not recently seen a physician. Historical: - Allergies: 13:42 Bactrim; mb9 13:42 Biaxin; mb9 13:42 Ciprofloxacin; mb9 13:42 Cortisone Eye drops; mb9 13:42 Doxycycline; mb9 13:42 Levaquin; mb9 13:42 PENICILLINS; mb9 13:42 TETRACYCLINES; mb9 13:42 Zithromax; mb9 - PMHx: 13:42 Hypertension; Glaucoma; Hypothyroidism; mb9 - Immunization history:: Adult Immunizations up to date. - Social history:: Smoking status: Patient denies any tobacco usage or history of. ROS: 18:23 Constitutional: Negative for fever, chills, and weight loss, Eyes: Negative for injury, kdr pain, redness, and discharge, Neck: Negative for injury, pain, and swelling, Cardiovascular: Negative for chest pain, palpitations, and edema, Respiratory: Negative for shortness of breath, cough, wheezing, and pleuritic chest pain, Back: Negative for injury and pain, : Negative for injury, bleeding, discharge, and swelling, MS/Extremity: Negative for injury and deformity, Skin: Negative for injury, rash, and discoloration, Neuro: Negative for headache, weakness, numbness, tingling, and seizure activity. Psych: Negative for depression, anxiety, suicide ideation, homicidal ideation, and hallucinations, Allergy/Immunology: Negative for hives, rash, and allergies, Endocrine: Negative for neck swelling, polydipsia, polyuria, polyphagia, and marked weight changes, Hematologic/Lymphatic: Negative for swollen nodes, abnormal bleeding, and unusual bruising. 18:23 Abdomen/GI: Positive for abdominal pain, Negative for nausea and vomiting, nausea, vomiting, and diarrhea, black/tarry stool, bowel incontinence. Exam: 18:23 Constitutional: This is a well developed, well nourished patient who is awake, alert, kdr and in no acute distress. Head/Face: Normocephalic, atraumatic. Eyes: Pupils equal round and reactive to light, extra-ocular motions intact. Lids and lashes normal. Conjunctiva and sclera are non-icteric and not injected. Cornea within normal limits. Periorbital areas with no swelling, redness, or edema. Neck: Trachea midline, no thyromegaly or masses palpated, and no cervical lymphadenopathy. Supple, full range of motion without nuchal rigidity, or vertebral point tenderness. No Meningismus. Chest/axilla: Normal chest wall appearance and motion. Nontender with no deformity. No lesions are appreciated. Cardiovascular: Regular rate and rhythm with a normal S1 and S2. No gallops, murmurs, or rubs. Normal PMI, no JVD. No pulse deficits. Respiratory: Lungs have equal breath sounds bilaterally, clear to auscultation and percussion. No rales, rhonchi or wheezes noted. No increased work of breathing, no retractions or nasal flaring. Abdomen/GI: Soft, non-tender, with normal bowel sounds. No distension or tympany. No guarding or rebound. No evidence of tenderness throughout. Back: No spinal tenderness. No costovertebral tenderness. Full range of motion. Skin: Warm, dry with normal turgor. Normal color with no rashes, no lesions, and no evidence of cellulitis. MS/ Extremity: Pulses equal, no cyanosis. Neurovascular intact. Full, normal range of motion. Neuro: Awake and alert, GCS 15, oriented to person, place, time, and situation. Cranial nerves II-XII grossly intact. Motor strength 5/5 in all extremities. Sensory grossly intact. Cerebellar exam normal. Normal gait. Psych: Awake, alert, with orientation to person, place and time. Behavior, mood, and affect are within normal limits. Vital Signs: 13:41 BP 177 / 89; Pulse 85; Resp 16; Temp 98.4; Pulse Ox 100% on R/A; Weight 44.45 kg; mb9 Height 5 ft. 2 in. ; 13:41 Body Mass Index 17.92 (44.45 kg, 157.48 cm) [facility] MDM: 16:43 Patient medically screened. kdr 18:23 Data reviewed: vital signs, nurses notes, lab test result(s), radiologic studies. kdr 05/10 14:10 Order name: CBC with Diff; Complete Time: 16:19 kdr 05/10 14:10 Order name: CMP; Complete Time: 16:19 kdr 05/10 14:10 Order name: Lipase; Complete Time: 16:19 [facility] 05/10 14:10 Order name: Urinalysis w/ reflexes; Complete Time: 16:19 [facility] 05/10 14:10 Order name: CT Abd/Pelvis - IV Contrast Only; Complete Time: 16:19 kdr 05/10 14:10 Order name: IV Saline Lock; Complete Time: 14:21 kdr 05/10 14:10 Order name: Labs collected and sent; Complete Time: 14:14 kdr Administered Medications: 14:50 Drug: Famotidine IVP 20 mg Route: IVP; Site: right forearm; iw 15:15 Follow up: Response: No adverse reaction iw 14:50 Drug: NS 0.9% IV 250 ml Route: IV; Rate: bolus; Site: right antecubital; iw 15:20 Follow up: IV Status: Completed infusion iw Disposition Summary: 05/10/23 16:43 Discharge Ordered Location: Home kdr Problem: an ongoing problem kdr Symptoms: have improved kdr Condition: Stable kdr Diagnosis - Abdominal pain, Generalized kdr - Constipation kdr Followup: kdr - With: Private Physician - When: 2 - 3 days - Reason: If symptoms return, Further diagnostic work-up, Recheck today's complaints, Continuance of care, Re-evaluation by your physician Discharge Instructions: - Discharge Summary Sheet kdr - Constipation, Adult, [id number] kdr - Abdominal Pain, Adult, [id number] kdr Forms: - Medication Reconciliation Form kdr - Thank You Letter kdr - Patient Portal Instructions kdr - Leadership Thank You Letter kdr Prescriptions: - Lactulose 10 gram/15 mL Oral Solution - take 30 milliliters by ORAL route once daily; 300 milliliter; Refills: 0, kdr Product Selection Permitted Signatures: Dispatcher [employer] Pawan Azul MD MD kdr Williams, Irene, RN RN iw Breneman, Mary Beth RN RN mb9
[2023-05-10 17:41] VITALS: BP 177/89; TEMP 98.4; O2SAT 100
== END 2023-05-10 17:18 | disposition home or self-care (01) ==
LOC: ER 13:27
DX: R10.84 Generalized abdominal pain (principal); K59.00 Constipation, unspecified; I10 Essential (primary) hypertension; Z88.0 Allergy status to penicillin; Z88.1 Allergy status to other antibiotic agents; Z88.8 Allergy status to other drugs, medicaments and biological substances
CPT/HCPCS: 96365; 85025; 36415; 81003; 83690; 80053; 74177; 96375; 99284; Q9967; J7050

== ENCOUNTER → 2023-09-04 | Emergency (ER) | payer OTHER ==
--- OUTSIDE RECORDS SUMMARY | 2023-09-04 11:14 | XMS REPORT | Continuity of Care Document ---
Author Name Unknown Address [address] [facility] [address] [place] [address] [facility] thconnect Address [address] [facility] [address] [place] [address] Care Team Providers Care Credit Intern Name Role Phone Barby Rebolledo Attending Clinician Unavailable Elma Adams Attending Clinician Unavailable Clare Berry Attending Clinician Unavailable Remedios Ng Attending Clinician Unavailable [email or web address]_S Attending Clinician Unavaila ble [email or web address]_S Admitting Clinician Unavaila ble Payers Payer Name Policy Type Policy Number Effective Date Expirati on Date Source [facility] 53 [id number] [facility] MEDICARE NOVITAS [id number] 1999 00:00:00 [facility] MEDICARE NOVITAS [id number] 1999 00:00:00 [facility] MEDICARE NOVITAS [id number] 1999 00:00:00 [facility] MEDICARE NOVITAS MB [id number] 1999 00:00:00 [facility] Problems Condition Name Condition Details Condition Category Status Onset Date Resolution Date Last Treatment Date Treating Clinician Comments Source [id number] Edema of both lower extremitie s due to peripheral venous insufficie ncy Problem [facility] [id number] Osteoarthr itis of both hips, unspecifie d osteoarthr itis type Problem [facility] [id number] Peptic ulcer, site unspecifie d, unspecifie d as acute or chronic, without hemorrhage or perforatio n Problem [facility] [id number] Chronic constipati on Problem [facility] [id number] Hypothyroi dism, unspecifie d type Problem [facility] [id number] Scoliosis, unspecifie d scoliosis type, unspecifie d spinal region Problem [facility] Cardiac arrhythmia Abnormal heart rhythm Problem [facility] [id number] Pulmonary nodules Problem [facility] Migraine Migraines Problem Commo n [facility] Allergic rhinitis Allergic rhinitis Problem [facility] Non-toxic single thyroid nodule Right thyroid nodule Problem [facility] [id number] Chronic obstructiv e pulmonary disease, unspecifie d COPD type Problem [facility] [id number] Other idiopathic scoliosis, thoracolum bar region Problem [facility] [id number] Elevated BP without diagnosis of hypertensi on Problem [facility] [id number] Abnormal CT of the chest Problem [facility] [id number] Spinal stenosis of lumbar region, unspecifie d whether neurogenic claudicati on present Problem [facility] [id number] Other chronic pain Problem [facility] [id number] Environmen artur and seasonal allergies Problem [facility] Insomnia Insomnia Problem [facility] Glaucoma Glaucoma Problem [facility] Gastroesop hageal reflux disease Gastroesop hageal reflux disease, unspecifie d whether esophagiti s present Problem [facility] Osteoporos is Osteoporos is Problem [facility] Fibromyalg ia Fibromyalg ia Problem [facility] [id number] Chronic fatigue Problem [facility] Knee pain Knee pain Problem Comm on [facility] [id number] Blackout spell Problem [facility] [id number] Polyarthra lgia Problem Common [facility] [id number] Chronic sore throat Problem [facility] [id number] Weakness Problem [facility] [id number] Pyelonephr itis Problem Common [facility] Pulmonary nodule Pulmonary nodule Problem [facility] 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 Problem [facility] Chronic back pain Chronic back pain Problem [facility] Irritable bowel Irritable bowel Problem [facility] Bronchiect asis Bronchiect asis Problem [facility] Vitamin D deficiency Vitamin D deficiency Problem [facility] [id number] Anxiety Problem [facility] [id number] Mild depression Problem [facility] Allergies, Adverse Reactions, Alerts Allergy Name Allergy Type Status Severity Reaction(s) Onset Date Inactive Date Treating Clinician Comments Source levoflox acin DA Active SV 2017-09 00:00: 00 [facility] Penicill ins DA Active SV 2017-09 00:00: 00 [facility] sulfamet hoxazole DA Active SV 2017-09 00:00: 00 [facility] trimetho prim DA Active SV 2017-09 00:00: 00 [facility] clarithr omycin DA Active SV 2017-09 00:00: 00 [facility] azithrom ycin DA Active SV 2017-09 00:00: 00 [facility] Penicill ins DA Active SV 2017-09 00:00: 00 [facility] sulfamet hoxazole DA Active SV 2017-09 00:00: 00 [facility] trimetho prim DA Active SV 2017-09 00:00: 00 [facility] clarithr omycin DA Active SV 2017-09 00:00: 00 [facility] azithrom ycin DA Active SV 2017-09 00:00: 00 [facility] levoflox acin DA Active SV 2017-09 00:00: 00 [facility] Penicill ins DA Active SV 04-16 00:00: 00 [facility] sulfamet hoxazole DA Active SV 04-16 00:00: 00 [facility] trimetho prim DA Active SV 04-16 00:00: 00 [facility] clarithr omycin DA Active SV 04-16 00:00: 00 [facility] azithrom ycin DA Active SV 04-16 00:00: 00 [facility] levoflox acin DA Active SV 04-16 00:00: 00 [facility] sulfamet hoxazole / trimetho prim sulfamet hoxazole / trimetho prim Active hives [facility] 10875 Drug allergy Active stomach upset [facility] 9041 Drug allergy Active rash [facility] clarithr omycin clarithr omycin Active shortness of breath [facility] azithrom ycin azithrom ycin Active shortness of breath [facility] tetracyc line tetracyc line Active Unknown [facility] doxycycl ine doxycycl ine Active Unknown [facility] 0 Drug allergy Active hives [facility] nitrofur antoin nitrofur antoin Active rash [facility] Social History Social Habit Start Date Stop Date Quantity Comments Source History of Tobacco Use [facility] Sex Assigned At [facility] Smoking Status Start Date Stop Date Source Never Smoker [facility] Medications Ordered Medication Name Filled Medication Name Start Date Stop Date Current Medication? Ordering Clinician Indication Dosage Frequency Signature (SIG) Comments Components Source Kenalog (Triamcinol one) Kenalog (Triamcinol one) 05-29 00:00: 00 No 40mg [facility] Kenalog (Triamcinol one) Kenalog (Triamcinol one) 05-29 00:00: 00 No 40mg [facility] Ferrous Gluconate 324 (38 Fe) MG Ferrous Gluconate 324 (38 Fe) MG 2021-0 06-07 00:00: 00 No QD Ferrous Gluconate 324 (38 Fe) MG Ferrous Gluconate 324 (38 Fe) MG Ferrous Gluconate 324 (38 Fe) MG 2021-0 06-07 00:00: 00 No QD Ferrous Gluconate 324 (38 Fe) MG Ferrous Gluconate 324 (38 Fe) MG Ferrous Gluconate 324 (38 Fe) MG 0 06-07 00:00: 00 No QD Ferrous Gluconate 324 (38 Fe) MG Ferrous Gluconate 324 (38 Fe) MG Ferrous Gluconate 324 (38 Fe) MG 2021-0 06-07 00:00: 00 No QD Ferrous Gluconate 324 (38 Fe) MG Ferrous Gluconate 324 (38 Fe) MG Ferrous Gluconate 324 (38 Fe) MG 2021-0 06-07 00:00: 00 No QD Ferrous Gluconate 324 (38 Fe) MG Albuterol Sulfate HFA 108 (90 Base) MCG/ACT Albuterol Sulfate HFA 108 (90 Base) MCG/ACT 2021- 3-14 00:00: 00 No 2{puffs } Albuterol Sulfate HFA 108 (90 Base) MCG/ACT Spiriva Respimat 2.5 microgram Spiriva Respimat 2.5 microgram 2020-09 0-06 00:00: 00 No 2{puffs } QD Spiriva Respimat 2.5 microgram Spiriva Respimat 2.5 microgram Spiriva Respimat 2.5 microgram 2020-09 0-06 00:00: 00 No 2{puffs } QD Spiriva Respimat 2.5 microgram Spiriva Respimat 2.5 microgram Spiriva Respimat 2.5 microgram 2020-09 0-06 00:00: 00 No 2{puffs } QD Spiriva Respimat 2.5 microgram Spiriva Respimat 2.5 microgram Spiriva Respimat 2.5 microgram 2020-09 0-06 00:00: 00 No 2{puffs } QD Spiriva Respimat 2.5 microgram Spiriva Respimat 2.5 microgram Spiriva Respimat 2.5 microgram 2020-09 0-06 00:00: 00 No 2{puffs } QD Spiriva Respimat 2.5 microgram Spiriva Respimat 2.5 microgram Spiriva Respimat 2.5 microgram 2020-09 0-06 00:00: 00 No 2{puffs } QD Spiriva Respimat 2.5 microgram Spiriva Respimat 2.5 microgram Spiriva Respimat 2.5 microgram 2020-09 0-06 00:00: 00 No 2{puffs } QD Spiriva Respimat 2.5 microgram Spiriva Respimat 2.5 microgram Spiriva Respimat 2.5 microgram 2020-09 0-06 00:00: 00 No 2{puffs } QD Spiriva Respimat 2.5 microgram Spiriva Respimat 2.5 microgram Spiriva Respimat 2.5 microgram 2020-09 0-06 00:00: 00 No 2{puffs } QD Spiriva Respimat 2.5 microgram Spiriva Respimat 2.5 microgram Spiriva Respimat 2.5 microgram 2020-09 0-06 00:00: 00 No 2{puffs } QD Spiriva Respimat 2.5 microgram Spiriva Respimat 2.5 microgram Spiriva Respimat 2.5 microgram 2020-09 0-06 00:00: 00 No 2{puffs } QD Spiriva Respimat 2.5 microgram Spiriva Respimat 2.5 microgram Spiriva Respimat 2.5 microgram 2020-09 0-06 00:00: 00 No 2{puffs } QD Spiriva Respimat 2.5 microgram Spiriva Respimat 2.5 microgram Spiriva Respimat 2.5 microgram 2020-09 0-06 00:00: 00 No 2{puffs } QD Spiriva Respimat 2.5 microgram Spiriva Respimat 2.5 microgram Spiriva Respimat 2.5 microgram 2020-09 0-06 00:00: 00 No 2{puffs } QD Spiriva Respimat 2.5 microgram Spiriva Respimat 2.5 microgram Spiriva Respimat 2.5 microgram 2020-09 0-06 00:00: 00 No 2{puffs } QD Spiriva Respimat 2.5 microgram Kenalog (Triamcinol one) Kenalog (Triamcinol one) 01-23 00:00: 00 No 40mg [facility] Kenalog (Triamcinol one) Kenalog (Triamcinol one) 01-23 00:00: 00 No 40mg [facility] Kenalog (Triamcinol one) Kenalog (Triamcinol one) 01-23 00:00: 00 No 40mg [facility] Kenalog (Triamcinol one) Kenalog (Triamcinol one) 01-23 00:00: 00 No 40mg [facility] Kenalog (Triamcinol one) Kenalog (Triamcinol one) 01-23 00:00: 00 No 40mg [facility] Kenalog (Triamcinol one) Kenalog (Triamcinol one) 0 01-23 00:00: 00 No 40mg [facility] Kenalog (Triamcinol one) Kenalog (Triamcinol one) 0 01-23 00:00: 00 No 40mg [facility] Kenalog (Triamcinol one) Kenalog (Triamcinol one) 0 01-23 00:00: 00 No 40mg [facility] Kenalog (Triamcinol one) Kenalog (Triamcinol one) 0 01-23 00:00: 00 No 40mg [facility] Kenalog (Triamcinol one) Kenalog (Triamcinol one) 0 5-18 00:00: 00 No 40mg [facility] Kenalog (Triamcinol one) Kenalog (Triamcinol one) 0 01-23 00:00: 00 No 40mg [facility] Kenalog (Triamcinol one) Kenalog (Triamcinol one) 0 01-23 00:00: 00 No 40mg [facility] Kenalog (Triamcinol one) Kenalog (Triamcinol one) 0 01-23 00:00: 00 No 40mg [facility] Kenalog (Triamcinol one) Kenalog (Triamcinol one) 0 01-23 00:00: 00 No 40mg [facility] Kenalog (Triamcinol one) Kenalog (Triamcinol one) 0 01-23 00:00: 00 No 40mg [facility] Kenalog (Triamcinol one) Kenalog (Triamcinol one) 0 01-27 00:00: 00 No 40mg [facility] Kenalog (Triamcinol one) Kenalog (Triamcinol one) 0 01-27 00:00: 00 No 40mg [facility] Kenalog (Triamcinol one) Kenalog (Triamcinol one) 0 01-27 00:00: 00 No 40mg [facility] Kenalog (Triamcinol one) Kenalog (Triamcinol one) 0 01-27 00:00: 00 No 40mg [facility] Kenalog (Triamcinol one) Kenalog (Triamcinol one) 0 01-27 00:00: 00 No 40mg [facility] Kenalog (Triamcinol one) Kenalog (Triamcinol one) 0 01-27 00:00: 00 No 40mg [facility] Kenalog (Triamcinol one) Kenalog (Triamcinol one) 0 01-27 00:00: 00 No 40mg [facility] Kenalog (Triamcinol one) Kenalog (Triamcinol one) 0 01-27 00:00: 00 No 40mg [facility] Kenalog (Triamcinol one) Kenalog (Triamcinol one) 0 01-27 00:00: 00 No 40[facility] Kenalog (Triamcinol one) Kenalog (Triamcinol one) 0 01-27 00:00: 00 No 40mg [facility] Kenalog (Triamcinol one) Kenalog (Triamcinol one) 0 01-27 00:00: 00 No 40mg [facility] Kenalog (Triamcinol one) Kenalog (Triamcinol one) 0 01-27 00:00: 00 No 40mg Common [facility] Kenalog (Triamcinol one) Kenalog (Triamcinol one) 0 01-27 00:00: 00 No 40mg [facility] Kenalog (Triamcinol one) Kenalog (Triamcinol one) 0 01-27 00:00: 00 No 40mg Common [facility] Kenalog (Triamcinol one) Kenalog (Triamcinol one) 0 01-27 00:00: 00 No 40mg [facility] Levothyroxi ne Sodium Levothyroxi ne Sodium 0 12-29 00:00: 00 Yes Veronica Chow 1.25 ml [facility] Restasis Restasis Yes Veronica Chow 1 drop into affected eye [facility] Lyrica Lyrica Yes Veronica Chow 1 capsule [facility] Sinus Rinse Kit Sinus Rinse Kit Yes Veronica Chow as directed [facility] Align Align Yes Veronica Chow as directed [facility] Vitamin A Vitamin A Yes Veronica Chow 1 capsule [facility] Stool Softener & Laxative Stool Softener & Laxative Yes Veronica Chow not defined [facility] Pepcid AC Pepcid AC Yes [place] 1 tablet as needed [facility] [place] [facility] [place] Yes [place] as directed [facility] Pepcid AC Pepcid AC Yes [place] 1 tablet as needed [facility] Aloe Vera Aloe Vera Yes [place] not defined [facility] CoQ10 CoQ10 Yes [place] 1 capsule with a meal [facility] AZO Bladder Control AZO Bladder Control Yes [place] not defined [facility] Vitamin C Vitamin C Yes [place] as directed [facility] Calcium Calcium Yes [place] 1 tablet with meals [facility] Refresh Refresh Yes [place] 1 drop into affected eye as needed [facility] Zioptan Zioptan Yes [place] 1 drop into affected eye [facility] Vitamin D Vitamin D Yes [place] 1 capsule [facility] Lutein Lutein Yes [place] 1 capsule with a meal [facility] Vitamin D3 Vitamin D3 Yes [place] 0.1 ml [facility] Hydrocodone -Acetaminop hen Hydrocodone -Acetaminop hen Yes [place] 1 tablet as needed [facility] Magnesium Magnesium Yes [place] 1 capsule with a meal [facility] B50 Complex TR B50 Complex TR Yes [place] not defined [facility] Levothyroxi ne Sodium 25 MCG Levothyroxi ne Sodium 25 MCG No Levothyrox ine Sodium 25 MCG Sinus Rinse Kit - Sinus Rinse Kit - No Sinus Rinse Kit - Xle[facility] [place] - [facility] [place] - No [facility] [place] - Singulair 10 MG Singulair 10 MG No 1{table t} QD Singulair 10 MG Stool Softener & Laxative Stool Softener & Laxative No Stool Softener & Laxative Vitamin E 400 UNIT Vitamin E 400 UNIT No 1{table t} QD Vitamin E 400 UNIT Zioptan 0.0015 % Zioptan 0.0015 % No 1{drop_ into_af fected_ eye} QD Zioptan 0.0015 % Vitamin D 125 MCG (5000 UT) Vitamin D 125 MCG (5000 UT) No 1{capsu le} QD Vitamin D 125 MCG (5000 UT) Albuterol Sulfate HFA 108 (90 Base) MCG/ACT Albuterol Sulfate HFA 108 (90 Base) MCG/ACT No Albuterol Sulfate HFA 108 (90 Base) MCG/ACT Align 4 MG Align 4 MG No Align 4 MG Lyrica 50 MG Lyrica 50 MG No 1{capsu le} QD Lyrica 50 MG Calcium 600 MG Calcium 600 MG No 1{table t_with_ meals} BID Calcium 600 MG HYDROcodone -Acetaminop hen 5-325 MG HYDROcodone -Acetaminop hen 5-325 MG No 1{table t_as_ne eded} HYDROcodon e-Acetamin ophen 5-325 MG Zinc 30 MG Zinc 30 MG No 1{ table t} QD Zinc 30 MG Pepcid AC 10 MG Pepcid AC 10 MG No 1{table t_as_ne eded} BID Pepcid AC 10 MG Aloe Vera 25 MG Aloe Vera 25 MG No Aloe Vera 25 MG Levothyroxi ne Sodium 125 MCG Levothyroxi ne Sodium 125 MCG No QD Levothyrox ine Sodium 125 MCG Lutein 20 MG Lutein 20 MG No 1{capsu le_with _a_meal } QD Lutein 20 MG B50 Complex TR - B50 Complex TR - No B50 Complex TR - Singulair 10 MG Singulair 10 MG No 1{table t} QD Singulair 10 MG Zinc 30 MG Zinc 30 MG No 1{ table t} QD Zinc 30 MG Refresh 1.4-0.6 % Refresh 1.4-0.6 % No 1{drop_ into_af fected_ eye_as_ needed} Refresh 1.4-0.6 % Levothyroxi ne Sodium 125 MCG Levothyroxi ne Sodium 125 MCG No QD Levothyrox ine Sodium 125 MCG Vitamin E 400 UNIT Vitamin E 400 UNIT No 1{table t} QD Vitamin E 400 UNIT Vitamin C 500 MG Vitamin C 500 MG No BID Vitamin C 500 MG Levothyroxi ne Sodium 25 MCG Levothyroxi ne Sodium 25 MCG No QD Levothyrox ine Sodium 25 MCG Vitamin D 125 MCG (5000 UT) Vitamin D 125 MCG (5000 UT) No 1{capsu le} QD Vitamin D 125 MCG (5000 UT) B50 Complex TR - B50 Complex TR - No B50 Complex TR - Calcium 600 MG Calcium 600 MG No 1{table t_with_ meals} BID Calcium 600 MG Align 4 MG Align 4 MG No Align 4 MG X[facility] [place] - [facility] [place] - No Xle[facility] [place] - Sinus Rinse Kit - Sinus Rinse Kit - No Sinus Rinse Kit - Zioptan 0.0015 % Zioptan 0.0015 % No 1{drop_ into_af fected_ eye} QD Zioptan 0.0015 % Pepcid AC 10 MG Pepcid AC 10 MG No 1{table t_as_ne eded} BID Pepcid AC 10 MG Restasis 0.05 % Restasis 0.05 % No 1{drop_ into_af fected_ eye} Restasis 0.05 % Lutein 20 MG Lutein 20 MG No 1{capsu le_with _a_meal } QD Lutein 20 MG Stool Softener & Laxative Stool Softener & Laxative No Stool Softener & Laxative Lyrica 50 MG Lyrica 50 MG No 1{capsu le} QD Lyrica 50 MG HYDROcodone -Acetaminop hen 5-325 MG HYDROcodone -Acetaminop hen 5-325 MG No 1{table t_as_ne eded} HYDROcodon e-Acetamin ophen 5-325 MG Incruse Ellipta 62.5 MCG/INH Incruse Ellipta 62.5 MCG/INH No 1{puff} QD Incruse Ellipta 62.5 MCG/INH Mirtazapine 15 MG Mirtazapine 15 MG No 1{table t_at_be dtime} QD Mirtazapin e 15 MG CoQ10 100 MG CoQ10 100 MG No 1{capsu le_with _a_meal } QD CoQ10 100 MG Aloe Vera 25 MG Aloe Vera 25 MG No Aloe Vera 25 MG Refresh 1.4-0.6 % Refresh 1.4-0.6 % No 1{drop_ into_af fected_ eye_as_ needed} Refresh 1.4-0.6 % Zinc 30 MG Zinc 30 MG No 1{ table t} QD Zinc 30 MG Aloe Vera 25 MG Aloe Vera 25 MG No Aloe Vera 25 MG Levothyroxi ne Sodium 125 MCG Levothyroxi ne Sodium 125 MCG No QD Levothyrox ine Sodium 125 MCG Levothyroxi ne Sodium 25 MCG Levothyroxi ne Sodium 25 MCG No QD Levothyrox ine Sodium 25 MCG Stool Softener & Laxative Stool Softener & Laxative No Stool Softener & Laxative Singulair 10 MG Singulair 10 MG No 1{table t} QD Singulair 10 MG Align 4 MG Align 4 MG No Align 4 MG Vitamin E 400 UNIT Vitamin E 400 UNIT No 1{table t} QD Vitamin E 400 UNIT [facility] [place] - [facility] [place] - No Xle[facility] [place] - Calcium 600 MG Calcium 600 MG No 1{table t_with_ meals} BID Calcium 600 MG Zioptan 0.0015 % Zioptan 0.0015 % No 1{drop_ into_af fected_ eye} QD Zioptan 0.0015 % Vitamin C 500 MG Vitamin C 500 MG No BID Vitamin C 500 MG Vitamin D 125 MCG (5000 UT) Vitamin D 125 MCG (5000 UT) No 1{capsu le} QD Vitamin D 125 MCG (5000 UT) Lyrica 50 MG Lyrica 50 MG No 1{capsu le} QD Lyrica 50 MG HYDROcodone -Acetaminop hen 5-325 MG HYDROcodone -Acetaminop hen 5-325 MG No 1{table t_as_ne eded} HYDROcodon e-Acetamin ophen 5-325 MG CoQ10 100 MG CoQ10 100 MG No 1{capsu le_with _a_meal } QD CoQ10 100 MG Sinus Rinse Kit - Sinus Rinse Kit - No Sinus Rinse Kit - B50 Complex TR - B50 Complex TR - No B50 Complex TR - Lutein 20 MG Lutein 20 MG No 1{capsu le_with _a_meal } QD Lutein 20 MG Mirtazapine 15 MG Mirtazapine 15 MG No 1{table t_at_be dtime} QD Mirtazapin e 15 MG Pepcid AC 10 MG Pepcid AC 10 MG No 1{table t_as_ne eded} BID Pepcid AC 10 MG Restasis 0.05 % Restasis 0.05 % No 1{drop_ into_af fected_ eye} Restasis 0.05 % Refresh 1.4-0.6 % Refresh 1.4-0.6 % No 1{drop_ into_af fected_ eye_as_ needed} Refresh 1.4-0.6 % Zinc 30 MG Zinc 30 MG No 1{ table t} QD Zinc 30 MG Aloe Vera 25 MG Aloe Vera 25 MG No Aloe Vera 25 MG Levothyroxi ne Sodium 125 MCG Levothyroxi ne Sodium 125 MCG No QD Levothyrox ine Sodium 125 MCG Levothyroxi ne Sodium 25 MCG Levothyroxi ne Sodium 25 MCG No QD Levothyrox ine Sodium 25 MCG Stool Softener & Laxative Stool Softener & Laxative No Stool Softener & Laxative Singulair 10 MG Singulair 10 MG No 1{table t} QD Singulair 10 MG Align 4 MG Align 4 MG No Align 4 MG Vitamin E 400 UNIT Vitamin E 400 UNIT No 1{table t} QD Vitamin E 400 UNIT [facility] [place] - [facility] [place] - No Xlear [facility] [place] - Calcium 600 MG Calcium 600 MG No 1{table t_with_ meals} BID Calcium 600 MG Zioptan 0.0015 % Zioptan 0.0015 % No 1{drop_ into_af fected_ eye} QD Zioptan 0.0015 % Vitamin C 500 MG Vitamin C 500 MG No BID Vitamin C 500 MG Vitamin D 125 MCG (5000 UT) Vitamin D 125 MCG (5000 UT) No 1{capsu le} QD Vitamin D 125 MCG (5000 UT) Lyrica 50 MG Lyrica 50 MG No 1{capsu le} QD Lyrica 50 MG HYDROcodone -Acetaminop hen 5-325 MG HYDROcodone -Acetaminop hen 5-325 MG No 1{table t_as_ne eded} HYDROcodon e-Acetamin ophen 5-325 MG CoQ10 100 MG CoQ10 100 MG No 1{capsu le_with _a_meal } QD CoQ10 100 MG Sinus Rinse Kit - Sinus Rinse Kit - No Sinus Rinse Kit - B50 Complex TR - B50 Complex TR - No B50 Complex TR - Lutein 20 MG Lutein 20 MG No 1{capsu le_with _a_meal } QD Lutein 20 MG Mirtazapine 15 MG Mirtazapine 15 MG No 1{table t_at_be dtime} QD Mirtazapin e 15 MG Pepcid AC 10 MG Pepcid AC 10 MG No 1{table t_as_ne eded} BID Pepcid AC 10 MG Restasis 0.05 % Restasis 0.05 % No 1{drop_ into_af fected_ eye} Restasis 0.05 % Refresh 1.4-0.6 % Refresh 1.4-0.6 % No 1{drop_ into_af fected_ eye_as_ needed} Refresh 1.4-0.6 % Zinc 30 MG Zinc 30 MG No 1{ table t} QD Zinc 30 MG Aloe Vera 25 MG Aloe Vera 25 MG No Aloe Vera 25 MG Levothyroxi ne Sodium 125 MCG Levothyroxi ne Sodium 125 MCG No QD Levothyrox ine Sodium 125 MCG Levothyroxi ne Sodium 25 MCG Levothyroxi ne Sodium 25 MCG No QD Levothyrox ine Sodium 25 MCG Stool Softener & Laxative Stool Softener & Laxative No Stool Softener & Laxative Singulair 10 MG Singulair 10 MG No 1{table t} QD Singulair 10 MG Align 4 MG Align 4 MG No Align 4 MG Vitamin E 400 UNIT Vitamin E 400 UNIT No 1{table t} QD Vitamin E 400 UNIT [facility] [place] - Xle[facility] [place] - No Xlear [facility] [place] - Calcium 600 MG Calcium 600 MG No 1{table t_with_ meals} BID Calcium 600 MG Zioptan 0.0015 % Zioptan 0.0015 % No 1{drop_ into_af fected_ eye} QD Zioptan 0.0015 % Vitamin C 500 MG Vitamin C 500 MG No BID Vitamin C 500 MG Vitamin D 125 MCG (5000 UT) Vitamin D 125 MCG (5000 UT) No 1{capsu le} QD Vitamin D 125 MCG (5000 UT) Lyrica 50 MG Lyrica 50 MG No 1{capsu le} QD Lyrica 50 MG HYDROcodone -Acetaminop hen 5-325 MG HYDROcodone -Acetaminop hen 5-325 MG No 1{table t_as_ne eded} HYDROcodon e-Acetamin ophen 5-325 MG CoQ10 100 MG CoQ10 100 MG No 1{capsu le_with _a_meal } QD CoQ10 100 MG Sinus Rinse Kit - Sinus Rinse Kit - No Sinus Rinse Kit - B50 Complex TR - B50 Complex TR - No B50 Complex TR - Lutein 20 MG Lutein 20 MG No 1{capsu le_with _a_meal } QD Lutein 20 MG Mirtazapine 15 MG Mirtazapine 15 MG No 1{table t_at_be dtime} QD Mirtazapin e 15 MG Pepcid AC 10 MG Pepcid AC 10 MG No 1{table t_as_ne eded} BID Pepcid AC 10 MG Restasis 0.05 % Restasis 0.05 % No 1{drop_ into_af fected_ eye} Restasis 0.05 % Vitamin D 125 MCG (5000 UT) Vitamin D 125 MCG (5000 UT) No 1{capsu le} QD Vitamin D 125 MCG (5000 UT) Singulair 10 MG Singulair 10 MG No 1{table t} QD Singulair 10 MG Calcium 600 MG Calcium 600 MG No 1{table t_with_ meals} BID Calcium 600 MG Levothyroxi ne Sodium 25 MCG Levothyroxi ne Sodium 25 MCG No Levothyrox ine Sodium 25 MCG B50 Complex TR - B50 Complex TR - No B50 Complex TR - Refresh 1.4-0.6 % Refresh 1.4-0.6 % No 1{drop_ into_af fected_ eye_as_ needed} Refresh 1.4-0.6 % Zinc 30 MG Zinc 30 MG No 1{ table t} QD Zinc 30 MG Restasis 0.05 % Restasis 0.05 % No 1{drop_ into_af fected_ eye} Restasis 0.05 % [facility] [place] - [facility] [place] - No [facility] [place] - Zioptan 0.0015 % Zioptan 0.0015 % No 1{drop_ into_af fected_ eye} QD Zioptan 0.0015 % Levothyroxi ne Sodium 125 MCG Levothyroxi ne Sodium 125 MCG No QD Levothyrox ine Sodium 125 MCG Vitamin E 400 UNIT Vitamin E 400 UNIT No 1{table t} QD Vitamin E 400 UNIT CoQ10 100 MG CoQ10 100 MG No 1{capsu le_with _a_meal } QD CoQ10 100 MG Align 4 MG Align 4 MG No Align 4 MG Lutein 20 MG Lutein 20 MG No 1{capsu le_with _a_meal } QD Lutein 20 MG Lyrica 50 MG Lyrica 50 MG No 1{capsu le} QD Lyrica 50 MG Sertraline HCl 25 MG Sertraline HCl 25 MG No 1{table t} QD Sertraline HCl 25 MG Levothyroxi ne Sodium 25 MCG Levothyroxi ne Sodium 25 MCG No QD Levothyrox ine Sodium 25 MCG Vitamin C 500 MG Vitamin C 500 MG No BID Vitamin C 500 MG Aloe Vera 25 MG Aloe Vera 25 MG No Aloe Vera 25 MG Sinus Rinse Kit - Sinus Rinse Kit - No Sinus Rinse Kit - Pepcid AC 10 MG Pepcid AC 10 MG No 1{table t_as_ne eded} BID Pepcid AC 10 MG HYDROcodone -Acetaminop hen 5-325 MG HYDROcodone -Acetaminop hen 5-325 MG No 1{table t_as_ne eded} HYDROcodon e-Acetamin ophen 5-325 MG Stool Softener & Laxative Stool Softener & Laxative No Stool Softener & Laxative Calcium 600 MG Calcium 600 MG No 1{table t_with_ meals} BID Calcium 600 MG Levothyroxi ne Sodium 125 MCG Levothyroxi ne Sodium 125 MCG No QD Levothyrox ine Sodium 125 MCG Vitamin C 500 MG Vitamin C 500 MG No BID Vitamin C 500 MG Vitamin D 125 MCG (5000 UT) Vitamin D 125 MCG (5000 UT) No 1{capsu le} QD Vitamin D 125 MCG (5000 UT) Sertraline HCl 25 MG Sertraline HCl 25 MG No 1{table t} QD Sertraline HCl 25 MG B50 Complex TR - B50 Complex TR - No B50 Complex TR - Albuterol Sulfate HFA 108 (90 Base) MCG/ACT Albuterol Sulfate HFA 108 (90 Base) MCG/ACT No 2{puffs } Albuterol Sulfate HFA 108 (90 Base) MCG/ACT Zinc 30 MG Zinc 30 MG No 1{ table t} QD Zinc 30 MG Stool Softener & Laxative Stool Softener & Laxative No Stool Softener & Laxative Singulair 10 MG Singulair 10 MG No 1{table t} QD Singulair 10 MG Vitamin E 400 UNIT Vitamin E 400 UNIT No 1{table t} QD Vitamin E 400 UNIT Lutein 20 MG Lutein 20 MG No 1{capsu le_with _a_meal } QD Lutein 20 MG Lyrica 50 MG Lyrica 50 MG No 1{capsu le} QD Lyrica 50 MG Levothyroxi ne Sodium 25 MCG Levothyroxi ne Sodium 25 MCG No Levothyrox ine Sodium 25 MCG [facility] [place] - [facility] [place] - No [facility] [place] - Levothyroxi ne Sodium 25 MCG Levothyroxi ne Sodium 25 MCG No QD Levothyrox ine Sodium 25 MCG CoQ10 100 MG CoQ10 100 MG No 1{capsu le_with _a_meal } QD CoQ10 100 MG Sinus Rinse Kit - Sinus Rinse Kit - No Sinus Rinse Kit - Aloe Vera 25 MG Aloe Vera 25 MG No Aloe Vera 25 MG Pepcid AC 10 MG Pepcid AC 10 MG No 1{table t_as_ne eded} BID Pepcid AC 10 MG Align 4 MG Align 4 MG No Align 4 MG Refresh 1.4-0.6 % Refresh 1.4-0.6 % No 1{drop_ into_af fected_ eye_as_ needed} Refresh 1.4-0.6 % Zioptan 0.0015 % Zioptan 0.0015 % No 1{drop_ into_af fected_ eye} QD Zioptan 0.0015 % Restasis 0.05 % Restasis 0.05 % No 1{drop_ into_af fected_ eye} Restasis 0.05 % HYDROcodone -Acetaminop hen 5-325 MG HYDROcodone -Acetaminop hen 5-325 MG No 1{table t_as_ne eded} HYDROcodon e-Acetamin ophen 5-325 MG Calcium 600 MG Calcium 600 MG No 1{table t_with_ meals} BID Calcium 600 MG Levothyroxi ne Sodium 125 MCG Levothyroxi ne Sodium 125 MCG No QD Levothyrox ine Sodium 125 MCG Vitamin C 500 MG Vitamin C 500 MG No BID Vitamin C 500 MG Vitamin D 125 MCG (5000 UT) Vitamin D 125 MCG (5000 UT) No 1{capsu le} QD Vitamin D 125 MCG (5000 UT) Sertraline HCl 25 MG Sertraline HCl 25 MG No 1{table t} QD Sertraline HCl 25 MG B50 Complex TR - B50 Complex TR - No B50 Complex TR - Albuterol Sulfate HFA 108 (90 Base) MCG/ACT Albuterol Sulfate HFA 108 (90 Base) MCG/ACT No 2{puffs } Albuterol Sulfate HFA 108 (90 Base) MCG/ACT Zinc 30 MG Zinc 30 MG No 1{ table t} QD Zinc 30 MG Stool Softener & Laxative Stool Softener & Laxative No Stool Softener & Laxative Singulair 10 MG Singulair 10 MG No 1{table t} QD Singulair 10 MG Vitamin E 400 UNIT Vitamin E 400 UNIT No 1{table t} QD Vitamin E 400 UNIT Lutein 20 MG Lutein 20 MG No 1{capsu le_with _a_meal } QD Lutein 20 MG Lyrica 50 MG Lyrica 50 MG No 1{capsu le} QD Lyrica 50 MG Levothyroxi ne Sodium 25 MCG Levothyroxi ne Sodium 25 MCG No Levothyrox ine Sodium 25 MCG [facility] [place] - [facility] [place] - No [facility] [place] - Levothyroxi ne Sodium 25 MCG Levothyroxi ne Sodium 25 MCG No QD Levothyrox ine Sodium 25 MCG CoQ10 100 MG CoQ10 100 MG No 1{capsu le_with _a_meal } QD CoQ10 100 MG Sinus Rinse Kit - Sinus Rinse Kit - No Sinus Rinse Kit - Aloe Vera 25 MG Aloe Vera 25 MG No Aloe Vera 25 MG Pepcid AC 10 MG Pepcid AC 10 MG No 1{table t_as_ne eded} BID Pepcid AC 10 MG Align 4 MG Align 4 MG No Align 4 MG Refresh 1.4-0.6 % Refresh 1.4-0.6 % No 1{drop_ into_af fected_ eye_as_ needed} Refresh 1.4-0.6 % Zioptan 0.0015 % Zioptan 0.0015 % No 1{drop_ into_af fected_ eye} QD Zioptan 0.0015 % Restasis 0.05 % Restasis 0.05 % No 1{drop_ into_af fected_ eye} Restasis 0.05 % HYDROcodone -Acetaminop hen 5-325 MG HYDROcodone -Acetaminop hen 5-325 MG No 1{table t_as_ne eded} HYDROcodon e-Acetamin ophen 5-325 MG Albuterol Sulfate HFA 108 (90 Base) MCG/ACT Albuterol Sulfate HFA 108 (90 Base) MCG/ACT No 2{puffs } Albuterol Sulfate HFA 108 (90 Base) MCG/ACT Levothyroxi ne Sodium 125 MCG Levothyroxi ne Sodium 125 MCG No QD Levothyrox ine Sodium 125 MCG Calcium 600 MG Calcium 600 MG No 1{table t_with_ meals} BID Calcium 600 MG Vitamin D 125 MCG (5000 UT) Vitamin D 125 MCG (5000 UT) No 1{capsu le} QD Vitamin D 125 MCG (5000 UT) B50 Complex TR - B50 Complex TR - No B50 Complex TR - Sertraline HCl 25 MG Sertraline HCl 25 MG No 1{table t} QD Sertraline HCl 25 MG Zinc 30 MG Zinc 30 MG No 1{ table t} QD Zinc 30 MG [facility] [place] - [facility] [place] - No [facility] [place] - Stool Softener & Laxative Stool Softener & Laxative No Stool Softener & Laxative Vitamin E 400 UNIT Vitamin E 400 UNIT No 1{table t} QD Vitamin E 400 UNIT Lutein 20 MG Lutein 20 MG No 1{capsu le_with _a_meal } QD Lutein 20 MG CoQ10 100 MG CoQ10 100 MG No 1{capsu le_with _a_meal } QD CoQ10 100 MG Pepcid AC 10 MG Pepcid AC 10 MG No 1{table t_as_ne eded} BID Pepcid AC 10 MG Levothyroxi ne Sodium 25 MCG Levothyroxi ne Sodium 25 MCG No Levothyrox ine Sodium 25 MCG Lyrica 50 MG Lyrica 50 MG No 1{capsu le} QD Lyrica 50 MG Vitamin C 500 MG Vitamin C 500 MG No BID Vitamin C 500 MG Sinus Rinse Kit - Sinus Rinse Kit - No Sinus Rinse Kit - Aloe Vera 25 MG Aloe Vera 25 MG No Aloe Vera 25 MG Singulair 10 MG Singulair 10 MG No 1{table t} QD Singulair 10 MG Align 4 MG Align 4 MG No Align 4 MG Refresh 1.4-0.6 % Refresh 1.4-0.6 % No 1{drop_ into_af fected_ eye_as_ needed} Refresh 1.4-0.6 % Zioptan 0.0015 % Zioptan 0.0015 % No 1{drop_ into_af fected_ eye} QD Zioptan 0.0015 % Restasis 0.05 % Restasis 0.05 % No 1{drop_ into_af fected_ eye} Restasis 0.05 % HYDROcodone -Acetaminop hen 5-325 MG HYDROcodone -Acetaminop hen 5-325 MG No 1{table t_as_ne eded} HYDROcodon e-Acetamin ophen 5-325 MG Calcium 600 MG Calcium 600 MG No 1{table t_with_ meals} BID Calcium 600 MG Aloe Vera 25 MG Aloe Vera 25 MG No Aloe Vera 25 MG Vitamin C 500 MG Vitamin C 500 MG No BID Vitamin C 500 MG Lutein 20 MG Lutein 20 MG No 1{capsu le_with _a_meal } QD Lutein 20 MG Zioptan 0.0015 % Zioptan 0.0015 % No 1{drop_ into_af fected_ eye} QD Zioptan 0.0015 % Refresh 1.4-0.6 % Refresh 1.4-0.6 % No 1{drop_ into_af fected_ eye_as_ needed} Refresh 1.4-0.6 % Vitamin D 125 MCG (5000 UT) Vitamin D 125 MCG (5000 UT) No 1{capsu le} QD Vitamin D 125 MCG (5000 UT) Lyrica 50 MG Lyrica 50 MG No 1{capsu le} QD Lyrica 50 MG HYDROcodone -Acetaminop hen 5-325 MG HYDROcodone -Acetaminop hen 5-325 MG No 1{table t_as_ne eded} HYDROcodon e-Acetamin ophen 5-325 MG Vitamin E 400 UNIT Vitamin E 400 UNIT No 1{table t} QD Vitamin E 400 UNIT Singulair 10 MG Singulair 10 MG No 1{table t} QD Singulair 10 MG Levothyroxi ne Sodium 25 MCG Levothyroxi ne Sodium 25 MCG No Levothyrox ine Sodium 25 MCG Zinc 30 MG Zinc 30 MG No 1{ table t} QD Zinc 30 MG Albuterol Sulfate HFA 108 (90 Base) MCG/ACT Albuterol Sulfate HFA 108 (90 Base) MCG/ACT No 2{puffs } Albuterol Sulfate HFA 108 (90 Base) MCG/ACT Restasis 0.05 % Restasis 0.05 % No 1{drop_ into_af fected_ eye} Restasis 0.05 % CoQ10 100 MG CoQ10 100 MG No 1{capsu le_with _a_meal } QD CoQ10 100 MG B50 Complex TR - B50 Complex TR - No B50 Complex TR - Sinus Rinse Kit - Sinus Rinse Kit - No Sinus Rinse Kit - Levothyroxi ne Sodium 25 MCG Levothyroxi ne Sodium 25 MCG No QD Levothyrox ine Sodium 25 MCG Align 4 MG Align 4 MG No Align 4 MG [facility] [place] - [facility] [place] - No [facility] [place] - Levothyroxi ne Sodium 125 MCG Levothyroxi ne Sodium 125 MCG No QD Levothyrox ine Sodium 125 MCG Stool Softener & Laxative Stool Softener & Laxative No Stool Softener & Laxative Pepcid AC 10 MG Pepcid AC 10 MG No 1{table t_as_ne eded} BID Pepcid AC 10 MG Calcium 600 MG Calcium 600 MG No 1{table t_with_ meals} BID Calcium 600 MG Aloe Vera 25 MG Aloe Vera 25 MG No Aloe Vera 25 MG Vitamin C 500 MG Vitamin C 500 MG No BID Vitamin C 500 MG Lutein 20 MG Lutein 20 MG No 1{capsu le_with _a_meal } QD Lutein 20 MG Zioptan 0.0015 % Zioptan 0.0015 % No 1{drop_ into_af fected_ eye} QD Zioptan 0.0015 % Refresh 1.4-0.6 % Refresh 1.4-0.6 % No 1{drop_ into_af fected_ eye_as_ needed} Refresh 1.4-0.6 % Vitamin D 125 MCG (5000 UT) Vitamin D 125 MCG (5000 UT) No 1{capsu le} QD Vitamin D 125 MCG (5000 UT) Lyrica 50 MG Lyrica 50 MG No 1{capsu le} QD Lyrica 50 MG HYDROcodone -Acetaminop hen 5-325 MG HYDROcodone -Acetaminop hen 5-325 MG No 1{table t_as_ne eded} HYDROcodon e-Acetamin ophen 5-325 MG Vitamin E 400 UNIT Vitamin E 400 UNIT No 1{table t} QD Vitamin E 400 UNIT Singulair 10 MG Singulair 10 MG No 1{table t} QD Singulair 10 MG Levothyroxi ne Sodium 25 MCG Levothyroxi ne Sodium 25 MCG No Levothyrox ine Sodium 25 MCG Zinc 30 MG Zinc 30 MG No 1{ table t} QD Zinc 30 MG Albuterol Sulfate HFA 108 (90 Base) MCG/ACT Albuterol Sulfate HFA 108 (90 Base) MCG/ACT No 2{puffs } Albuterol Sulfate HFA 108 (90 Base) MCG/ACT Restasis 0.05 % Restasis 0.05 % No 1{drop_ into_af fected_ eye} Restasis 0.05 % CoQ10 100 MG CoQ10 100 MG No 1{capsu le_with _a_meal } QD CoQ10 100 MG B50 Complex TR - B50 Complex TR - No B50 Complex TR - Sinus Rinse Kit - Sinus Rinse Kit - No Sinus Rinse Kit - Levothyroxi ne Sodium 25 MCG Levothyroxi ne Sodium 25 MCG No QD Levothyrox ine Sodium 25 MCG Align 4 MG Align 4 MG No Align 4 MG [facility] [place] - [facility] [place] - No [facility] [place] - Levothyroxi ne Sodium 125 MCG Levothyroxi ne Sodium 125 MCG No QD Levothyrox ine Sodium 125 MCG Stool Softener & Laxative Stool Softener & Laxative No Stool Softener & Laxative Pepcid AC 10 MG Pepcid AC 10 MG No 1{table t_as_ne eded} BID Pepcid AC 10 MG Calcium 600 MG Calcium 600 MG No 1{table t_with_ meals} BID Calcium 600 MG Aloe Vera 25 MG Aloe Vera 25 MG No Aloe Vera 25 MG Vitamin C 500 MG Vitamin C 500 MG No BID Vitamin C 500 MG Lutein 20 MG Lutein 20 MG No 1{capsu le_with _a_meal } QD Lutein 20 MG Zioptan 0.0015 % Zioptan 0.0015 % No 1{drop_ into_af fected_ eye} QD Zioptan 0.0015 % Refresh 1.4-0.6 % Refresh 1.4-0.6 % No 1{drop_ into_af fected_ eye_as_ needed} Refresh 1.4-0.6 % Vitamin D 125 MCG (5000 UT) Vitamin D 125 MCG (5000 UT) No 1{capsu le} QD Vitamin D 125 MCG (5000 UT) Lyrica 50 MG Lyrica 50 MG No 1{capsu le} QD Lyrica 50 MG HYDROcodone -Acetaminop hen 5-325 MG HYDROcodone -Acetaminop hen 5-325 MG No 1{table t_as_ne eded} HYDROcodon e-Acetamin ophen 5-325 MG Vitamin E 400 UNIT Vitamin E 400 UNIT No 1{table t} QD Vitamin E 400 UNIT Singulair 10 MG Singulair 10 MG No 1{table t} QD Singulair 10 MG Levothyroxi ne Sodium 25 MCG Levothyroxi ne Sodium 25 MCG No Levothyrox ine Sodium 25 MCG Zinc 30 MG Zinc 30 MG No 1{ table t} QD Zinc 30 MG Albuterol Sulfate HFA 108 (90 Base) MCG/ACT Albuterol Sulfate HFA 108 (90 Base) MCG/ACT No 2{puffs } Albuterol Sulfate HFA 108 (90 Base) MCG/ACT Restasis 0.05 % Restasis 0.05 % No 1{drop_ into_af fected_ eye} Restasis 0.05 % CoQ10 100 MG CoQ10 100 MG No 1{capsu le_with _a_meal } QD CoQ10 100 MG B50 Complex TR - B50 Complex TR - No B50 Complex TR - Sinus Rinse Kit - Sinus Rinse Kit - No Sinus Rinse Kit - Levothyroxi ne Sodium 25 MCG Levothyroxi ne Sodium 25 MCG No QD Levothyrox ine Sodium 25 MCG Align 4 MG Align 4 MG No Align 4 MG [facility] [place] - [facility] [place] - No [facility] [place] - Levothyroxi ne Sodium 125 MCG Levothyroxi ne Sodium 125 MCG No QD Levothyrox ine Sodium 125 MCG Stool Softener & Laxative Stool Softener & Laxative No Stool Softener & Laxative Pepcid AC 10 MG Pepcid AC 10 MG No 1{table t_as_ne eded} BID Pepcid AC 10 MG Refresh 1.4-0.6 % Refresh 1.4-0.6 % No 1{drop_ into_af fected_ eye_as_ needed} Refresh 1.4-0.6 % Vitamin C 500 MG Vitamin C 500 MG No BID Vitamin C 500 MG Restasis 0.05 % Restasis 0.05 % No 1{drop_ into_af fected_ eye} Restasis 0.05 % CoQ10 100 MG CoQ10 100 MG No 1{capsu le_with _a_meal } QD CoQ10 100 MG Levothyroxi ne Sodium 25 MCG Levothyroxi ne Sodium 25 MCG No Levothyrox ine Sodium 25 MCG Sinus Rinse Kit - Sinus Rinse Kit - No Sinus Rinse Kit - [facility] [place] - [facility] [place] - No [facility] [place] - Singulair 10 MG Singulair 10 MG No 1{table t} QD Singulair 10 MG Stool Softener & Laxative Stool Softener & Laxative No Stool Softener & Laxative Vitamin E 400 UNIT Vitamin E 400 UNIT No 1{table t} QD Vitamin E 400 UNIT Zioptan 0.0015 % Zioptan 0.0015 % No 1{drop_ into_af fected_ eye} QD Zioptan 0.0015 % Vitamin D 125 MCG (5000 UT) Vitamin D 125 MCG (5000 UT) No 1{capsu le} QD Vitamin D 125 MCG (5000 UT) Albuterol Sulfate HFA 108 (90 Base) MCG/ACT Albuterol Sulfate HFA 108 (90 Base) MCG/ACT No Albuterol Sulfate HFA 108 (90 Base) MCG/ACT Align 4 MG Align 4 MG No Align 4 MG Lyrica 50 MG Lyrica 50 MG No 1{capsu le} QD Lyrica 50 MG Calcium 600 MG Calcium 600 MG No 1{table t_with_ meals} BID Calcium 600 MG HYDROcodone -Acetaminop hen 5-325 MG HYDROcodone -Acetaminop hen 5-325 MG No 1{table t_as_ne eded} HYDROcodon e-Acetamin ophen 5-325 MG Zinc 30 MG Zinc 30 MG No 1{ table t} QD Zinc 30 MG Pepcid AC 10 MG Pepcid AC 10 MG No 1{table t_as_ne eded} BID Pepcid AC 10 MG Aloe Vera 25 MG Aloe Vera 25 MG No Aloe Vera 25 MG Levothyroxi ne Sodium 125 MCG Levothyroxi ne Sodium 125 MCG No QD Levothyrox ine Sodium 125 MCG Lutein 20 MG Lutein 20 MG No 1{capsu le_with _a_meal } QD Lutein 20 MG B50 Complex TR - B50 Complex TR - No B50 Complex TR - Calcium 600 MG Calcium 600 MG No 1{table t_with_ meals} BID Calcium 600 MG CoQ10 100 MG CoQ10 100 MG No 1{capsu le_with _a_meal } QD CoQ10 100 MG Lyrica 50 MG Lyrica 50 MG No 1{capsu le} QD Lyrica 50 MG Zinc 30 MG Zinc 30 MG No 1{ table t} QD Zinc 30 MG Vitamin D 125 MCG (5000 UT) Vitamin D 125 MCG (5000 UT) No 1{capsu le} QD Vitamin D 125 MCG (5000 UT) Vitamin C 500 MG Vitamin C 500 MG No BID Vitamin C 500 MG HYDROcodone -Acetaminop hen 5-325 MG HYDROcodone -Acetaminop hen 5-325 MG No 1{table t_as_ne eded} HYDROcodon e-Acetamin ophen 5-325 MG Albuterol Sulfate HFA 108 (90 Base) MCG/ACT Albuterol Sulfate HFA 108 (90 Base) MCG/ACT No Albuterol Sulfate HFA 108 (90 Base) MCG/ACT B50 Complex TR - B50 Complex TR - No B50 Complex TR - Levothyroxi ne Sodium 25 MCG Levothyroxi ne Sodium 25 MCG No Levothyrox ine Sodium 25 MCG Refresh 1.4-0.6 % Refresh 1.4-0.6 % No 1{drop_ into_af fected_ eye_as_ needed} Refresh 1.4-0.6 % Aloe Vera 25 MG Aloe Vera 25 MG No Aloe Vera 25 MG Sinus Rinse Kit - Sinus Rinse Kit - No Sinus Rinse Kit - Restasis 0.05 % Restasis 0.05 % No 1{drop_ into_af fected_ eye} Restasis 0.05 % Zioptan 0.0015 % Zioptan 0.0015 % No 1{drop_ into_af fected_ eye} QD Zioptan 0.0015 % Lutein 20 MG Lutein 20 MG No 1{capsu le_with _a_meal } QD Lutein 20 MG Pepcid AC 10 MG Pepcid AC 10 MG No 1{table t_as_ne eded} BID Pepcid AC 10 MG Levothyroxi ne Sodium 125 MCG Levothyroxi ne Sodium 125 MCG No QD Levothyrox ine Sodium 125 MCG Vitamin E 400 UNIT Vitamin E 400 UNIT No 1{table t} QD Vitamin E 400 UNIT [facility] [place] - [facility] [place] - No [facility] [place] - Align 4 MG Align 4 MG No Align 4 MG Singulair 10 MG Singulair 10 MG No 1{table t} QD Singulair 10 MG Stool Softener & Laxative Stool Softener & Laxative No Stool Softener & Laxative Calcium 600 MG Calcium 600 MG No 1{table t_with_ meals} BID Calcium 600 MG CoQ10 100 MG CoQ10 100 MG No 1{capsu le_with _a_meal } QD CoQ10 100 MG Lyrica 50 MG Lyrica 50 MG No 1{capsu le} QD Lyrica 50 MG Zinc 30 MG Zinc 30 MG No 1{ table t} QD Zinc 30 MG Vitamin D 125 MCG (5000 UT) Vitamin D 125 MCG (5000 UT) No 1{capsu le} QD Vitamin D 125 MCG (5000 UT) Vitamin C 500 MG Vitamin C 500 MG No BID Vitamin C 500 MG HYDROcodone -Acetaminop hen 5-325 MG HYDROcodone -Acetaminop hen 5-325 MG No 1{table t_as_ne eded} HYDROcodon e-Acetamin ophen 5-325 MG Albuterol Sulfate HFA 108 (90 Base) MCG/ACT Albuterol Sulfate HFA 108 (90 Base) MCG/ACT No Albuterol Sulfate HFA 108 (90 Base) MCG/ACT B50 Complex TR - B50 Complex TR - No B50 Complex TR - Levothyroxi ne Sodium 25 MCG Levothyroxi ne Sodium 25 MCG No Levothyrox ine Sodium 25 MCG Refresh 1.4-0.6 % Refresh 1.4-0.6 % No 1{drop_ into_af fected_ eye_as_ needed} Refresh 1.4-0.6 % Aloe Vera 25 MG Aloe Vera 25 MG No Aloe Vera 25 MG Sinus Rinse Kit - Sinus Rinse Kit - No Sinus Rinse Kit - Restasis 0.05 % Restasis 0.05 % No 1{drop_ into_af fected_ eye} Restasis 0.05 % Zioptan 0.0015 % Zioptan 0.0015 % No 1{drop_ into_af fected_ eye} QD Zioptan 0.0015 % Lutein 20 MG Lutein 20 MG No 1{capsu le_with _a_meal } QD Lutein 20 MG Pepcid AC 10 MG Pepcid AC 10 MG No 1{table t_as_ne eded} BID Pepcid AC 10 MG Levothyroxi ne Sodium 125 MCG Levothyroxi ne Sodium 125 MCG No QD Levothyrox ine Sodium 125 MCG Vitamin E 400 UNIT Vitamin E 400 UNIT No 1{table t} QD Vitamin E 400 UNIT [facility] [place] - [facility] [place] - No [facility] [place] - Align 4 MG Align 4 MG No Align 4 MG Singulair 10 MG Singulair 10 MG No 1{table t} QD Singulair 10 MG Stool Softener & Laxative Stool Softener & Laxative No Stool Softener & Laxative Vitamin D 125 MCG (5000 UT) Vitamin D 125 MCG (5000 UT) No 1{capsu le} QD Vitamin D 125 MCG (5000 UT) Vitamin C 500 MG Vitamin C 500 MG No BID Vitamin C 500 MG Calcium 600 MG Calcium 600 MG No 1{table t_with_ meals} BID Calcium 600 MG CoQ10 100 MG CoQ10 100 MG No 1{capsu le_with _a_meal } QD CoQ10 100 MG HYDROcodone -Acetaminop hen 5-325 MG HYDROcodone -Acetaminop hen 5-325 MG No 1{table t_as_ne eded} HYDROcodon e-Acetamin ophen 5-325 MG Zinc 30 MG Zinc 30 MG No 1{ table t} QD Zinc 30 MG Albuterol Sulfate HFA 108 (90 Base) MCG/ACT Albuterol Sulfate HFA 108 (90 Base) MCG/ACT No Albuterol Sulfate HFA 108 (90 Base) MCG/ACT Restasis 0.05 % Restasis 0.05 % No 1{drop_ into_af fected_ eye} Restasis 0.05 % Sinus Rinse Kit - Sinus Rinse Kit - No Sinus Rinse Kit - B50 Complex TR - B50 Complex TR - No B50 Complex TR - Zioptan 0.0015 % Zioptan 0.0015 % No 1{drop_ into_af fected_ eye} QD Zioptan 0.0015 % Aloe Vera 25 MG Aloe Vera 25 MG No Aloe Vera 25 MG Pepcid AC 10 MG Pepcid AC 10 MG No 1{table t_as_ne eded} BID Pepcid AC 10 MG Refresh 1.4-0.6 % Refresh 1.4-0.6 % No 1{drop_ into_af fected_ eye_as_ needed} Refresh 1.4-0.6 % Lyrica 50 MG Lyrica 50 MG No 1{capsu le} QD Lyrica 50 MG Lutein 20 MG Lutein 20 MG No 1{capsu le_with _a_meal } QD Lutein 20 MG Levothyroxi ne Sodium 25 MCG Levothyroxi ne Sodium 25 MCG No Levothyrox ine Sodium 25 MCG Levothyroxi ne Sodium 125 MCG Levothyroxi ne Sodium 125 MCG No QD Levothyrox ine Sodium 125 MCG Vitamin E 400 UNIT Vitamin E 400 UNIT No 1{table t} QD Vitamin E 400 UNIT [facility] [place] - [facility] [place] - No [facility] [place] - Align 4 MG Align 4 MG No Align 4 MG Singulair 10 MG Singulair 10 MG No 1{table t} QD Singulair 10 MG Stool Softener & Laxative Stool Softener & Laxative No Stool Softener & Laxative Restasis 0.05 % Restasis 0.05 % No 1{drop_ into_af fected_ eye} Restasis 0.05 % Levothyroxi ne Sodium 25 MCG Levothyroxi ne Sodium 25 MCG No Levothyrox ine Sodium 25 MCG Zioptan 0.0015 % Zioptan 0.0015 % No 1{drop_ into_af fected_ eye} QD Zioptan 0.0015 % Refresh 1.4-0.6 % Refresh 1.4-0.6 % No 1{drop_ into_af fected_ eye_as_ needed} Refresh 1.4-0.6 % Pepcid AC 10 MG Pepcid AC 10 MG No 1{table t_as_ne eded} BID Pepcid AC 10 MG Sinus Rinse Kit - Sinus Rinse Kit - No Sinus Rinse Kit - Calcium 600 MG Calcium 600 MG No 1{table t_with_ meals} BID Calcium 600 MG Vitamin C 500 MG Vitamin C 500 MG No BID Vitamin C 500 MG CoQ10 100 MG CoQ10 100 MG No 1{capsu le_with _a_meal } QD CoQ10 100 MG Lyrica 50 MG Lyrica 50 MG No 1{capsu le} QD Lyrica 50 MG Vitamin D 125 MCG (5000 UT) Vitamin D 125 MCG (5000 UT) No 1{capsu le} QD Vitamin D 125 MCG (5000 UT) Albuterol Sulfate HFA 108 (90 Base) MCG/ACT Albuterol Sulfate HFA 108 (90 Base) MCG/ACT No Albuterol Sulfate HFA 108 (90 Base) MCG/ACT Aloe Vera 25 MG Aloe Vera 25 MG No Aloe Vera 25 MG Vitamin E 400 UNIT Vitamin E 400 UNIT No 1{table t} QD Vitamin E 400 UNIT Albuterol Sulfate HFA 108 (90 Base) MCG/ACT Albuterol Sulfate HFA 108 (90 Base) MCG/ACT No 2{puffs } Albuterol Sulfate HFA 108 (90 Base) MCG/ACT Align 4 MG Align 4 MG No Align 4 MG HYDROcodone -Acetaminop hen 5-325 MG HYDROcodone -Acetaminop hen 5-325 MG No 1{table t_as_ne eded} HYDROcodon e-Acetamin ophen 5-325 MG Levothyroxi ne Sodium 25 MCG Levothyroxi ne Sodium 25 MCG No Levothyrox ine Sodium 25 MCG HYDROcodone -Acetaminop hen 5-325 MG HYDROcodone -Acetaminop hen 5-325 MG No 1{table t_as_ne eded} HYDROcodon e-Acetamin ophen 5-325 MG Systane Ultra PF 0.4-0.3 % Systane Ultra PF 0.4-0.3 % No Systane Ultra PF 0.4-0.3 % Zioptan 0.0015 % Zioptan 0.0015 % No 1{drop_ into_af fected_ eye} QD Zioptan 0.0015 % Vitamin E 400 UNIT Vitamin E 400 UNIT No 1{table t} QD Vitamin E 400 UNIT Sinus Rinse Kit - Sinus Rinse Kit - No Sinus Rinse Kit - Calcium 600 MG Calcium 600 MG No 1{table t_with_ meals} BID Calcium 600 MG Vitamin D 125 MCG (5000 UT) Vitamin D 125 MCG (5000 UT) No 1{capsu le} QD Vitamin D 125 MCG (5000 UT) Systane Nighttime Systane Nighttime No Systane Nighttime CoQ10 100 MG CoQ10 100 MG No 1{capsu le_with _a_meal } QD CoQ10 100 MG Align 4 MG Align 4 MG No Align 4 MG Albuterol Sulfate HFA 108 (90 Base) MCG/ACT Albuterol Sulfate HFA 108 (90 Base) MCG/ACT No 2{puffs } Albuterol Sulfate HFA 108 (90 Base) MCG/ACT Vitamin C 500 MG Vitamin C 500 MG No BID Vitamin C 500 MG Lyrica 50 MG Lyrica 50 MG No 1{capsu le} QD Lyrica 50 MG Pepcid AC 10 MG Pepcid AC 10 MG No 1{table t_as_ne eded} BID Pepcid AC 10 MG Aloe Vera 25 MG Aloe Vera 25 MG No Aloe Vera 25 MG Restasis 0.05 % Restasis 0.05 % No 1{drop_ into_af fected_ eye} Restasis 0.05 % Levothyroxi ne Sodium 25 MCG Levothyroxi ne Sodium 25 MCG No Levothyrox ine Sodium 25 [facility]CG HYDROcodone -Acetaminop hen 5-325 MG HYDROcodone -Acetaminop hen 5-325 MG No 1{table t_as_ne eded} HYDROcodon e-Acetamin ophen 5-325 MG Systane Ultra PF 0.4-0.3 % Systane Ultra PF 0.4-0.3 % No Systane Ultra PF 0.4-0.3 % Zioptan 0.0015 % Zioptan 0.0015 % No 1{drop_ into_af fected_ eye} QD Zioptan 0.0015 % Vitamin E 400 UNIT Vitamin E 400 UNIT No 1{table t} QD Vitamin E 400 UNIT Sinus Rinse Kit - Sinus Rinse Kit - No Sinus Rinse Kit - Calcium 600 MG Calcium 600 MG No 1{table t_with_ meals} BID Calcium 600 MG Vitamin D 125 MCG (5000 UT) Vitamin D 125 MCG (5000 UT) No 1{capsu le} QD Vitamin D 125 MCG (5000 UT) Systane Nighttime Systane Nighttime No Systane Nighttime CoQ10 100 MG CoQ10 100 MG No 1{capsu le_with _a_meal } QD CoQ10 100 MG Align 4 MG Align 4 MG No Align 4 MG Albuterol Sulfate HFA 108 (90 Base) MCG/ACT Albuterol Sulfate HFA 108 (90 Base) MCG/ACT No 2{puffs } Albuterol Sulfate HFA 108 (90 Base) MCG/ACT Vitamin C 500 MG Vitamin C 500 MG No BID Vitamin C 500 MG Lyrica 50 MG Lyrica 50 MG No 1{capsu le} QD Lyrica 50 MG Pepcid AC 10 MG Pepcid AC 10 MG No 1{table t_as_ne eded} BID Pepcid AC 10 MG Aloe Vera 25 MG Aloe Vera 25 MG No Aloe Vera 25 MG Restasis 0.05 % Restasis 0.05 % No 1{drop_ into_af fected_ eye} Restasis 0.05 % Refresh 1.4-0.6 % Refresh 1.4-0.6 % No 1{drop_ into_af fected_ eye_as_ needed} Refresh 1.4-0.6 % Vitamin C 500 MG Vitamin C 500 MG No BID Vitamin C 500 MG Restasis 0.05 % Restasis 0.05 % No 1{drop_ into_af fected_ eye} Restasis 0.05 % CoQ10 100 MG CoQ10 100 MG No 1{capsu le_with _a_meal } QD CoQ10 100 MG Immunizations Ordered Immunization Name Filled Immunization Name Date Status Comments Source FLUZONE HIGH DOSE OVER 65 FLUZONE HIGH DOSE OVER 65 2022-06-24 11:50:00 Completed [facility] FLUZONE HIGH DOSE OVER 65 FLUZONE HIGH DOSE OVER 65 2022-06-24 11:50:00 Completed [facility] FLUZONE HIGH DOSE OVER 65 FLUZONE HIGH DOSE OVER 65 2022-06-24 11:50:00 Completed [facility] FLUZONE HIGH DOSE OVER 65 FLUZONE HIGH DOSE OVER 65 2022-06-24 11:50:00 Completed [facility] FluAD FluAD 2021-06-05 09:24:00 Completed [facility] Flu FluAD 2021-06-05 09:24:00 Completed [facility] Flu Flu 2021-06-05 09:24:00 Completed [facility] FluAD FluAD 2021-06-05 09:24:00 Completed [facility] FluAD FluAD 2021-06-05 09:24:00 Completed [facility] FluAD FluAD 2021-06-05 09:24:00 Completed [facility] FluAD FluAD 2021-06-05 09:24:00 Completed [facility] FluAD FluAD 2021-06-05 09:24:00 Completed [facility] FluAD FluAD 2021-06-05 09:24:00 Completed [facility] FluAD FluAD 2021-06-05 09:24:00 Completed [facility] FluAD FluAD 2021-06-05 09:24:00 Completed [facility] FluAD FluAD 2021-06-05 09:24:00 Completed [facility] FluAD FluAD 2021-06-05 09:24:00 Completed [facility] FluAD FluAD 2021-06-05 09:24:00 Completed [facility] FluAD FluAD 2021-06-05 09:24:00 Completed [facility] FluAD FluAD 2021-06-05 09:24:00 Completed [facility] FluAD FluAD 2021-06-05 09:24:00 Completed [facility] Kenalog (Triamcinolone) Kenalog (Triamcinolone) 2021-01-23 12:40:00 Completed [facility] Kenalog (Triamcinolone) Kenalog (Triamcinolone) 2021-01-23 12:40:00 [facility]pleted [facility] Kenalog (Triamcinolone) Kenalog (Triamcinolone) 2021-01-23 12:40:00 Completed [facility] Kenalog (Triamcinolone) Kenalog (Triamcinolone) 2021-01-23 12:40:00 [facility]pleted [facility] Kenalog (Triamcinolone) Kenalog (Triamcinolone) 2018-01-27 11:29:00 Completed [facility] Kenalog (Triamcinolone) Kenalog (Triamcinolone) 2018-01-27 11:29:00 Completed [facility] Kenalog (Triamcinolone) Kenalog (Triamcinolone) 2018-01-27 11:29:00 Completed [facility] Kenalog (Triamcinolone) Kenalog (Triamcinolone) 2018-01-27 11:29:00 Completed [facility] Prevnar 13 (PCV13) Prevnar 13 (PCV13) 2016-06-17 15:49:00 Completed [facility] Prevnar 13 (PCV13) Prevnar 13 (PCV13) 2016-06-17 15:49:00 Completed [facility] Prevnar 13 (PCV13) Prevnar 13 (PCV13) 2016-06-17 15:49:00 Completed [facility] Prevnar 13 (PCV13) Prevnar 13 (PCV13) 2016-06-17 15:49:00 Completed [facility] Prevnar 13 (PCV13) Prevnar 13 (PCV13) 2016-06-17 15:49:00 Completed [facility] Prevnar 13 (PCV13) Prevnar 13 (PCV13) 2016-06-17 15:49:00 Completed [facility] Prevnar 13 (PCV13) Prevnar 13 (PCV13) 2016-06-17 15:49:00 Completed [facility] Prevnar 13 (PCV13) Prevnar 13 (PCV13) 2016-06-17 15:49:00 Completed [facility] Prevnar 13 (PCV13) Prevnar 13 (PCV13) 2016-06-17 15:49:00 Completed [facility] Prevnar 13 (PCV13) Prevnar 13 (PCV13) 2016-06-17 15:49:00 Completed [facility] Prevnar 13 (PCV13) Prevnar 13 (PCV13) 2016-06-17 15:49:00 Completed [facility] Prevnar 13 (PCV13) Prevnar 13 (PCV13) 2016-06-17 15:49:00 Completed [facility] Prevnar 13 (PCV13) Prevnar 13 (PCV13) 2016-06-17 15:49:00 Completed [facility] Prevnar 13 (PCV13) Prevnar 13 (PCV13) 2016-06-17 15:49:00 Completed [facility] Prevnar 13 (PCV13) Prevnar 13 (PCV13) 2016-06-17 15:49:00 Completed [facility] Prevnar 13 (PCV13) Prevnar 13 (PCV13) 2016-06-17 15:49:00 Completed [facility] Prevnar 13 (PCV13) Prevnar 13 (PCV13) 2016-06-17 15:49:00 Completed [facility] FluAD FluAD Unknown Completed [facility] FLUZONE HIGH DOSE OVER 65 FLUZONE HIGH DOSE OVER 65 Unknown Completed [facility] Prevnar 13 (PCV13) Prevnar 13 (PCV13) Unknown Completed [facility] FluAD FluAD Unknown Completed [facility] FLUZONE HIGH DOSE OVER 65 FLUZONE HIGH DOSE OVER 65 Unknown Completed [facility] Prevnar 13 (PCV13) Prevnar 13 (PCV13) Unknown Completed [facility] Vital Signs Vital Name Observation Time Observation Value Comments S ource height 2023-02-04 08:00:00 62.75 [in_i] Com [facility] weight 2023-02-04 08:00:00 99 [lb_av] Commo n [facility] temperature 2023-02-04 08:00:00 98.8 [degF] Com [facility] bmi 2023-02-04 08:00:00 17.68 kg/m2 Comm on [facility] height 2022-12-31 10:00:00 62.75 [in_i] Com [facility] weight 2022-12-31 10:00:00 100 [lb_av] Comm on [facility] temperature 2022-12-31 10:00:00 98.3 [degF] Com [facility] bmi 2022-12-31 10:00:00 17.85 kg/m2 Comm on [facility] oximetry 2022-12-31 10:00:00 95 % Commo n [facility] respiratory rate 2022-12-31 10:00:00 16 /min [facility] blood pressure systolic 2022-12-31 10:00:00 136 mm[Hg] [facility] blood pressure diastolic 2022-12-31 10:00:00 78 mm[Hg] [facility] height 2022-06-24 11:00:00 62.75 [in_i] Com [facility] weight 2022-06-24 11:00:00 100.20 [lb_av] C ommon [facility] temperature 2022-06-24 11:00:00 96.4 [degF] Com [facility] bmi 2022-06-24 11:00:00 17.89 kg/m2 Comm on [facility] oximetry 2022-06-24 11:00:00 96 % Commo n [facility] respiratory rate 2022-06-24 11:00:00 16 /min [facility] blood pressure systolic 2022-06-24 11:00:00 138 mm[Hg] [facility] blood pressure diastolic 2022-06-24 11:00:00 64 mm[Hg] [facility] height 2022-06-24 11:00:00 62.75 [in_i] Com [facility] weight 2022-06-24 11:00:00 100.2 [lb_av] Co mmon [facility] temperature 2022-06-24 11:00:00 96.4 [degF] Com [facility] bmi 2022-06-24 11:00:00 17.89 kg/m2 Comm on [facility] oximetry 2022-06-24 11:00:00 96 % Commo n [facility] respiratory rate 2022-06-24 11:00:00 16 /min [facility] blood pressure systolic 2022-06-24 11:00:00 138 mm[Hg] [facility] blood pressure diastolic 2022-06-24 11:00:00 64 mm[Hg] [facility] height 2022-03-20 10:00:00 62.75 [in_i] Com [facility] weight 2022-03-20 10:00:00 102 [lb_av] Comm on [facility] bmi 2022-03-20 10:00:00 18.21 kg/m2 Comm on [facility] height 2021-12-10 12:00:00 62.75 [in_i] Com [facility] weight 2021-12-10 12:00:00 101 [lb_av] Comm on [facility] bmi 2021-12-10 12:00:00 18.03 kg/m2 Comm on [facility] height 2021-11-19 08:20:00 62.75 [in_i] Com [facility] weight 2021-11-19 08:20:00 101.2 [lb_av] Co mmon [facility] temperature 2021-11-19 08:20:00 95.6 [degF] Com [facility] bmi 2021-11-19 08:20:00 18.07 kg/m2 Comm on [facility] oximetry 2021-11-19 08:20:00 95 % Commo n [facility] respiratory rate 2021-11-19 08:20:00 16 /min [facility] blood pressure systolic 2021-11-19 08:20:00 130 mm[Hg] [facility] blood pressure diastolic 2021-11-19 08:20:00 80 mm[Hg] [facility] height 2021-06-05 08:00:00 62.75 [in_i] Com [facility] weight 2021-06-05 08:00:00 103 [lb_av] Comm on [facility] temperature 2021-06-05 08:00:00 97.2 [degF] Com mon [facility] bmi 2021-06-05 08:00:00 18.39 kg/m2 Comm on [facility] oximetry 2021-06-05 08:00:00 95 % Commo n [facility] respiratory rate 2021-06-05 08:00:00 18 /min [facility] blood pressure systolic 2021-06-05 08:00:00 140 mm[Hg] [facility] blood pressure diastolic 2021-06-05 08:00:00 77 mm[Hg] [facility] Encounters Start Date/Time End Date/Time Encounter Type Admission Type Attending [facility] Facility Care Department Encounter ID Source 2023-06-24 14:31:00 Outpatient AmauryBarby STLMLC STLMLC [id number] [facility] 2023-06-13 14:39:00 Outpatient AmauryBarby STLMLC STLMLC [id number] [facility] 2023-05-29 09:57:00 Outpatient Amaury Barby STLMLC STLMLC [id number] [facility] 2023-04-08 09:54:00 Outpatient Amaury Barby STLMLC STLMLC [id number] [facility] 2022-12-04 13:54:00 Outpatient Barby Rebolledo STLMLC STLMLC [id number] [facility] 2022-06-20 08:48:00 Outpatient Elma Adams STLC [id number] [facility] 2022-06-07 09:57:01 Outpatient Adams, Na STLMLC STLMLC [id number] [facility] 2022-03-19 11:00:01 Outpatient Bryan, Na STLMLC STLMLC [id number] [facility] 2022-03-18 10:05:00 Outpatient Bryan Na STLMLC STLMLC [id number] [facility] 2021-11-15 08:27:01 Outpatient Bryan, Na STLMLC STLMLC [id number] [facility] 2021-10-03 14:21:31 Outpatient Bryan, Na STLMLC STLMLC [id number] [facility] 2021-10-03 13:53:02 Outpatient Bryan Na STLMLC STLMLC [id number] [facility] 2021-10-03 13:04:30 Outpatient Elma Adams STLMLC STLMLC [id number] [facility] 2021-10-03 12:13:35 Outpatient Kristi, Clare STLMLC STLMLC [id number] [facility] 2021-10-03 12:13:11 Outpatient Kristi, Clare STLMLC STLMLC [id number] [facility] 2021-10-03 11:58:43 Outpatient Kristi, Clare STLMLC STLMLC [id number] [facility] 2021-10-03 11:58:21 Outpatient Remedios Ng STLMLC STLMLC [id number] [facility] 2023-07-04 00:00:00 2023-07-04 00:00:00 Outpatient GC_GCBZW_Ka diyala_S [facility] [id number] [facility] 2023-02-04 00:00:00 2023-02-04 00:00:00 OFFICE VISIT ESTAB PT LEVEL 4 STLMLC STLMLC [id number] [facility] 2022-12-31 00:00:00 2022-12-31 00:00:00 OFFICE VISIT ESTAB PT LEVEL 4 STLMLC STLMLC [id number] [facility] 2022-09-12 00:00:00 2022-09-12 00:00:00 (TEL) STLMLC STLMLC [id number] [facility] 2022-06-24 00:00:00 2022-06-24 00:00:00 SUB ANNUAL [facility] VISIT STLMLC STLMLC [id number] [facility] 2022-06-24 00:00:00 2022-06-24 00:00:00 OFFICE VISIT EST PT LEVEL 3 STLMLC STLMLC [id number] [facility] 2022-06-07 00:00:00 2022-06-07 00:00:00 (TEL) STLMLC STLMLC [id number] [facility] 2022-03-27 00:00:00 2022-03-27 00:00:00 (TEL) STLMLC STLMLC [id number] [facility] 2022-03-20 00:00:00 2022-03-20 00:00:00 OL DIG E/M SVC 21+ MIN STLMLC STLMLC [id number] [facility] 2022-03-19 00:00:00 2022-03-19 00:00:00 (TEL) STLMLC STLMLC [id number] [facility] 2022-03-04 00:00:00 2022-03-04 00:00:00 (TEL) STLMLC STLMLC [id number] [facility] 2022-01-18 00:00:00 2022-01-18 00:00:00 (TEL) STLMLC STLMLC [id number] [facility] 2021-12-10 00:00:00 2021-12-10 00:00:00 OL DIG E/M SVC 11-20 MIN STLMLC STLMLC [id number] [facility] 2021-11-19 00:00:00 2021-11-19 00:00:00 OFFICE VISIT ESTAB PT LEVEL 4 STLMLC STLMLC [id number] [facility] 2021-08-15 00:00:00 2021-08-15 00:00:00 OL DIG E/M SVC 11-20 MIN STLMLC STLMLC [id number] [facility] 2021-06-19 00:00:00 2021-06-19 00:00:00 (TEL) STLMLC STLMLC [id number] [facility] 2021-06-13 00:00:00 2021-06-13 00:00:00 (TEL) STLMLC STLMLC [id number] [facility] 2021-06-12 00:00:00 2021-06-12 00:00:00 (TEL) STLMLC STLMLC [id number] [facility] 2021-06-05 00:00:00 2021-06-05 00:00:00 OFFICE VISIT ESTAB PT LEVEL 4 STLMLC STLMLC [id number] [facility] 2021-05-03 00:00:00 2021-05-03 00:00:00 Outpatient STLMLC STLMLC [id number] [facility] 2021-03-02 00:00:00 2021-03-02 00:00:00 Outpatient STLMLC STLMLC [id number] [facility] 2021-02-27 00:00:00 2021-02-27 00:00:00 Outpatient STLMLC STLMLC [id number] [facility] 2021-02-27 00:00:00 2021-02-27 00:00:00 Outpatient STLMLC STLMLC [id number] [facility] 2021-02-27 00:00:00 2021-02-27 00:00:00 Outpatient STLMLC STLMLC [id number] [facility] 2021-01-23 00:00:00 2021-01-23 00:00:00 Outpatient STLMLC STLMLC [id number] [facility] 2020-10-17 00:00:00 2020-10-17 00:00:00 Outpatient STLMLC STLMLC [id number] [facility] 2020-08-23 00:00:00 2020-08-23 00:00:00 Outpatient STLMLC STLMLC [id number] [facility] 2020-07-07 00:00:00 2020-07-07 00:00:00 Outpatient STLMLC STLMLC [id number] [facility] 2020-07-03 00:00:00 2020-07-03 00:00:00 Outpatient STLMLC STLMLC [id number] [facility] 2020-05-25 10:13:00 2020-05-25 10:13:[address] [facility] [id number] [facility] 2020-02-16 16:48:00 2020-02-16 16:48:00 [facility] [facility] [address] [id number] [facility] 2020-02-16 11:00:00 2020-02-16 11:00:00 [facility] [id number] [facility] 2020-02-10 11:00:00 2020-02-10 11:00:[address] [facility] [id number] [facility] 2020-01-27 13:08:00 2020-01-27 13:08:[address] [facility] [id number] [facility] 2020-01-27 09:09:00 2020-01-27 09:09:00 [facility] [id number] [facility] 2020-01-25 09:14:00 2020-01-25 09:14:[address] [facility] [facility] [id number] [facility] 2020-01-24 16:20:00 2020-01-24 16:20:[address] [facility] [id number] [facility] 2020-01-24 09:11:00 2020-01-24 09:11:[address] [facility] [id number] [facility] 2020-01-03 10:30:00 2020-01-03 10:30:[address] [facility] [id number] [facility] 2019-07-02 09:40:00 2019-07-02 09:40:[address] [facility] [place] [facility] [id number] [facility] 2018-12-24 10:00:00 2018-12-24 10:00:[address] [facility] [id number] [facility] 2018-08-19 02:27:00 2018-08-19 02:27:[address] [facility] [place] [facility] [id number] [facility] 2018-06-25 10:15:00 2018-06-25 10:15:[address] [facility] [place] [facility] [id number] [facility] 2018-01-27 10:30:00 2018-01-27 10:30:00 [facility] [id number] [facility] 2018-01-02 14:27:00 2018-01-02 14:27:[address] [facility] [place] [facility] [id number] [facility] 2017-12-29 10:47:00 2017-12-29 10:47:[address] [facility] [place] [facility] [id number] [facility] 2017-12-25 10:30:00 2017-12-25 10:30:[address] [facility] [id number] [facility] 2017-12-25 08:58:00 2017-12-25 08:58:00 Outpatient Scott bourne [facility] [id number] [facility] Results Test Description Test Time Test Comments Results Result Co mments Source
[2023-09-04 12:52] LABS: Specific Gravity 1.006 (1.005-1.030); Urine Bilirubin NEGATIVE (Negative); Urine Blood Negative (Negative); Urine Clarity Clear (Clear); Urine Color Colorless (Yellow); Urine Glucose NEGATIVE (Negative); Urine Protein NEGATIVE (Negative); Urine Urobilinogen Normal (Normal); Urine pH 7.5 (5.0-7.0)
[2023-09-04 13:08] LABS: Absolute Lymphocytes (CBC) 1.2 K/uL (0.7-4.9); Hematocrit 35.1 % (36.0-45.0); Lymphocytes % 18.9 % (15.3-44.8); MCV 100.7 fL (80-100); MPV 8.7 fL (7.6-11.3); Platelets 214 thou/uL (152-406); RBC Red Blood Cell Count 3.49 M/uL (3.86-4.86)
[2023-09-04 13:26] LABS: Albumin 3.5 g/dL (3.4-5.0); Bilirubin Total 0.5 mg/dL (0.2-1.0); Protein, Total 6.7 g/dL (6.4-8.2)
[2023-09-04 13:27] LABS: Potassium 3.8 mEq/L (3.5-5.1)
--- NOTE | 2023-09-04 13:57 | EDPHYS ---
Physician Documentation [facility] Name: Suma Lopez Age: 87 yrs Sex: Female : 1935 Arrival Date: 09/04/2023 Time: 11:08 Bed 13 Private MD: ED Physician Artemio King HPI: 09/04 11:31 This 87 yrs old Female presents to ER via Ambulatory with complaints of ec2 Urinary Problem. 11:31 Patient arrives today due to concern for urinary complaints. Patient reports that she ec2 has been having increasing urinary frequency, states that she noticed this yesterday. Patient reports no nausea or vomiting, denies any diarrhea symptoms. Patient reports that she has a history of GI issues, she told that she is supposed undergo a colonoscopy however she refuses. Patient with chronic abdominal pain as well as constipation. She denies any fevers or chills, no cough and cold symptoms.. Historical: - Allergies: 11:25 Bactrim; hb 11:25 Biaxin; hb 11:25 Ciprofloxacin; hb 11:25 Cortisone Eye drops; hb 11:25 Doxycycline; hb 11:25 Levaquin; hb 11:25 PENICILLINS; hb 11:25 TETRACYCLINES; hb 11:25 Zithromax; hb - Home Meds: 11:26 Zioptan (PF) 0.0015 % ophthalmic dpet 1 drop nightly [Active]; hb hydrocodone-acetaminophen 5-325 mg Oral tab 1 tab every 6 hours [Active]; Restasis 0.05 % ophthalmic dpet 1 drop 2 times per day [Active]; Refresh Tears 0.5 % ophthalmic drop [Active]; pregabalin 75 mg oral capsule daily [Active]; Align 4 mg Oral cap daily [Active]; Pepcid 40 mg oral tablet 2 times per day [Active]; Voltaren Oral [Active]; - PMHx: 11:25 Hypertension; Hypothyroidism; Glaucoma; hb 11:26 Arthritis; Scoliosis; hb - PSHx: 11:26 Foot - Left; hb - Immunization history:: Adult Immunizations unknown. - Social history:: Smoking status: unknown. ROS: 11:31 Constitutional: as per hpi ec2 Exam: :31 Constitutional: GEN: NAD Head: atraumatic Eyes: EOMI Ears: External ears are ec2 normal. CV: regular rate LUNGS: no respiratory distress ABD: non-distended, soft, not guarding, not rigid SKIN: no evidence of rashes MSK: no evidence of trauma NEURO: moves all extremities equally Vital Signs: 11:24 BP 138 / 69; Pulse 84; Resp 20; Temp 97.6(O); Pulse Ox 100% on R/A; Weight 46.27 kg; hb Height 5 ft. 3 in. ; Pain 10/10; 11:24 Body Mass Index 18.07 (46.27 kg, 160.02 cm) hb 11:24 Pain Scale: Adult hb MDM: 11:30 Patient medically screened. ec2 11:31 Data reviewed: vital signs. ED course: Patient arrives today for evaluation of urinary ec2 complaints. Examination remarkable for well-appearing nontoxic individual is in no acute distress with reassuring vital signs. Will obtain lab work, urine studies. Currently considering processes such as FELICITY, UTI. 13:16 ED course: CBC is reassuring, urine is noninfectious appearing. . ec2 13:46 ED course: Metabolic profile is reassuring. CBC without marked abnormalities. Lipase ec2 within normal ranges. . 13:56 ED course: On reassessment patient is well-appearing in no acute distress. I will ec2 discharge her with prescription for Pyridium. Return precautions given.. 09/04 11:30 Order name: CBC with Diff; Complete Time: 13:16 ec2 09/04 11:30 Order name: CMP; Complete Time: 13:46 ec2 09/04 11:30 Order name: Lipase; Complete Time: 13:46 ec2 09/04 11:30 Order name: Urinalysis w/ reflexes; Complete Time: 13:16 ec2 09/04 11:30 Order name: IV Saline Lock; Complete Time: 12:59 ec2 09/04 11:30 Order name: Labs collected and sent; Complete Time: 12:59 ec2 Administered Medications: No medications were administered Disposition Summary: 09/04/23 13:56 Discharge Ordered Notes: Location: Home ec2 Condition: Stable ec2 Diagnosis - Dysuria ec2 Followup: ec2 - With: Private Physician - When: - Reason: Recheck today's complaints Discharge Instructions: - Discharge Summary Sheet ec2 - Dysuria ec2 Forms: - Medication Reconciliation Form ec2 - Thank You Letter ec2 - Antibiotic Education ec2 - Prescription Opioid Use ec2 - Patient Portal Instructions ec2 - Leadership Thank You Letter ec2 Prescriptions: - Pyridium 200 mg Oral Tablet - take 1 tablet ORAL route every 8 hours for 3 days; 9 tablet; Refills: 0, ec2 Product Selection Permitted Signatures: Dispatcher [employer] Alpa Moreno RN RN Agnes Small RN RN hb Corral, Edwin, MD MD ec2
--- NOTE | 2023-09-04 13:57 | ER ---
Nurse's Notes [facility] Name: Suma Lopez Age: 87 yrs Sex: Female : 1935 Arrival Date: 09/04/2023 Time: 11:08 Bed 13 Private MD: Diagnosis: Dysuria Presentation: 09/04 11:24 Chief complaint: Urinary urgency and frequency, burning with urination, and body aches hb x 2-3 days. Coronavirus screen: Client presents with at least one sign or symptom that may indicate coronavirus-19. Provider contacted for isolation considerations. Ebola Screen: No symptoms or risks identified at this time. Initial Sepsis Screen: Does the patient meet any 2 criteria? No. Patient's initial sepsis screen is negative. Does the patient have a suspected source of infection? No. Patient's initial sepsis screen is negative. Risk Assessment: Do you want to hurt yourself or someone else? Patient reports no desire to harm self or others. Onset of symptoms was September 02, 2023. 11:24 Method Of Arrival: Ambulatory hb 11:24 Acuity: PARK 3 hb Historical: - Allergies: 11:25 Bactrim; hb 11:25 Biaxin; hb 11:25 Ciprofloxacin; hb 11:25 Cortisone Eye drops; hb 11:25 Doxycycline; hb 11:25 Levaquin; hb 11:25 PENICILLINS; hb 11:25 TETRACYCLINES; hb 11:25 Zithromax; hb - Home Meds: 11:26 Zioptan (PF) 0.0015 % ophthalmic dpet 1 drop nightly [Active]; hb hydrocodone-acetaminophen 5-325 mg Oral tab 1 tab every 6 hours [Active]; Restasis 0.05 % ophthalmic dpet 1 drop 2 times per day [Active]; Refresh Tears 0.5 % ophthalmic drop [Active]; pregabalin 75 mg oral capsule daily [Active]; Align 4 mg Oral cap daily [Active]; Pepcid 40 mg oral tablet 2 times per day [Active]; Voltaren Oral [Active]; - PMHx: 11:25 Hypertension; Hypothyroidism; Glaucoma; hb 11:26 Arthritis; Scoliosis; hb - PSHx: 11:26 Foot - Left; hb - Immunization history:: Adult Immunizations unknown. - Social history:: Smoking status: unknown. Screenin:[facility] Fall Risk Assessment (Adult) History of falling in the last 3 months, ph including since admission No falls in past 3 months (0 pts) Score/Fall Risk Level 0 - 2 = Low Risk Oriented to surroundings, Maintained a safe environment, Hourly rounding (assess needs \T\ fall precautionary measures) done. Abuse screen: Denies threats or abuse. Denies injuries from another. Nutritional screening: No deficits noted. Tuberculosis screening: No symptoms or risk factors identified. Assessment: 13:35 General: Appears in no apparent distress. Behavior is calm, cooperative, appropriate ph for age. Pain: Complains of pain in body aches. Neuro: Level of Consciousness is awake, alert, obeys commands, Oriented to person, place, time, situation. Cardiovascular: Capillary refill < 3 seconds in bilateral fingers Patient's skin is warm and dry. Respiratory: Airway is patent Respiratory effort is even, unlabored. : Reports burning with urination, urgency, urinary frequency. Derm: Skin is pink, warm \T\ dry. Vital Signs: 11:24 BP 138 / 69; Pulse 84; Resp 20; Temp 97.6(O); Pulse Ox 100% on R/A; Weight 46.27 kg; hb Height 5 ft. 3 in. ; Pain 10/10; 11:24 Body Mass Index 18.07 (46.27 kg, 160.02 cm) hb 11:24 Pain Scale: Adult hb ED Course: 11:11 Patient arrived in ED. mg5 11:15 Artemio King MD is Attending Physician. ec2 11:25 Triage completed. hb 11:30 Arm band placed on. hb 12:41 Alpa Benavidez, RN is Primary Nurse. ph 12:42 Patient has correct armband on for positive identification. Bed in low position. Call ph light in reach. Side rails up X 1. Pulse ox on. NIBP on. 12:45 Urinalysis w/ reflexes Sent. zm 12:59 Inserted saline lock: 20 gauge in right antecubital area, using aseptic technique. zm Blood collected. 12:59 CBC with Diff Sent. zm 12:59 CMP Sent. zm 12:59 Lipase Sent. zm 12:59 UAM Sent. zm 14:18 No provider procedures requiring assistance completed. IV discontinued, intact, ph bleeding controlled, No redness/swelling at site. Pressure dressing applied. Administered Medications: No medications were administered Medication: 12:43 VIS not applicable for this client. ph Outcome: 13:56 Discharge ordered by . ec2 14:18 Discharged to home ambulatory, with family, ph 14:18 Condition: good 14:18 Discharge instructions given to patient, Instructed on discharge instructions, follow up and referral plans. medication usage, Demonstrated understanding of instructions, follow-up care, medications, Prescriptions given X 1, 14:19 Patient left the ED. ph Signatures: Alpa Benavidez RN RN ph Agnes Small RN RN Tracey Roman [facility] mg5 Artemio King MD MD ec2 Corrections: (The following items were deleted from the chart) 11:30 11:24 BP 138 / 69; Pulse 84bpm; Resp 20bpm; Pulse Ox 100% RA; Temp 97.6F Oral; hb hb
[2023-09-04 15:03] VITALS: BP 138/69; TEMP 97.6; O2SAT 100
== END ==
LOC: ER 11:08
DX: R30.0 Dysuria (principal); R35.0 Frequency of micturition; I10 Essential (primary) hypertension; E03.9 Hypothyroidism, unspecified; Z88.0 Allergy status to penicillin; Z88.1 Allergy status to other antibiotic agents; Z88.3 Allergy status to other anti-infective agents; Z88.6 Allergy status to analgesic agent; Z88.8 Allergy status to other drugs, medicaments and biological substances
CPT/HCPCS: 36415; 80053; 81003; 83690; 85025; 99284